=== PATIENT | female | born 1950 | race Caucasian/White ===

== ENCOUNTER → 2018-04-23 08:47 | Outpatient (CLI) | payer MEDICARE, SELFPAY ==
--- NOTE | 2018-04-23 08:51 | BI_ITS ---
MAMMOGRAPHY - BILATERAL SCREENING REASON FOR EXAM: Female, 68 years old. Routine annual screening examination. PERTINENT HISTORY: Personal history of breast cancer. Prior left lumpectomy. Mother with breast cancer. TECHNIQUE: Digital bilateral breast delmer (3D mammographic acquisition) in the CC and MLO projections. 2-D mediolateral oblique (MLO) and craniocaudad (CC) views of both breasts were obtained. CAD: Full Field Digital Mammography with Computer Added Detection was performed. COMPARISON: Comparison is made with prior examination of April 10, 2017 and March 28, 2016. FINDINGS: Breast Composition: There are scattered areas of fibroglandular density. There are no dominant masses or suspicious calcifications. Stable architectural distortion is seen in the inferior midportion of the left breast at the surgical site. This is unchanged. No other significant abnormalities are identified. There has been no significant change since the prior study. BI/SCREENING MAMM (CAD), BILAT IMPRESSION: Stable bilateral screening mammogram. Yearly follow-up mammogram recommended. (A) ASSESSMENT CATEGORY: BIRADS Category 2: Benign. A letter regarding these results will be sent to the patient by the facility within 30 days. Approximately 10% of breast cancers are not detected by mammography. A normal mammogram should not delay biopsy of a clinically suspicious abnormality. [id number] Electronically Signed: Pablo Manzo MD at 10:20 EST Tel [phone], Service support ,
--- OUTSIDE RECORDS SUMMARY | 2018-06-18 08:31 | XMS RPT_ITS | Clinical Summary ---
:[address] [facility], [facility] Address [address] [place] [phone] Phone Care Team Providers Name Role Phone Andmatty, Evelyne A Unavailable Unavailable Conditions or Problems No information available. Medications Medication Instructions Start Stop Generic Name NDC Provider Date Date TAMOXIFEN One tablet by TAMOXIFEN 80626335042 Evelyne A CITRATE 20 MG mouth daily 21 CITRATE Andriessen TABS ATORVASTATIN One tablet by ATORVASTATIN [id number] Evelyne A CALCIUM 10 MG mouth daily 21 CALCIUM Andriessen TABS Medications Administered No information available. Allergies, Adverse Reactions, Alerts No information available. Results Date Name Value Unit Range Flag Description Clinical Lists Update: Preload SMOK STATUS Never smoker Tobacco use [facility] Plan of Care Type Date Detail Appointment 09:00 AM Yanna Sinclair MD, [address] [place] [address], Third [facility], [place], [address], Procedures No information available. Vital Signs No information available.
--- OUTSIDE RECORDS SUMMARY | 2018-06-18 08:31 | XMS RPT_ITS | Clinical Summary ---
:1950 Author Organization [facility], [facility] Address [address] [place] [phone] Phone Care Team Providers Name Role Phone Yahir TINOCO, Yanna Aragon Unavailable Conditions or Problems Problem Problem Onset Status Entry Provider Comment Standard Annotate Name Code Date Date Description Screening [id number] Active Yanna Aragon Screening mammogram (SN Yahir mammography for breast CT) cancer Medications Medication Instructions Start Stop Generic Name NDC Provider Date Date TAMOXIFEN One tablet by TAMOXIFEN [id number] Evelyne A CITRATE 20 MG mouth daily 21 CITRATE Andriessen TABS ATORVASTATIN One tablet by ATORVASTATIN [id number] Evelyne A CALCIUM 10 MG mouth daily 21 CALCIUM Andriessen TABS Medications Administered No information available. Allergies, Adverse Reactions, Alerts No information available. Results Date Name Value Unit Range Flag Description Clinical Lists Update: Preload SMOK STATUS Never smoker Tobacco use [facility] Plan of Care Type Date Detail Appointment 09:00 AM Yanna Sinclair MD, [address] [place] [address], Third [facility], [place], [phone], Pending order Mammogram, Screening, both breasts Procedures No information available. Vital Signs No information available.
--- OUTSIDE RECORDS SUMMARY | 2018-06-18 08:32 | XMS RPT_ITS ---
:1950 Author Organization [place] Care Team Providers Name Role Phone ELIJAH CROOKS (MARSHA) Attending Unavailable ELIJAH CROOKS (MARSHA) Referring Unavailable CEBUL III, JOSÉ Barrera Referring Unavailable CEBUL III, JOSÉ Barrera Referring Unavailable DONAVON MACKEY Admitting Unavailable DONAVON MACKEY Attending Unavailable DONAVON MACKEY Referring Unavailable CEBUL III, JOSÉ Barrera Attending Unavailable ELIJAH CROOKS (MARSHA) Attending Unavailable ELIJAH CROOKS (MARSHA) Referring Unavailable Elijah Crooks CHUTE GREASER-Anoop Attending Unavailable Cebul III, José Primary Care Unavailable Elijah Crooks CHUTE GREASER-C Referring Unavailable PROBLEMS PROBLEMS DATE TYPE CONDITION / CODE ATTENDING STATUS SOURCE 04/30/2018 Active Unknown / VALERIY, Active [facility] UNK(Unknown) ELIJAH (MARSHA) Main [place] Repository 04/23/2018 Unknown Z12.31 - Richa Crooks Encounter for Elijah CARPENTER-Anoop [facility] screening Hospital mammogram for Repository malignant neoplasm of breast / Z12.31(ICD-10) 04/23/2018 Unknown D05.12 - Valeriy, Active [facility] Elijah CARPENTER-Anoop [facility] carcinoma in situ Hospital of left breast / Repository D05.12(ICD-10) 01/08/2018 Active Hypothyroidism, NA Active [facility] unspecified / Main [facility] E03.9(ICD-10) Repository 09/20/2015 Active Hyperlipidemia, NA Active [facility] unspecified / Main [facility] E78.5(ICD-10) Repository 10/29/2013 Active Other specified NA Active [facility] disorders of bone [facility] density and Repository structure, unspecified site / M85.80(ICD-10) 07/04/2017 Active Encounter for NARENDRA, Active [facility] screening for DONAVON T [facility] malignant Repository neoplasm of colon / Z12.11(ICD-10) PROCEDURES PROCEDURES No Procedure Records FoundRESULTS RESULTS PROGRESS Observed: 04/30/2018 Status: COMPLETED Source: [place] 10:32 AM [facility] REPOSITORY HNO ID: [id number] Author: Elijah Crooks Service: (none) Author Type: Nurse Practitioner Type: Progress Notes Filed: 04/30/2018 11:39 AM Note Text: Chief Complaint Patient presents with: Established Patient HPI: Alisa Johnson is a 68 year old female who presents here today for follow up DCIS. Per Dr. Pedro's previous note: H/o observed to have an abnormality in her left breast on a screening mammogram done in December 2014. She underwent stereotactic guided biopsy. The pathology demonstrated intermediate grade DCIS. ?? Ultimately underwent a lumpectomy here in [place]. The final pathology demonstrated a focus of DCIS measuring less than 1 mm. Architecture was cribriform. Grade was low. No necrosis was observed. Margins were negative. There was a reexcision of the posterior margin which contained 0.5 cm of breast tissue without evidence of DCIS. Closest margin was 5 mm. Estrogen and progesterone receptors were positive. ?? Current therapy: 1) Tamoxifen. ?Began fall 2014. ? No complaints. ?? Appetite:good Energy level:good Denies fevers or recent illness. Resp:denies cough or sob, occ. chandra long distances Cardiac:denies chest pain/palpitations GI:denies abd pain, n/v, moving bowels regularly :denies dysuria/hematuria Extrem:denies pain to back/bones/joints, the cramping is better. 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 ? The ROS is otherwise negative. Past medical history, appointments, medications, allergies reviewed. No changes. EXAM: BP 149/80 Pulse 80 Temp 36.8 ?C (98.3 ?F) (Oral) Wt 76 kg (167 lb 8 oz) BMI 28.53 kg/m? APPEARANCE Well appearing, alert, in no acute distress, well-hydrated, well nourished. HEART RRR with normal S1 and S2, no murmurs LUNG clear to auscultation BREAST FEMALE no mass/nodule b/l LYMPH NODES No cervical lymphadenopathy, No supraclavicular lymphadenopathy and No axillary lymphadenopathy. ABDOMEN bowel sounds normoactive, soft, non-tender, non-distended, without organomegaly or palpable masses EXTREMITIES No edema NEURO Awake, alert and oriented x 3, Normal gait and No involuntary motions. SKIN Skin color, texture, turgor normal, no suspicious rashes or lesions ASSESSMENT/PLAN: 1. 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 - ?Tamoxifen-tolerating well. leg cramping much improved. Continue. - Reviewed mammogram with pt. - Mammogram due in 2018. Pt. has this done at [facility]. - ?Follow up in 6 months. - ?Pt. aware to call office with any questions/concerns. ? ? The patient indicates understanding of these issues and agrees with the plan. Elijah Crooks APRN.CNP CNOVSP Observed: 04/30/2018 Status: COMPLETED Source: [place] 10:30 AM [facility] REPOSITORY Visit (SP) Office (NADER) ALISA JOHNSON ([id number]) 1950 F Date Time Provider Department 04/30/18 10:30 AM ELIJAH CROOKS During your visit today, we recorded the following information about you: Temperature Pulse Blood pressure Weight 98.3 degrees 80/minute 149/80 76 kg Elijah Crooks APRN.CNP 04/30/2018 11:39 AM Signed Chief Complaint Patient presents with: Established Patient HPI: Alisa Johnson is a 68 year old female who presents here today for follow up DCIS. Per Dr. Pedro's previous note: H/o observed to have an abnormality in her left breast on a screening mammogram done in December 2014. She underwent stereotactic guided biopsy. The pathology demonstrated intermediate grade DCIS. ?? Ultimately underwent a lumpectomy here in [place]. The final pathology demonstrated a focus of DCIS measuring less than 1 mm. Architecture was cribriform. Grade was low. No necrosis was observed. Margins were negative. There was a reexcision of the posterior margin which contained 0.5 cm of breast tissue without evidence of DCIS. Closest margin was 5 mm. Estrogen and progesterone receptors were positive. ?? Current therapy: 1) Tamoxifen. ?Began fall 2014. ? No complaints. ?? Appetite:good Energy level:good Denies fevers or recent illness. Resp:denies cough or sob, occ. chandra long distances Cardiac:denies chest pain/palpitations GI:denies abd pain, n/v, moving bowels regularly :denies dysuria/hematuria Extrem:denies pain to back/bones/joints, the cramping is better. 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 ? The ROS is otherwise negative. Past medical history, appointments, medications, allergies reviewed. No changes. EXAM: BP 149/80 Pulse 80 Temp 36.8 ?C (98.3 ?F) (Oral) Wt 76 kg (167 lb 8 oz) BMI 28.53 kg/m? APPEARANCE Well appearing, alert, in no acute distress, well- hydrated, well nourished. HEART RRR with normal S1 and S2, no murmurs LUNG clear to auscultation BREAST FEMALE no mass/nodule b/l LYMPH NODES No cervical lymphadenopathy, No supraclavicular lymphadenopathy and No axillary lymphadenopathy. ABDOMEN bowel sounds normoactive, soft, non-tender, non-distended, without organomegaly or palpable masses EXTREMITIES No edema NEURO Awake, alert and oriented x 3, Normal gait and No involuntary motions. SKIN Skin color, texture, turgor normal, no suspicious rashes or lesions ASSESSMENT/PLAN: 1. 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 - ?Tamoxifen-tolerating well. leg cramping much improved. Continue. - Reviewed mammogram with pt. - Mammogram due in 2018. Pt. has this done at [facility]. - ?Follow up in 6 months. - ?Pt. aware to call office with any questions/concerns. ? ? The patient indicates understanding of these issues and agrees with the plan. Elijah Crooks APRN.DRIVER STARTING GATE Referring Provider: ELIJAH CROOKS [[id number]] Allergies As of Date: 04/30/2018 Noted Allergy Reaction CODEINE 02/27/2005 8 - GI Upset NAPROSYN (NAPROXEN) 02/27/2005 8 - GI Upset TAVIST (CLEMASTINE FUMARATE) 02/27/2005 8 - GI Upset Date Reviewed: 04/30/2018 Reviewed by: Elijah Crooks - Fully Assessed Reason for Visit: Established Patient [175] Primary Visit Diagnosis:Ductal carcinoma in situ (DCIS) of left breast [D05.12] Follow-up and Disposition History Recorded Prescriptions as of 04/30/2018 Sig: ATORVASTATIN 10 MG TABLET Take 1 tablet by mouth once d* TAMOXIFEN 20 MG TABLET Take 1 tablet by mouth once d* CALCIUM + D ORAL Take 2 tablets by mouth twice* * MULTIVITAMIN CAPSULE Take one(1) tablet daily. Problem List As Of Date 04/30/2018 Noted Resolved Dysmetabolic syndrome X [E88.81] INVALID FOR*05/09/2014 GERD (gastroesophageal reflux disease) [K21.9] INVALID FOR*09/28/2015 Postmenopausal atrophic vaginitis [N95.2] INVALID FOR* Osteopenia [M85.80] INVALID FOR* Hyperlipidemia with target LDL less than 100 [E*INVALID FOR* Ductal carcinoma in situ (DCIS) of left breast *INVALID FOR* Encounter Status:Closed by ELIJAH CROOKS DRIVER STARTING GATE on 04/30/18 SCREENING MAMM (CAD), Observed: 04/23/2018 Status: F Source: [place] 8:51 AM [facility] REPOSITORY [facility] Imaging Services [address] [place] [address] SCREENING MAMM (CAD), BILAT MR#: [id number] Acct: [id number] Name: ALISA JOHNSON Rep #: [id number] : 1950 F 68 From: Pablo Manzo MD PCP: José Conti III, MD Status: REG CLI Study: SCREENING MAMM (CAD), BILAT Date of Exam: 04/23/18 Exam# [id number] Ordering Dr: Elijah Crooks CHUTE GREASER-C MAMMOGRAPHY - BILATERAL SCREENING REASON FOR EXAM: Female, 68 years old. Routine annual screening examination. PERTINENT HISTORY: Personal history of breast cancer. Prior left lumpectomy. Mother with breast cancer. TECHNIQUE: Digital bilateral breast dana (3D mammographic acquisition) in the CC and MLO projections. 2-D mediolateral oblique (MLO) and craniocaudad (CC) views of both breasts were obtained. CAD: Full Field Digital Mammography with Computer Added Detection was performed. COMPARISON: Comparison is made with prior examination of April 10, 2017 and March 28, 2016. FINDINGS: Breast Composition: There are scattered areas of fibroglandular density. There are no dominant masses or suspicious calcifications. Stable architectural distortion is seen in the inferior midportion of the left breast at the surgical site. This is unchanged. No other significant abnormalities are identified. There has been no significant change since the prior study. BI/SCREENING MAMM (CAD), BILAT IMPRESSION: Stable bilateral screening mammogram. Yearly follow-up mammogram recommended. (A) ASSESSMENT CATEGORY: BIRADS Category 2: Benign. A letter regarding these results will be sent to the patient by the facility within 30 days. Approximately 10% of breast cancers are not detected by mammography. A normal mammogram should not delay biopsy of a clinically suspicious abnormality. [id number] Electronically Signed: Pablo Manzo MD at 10:20 EST Tel [phone], Service support , CC: GAGE Crooks; José Conti III, MD Berry Planter: Signed FREE T4 Collected: 01/08/2018 Status: F Source: [place] 8:20 AM [facility] REPOSITORY TYPE CODE TESTS RESULT OUT OF RANGE REFERENCE UNITS LAB FT4 0.9-1.7 ng/dL Free T4 1.5 Performed By: #### FT4, TSH #### [facility] [address] [address], [place] [address] TSH Collected: 01/08/2018 Status: F Source: [place] 8:20 AM [facility] REPOSITORY TYPE CODE TESTS RESULT OUT OF RANGE REFERENCE UNITS LAB TSH 0.400-5.500 uU/mL TSH 1.290 Performed By: #### FT4, TSH #### [facility] [address] [place], [place] [address] PROGRESS Observed: 11/06/2017 Status: COMPLETED Source: [place] 10:05 AM [facility] REPOSITORY HNO ID: [id number] Author: José Conti III Service: (none) Author Type: Physician Type: Progress Notes Filed: 11/06/2017 12:54 PM Note Text: Medicare Yearly Visit Date of last exam 08/29/2016 Current Outpatient Prescriptions on File Prior to Visit: tamoxifen (NOLVADEX) 20 mg tablet Take 1 tablet by mouth once daily. atorvastatin (LIPITOR) 10 mg tablet TAKE 1 TABLET EVERY DAY CALCIUM CARBONATE/VITAMIN D3 (CALCIUM + D ORAL) Take 2 tablets by mouth twice daily. MULTIVITAMIN CAP Take one(1) tablet daily. No current facility-administered medications on file prior to visit. PAST MEDICAL HISTORY Diagnosis Date - Ductal carcinoma in situ (DCIS) of left breast December, on tamoxifen - Hyperlipidemia LDL goal < 100 05/09/2014 - Nocturia PAST SURGICAL HISTORY Procedure Laterality Date - BREAST LUMPECTOMY HX 02/16/2015 Left breast - COLONOSCOP W/ OR W/O [facility] SPEC 02/02/2007 Colonoscopy - COLONOSCOP W/ OR W/O [facility] SPEC 07/04/2017 Colonoscopy - LIGATE FALLOPIAN TUBE Tubal ligation Codeine; Naprosyn [Naproxen]; Tavist [Clemastine Fumarate] Medications reviewed: Yes FAMILY HISTORY Problem Relation Age of Onset - Diabetes Paternal Grandmother - Diabetes Father - Heart Father 4 X BYPASS - Heart Maternal Grandmother - Coronary Artery Disease Maternal Aunt - Coronary Artery Disease Maternal Aunt - Cancer Brother 12 RCC--Surgically excised. Alive and well now. - Parkinson's disease [Other] [OTHER] Brother - None Brother - None Brother - Macular Degeneration [Other] [OTHER] Mother - Breast Cancer Mother 76 Surgery then radiation and tamoxifen - Stroke Father SOCIAL HISTORY: Social History Marital status: Spouse name: Nery Years of education: 13 Number of children: 2 Occupational History Occupation Employer Comment [employer] Social History Main Topics Smoking status: Never Smoker Smokeless tobacco: Never Used Alcohol use: Yes Comment: rarely Drug use: No Sexual activity: Yes Comment: Postmenopausal Alisa works out regularly 2 times per week with walking and recumbent bike. She watches her diet for sodium, low fat and low cholesterol most of the time. List of current specialists seen: Oncology End of Live Planning discussed including patients advanced directive wishes: Yes I am willing to follow Alisa's advanced directives. Depression screen She in the past two weeks denies having felt down. Functional Ability/Safety Screen 1. Was the patient's timed Up and Go test unsteady or longer than 30 seconds? No 2. Does the patient need help with the phone, transportation, shopping,preparing meals, housework, laundry, medications or managing money? No 3. Does your home have rugs in the hallway, lack of grab bars in the bathroom, lack of handrails on the stairs or have poor lighting? No Hearing Evaluation: normal PHYSICAL EXAM BP 145/81 Pulse 78 Resp 16 Ht 163.2 cm (5' 4.25) Wt 74.8 kg (165 lb) BMI 28.10 kg/m? BP There were no vitals taken for this visit. Alert and oriented X 3: YES There is no height or weight on file to calculate BMI. Visual acuity: Dr. George in [place] Lab Results for ALISA JOHNSON ( ) as of 11/06/2017 10:18 Ref. Range 09/18/2017 07:50 Sodium Latest Ref Range: 136 - 144 mmol/L 137 Potassium Latest Ref Range: 3.7 - 5.1 mmol/L 4.4 Chloride Latest Ref Range: 97 - 105 mmol/L 98 CO2 Latest Ref Range: 22 - 30 mmol/L 26 BUN Latest Ref Range: 7 - 21 mg/dL 15 Creatinine Latest Ref Range: 0.58 - 0.96 mg/dL 0.83 Glucose Latest Ref Range: 74 - 99 mg/dL 87 Protein, Total Latest Ref Range: 6.3 - 8.0 g/dL 6.7 Calcium Latest Ref Range: 8.5 - 10.2 mg/dL 9.2 Albumin Latest Ref Range: 3.9 - 4.9 g/dL 4.4 Bilirubin, Total Latest Ref Range: 0.2 - 1.3 mg/dL 0.4 Alkaline Phosphatase Latest Ref Range: 32 - 117 U/L 37 ALT Latest Ref Range: 7 - 38 U/L 17 AST Latest Ref Range: 13 - 35 U/L 20 Anion Gap Latest Ref Range: 9 - 18 mmol/L 13 eGFR- Unknown >60 eGFR-All Other Races Latest Units: . >60 Cholesterol, Total Latest Ref Range: <200 mg/dL 142 Triglyceride Latest Ref Range: <150 mg/dL 94 Fasting Time Latest Units: hrs 14 HDL Cholesterol Latest Ref Range: >39 mg/dL 69 LDL Cholesterol Latest Ref Range: <100 mg/dL 54 VLDL Cholesterol Latest Ref Range: <30 mg/dL 19 TC:HDL Ratio Latest Ref Range: <5.10 2.06 LDL:HDL Ratio Latest Ref Range: <2.54 0.78 Non HDL Cholesterol Latest Ref Range: <130 mg/dL 73 ASSESSMENT/PLAN: 67 year old female The following prevention plan was discussed during the office visit and provided to the patient: - Lipid panel I recommend Shingrix and tetanus booster Same medications José Conti III MD José Conti III MD LIANG Observed: 11/06/2017 Status: COMPLETED Source: [place] 9:40 AM [facility] REPOSITORY [facility] ALISA JOHNSON ([id number]) 1950 F Date Time Provider Department 11/06/17 9:40 AM JOSÉ CONTI III During your visit today, we recorded the following information about you: Pulse Respiration Blood pressure Weight 78/minute 16/minute 145/81 74.8 kg Height 1.632 m José Conti III MD 11/06/2017 12:54 PM Signed Medicare Yearly Visit Date of last exam 08/29/2016 Current Outpatient Prescriptions on File Prior to Visit: tamoxifen (NOLVADEX) 20 mg tablet Take 1 tablet by mouth once daily. atorvastatin (LIPITOR) 10 mg tablet TAKE 1 TABLET EVERY DAY CALCIUM CARBONATE/VITAMIN D3 (CALCIUM + D ORAL) Take 2 tablets by mouth twice daily. MULTIVITAMIN CAP Take one(1) tablet daily. No current facility-administered medications on file prior to visit. PAST MEDICAL HISTORY Diagnosis Date - Ductal carcinoma in situ (DCIS) of left breast December, on tamoxifen - Hyperlipidemia LDL goal < 100 05/09/2014 - Nocturia PAST SURGICAL HISTORY Procedure Laterality Date - BREAST LUMPECTOMY HX 02/16/2015 Left breast - COLONOSCOP W/ OR W/O [facility] SPEC 02/02/2007 Colonoscopy - COLONOSCOP W/ OR W/O [facility] SPEC 07/04/2017 Colonoscopy - LIGATE FALLOPIAN TUBE Tubal ligation Codeine; Naprosyn [Naproxen]; Tavist [Clemastine Fumarate] Medications reviewed: Yes FAMILY HISTORY Problem Relation Age of Onset - Diabetes Paternal Grandmother - Diabetes Father - Heart Father 4 X BYPASS - Heart Maternal Grandmother - Coronary Artery Disease Maternal Aunt - Coronary Artery Disease Maternal Aunt - Cancer Brother 12 RCC--Surgically excised. Alive and well now. - Parkinson's disease [Other] [OTHER] Brother - None Brother - None Brother - Macular Degeneration [Other] [OTHER] Mother - Breast Cancer Mother 76 Surgery then radiation and tamoxifen - Stroke Father SOCIAL HISTORY: Social History Marital status: Spouse name: Nery Years of education: 13 Number of children: 2 Occupational History Occupation Employer Comment [employer] Social History Main Topics Smoking status: Never Smoker Smokeless tobacco: Never Used Alcohol use: Yes Comment: rarely Drug use: No Sexual activity: Yes Comment: Postmenopausal Alisa works out regularly 2 times per week with walking and recumbent bike. She watches her diet for sodium, low fat and low cholesterol most of the time. List of current specialists seen: Oncology End of Live Planning discussed including patients advanced directive wishes: Yes I am willing to follow Alisa's advanced directives. Depression screen She in the past two weeks denies having felt down. Functional Ability/Safety Screen 1. Was the patient's timed Up and Go test unsteady or longer than 30 seconds? No 2. Does the patient need help with the phone, transportation, shopping,preparing meals, housework, laundry, medications or managing money? No 3. Does your home have rugs in the hallway, lack of grab bars in the bathroom, lack of handrails on the stairs or have poor lighting? No Hearing Evaluation: normal PHYSICAL EXAM BP 145/81 Pulse 78 Resp 16 Ht 163.2 cm (5' 4.25) Wt 74.8 kg (165 lb) BMI 28.10 kg/m? BP There were no vitals taken for this visit. Alert and oriented X 3: YES There is no height or weight on file to calculate BMI. Visual acuity: Dr. George in [place] Lab Results for ALISA JOHNSON ( ) as of 11/06/2017 10:18 Ref. Range 09/18/2017 07:50 Sodium Latest Ref Range: 136 - 144 mmol/L 137 Potassium Latest Ref Range: 3.7 - 5.1 mmol/L 4.4 Chloride Latest Ref Range: 97 - 105 mmol/L 98 CO2 Latest Ref Range: 22 - 30 mmol/L 26 BUN Latest Ref Range: 7 - 21 mg/dL 15 Creatinine Latest Ref Range: 0.58 - 0.96 mg/dL 0.83 Glucose Latest Ref Range: 74 - 99 mg/dL 87 Protein, Total Latest Ref Range: 6.3 - 8.0 g/dL 6.7 Calcium Latest Ref Range: 8.5 - 10.2 mg/dL 9.2 Albumin Latest Ref Range: 3.9 - 4.9 g/dL 4.4 Bilirubin, Total Latest Ref Range: 0.2 - 1.3 mg/dL 0.4 Alkaline Phosphatase Latest Ref Range: 32 - 117 U/L 37 ALT Latest Ref Range: 7 - 38 U/L 17 AST Latest Ref Range: 13 - 35 U/L 20 Anion Gap Latest Ref Range: 9 - 18 mmol/L 13 eGFR- Unknown >60 eGFR-All Other Races Latest Units: . >60 Cholesterol, Total Latest Ref Range: <200 mg/dL 142 Triglyceride Latest Ref Range: <150 mg/dL 94 Fasting Time Latest Units: hrs 14 HDL Cholesterol Latest Ref Range: >39 mg/dL 69 LDL Cholesterol Latest Ref Range: <100 mg/dL 54 VLDL Cholesterol Latest Ref Range: <30 mg/dL 19 TC:HDL Ratio Latest Ref Range: <5.10 2.06 LDL:HDL Ratio Latest Ref Range: <2.54 0.78 Non HDL Cholesterol Latest Ref Range: <130 mg/dL 73 ASSESSMENT/PLAN: 67 year old female The following prevention plan was discussed during the office visit and provided to the patient: - Lipid panel I recommend Shingrix and tetanus booster Same medications YARITZA Garza MD, III MD Frank A Cebul, III MD 11/06/2017 10:37 AM Signed I recommend Shingrix and tetanus booster Same medications José Conti III MD Referring Provider: SELF [[id number]] Allergies As of Date: 11/06/2017 Noted Allergy Reaction CODEINE 02/27/2005 8 - GI Upset NAPROSYN (NAPROXEN) 02/27/2005 8 - GI Upset TAVIST (CLEMASTINE FUMARATE) 02/27/2005 8 - GI Upset Date Reviewed: 11/06/2017 Reviewed by: [place] ([facility]) TRISTAN Berkowitz - Fully Assessed Reason for Visit: CPE (Medicare) [1702] Primary Visit Diagnosis:Ductal carcinoma in situ (DCIS) of left breast [D05.12] Other Visit Diagnoses:Hyperlipidemia with target LDL less than 100 [E78.5] Medicare annual wellness visit, subsequent [Z00.00] Order(s):atorvastatin (LIPITOR) 10 mg tabletTake 1 tablet by mouth once daily.Disp: 90 tabletRfl: 3 Prescriptions as of 11/06/2017 Sig: ATORVASTATIN 10 MG TABLET Take 1 tablet by mouth once d* TAMOXIFEN 20 MG TABLET Take 1 tablet by mouth once d* CALCIUM + D ORAL Take 2 tablets by mouth twice* * MULTIVITAMIN CAPSULE Take one(1) tablet daily. Problem List As Of Date 11/06/2017 Noted Resolved Dysmetabolic syndrome X [E88.81] INVALID FOR*05/09/2014 GERD (gastroesophageal reflux disease) [K21.9] INVALID FOR*09/28/2015 Postmenopausal atrophic vaginitis [N95.2] INVALID FOR* Osteopenia [M85.80] INVALID FOR* Hyperlipidemia with target LDL less than 100 [E*INVALID FOR* Ductal carcinoma in situ (DCIS) of left breast *INVALID FOR* Other instructions from your clinician: I recommend Shingrix and tetanus booster Same medications José Conti III MD Prescriptions ordered this encounter Disp Refills Start End ATORVASTATIN 10 MG TABLET 90 t* 3 11/06/2017 Class: [employer] Route: ORAL Sig: Take 1 tablet by mouth once daily. Medications Discontinued During This Encounter atorvastatin (LIPITOR) 10 mg tablet 90 t* 0 08/15/2017 11/06/2017 Sig: TAKE 1 TABLET EVERY DAY Disc: Reason for discontinue is not on file. Encounter Status:Closed by JOSÉ CONTI III, MD on 11/06/17 COMP METABOLIC PANEL Collected: 09/18/2017 Status: F Source: [place] 7:50 AM [facility] REPOSITORY TYPE CODE TESTS RESULT OUT OF REFERENCE UNITS RANGE LAB TP 6.3-8.0 g/dL Protein, Total 6.7 LAB ALB 3.9-4.9 g/dL Albumin 4.4 LAB CA 8.5-10.2 mg/dL Calcium, Total 9.2 LAB TBIL 0.2-1.3 mg/dL Bilirubin, Total 0.4 LAB ALKP 32-117 U/L Alkaline Phosphatase 37 LAB AST 13-35 U/L AST 20 LAB GLU 74-99 mg/dL Glucose 87 Result Comment: The [place] [employer] (ADA) provides guidance for cutoff values for fasting glucose and random glucose. The ADA defines fasting as no caloric intake for at least 8 hours. Fas ting plasma glucose results between 100 to 125 mg/dL indicate increased risk for diabetes (prediabetes). Fasting plasma glucose results greater than or equal to 126 mg/dL meet the criteria for diagnosis of diabetes. In the absence of unequivocal hyperglycemia, results should be confirmed by repeat testing. In a patient with classic symptoms of hyperglycemia or hyperglycemic crisis, random plasma glucose results greater than or equal to 200 mg/dL meet the criteria for diagnosis of diabetes. Reference: Standards of Medical Care in Diabetes 2016, [place] [employer]. Diabetes Care. 2016.39(Suppl 1). LAB BUN 7-21 mg/dL BUN 15 LAB CRET 0.58-0.96 mg/dL Creatinine 0.83 LAB NA 136-144 mmol/L Sodium 137 LAB K 3.7-5.1 mmol/L Potassium 4.4 LAB CL 97-105 mmol/L Chloride 98 LAB CO2 22-30 mmol/L CO2 26 LAB AGAP 9-18 mmol/L Anion Gap 13 LAB ALT 7-38 U/L ALT 17 LAB GFRAA eGFR- Amer. >60 LAB GFRNAA . eGFR-All Other Races >60 Result Comment: eGFR (Estimated GFR) Units of measure: mL/min/1.73 meters squared eGFR is derived from the reexpressed MDRD Study equation using the following parameters: serum creatinine, age, gender and race. The creatinine assay has been calibrated to be traceable to IDMS. An eGFR <60 mL/min/1.73m2 for >3 months is consistent with chronic kidney disease. Refer to KDOQI guidelines for clinical interpretation. In patients with unstable renal function, e.g. those with acute kidney injury, the eGFR may not accurately reflect actual GFR. Performed By: #### CMP, LIPB #### [facility] [address] [place], [place] [address] LIPID PANEL, BASIC Collected: 09/18/2017 Status: F Source: [place] 7:50 AM [facility] REPOSITORY TYPE CODE TESTS RESULT OUT OF REFERENCE UNITS RANGE LAB CHOL <200 mg/dL Cholesterol 142 Result Comment: <200 mg/dL, Desirable 200-239 mg/dL, Borderline high >239 mg/dL, High LAB TRIGLY <150 mg/dL Triglyceride 94 Result Comment: <150 mg/dL, Normal 150-199 mg/dL, Borderline high 200-499 mg/dL, High >499 mg/dL, Very high LAB HDL >39 mg/dL HDL-Cholesterol 69 Result Comment: 40-59 mg/dL, Acceptable >59 mg/dL, High: Negative risk factor for coronary heart disease <40 mg/dL, Low: Positive risk factor for coronary heart disease LAB LDL <100 mg/dL LDL-Cholesterol 54 Result Comment: <100 mg/dL, Optimal 100-129 mg/dL, Near optimal/above optimal 130-159 mg/dL, Borderline high 160-189 mg/dL, High >189 mg/dL, Very high Secondary prevention optimal LDL Cholesterol levels are recommended to be < 70 mg/dL LAB NONHDL <130 mg/dL Non HDL Cholesterol 73 Result Comment: <130 mg/dL, Optimal 130-159 mg/dL, Near optimal/above optimal 160-189 mg/dL, Borderline high 190-219 mg/dL, High >219 mg/dL, Very high Secondary prevention optimal non HDL Cholesterol levels are recommended to be < 100 mg/dL LAB FT hrs Fasting Time 14 LAB VLDL <30 mg/dL VLDL Cholesterol 19 LAB TCHDL <5.10 TC:HDL Ratio 2.06 LAB LDLHDL <2.54 LDL:HDL Ratio 0.78 Result Comment: Reference: 1. National Cholesterol Education Program ATP III Guideline At-A-Glance Quick Desk Reference: National Heart, Lung, and Blood [place]. National Institutes of Health. 2001: NIH Publication No. 01-3305. 2. An International Atherosclerosis Society position paper: global recommendations for the management of dyslipidemia: executive summary, Atherosclerosis. 2014: 232(2):410-413. Performed By: #### CMP, LIPB #### [facility] [address] [place], [place] [address] PROGRESS Observed: 08/28/2017 Status: COMPLETED Source: [place] 9:05 AM [facility] REPOSITORY O ID: [id number] Author: Elijah Crooks Service: (none) Author Type: Nurse Practitioner Type: Progress Notes Filed: 08/28/2017 1:12 PM Note Text: Chief Complaint Patient presents with: Established Patient HPI: Alisa Johnson is a 67 year old female who presents here today for follow up DCIS. Per Dr. Pedro's previous note: H/o observed to have an abnormality in her left breast on a screening mammogram done in December 2014. She underwent stereotactic guided biopsy. The pathology demonstrated intermediate grade DCIS. ?? Ultimately underwent a lumpectomy here in [place]. The final pathology demonstrated a focus of DCIS measuring less than 1 mm. Architecture was cribriform. Grade was low. No necrosis was observed. Margins were negative. There was a reexcision of the posterior margin which contained 0.5 cm of breast tissue without evidence of DCIS. Closest margin was 5 mm. Estrogen and progesterone receptors were positive. ?? Current therapy: 1) Tamoxifen. ? No complaints. ?? Appetite:too good Energy level:good Denies fevers. Resp:denies cough or sob Cardiac:denies chest pain/palpitations GI:denies abd pain, n/v, moving bowels regularly-takes probiotic daily :denies dysuria/hematuria Extrem:denies pain to back/bones/joints, the cramping is 90% better. Endo:+hot flashes only when I have a customer that drives me crazy. 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 ? The ROS is otherwise negative. Past medical history, appointments, medications, allergies reviewed. No changes. EXAM: BP 136/82 Pulse 80 Temp 36.9 ?C (98.5 ?F) (Oral) Wt 76.7 kg (169 lb) BMI 29.01 kg/m2 APPEARANCE Well appearing, alert, in no acute distress, well-hydrated, well nourished. HEART RRR with normal S1 and S2, no murmurs LUNG clear to auscultation BREAST FEMALE no mass/nodule b/l LYMPH NODES No cervical lymphadenopathy, No supraclavicular lymphadenopathy and No axillary lymphadenopathy. ABDOMEN bowel sounds normoactive, no bruits, soft, non-tender, non-distended, without organomegaly or palpable masses EXTREMITIES No edema NEURO Awake, alert and oriented x 3, Normal gait and No involuntary motions. SKIN Skin color, texture, turgor normal, no suspicious rashes or lesions ASSESSMENT/PLAN: 1. Ductal carcinoma in situ (DCIS) of left breast - ICD9: 233.0, ICD10: D05.12 (primary diagnosis) 2. Encounter for screening mammogram for high-risk patient - ICD9: V76.11, ICD10: Z12.31 - No concerning findings on exam. - Tamoxifen-tolerating well. leg cramping much improved. Continue. Rx done. - Mammogram due in Nov. Pt. has this done at [facility]. - Follow up in 6 months-after mammogram. - Pt. aware to call office with any questions/concerns. The patient indicates understanding of these issues and agrees with the plan. Elijah Crooks APRN.DRIVER STARTING GATE CNOVSP Observed: 08/28/2017 Status: COMPLETED Source: [place] 9:00 [facility] REPOSITORY Visit (SP) Office (HEMANNITA) ALISA JOHNSON ([id number]) 1950 F Date Time Provider Department 08/28/17 9:00 AM ELIJAH CROOKS (MARSHA) NADER During your visit today, we recorded the following information about you: Temperature Pulse Blood pressure Weight 98.5 degrees 80/minute 136/82 76.7 kg Elijah Crooks APRN.CNP 08/28/2017 1:12 PM Signed Chief Complaint Patient presents with: Established Patient HPI: Alisa Johnson is a 67 year old female who presents here today for follow up DCIS. Per Dr. Pedro's previous note: H/o observed to have an abnormality in her left breast on a screening mammogram done in December 2014. She underwent stereotactic guided biopsy. The pathology demonstrated intermediate grade DCIS. ?? Ultimately underwent a lumpectomy here in [place]. The final pathology demonstrated a focus of DCIS measuring less than 1 mm. Architecture was cribriform. Grade was low. No necrosis was observed. Margins were negative. There was a reexcision of the posterior margin which contained 0.5 cm of breast tissue without evidence of DCIS. Closest margin was 5 mm. Estrogen and progesterone receptors were positive. ?? Current therapy: 1) Tamoxifen. ? No complaints. ?? Appetite:ANDquot;too goodANDquot; Energy level:good Denies fevers. 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 ? The ROS is otherwise negative. Past medical history, appointments, medications, allergies reviewed. No changes. EXAM: BP 136/82 Pulse 80 Temp 36.9 ?C (98.5 ?F) (Oral) Wt 76.7 kg (169 lb) BMI 29.01 kg/m2 APPEARANCE Well appearing, alert, in no acute distress, well- hydrated, well nourished. HEART RRR with normal S1 and S2, no murmurs LUNG clear to auscultation BREAST FEMALE no mass/nodule b/l LYMPH NODES No cervical lymphadenopathy, No supraclavicular lymphadenopathy and No axillary lymphadenopathy. ABDOMEN bowel sounds normoactive, no bruits, soft, non-tender, non-distended, without organomegaly or palpable masses EXTREMITIES No edema NEURO Awake, alert and oriented x 3, Normal gait and No involuntary motions. SKIN Skin color, texture, turgor normal, no suspicious rashes or lesions ASSESSMENT/PLAN: 1. Ductal carcinoma in situ (DCIS) of left breast - ICD9: 233.0, ICD10: D05.12 (primary diagnosis) 2. Encounter for screening mammogram for high-risk patient - ICD9: V76.11, ICD10: Z12.31 - No concerning findings on exam. - Tamoxifen-tolerating well. leg cramping much improved. Continue. Rx done. - Mammogram due in Nov. Pt. has this done at [facility]. - Follow up in 6 months-after mammogram. - Pt. aware to call office with any questions/concerns. The patient indicates understanding of these issues and agrees with the plan. Elijah Crooks APRN.DRIVER STARTING [employer]ATE Referring Provider: ELIJAH CROOKS ([facility]) [[id number]] Allergies As of Date: 08/28/2017 Noted Allergy Reaction CODEINE 02/27/2005 8 - GI Upset NAPROSYN (NAPROXEN) 02/27/2005 8 - GI Upset TAVIST (CLEMASTINE FUMARATE) 02/27/2005 8 - GI Upset Date Reviewed: 08/28/2017 Reviewed by: Elijah ([facility]) Valeriy - Fully Assessed Reason for Visit: Established Patient [175] Primary Visit Diagnosis:Ductal carcinoma in situ (DCIS) of left breast [D05.12] Other Visit Diagnosis:Encounter for screening mammogram for high-risk patient [Z12.31] Order(s):tamoxifen (NOLVADEX) 20 mg tabletTake 1 tablet by mouth once daily.Disp: 90 tabletRfl: 3 DOUGLAS SCREENING W DANA [[id number]] Order #: [id number] FUTURE Follow-up and Disposition History Recorded Prescriptions as of 08/28/2017 Sig: TAMOXIFEN 20 MG TABLET Take 1 tablet by mouth once d* ATORVASTATIN 10 MG TABLET TAKE 1 TABLET EVERY DAY CALCIUM + D ORAL Take 2 tablets by mouth twice* * MULTIVITAMIN CAPSULE Take one(1) tablet daily. Problem List As Of Date 08/28/2017 Noted Resolved Dysmetabolic syndrome X [E88.81] INVALID FOR*05/09/2014 GERD (gastroesophageal reflux disease) [K21.9] INVALID FOR*09/28/2015 Postmenopausal atrophic vaginitis [N95.2] INVALID FOR* Osteopenia [M85.80] INVALID FOR* Hyperlipidemia with target LDL less than 100 [E*INVALID FOR* Ductal carcinoma in situ (DCIS) of left breast *INVALID FOR* Encounter Status:Closed by ELIJAH CROOKS CNP on 08/28/17 NURSING PROG Observed: 07/04/2017 Status: COMPLETED Source: [place] 8:50 AM [facility] REPOSITORY HNO ID: [id number] Author: Tory Buenrostro) ESAU Herrera Service: (none) Author Type: Registered Nurse Type: Nursing Progress Note Filed: 07/04/2017 8:54 AM Note Text: Patient did not experience a fall prior to discharge. Patient did not experience a burn prior to discharge. Tory Herrera RN PT ED Observed: 07/04/2017 Status: COMPLETED Source: [place] 8:46 AM [facility] REPOSITORY HNO ID: [id number] Author: Tory Buenrostro) ESAU Herrera Service: (none) Author Type: Registered Nurse Type: Patient Education Filed: 07/04/2017 8:47 AM Note Text: POST OP LEARNING RESPONSE INSTRUCTION PROVIDED TO: Patient METHOD OF INSTRUCTION: Individual instruction Written instruction - handouts Verbal instruction PATIENT / FAMILY RESPONSE: Information received as demonstrated by interest and questions FOLLOW-UP PLAN: Follow up phone call. Repeat colonoscopy in 10 years SUPPLEMENTAL MATERIAL: Procedure discharge instructions REFERRAL (RECOMMENDATION): None Electronically Signed By: Tory Herrera RN In Department: AMBULATORY SURGERY NURSING PROG Observed: 07/04/2017 Status: COMPLETED Source: [place] 8:10 AM [facility] REPOSITORY HNO ID: [id number] Author: Tory Herrera RN Service: (none) Author Type: Registered Nurse Type: Nursing Progress Note Filed: 07/04/2017 8:48 AM Note Text: Arrived in phase II via cart. Left lateral position. Sedated, but responds to verbal stimuli. Color normal; skin warm and dry. Respirations wnl and unlabored. Abdomen soft and with + bowel sounds in quads X 4. Family at bedside. Patient resting comfortably. Dr. Mackey at bedside to review procedure and recommendations. Tory Herrera RN NURSING PROG Observed: 07/04/2017 Status: COMPLETED Source: [place] 8:08 AM [facility] REPOSITORY HNO ID: [id number] Author: Bijal Villalobos RN Service: (none) Author Type: Registered Nurse Type: Nursing Progress Note Filed: 07/04/2017 8:08 AM Note Text: Patient did not experience a fall within the Intraoperative area. Patient did not experience a burn within the Intraoperative area. Bijal Villalobos RN HISTORY PHYSICAL Observed: 07/04/2017 Status: COMPLETED Source: [place] 7:51 AM [facility] REPOSITORY HNO ID: [id number] Author: Donavon Mackey Service: General Surgery Author Type: Physician Type: HANDP Filed: 07/04/2017 7:51 AM Note Text: PROCEDURAL SEDATION HISTORY AND PHYSICAL EXAM SERVICE DATE: 07/04/2017 SERVICE TIME: 7:51 AM Subjective HPI: This is a 67 year old female who presents for screening colonoscopy PAST ANESTHESIA HISTORY: No history of adverse event PAST MEDICAL HISTORY Diagnosis Date - Ductal carcinoma in situ (DCIS) of left breast December, on tamoxifen - Hyperlipidemia LDL goal < 100 05/09/2014 - Nocturia PAST SURGICAL HISTORY Procedure Laterality Date - BREAST LUMPECTOMY HX 02/16/2015 Left breast - COLONOSCOP W/ OR W/O BRSH SPEC 02/02/2007 Colonoscopy - LIGATE FALLOPIAN TUBE Tubal ligation Prior to Admission medications as of 07/04/17 0622 Medication Sig Last Dose Taking atorvastatin (LIPITOR) 10 mg tablet TAKE 1 TABLET EVERY DAY 07/03/2017 at Unknown time Yes tamoxifen (NOLVADEX) 20 mg tablet TAKE 1 TABLET ONE TIME DAILY (SUBSTITUTED FOR NOLVADEX) 07/03/2017 at Unknown time Yes CALCIUM CARBONATE/VITAMIN D3 (CALCIUM + D ORAL) Take 2 tablets by mouth twice daily. 07/03/2017 at Unknown time Yes MULTIVITAMIN CAP Take one(1) tablet daily. 07/03/2017 at Unknown time Yes ALLERGIES Allergen Reactions - Codeine GI Upset - Naprosyn [Naproxen] GI Upset - Tavist [Clemastine * GI Upset Objective PHYSICAL EXAM: The remainder of the physical exam is noncontributory. AIRWAY: Airway Visualization of Uvula: Yes Mouth opening greater than 2 fingerbreadths: Yes Neck Full Range of Motion: Yes LUNGS: Lungs clear to auscultation, Good diaphragmatic excursion CARDIAC: Normal S1 and S2; no rubs, murmurs, or gallops Assessment/Plan ASA Class: ASA Class:: Patient with mild systemic disease Active Problems: * No active hospital problems. * Resolved Problems: * No resolved hospital problems. * Provisional Diagnosis/Treatment Plan: screening colonoscopy SEDATION GOAL: Moderate SIGNATURE: Donavon Mackey MD PATIENT NAME: Alisa Johnson DATE: July 04, 2017 TIME: 7:51 AM PAGER: NURSING PROG Observed: 07/04/2017 Status: COMPLETED Source: [place] 7:50 AM [facility] REPOSITORY HNO ID: [id number] Author: Oh Canseco RN Service: (none) Author Type: Registered Nurse Type: Nursing Progress Note Filed: 07/04/2017 7:53 AM Note Text: [facility] PRE-OP NURSING HAND OFF NOTE SBAR Hand off given to Cierra Stein RN. Hand off was communicated verbally and at the patient's bedside and all questions were answered. FALLS/MCKEON Patient did not experience a fall within the Preoperative area. Patient did not experience a burn within the Preoperative area. Oh Canseco RN PT ED Observed: 07/04/2017 Status: COMPLETED Source: [place] 6:26 AM [facility] REPOSITORY HNO ID: [id number] Author: Oh Buenrostro) ESAU Canseco Service: (none) Author Type: Registered Nurse Type: Patient Education Filed: 07/04/2017 6:26 AM Note Text: PRE OP LEARNING ASSESSMENT PROCEDURE/SURGERY: GI PROCEDURES: Colonoscopy READINESS TO LEARN COGNITIVE ABILITY: Alert and oriented MOTIVATION TO LEARN: Eager FAMILY SUPPORT: High - Very involved in pt care PATIENT LEARNS BEST BY: Multiple Methods FACTORS AFFECTING LEARNING: None PHYSICAL LIMITATIONS AFFECTING LEARNING: None Electronically Signed By: Oh Canseco, RN In Department: AMBULATORY SURGERY CNPN Observed: 06/27/2017 Status: COMPLETED Source: [place] 12:00 AM [facility] REPOSITORY Telephone (ASWSTR) ALISA JOHNSON ([id number]) 1950 F Date Time Provider Department 06/27/17 DONAVON MACKEY ASWSTR During your visit today, we recorded the following information about you: Allergies As of Date: 06/27/2017 Noted Allergy Reaction CODEINE 02/27/2005 8 - GI Upset NAPROSYN (NAPROXEN) 02/27/2005 8 - GI Upset TAVIST (CLEMASTINE FUMARATE) 02/27/2005 8 - GI Upset Date Reviewed: 06/27/2017 Reviewed by: Ada Landis (Rn) ESAU Greene - Fully Assessed Reason for Visit: colon prep [Other] Primary Visit Diagnosis:Encounter for screening for malignant neoplasm of colon [Z12.11] Order(s):[] Order #: [id number] COLONOSCOPY SCRN NOT HIGH RISK [[id number]] Order #: [id number]: 1 FUTURE Prescriptions as of 06/27/2017 Sig: PEG 3350 240 GRAM-ELECTROLYTE* Take 4,000 mL by mouth one ti* ATORVASTATIN 10 MG TABLET TAKE 1 TABLET EVERY DAY TAMOXIFEN 20 MG TABLET TAKE 1 TABLET ONE TIME DAILY * CALCIUM + D ORAL Take 2 tablets by mouth twice* * MULTIVITAMIN CAPSULE Take one(1) tablet daily. Problem List As Of Date 06/27/2017 Noted Resolved Dysmetabolic syndrome X [E88.81] INVALID FOR*05/09/2014 GERD (gastroesophageal reflux disease) [K21.9] INVALID FOR*09/28/2015 Postmenopausal atrophic vaginitis [N95.2] INVALID FOR* Osteopenia [M85.80] INVALID FOR* Hyperlipidemia with target LDL less than 100 [E*INVALID FOR* Ductal carcinoma in situ (DCIS) of left breast *INVALID FOR* Prescriptions ordered this encounter Disp Refills Start End PEG 3350 240 GRAM-ELECTROLYTES 22.72* 1 Iban* 0 06/27/2017 06/27/2017 Route: ORAL Sig: Take 4,000 mL by mouth one time only for 1 dose. Encounter Status:Closed by DONAVON MACKEY MD on 06/27/17 HOSP Observed: 06/11/2017 Status: COMPLETED Source: [place] 12:00 AM [facility] REPOSITORY Patient:Alisa Johnson MRN: <[id number]> Height:5' 4(1.626 m) Weight:No patient weight recorded within the last 30 days. Outpatient Medications as of 07/04/17: atorvastatin (LIPITOR) 10 mg tablet tamoxifen (NOLVADEX) 20 mg tablet CALCIUM CARBONATE/VITAMIN D3 (CALCIUM + D ORAL) MULTIVITAMIN CAP Admission/Clinic Administered Medications as of 07/04/17: lactated ringers infusion Problem List: Postmenopausal atrophic vaginitis [N95.2] Osteopenia [M85.80] Hyperlipidemia with target LDL less than 100 [E78.5] Ductal carcinoma in situ (DCIS) of left breast [D05.12] Allergies: Codeine Naprosyn [Naproxen] Tavist [Clemastine Fumarate] Date Verified: 07/04/17 Lab Values No results within the last 30 days for the following basenames: K,HCT No progress notes entered within the past 30 days OBSOLETE Observed: 06/07/2017 Status: COMPLETED Source: [place] 12:00 AM [facility] REPOSITORY Refill (HEMAWS) FAROOQJADEALISA CLEMENCIA ([id number]) 1950 F Date Time Provider Department 06/07/17 ELIJAH CROOKS ([facility]) HEMANNITA During your visit today, we recorded the following information about you: Allergies As of Date: 06/07/2017 Noted Allergy Reaction CODEINE 02/27/2005 8 - GI Upset NAPROSYN (NAPROXEN) 02/27/2005 8 - GI Upset TAVIST (CLEMASTINE FUMARATE) 02/27/2005 8 - GI Upset Date Reviewed: 02/27/2017 Reviewed by: Elijah ([facility]) Valeriy - Fully Assessed Reason for Visit: Refill Request [94] Prescriptions as of 06/07/2017 Sig: ATORVASTATIN 10 MG TABLET TAKE 1 TABLET EVERY DAY TAMOXIFEN 20 MG TABLET TAKE 1 TABLET ONE TIME DAILY * CALCIUM + D ORAL Take 2 tablets by mouth twice* * MULTIVITAMIN CAPSULE Take one(1) tablet daily. Problem List As Of Date 06/07/2017 Noted Resolved Dysmetabolic syndrome X [E88.81] INVALID FOR*05/09/2014 GERD (gastroesophageal reflux disease) [K21.9] INVALID FOR*09/28/2015 Postmenopausal atrophic vaginitis [N95.2] INVALID FOR* Osteopenia [M85.80] INVALID FOR* Hyperlipidemia with target LDL less than 100 [E*INVALID FOR* Ductal carcinoma in situ (DCIS) of left breast *INVALID FOR* Encounter Status:Closed by BRYNN CONRAD CMA on 06/09/17 HE Observed: 06/02/2017 Status: COMPLETED Source: [place] 12:00 AM [facility] REPOSITORY Telephone (ASWSTR) ALISA JOHNSON ([id number]) 1950 F Date Time Provider Department 06/02/17 JOSÉ CONTI III ASWSTR During your visit today, we recorded the following information about you: Cierra Stein RN, RN 06/02/2017 11:47 AM Signed Pt due for screening colonoscopy. Okay for OA. ESAU Boudreaux Larrison 06/02/2017 2:37 PM Signed Spoke with patient she is going to be tied up for the nest few weeks but wants to get this set up, will give us a call as soon as she is available Silvestre Jackson 06/11/2017 3:40 PM Signed Scheduled patient for colonoscopy with Dr. Mackey on 07/04/2017 Silvestre Jackson [facility] OPEN ACCESS QUESTIONNAIRE 1. Are you or could you be ? No 2. Are you currently having any stomach/gastrointestinal issues at this time such as constipation, diarrhea, abdominal pain, rectal bleeding etc? No 3. Do you have an implanted device such as a defibrillator, pacemaker, Cardiac Stent or deep brain stimulation device? No 4. Do you have any new or past cardiac (heart) or pulmonary (lung) issues? No 5. Is the patient's BMI 40 or greater? No:There is no height or weight on file to calculate BMI.. Last Wt 02/27/17 : 74.8 kg (165 lb) Last Ht 08/29/16 : 162.6 cm (5' 4ANDquot;) 6. Have you had difficulty with prior sedations or complications with other procedures? No 7. Have you had difficulty with anesthesia previously re: ? Difficult intubation? No ? Other difficulty or allergic reaction to anesthesia other than post op N/V? No 8. Do you currently use oxygen or a breathing machine at night? No 9. Do you take any narcotics, depression or anti-Anxiety medications or 3 or more prescription drugs on a daily basis? No 10. Do you use any illegal or recreational drugs? No 11. Have you been hospitalized in the past 6 weeks? No 12. Are you on dialysis or have Chronic Kidney Disease? No 13. Have you been diagnosed with chronic liver disease such as hepatitis or cirrhosis? No 14. Do you have a seizure disorder? No 15. Do you have difficulty swallowing? No 16. Do you have ulcerative colitis or Crohn's disease? No 17. Do you take any Blood thinners, including Aspirin or fish oil? No 18. Do you have any blood disorders (re:hemophiliac)? No 19. Are you Diabetic? No 20. Any other important health information we should be made aware of prior to your colonoscopy? No Checklist: Prior to closing the encounter: ? Complete questionnaire: Yes ? Confirm Prep order has been Ordered/Pended: Yes. ? Patient's procedure could be delayed if not given the script for the prep. Please ensure the prep is escripted to pharmacy or printed. Instructions for the prep will print upon filing or pending this smartset. ? Please send all open access questionnaires to [facility] Sched Pool #[id number] Silvestre Jackson 06/11/2017 3:37 PM Signed Health Information For Patients and the Community How to Prepare for Your Colonoscopy Using Golytely, Nulytely, Trilyte or Colyte Preparations IMPORTANT - Please Read These Instructions at Least 2 Weeks Before Your Colonoscopy Rabago Instructions: ?Your bowel must be empty so that your doctor can clearly view your colon. Follow all of the instructions in this handout EXACTLY as they are written. If you do NOT follow the directions for when to start drinking the bowel preparation (see next page), your colonoscopy WILL be cancelled. ?Do NOT eat any solid food the ENTIRE day before your colonoscopy. ?Buy your bowel preparation at least 5 days before your colonoscopy. ?Do NOT mix the solution until the day before your colonoscopy. Designated Tank Furnace Operator on the Day of Your Exam A responsible family member or friend MUST come with you to your colonoscopy and REMAIN in the endoscopy area until you are discharged! You are NOT ALLOWED to drive, take a taxi or bus, or leave the Endoscopy Center ALONE. If you do not have a responsible newspaper delivery driver (family member or friend) with you to take you home, your exam cannot be done with sedation and will be cancelled. Medications Some of the medicines you take may need to be stopped or adjusted before your colonoscopy. You MUST call the doctor who ordered any of the following medicines at least 2 weeks before your colonoscopy. ?Blood thinners -- such as Coumadin? (warfarin), Plavix? (clopidogrel), Ticlid? (ticlopidine hydrochloride), Agrylin? (anagrelide), Xarelto? (Rivaroxaban), Pradaxa? (Dabigatran), Eliquis? (Apixaban), and Effient? (Prasugrel). ?Insulin or diabetes pills. Please call the doctor that monitors your glucose levels. Your insulin dosage may need to be adjusted due to the diet restrictions required with this bowel preparation. (Please bring your diabetes medicines with you on the day of your procedure.) If you take aspirin, take it and ALL other medications prescribed by your doctor. On the day of your colonoscopy, take your medications with a sip of water. Revised 06/2016 1 Five (5) Days Before Your Colonoscopy ?Do NOT take medicines that stop diarrhea -- such as Imodium?, Kaopectate?, or Pepto Bismol?. ?Do NOT take fiber supplements -- such as Metamucil?, Citrucel?, or Perdiem?. ?Do NOT take products that contain iron -- such as multi-vitamins -- (the label lists what is in the products). ?Do NOT take vitamin E. Buy the prescription bowel preparation solution at your local pharmacy or [facility]. Three (3) Days Before Your Colonoscopy Do NOT eat high-fiber foods -- such as popcorn, beans, seeds (flax, sunflower, quinoa), multigrain bread, nuts, salad/vegetables, or fresh and dried fruit. One (1) Day Before Your Colonoscopy Only drink clear liquids the ENTIRE DAY before your colonoscopy. Do NOT eat any solid foods. Drink at least 8 ounces of clear liquids every hour after waking up. The clear liquids you can drink include: ?water, apple, or white grape juice; broth; coffee or tea (without milk or creamer); clear carbonated beverages such as antonia mark or lemon-seldovia soda; Gatorade? or other sports drinks (not red); Jaguar-Aid? or other flavored drinks (not red). You may eat plain jello or other gelatins (not red) or popsicles (not red). Do NOT drink alcohol on the day before or the day of the procedure. 2 Revised 06/2016 When to Mix and Drink Your Bowel Prep Follow the instructions on the label. After mixing, place the solution in the refrigerator for a couple of hours before drinking. You may add the flavor packet that came with the bowel preparation. DO NOT add ice, sugar or any flavorings to the solution. Evening Before Your Colonoscopy ?Start drinking the bowel preparation at 6 PM the evening before your colonoscopy. Drink an 8-oz glass of bowel preparation every 10 minutes. You must finish drinking the solution by 9 PM the night before your scheduled procedure. ?You may continue to drink clear liquids only until midnight. Do NOT eat or drink ANYTHING after midnight the night before your procedure or your procedure may be cancelled. This is for your safety and will reduce the risk of having any food or liquid in your stomach move into your lungs (aspiration) during a procedure. If you take aspirin, take it and ALL other prescribed medicines with a sip of water on the day of your colonoscopy. Contact Information: If you are unable to keep your appointment or have any questions about the instructions, please call the facility where the procedure is being performed. Call between the hours of 8:00 AM and 5:00 PM. If you are calling after 5:00 PM, please call Nurse rural mail contractor at [phone]. [facility] [address] [id number] Index # [id number] Revised 06/2016 3 Colonoscopy Procedure Overview Please Read Prior to the Procedure What is a Colonoscopy A colonoscopy is an outpatient procedure in which the inside of the large intestine (colon and rectum) is examined. A colonoscopy is commonly used to evaluate gastrointestinal symptoms, such as rectal and intestinal bleeding, abdominal pain, or changes in bowel habits. Colonoscopies are also performed in individuals without symptoms to check for colorectal polyps or cancer. A screening colonoscopy is recommended for anyone 50 years of age and older, and for anyone with parents, siblings or children with a history of colorectal cancer or polyps. What Happens Before a Colonoscopy To have a successful colonoscopy, your bowel must be empty so that your physician can clearly view the colon. To do this, it is very important to read and follow all of the instructions given to you at least 2 weeks BEFORE your exam. If your bowel is not empty, your colonoscopy will not be successful and may have to be repeated. If you feel nauseated or vomit while taking the bowel preparation, wait 30 minutes before drinking more fluid and start with small sips of solution. Some activity (such as walking) or a few soda crackers may help decrease the nausea you are feeling. If the nausea persists, please contact nurse neurosurgical nurse practitioner at [phone]. You may experience skin irritation around the anus due to the passage of liquid stools. To prevent and treat skin irritation, you should: ?Apply Vaseline? or Desitin? ointment to the skin around the anus before drinking the bowel preparation medications. These products can be purchased at any drugstore. ?Wipe the skin after each bowel movement with disposable wet wipes instead of toilet paper. These are found in the toilet paper area of the store. ?Sit in a bathtub filled with warm water for 10 to 15 minutes after you finish passing a stool; after soaking, blot the skin dry with a soft cloth, apply Vaseline? or Desitin? ointment to the anal area, and place a cotton ball just outside your anus to absorb leaking fluid. What Happens During a Colonoscopy During a colonoscopy, an experienced physician uses a colonoscope (a long, flexible instrument about 1/2 inch in diameter) to view the lining of the colon. The colonoscope is inserted into the rectum and advanced through the large intestine. If necessary during a colonoscopy, small amounts of tissue can be removed for analysis (a biopsy) and polyps can be identified and entirely removed. In many cases, a colonoscopy allows accurate diagnosis and treatment of colorectal problems without the need for a major operation. Revised 06/2016 5 ?You are asked to wear a hospital gown and an IV will be started. ?You are given a pain reliever and a sedative intravenously (in your vein). You will feel relaxed and somewhat drowsy. ?You will lie on your left side, with your knees drawn up towards your chest. ?A small amount of air is used to expand the colon so the physician can see the colon lao. ?You may feel mild cramping during the procedure. Cramping can be reduced by taking slow, deep breaths. ?The colonoscope is slowly withdrawn while the lining of your bowel is carefully examined. ?The procedure lasts from 30 minutes to 1 hour. What Happens After a Colonoscopy ?You will stay in a recovery room for observation until you are ready for discharge. ?You may feel some cramping or a sensation of having gas, but this quickly passes. ?If sedation has been given, a responsible family member or friend must drive you home. ?Avoid alcohol, driving, and operating machinery for 24 hours following the procedure. ?Unless otherwise instructed, you may immediately return to your normal diet. We recommend you wait until the day after your procedure to resume normal activities. ?If polyps were removed or a biopsy was taken, the physician performing your colonoscopy will tell you when it is safe to resume taking your blood thinners. ?If a biopsy was taken or a polyp was removed, you may notice a little amount of rectal bleeding for 1 to 2 days after the procedure. If you have a large amount of rectal bleeding, high or persistent fevers, or severe abdominal pain within the next 2 weeks, please go to your local emergency room and call the physician who performed your exam. 6 Revised 06/2016 ?Copyright 9827-[address] [facility]. All rights reserved. Revised 06/2016 Silvestre Jackson 06/11/2017 3:41 PM Signed Addended by: SILVESTRE JACKSON on: 06/11/2017 03:41 PM Modules accepted: Orders, SmartSet Oh Canseco, RN, RN 06/27/2017 9:49 AM Signed Addended by: OH CANSECO RN on: 06/27/2017 09:49 AM Modules accepted: Orders Allergies As of Date: 06/02/2017 Noted Allergy Reaction CODEINE 02/27/2005 8 - GI Upset NAPROSYN (NAPROXEN) 02/27/2005 8 - GI Upset TAVIST (CLEMASTINE FUMARATE) 02/27/2005 8 - GI Upset Date Reviewed: 02/27/2017 Reviewed by: Elijah ([facility]) Valeriy - Fully Assessed Reason for Visit: Outpatient Colonoscopy [482] Primary Visit Diagnosis:Special screening for malignant neoplasms, colon [Z12.11] Prescriptions as of 06/02/2017 Sig: ATORVASTATIN 10 MG TABLET TAKE 1 TABLET EVERY DAY TAMOXIFEN 20 MG TABLET TAKE 1 TABLET ONE TIME DAILY * CALCIUM + D ORAL Take 2 tablets by mouth twice* * MULTIVITAMIN CAPSULE Take one(1) tablet daily. Problem List As Of Date 06/02/2017 Noted Resolved Dysmetabolic syndrome X [E88.81] INVALID FOR*05/09/2014 GERD (gastroesophageal reflux disease) [K21.9] INVALID FOR*09/28/2015 Postmenopausal atrophic vaginitis [N95.2] INVALID FOR* Osteopenia [M85.80] INVALID FOR* Hyperlipidemia with target LDL less than 100 [E*INVALID FOR* Ductal carcinoma in situ (DCIS) of left breast *INVALID FOR* Other instructions from your clinician: Health Information For Patients and the Community How to Prepare for Your Colonoscopy Using Golytely, Nulytely, Trilyte or Colyte Preparations IMPORTANT - Please Read These Instructions at Least 2 Weeks Before Your Colonoscopy Rabago Instructions: ?Your bowel must be empty so that your doctor can clearly view your colon. Follow all of the instructions in this handout EXACTLY as they are written. If you do NOT follow the directions for when to start drinking the bowel preparation (see next page), your colonoscopy WILL be cancelled. ?Do NOT eat any solid food the ENTIRE day before your colonoscopy. ?Buy your bowel preparation at least 5 days before your colonoscopy. ?Do NOT mix the solution until the day before your colonoscopy. Designated Tank Furnace Operator on the Day of Your Exam A responsible family member or friend MUST come with you to your colonoscopy and REMAIN in the endoscopy area until you are discharged! You are NOT ALLOWED to drive, take a taxi or bus, or leave the Endoscopy Center ALONE. If you do not have a responsible newspaper delivery driver (family member or friend) with you to take you home, your exam cannot be done with sedation and will be cancelled. Medications Some of the medicines you take may need to be stopped or adjusted before your colonoscopy. You MUST call the doctor who ordered any of the following medicines at least 2 weeks before your colonoscopy. ?Blood thinners -- such as Coumadin? (warfarin), Plavix? (clopidogrel), Ticlid? (ticlopidine hydrochloride), Agrylin? (anagrelide), Xarelto? (Rivaroxaban), Pradaxa? (Dabigatran), Eliquis? (Apixaban), and Effient? (Prasugrel). ?Insulin or diabetes pills. Please call the doctor that monitors your glucose levels. Your insulin dosage may need to be adjusted due to the diet restrictions required with this bowel preparation. (Please bring your diabetes medicines with you on the day of your procedure.) If you take aspirin, take it and ALL other medications prescribed by your doctor. On the day of your colonoscopy, take your medications with a sip of water. Revised 06/2016 1 Five (5) Days Before Your Colonoscopy ?Do NOT take medicines that stop diarrhea -- such as Imodium?, Kaopectate?, or Pepto Bismol?. ?Do NOT take fiber supplements -- such as Metamucil?, Citrucel?, or Perdiem?. ?Do NOT take products that contain iron -- such as multi- vitamins -- (the label lists what is in the products). ?Do NOT take vitamin E. Buy the prescription bowel preparation solution at your local pharmacy or drugstore pharmacy. Three (3) Days Before Your Colonoscopy Do NOT eat high-fiber foods -- such as popcorn, beans, seeds (flax, sunflower, quinoa), multigrain bread, nuts, salad/vegetables, or fresh and dried fruit. One (1) Day Before Your Colonoscopy Only drink clear liquids the ENTIRE DAY before your colonoscopy. Do NOT eat any solid foods. Drink at least 8 ounces of clear liquids every hour after waking up. The clear liquids you can drink include: ?water, apple, or white grape juice; broth; coffee or tea (without milk or creamer); clear carbonated beverages such as antonia mark or lemon-seldovia soda; Gatorade? or other sports drinks (not red); Jaguar-Aid? or other flavored drinks (not red). You may eat plain jello or other gelatins (not red) or popsicles (not red). Do NOT drink alcohol on the day before or the day of the procedure. 2 Revised 06/2016 When to Mix and Drink Your Bowel Prep Follow the instructions on the label. After mixing, place the solution in the refrigerator for a couple of hours before drinking. You may add the flavor packet that came with the bowel preparation. DO NOT add ice, sugar or any flavorings to the solution. Evening Before Your Colonoscopy ?Start drinking the bowel preparation at 6 PM the evening before your colonoscopy. Drink an 8-oz glass of bowel preparation every 10 minutes. You must finish drinking the solution by 9 PM the night before your scheduled procedure. ?You may continue to drink clear liquids only until midnight. Do NOT eat or drink ANYTHING after midnight the night before your procedure or your procedure may be cancelled. This is for your safety and will reduce the risk of having any food or liquid in your stomach move into your lungs (aspiration) during a procedure. If you take aspirin, take it and ALL other prescribed medicines with a sip of water on the day of your colonoscopy. Contact Information: If you are unable to keep your appointment or have any questions about the instructions, please call the facility where the procedure is being performed. Call between the hours of 8:00 AM and 5:00 PM. If you are calling after 5:00 PM, please call Nurse rural mail contractor at [phone]. [facility] [address] [address] Index # [id number] Revised 06/2016 3 Colonoscopy Procedure Overview Please Read Prior to the Procedure What is a Colonoscopy A colonoscopy is an outpatient procedure in which the inside of the large intestine (colon and rectum) is examined. A colonoscopy is commonly used to evaluate gastrointestinal symptoms, such as rectal and intestinal bleeding, abdominal pain, or changes in bowel habits. Colonoscopies are also performed in individuals without symptoms to check for colorectal polyps or cancer. A screening colonoscopy is recommended for anyone 50 years of age and older, and for anyone with parents, siblings or children with a history of colorectal cancer or polyps. What Happens Before a Colonoscopy To have a successful colonoscopy, your bowel must be empty so that your physician can clearly view the colon. To do this, it is very important to read and follow all of the instructions given to you at least 2 weeks BEFORE your exam. If your bowel is not empty, your colonoscopy will not be successful and may have to be repeated. If you feel nauseated or vomit while taking the bowel preparation, wait 30 minutes before drinking more fluid and start with small sips of solution. Some activity (such as walking) or a few soda crackers may help decrease the nausea you are feeling. If the nausea persists, please contact nurse neurosurgical nurse practitioner at [phone]. You may experience skin irritation around the anus due to the passage of liquid stools. To prevent and treat skin irritation, you should: ?Apply Vaseline? or Desitin? ointment to the skin around the anus before drinking the bowel preparation medications. These products can be purchased at any drugstore. ?Wipe the skin after each bowel movement with disposable wet wipes instead of toilet paper. These are found in the toilet paper area of the store. ?Sit in a bathtub filled with warm water for 10 to 15 minutes after you finish passing a stool; after soaking, blot the skin dry with a soft cloth, apply Vaseline? or Desitin? ointment to the anal area, and place a cotton ball just outside your anus to absorb leaking fluid. What Happens During a Colonoscopy During a colonoscopy, an experienced physician uses a colonoscope (a long, flexible instrument about 1/2 inch in diameter) to view the lining of the colon. The colonoscope is inserted into the rectum and advanced through the large intestine. If necessary during a colonoscopy, small amounts of tissue can be removed for analysis (a biopsy) and polyps can be identified and entirely removed. In many cases, a colonoscopy allows accurate diagnosis and treatment of colorectal problems without the need for a major operation. Revised 06/2016 5 ?You are asked to wear a hospital gown and an IV will be started. ?You are given a pain reliever and a sedative intravenously (in your vein). You will feel relaxed and somewhat drowsy. ?You will lie on your left side, with your knees drawn up towards your chest. ?A small amount of air is used to expand the colon so the physician can see the colon lao. ?You may feel mild cramping during the procedure. Cramping can be reduced by taking slow, deep breaths. ?The colonoscope is slowly withdrawn while the lining of your bowel is carefully examined. ?The procedure lasts from 30 minutes to 1 hour. What Happens After a Colonoscopy ?You will stay in a recovery room for observation until you are ready for discharge. ?You may feel some cramping or a sensation of having gas, but this quickly passes. ?If sedation has been given, a responsible family member or friend must drive you home. ?Avoid alcohol, driving, and operating machinery for 24 hours following the procedure. ?Unless otherwise instructed, you may immediately return to your normal diet. We recommend you wait until the day after your procedure to resume normal activities. ?If polyps were removed or a biopsy was taken, the physician performing your colonoscopy will tell you when it is safe to resume taking your blood thinners. ?If a biopsy was taken or a polyp was removed, you may notice a little amount of rectal bleeding for 1 to 2 days after the procedure. If you have a large amount of rectal bleeding, high or persistent fevers, or severe abdominal pain within the next 2 weeks, please go to your local emergency room and call the physician who performed your exam. 6 Revised 06/2016 ?Copyright 5933-0069 [facility]. All rights reserved. Revised 06/2016 Encounter Status:Closed by SILVESTRE JACKSON on 06/02/17 ALLERGIES ALLERGIES DATE TYPE / NAME / CODE REACTION SEVERITY SOURCE CODE 05/02/2017 Drug pseudoephedrine Unknown Unknown [place] Allergy/41 HCl/[id number](RXNORM Community [id number]( ) [facility] CT) Repository 05/02/2017 Drug clemastine Unknown Unknown [place] Allergy/41 fumarate/[id number](R Community [id number](SN XNORM) [facility] O[facility]) Repository 05/02/2017 Drug codeine/[id number](RX Unknown Unknown [place] Allergy/41 NORM) Community [id number]([facility]) Repository 05/02/2017 Drug acetaminophen/[id number] Unknown Unknown [place] Allergy/41 605(RXNORM) Community [id number]([facility] CT) Repository 05/02/2017 Drug naproxen/[id number](R Unknown Unknown [place] Allergy/41 XNORM) [facility] [id number]([facility] CT) Repository 02/27/2005 DRUG CODEINE GI UPSET [address] [id number]( Repository [facility]) 02/27/2005 DRUG NAPROXEN GI [address] [id number]( Repository [facility]) 02/27/2005 [facility] [address] [id number]( Repository [facility]) ENCOUNTERS ENCOUNTERS ADMIT/DISCHARGE ACCOUNT ADMITTING ENCOUNTER LOCATION SOURCE NUMBER CLASS 04/30/2018/05/01/[id number] Repository 04/23/[id number] [facility] [place] [facility] ing:OPBI Repository 01/08/2018/01/09/[id number] Repository 11/06/2017/11/08/[id number] Repository 09/18/2017 [id number] [facility] Repository 08/28/2017/08/30/[id number] Repository 07/04/2017/07/04/[id number] Repository PAYERS PAYERS ENCOUNTER GUARANTOR PAYER SUBSCRIBER SOURCE 04/23/2018 [place] [id number] Insurance:HUMANA FAROOQCODOB: [facility] MEDICARE [facility] [id number]: Repository [id number]: [phone] [id number] [phone] () Date:6076-12-84PT [address] [place] [id number]: 04/23/2018 Secondary NOT GIVENUNK [place] Insurance[facility] PAY [facility]: Effective Repository Date:2017-08-28
== END ==
PROVIDERS: Family Provider Family Medicine; PCP Family Medicine; Referring Provider Nurse Practitioner; Visit Provider Nurse Practitioner
DX: D05.12 Intraductal carcinoma in situ of left breast (principal); Z12.31 Encounter for screening mammogram for malignant neoplasm of breast
CPT/HCPCS: 77063; 77067

== ENCOUNTER → 2019-04-29 08:20 | Outpatient (CLI) | payer MEDICARE, SELFPAY ==
[2018-08-27 09:58] VITALS: BMI 28.4
--- NOTE | 2019-04-29 08:22 | BI_ITS ---
MAMMOGRAPHY - BILATERAL SCREENING REASON FOR EXAM: Female, 69 years old. Routine annual screening examination. PERTINENT HISTORY: Personal history of breast cancer. Prior left lumpectomy. Mother with breast cancer. TECHNIQUE: Digital bilateral breast dana (3D mammographic acquisition) in the CC and MLO projections. 2-D mediolateral oblique (MLO) and craniocaudad (CC) views of both breasts were obtained. CAD: Full Field Digital Mammography with Computer Added Detection was performed. COMPARISON: Comparison is made with prior examination dated April 23, 2018 and April 10, 2017. FINDINGS: Breast Composition: There are scattered areas of fibroglandular density. There are no dominant masses or suspicious calcifications. Stable architectural distortion is once again seen in the inferior midportion of the left breast secondary to prior lumpectomy. No other significant abnormalities are identified. There has been no significant change since the prior study. BI/SCREEN MAMM (CAD) W/DANA BILAT IMPRESSION: Stable bilateral screening mammogram. Yearly follow-up mammogram recommended. (A) ASSESSMENT CATEGORY: BIRADS Category 2: Benign. A letter regarding these results will be sent to the patient by the facility within 30 days. Approximately 10% of breast cancers are not detected by mammography. A normal mammogram should not delay biopsy of a clinically suspicious abnormality. [id number] Electronically Signed: Pablo Manzo, at 9:56 EST , Service support ,
== END ==
PROVIDERS: Family Provider Family Medicine; PCP Family Medicine; Referring Provider Nurse Practitioner; Visit Provider Nurse Practitioner
DX: D05.12 Intraductal carcinoma in situ of left breast (principal); Z12.31 Encounter for screening mammogram for malignant neoplasm of breast
CPT/HCPCS: 77063; 77067

== ENCOUNTER → 2020-05-01 08:30 | Outpatient (CLI) | payer MEDICARE, SELFPAY ==
[2019-10-20 12:46] VITALS: BMI 28.4
[2019-12-10 08:56] VITALS: BMI 28.4
--- NOTE | 2020-05-01 08:33 | BI_ITS ---
MAMMOGRAPHY - BILATERAL SCREENING REASON FOR EXAM: Female, 70 years old. Routine annual screening examination. PERTINENT HISTORY: Personal history of breast cancer. Prior left lumpectomy. Mother with breast cancer. TECHNIQUE: Digital bilateral breast dana (3D mammographic acquisition) in the CC and MLO projections. 2-D mediolateral oblique (MLO) and craniocaudad (CC) views of both breasts were obtained. CAD: Full Field Digital Mammography with Computer Added Detection was performed. COMPARISON: Comparison is made with prior study dated 04/29/2019 and 04/23/2018. FINDINGS: Breast Composition: There are scattered areas of fibroglandular density. There are no dominant masses or suspicious calcifications. Stable architectural distortion in the inferior midportion of the left breast in keeping with prior lumpectomy. No other significant abnormalities are identified. There has been no significant change since the prior study. BI/SCREEN MAMM (CAD) W/DANA BILAT IMPRESSION: Stable bilateral screening mammogram. Yearly follow-up mammogram recommended. (A) ASSESSMENT CATEGORY: BIRADS Category 2: Benign. A letter regarding these results will be sent to the patient by the facility within 30 days. Approximately 10% of breast cancers are not detected by mammography. A normal mammogram should not delay biopsy of a clinically suspicious abnormality. [id number] Electronically Signed: Pablo Manzo, at 9:40 EST , Service support ,
== END ==
PROVIDERS: PCP Family Medicine; Referring Provider Obstetrics & Gynecology; Visit Provider Obstetrics & Gynecology
DX: Z12.31 Encounter for screening mammogram for malignant neoplasm of breast (principal)
CPT/HCPCS: 77063; 77067

== ENCOUNTER → 2020-08-22 10:11 | Outpatient (CLI) | payer MEDICARE, SELFPAY ==
[2019-12-10 08:56] VITALS: BMI 28.4
--- NOTE | 2020-08-22 10:29 | BD_ITS ---
STUDY: DUAL ENERGY X-RAY ABSORPTIOMETRY / DXA REASON FOR EXAM: Female, 70 years old. M810. The patient is postmenopausal. Loss of height. History of breast cancer. TECHNIQUE: Bone Mineral Density (BMD) measurements of lumbar spine and bilateral hips were obtained. COMPARISON: None. FINDINGS: Lumbar Spine (L1-L4): g/cm2 (1.075) / T-score (-1.0) / Z-score (0.7) Findings are suggestive of normal bone density with a low fracture risk. Left Femur Total: g/cm2 (0.898) / T-score (-0.9) / Z-score (0.7) Left Femoral Neck: g/cm2 (0.848) / T-score (-1.4) / Z-score (0.4) Right Femur Total: g/cm2 (0.835) / T-score (-1.4) / Z-score (0.2) Right Femoral Neck: g/cm2 (0.787) / T-score (-1.8) / Z-score (0.0) BD/Dexa Bone Density Study IMPRESSION: The patient is considered osteopenic as outlined below according to World Mau Organization (WHO) criteria with a moderate fracture risk. . Reference Information: The T-score is the number of standard deviations above or below the standard which is normal for young adults at their peak bone mineral density. The World Health Organization (WHO) interprets the T-scores as follows: Above -1 Normal bone density Between -1 and -2.5 Osteopenia Equal to / or below -2.5 Osteoporosis As a practical clinical guideline, osteopenia may be graded as follows: Mild -1 through -1.5 Moderate -1.6 through -2.0 Severe -2.1 through -2.4 The Z-score is the number of standard deviations above or below age-matched controls. A Z-score of less than -1.5 would be considered abnormal. References: 1. NIH Osteoporosis and Related Bone Diseases www osteo.org 2. International Society for Clinical Densitometry www iscd.org 3. National Osteoporosis Foundation www nof.org Electronically Signed: Pablo Manzo MD at 15:44 EDT , Service support ,
== END ==
PROVIDERS: PCP Family Medicine; Referring Provider Family Medicine; Visit Provider Family Medicine
DX: Z78.0 Asymptomatic menopausal state (principal); Z13.820 Encounter for screening for osteoporosis
CPT/HCPCS: 77080

== ENCOUNTER → 2021-05-03 08:33 | Outpatient (CLI) | payer MEDICARE, SELFPAY ==
[2019-12-10 08:56] VITALS: BMI 28.4
--- NOTE | 2021-05-03 08:36 | BI_ITS ---
MAMMOGRAPHY - BILATERAL SCREENING REASON FOR EXAM: Female, 71 years old. Routine annual screening examination. PERTINENT HISTORY: Personal history of breast cancer. Prior left lumpectomy and radiation treatment. Mother with breast cancer. TECHNIQUE: Digital bilateral breast dana (3D mammographic acquisition) in the CC and MLO projections. 2-D mediolateral oblique (MLO) and craniocaudad (CC) views of both breasts were obtained. CAD: Full Field Digital Mammography with Computer Added Detection was performed. COMPARISON: Comparison is made with prior study 05/01/2020 and 04/29/2019. FINDINGS: Breast Composition: There are scattered areas of fibroglandular density. There are no dominant masses or suspicious calcifications. Once again, there is evidence of architectural distortion in the inferior midportion of the left breast in keeping with prior lumpectomy. This is unchanged. No other significant abnormalities are identified. There has been no significant change since the prior study. BI/SCRN MAMM (CAD)W/DANA BILAT IMPRESSION: Stable bilateral screening mammogram. Yearly follow-up mammogram recommended. (A) ASSESSMENT CATEGORY: BIRADS Category 2: Benign. A letter regarding these results will be sent to the patient by the facility within 30 days. Approximately 10% of breast cancers are not detected by mammography. A normal mammogram should not delay biopsy of a clinically suspicious abnormality. [id number] Electronically Signed: Pablo Manzo MD at 10:19 EST , Service support ,
== END ==
PROVIDERS: PCP Internal Medicine; Referring Provider Obstetrics & Gynecology; Visit Provider Obstetrics & Gynecology
DX: Z12.31 Encounter for screening mammogram for malignant neoplasm of breast (principal)
CPT/HCPCS: 77063; 77067

== ENCOUNTER → 2022-05-06 | Outpatient (CLI) | payer MEDICARE, SELFPAY ==
--- NOTE | 2022-05-06 07:53 | BI_ITS ---
MAMMOGRAPHY - BILATERAL SCREENING REASON FOR EXAM: Female, 72 years old. Routine annual screening examination. PERTINENT HISTORY: Personal history of breast cancer. Prior left lumpectomy. Mother with breast cancer. TECHNIQUE: Digital bilateral breast dana (3D mammographic acquisition) in the CC and MLO projections. 2-D mediolateral oblique (MLO) and craniocaudad (CC) views of both breasts were obtained. CAD: Full Field Digital Mammography with Computer Added Detection was performed. COMPARISON: Comparison is made with prior study dated 05/03/2021 and 05/01/2020. FINDINGS: Breast Composition: There are scattered areas of fibroglandular density. There are no dominant masses or suspicious calcifications. Stable architectural distortion in the inferior midportion of left breast. This is in keeping with prior left lumpectomy. No other significant abnormalities are identified. There has been no significant change since the prior study. BI/SCRN MAMM (CAD)W/DANA BILAT IMPRESSION: Stable bilateral screening mammogram. Yearly follow-up mammogram recommended. (A) ASSESSMENT CATEGORY: BIRADS Category 2: Benign. A letter regarding these results will be sent to the patient by the facility within 30 days. Approximately 10% of breast cancers are not detected by mammography. A normal mammogram should not delay biopsy of a clinically suspicious abnormality. [id number] Electronically Signed: Pablo Manzo MD at 8:51 EST ,
== END | disposition home or self-care (01) ==
LOC: OPBI 07:52
PROVIDERS: PCP Internal Medicine; Referring Provider Nurse Practitioner; Visit Provider Obstetrics & Gynecology
DX: Z12.31 Encounter for screening mammogram for malignant neoplasm of breast (principal); Z80.3 Family history of malignant neoplasm of breast
CPT/HCPCS: 77063; 77067

== ENCOUNTER → 2023-05-08 | Outpatient (CLI) | payer MEDICARE, SELFPAY ==
--- NOTE | 2023-05-08 08:21 | BI_ITS ---
MAMMOGRAPHY - BILATERAL SCREENING REASON FOR EXAM: Female, 73 years old. Routine annual screening examination. PERTINENT HISTORY: Personal history of breast cancer. Prior left lumpectomy. Mother with breast cancer. TECHNIQUE: Digital bilateral breast dana (3D mammographic acquisition) in the CC and MLO projections. 2-D mediolateral oblique (MLO) and craniocaudad (CC) views of both breasts were obtained. CAD: Full Field Digital Mammography with Computer Added Detection was performed. COMPARISON: Comparison is made with prior study dated May 06, 2022 and May 03, 2021. FINDINGS: Breast Composition: There are scattered areas of fibroglandular density. There are no dominant masses or suspicious calcifications. Stable postoperative architectural distortion in the inferior midportion of the left breast in keeping with prior left lumpectomy. No other significant abnormalities are identified. There has been no significant change since the prior study. BI/SCRN MAMM (CAD)W/DANA BILAT IMPRESSION: Stable bilateral screening mammogram. Yearly follow-up mammogram recommended. (A) ASSESSMENT CATEGORY: BIRADS Category 2: Benign. A letter regarding these results will be sent to the patient by the facility within 30 days. Approximately 10% of breast cancers are not detected by mammography. A normal mammogram should not delay biopsy of a clinically suspicious abnormality. [id number] Electronically Signed: Pablo Manzo MD at 9:45 EST ,
== END | disposition home or self-care (01) ==
LOC: OPBI 08:20
PROVIDERS: PCP Internal Medicine; Referring Provider Obstetrics & Gynecology; Visit Provider Obstetrics & Gynecology
DX: Z12.31 Encounter for screening mammogram for malignant neoplasm of breast (principal); Z85.3 Personal history of malignant neoplasm of breast; Z80.3 Family history of malignant neoplasm of breast
CPT/HCPCS: 77063; 77067

== ENCOUNTER 2023-06-24 16:39 | Emergency (ER) | payer MEDICARE, SELFPAY ==
[2023-06-24 16:39] VITALS: BP 183/86; PULSE 113; RESP 16; TEMP 36.6; O2SAT 98; BMI 31.0
--- NOTE | 2023-06-24 16:51 | EX.ED.DYSGE1 ---
HPI History of Present Illness Chief Complaint: Palpitations Informant: patient Onset/Context/Timing Onset: Days (4) Context: Sudden Onset Timing: Intermittent and Lasts (10 to 15 minutes) Quality: Racing Location: Bilateral chest Worsened by: Nothing Relieved by: Deep breathing Narrative Narrative: Patient presents with palpitations that have been intermittent over the past 4 days. Patient states she had an episode 3 days ago where she felt like her heart was racing. Patient states she had a similar episode last night. Patient states that she also notices that today and is still feeling like her heart is racing at the present time. Patient states her symptoms have lasted approximate 10 to 15 minutes over the past couple days. Patient states it is better with deep breathing. Patient denies any shortness of breath or cough. Patient denies any recent fevers or chills. Patient admits to a mild headache. [facility] Medical History (Updated 06/24/23 @ 21:[address] Jorge Luis Johnson DO) Ductal carcinoma in situ (DCIS) of left breast Home Medications atorvastatin 10 mg tablet (Lipitor) 10 mg PO DAILY 08/20/18 [History Last Taken Unknown] multivitamin,[id number] (Complete Multivitamin tablet) 1 tab PO DAILY 12/10/19 [History Last Taken Unknown] apixaban 5 mg tablet (Eliquis) 5 mg PO BID #20 tabs 06/24/23 [Rx Last Taken Unknown] metoprolol tartrate 50 mg tablet 50 mg PO BID #20 tabs 06/24/23 [Rx Last Taken Unknown] Allergy/AdvReac Type Severity Reaction Status Date / Time acetaminophen [From [facility]] Allergy Unknown Verified 06/24/23 16:41 clemastine fumarate Allergy Unknown Verified 06/24/23 16:41 [From [facility]avist] codeine Allergy Unknown Verified 06/24/23 16:41 naproxen Allergy Unknown Verified 06/24/23 16:41 pseudoephedrine HCl Allergy Unknown Verified 06/24/23 16:41 [From Tavist] Family History Brother Kidney disease cancer Parkinsons Surgical History Status post left breast lumpectomy Social History housing: house Smoking Status: Never smoker second hand exposure: No alcohol intake: never what type of physical activity do you participate in: walking frequency: 3-4 times per week duration: 30-45 minutes/day seatbelt use: always additional social history: Misbah- Retired Patient is an [employer] ROS ROS ED Constitutional Constitutional ED: Denies chills or fever(s) Eyes Eyes: Denies blurry vision or change in vision ENT ENT ED: Denies rhinorrhea or sore throat Cardiovascular Cardiovascular: Reports chest pain and palpitations Respiratory/Chest Respiratory/Chest: Denies cough or dyspnea Gastrointestinal Gastrointestinal: Denies nausea or vomiting Genitourinary Genitourinary ED: Denies dysuria or hematuria Musculoskeletal Musculoskeletal: Reports back pain; Denies neck pain Integumentary Denies abscess or rash Neurologic Neurologic: Reports headache(s); Denies weakness Allergic/Immunologic Allergic/Immunologic ED: Denies mouth swelling or urticaria EXAM Physical Exam Const Vital Signs: 06/24/23 16:39 06/24/23 16:53 06/24/23 17:18 Temperature 97.8 F Temperature Source Temporal Pulse Rate 113 H 97 Respiratory Rate 16 12 Respiratory Effort Blood Pressure 183/86 H 176/65 H Blood Pressure Mean 118 102 Pulse Ox 98 99 Oxygen Delivery Method Room Air Room Air 06/24/23 17:19 06/24/23 19:21 06/24/23 20:02 Temperature Temperature Source Pulse Rate 90 89 Respiratory Rate 18 14 Respiratory Effort Normal Blood Pressure 159/78 H 156/88 H Blood Pressure Mean 105 110 Pulse Ox 98 97 Oxygen Delivery Method Room Air Room Air Positive well nourished and well developed General Appearance ED: well developed and NAD HEENT Reports moist mucous membranes Neck supple and no JVD Chest Wall palpation of chest normal Resp normal respiratory effort and clear to auscultation bilaterally Cardio regular rate Rhythm: abnormal rhythm irregularly irregular GI non-tender and non-distended Palpation: soft Neuro oriented x3, CN's II-XII intact bilaterally and no sensory deficits noted Sensorium / Orientation: alert Motor Exam: strength 5/5 throughout Psych mental status grossly normal MDM MDM MDM Narrative Medical decision making narrative: Differential diagnosis includes cardiac dysrhythmia, cardiac ischemia, pneumonia, viral infection, electrolyte abnormality, anemia, and anxiety. EKG will be obtained to assess for cardiac dysrhythmia and cardiac ischemia. Chest x-ray will be obtained to assess for pneumonia and pneumothorax. CBC will be obtained to assess for leukocytosis and anemia. Basic metabolic profile will be obtained to assess for electrolyte abnormality and renal function. PT with INR will be obtained to assess for coagulopathy. High-sensitivity troponin will be obtained to assess for cardiac ischemia. Lab Data Attestation: I reviewed the patient's lab results. Lab results narrative: CBC was reviewed and was within normal limits. PT with INR was reviewed and was normal. Basic metabolic profile was reviewed and was within normal limits. Initial high-sensitivity troponin was reviewed and was normal at 8. 2-hour repeat high-sensitivity troponin was reviewed and was normal at 9. Labs: Laboratory Results - last 24 hr 06/24/23 06/24/23 16:58 19:00 WBC 6.9 RBC 4.84 Hgb 14.2 Hct 43.1 MCV 89.0 MCH 29.3 MCHC 32.9 RDW Std Deviation 42.5 RDW Coeff of [place] 13.1 Plt Count 186 MPV 8.9 Immature Gran % (Auto) 0.300 Neut % (Auto) 56.5 Lymph % (Auto) 29.7 [place] % (Auto) 11.7 H Eos % (Auto) 1.4 Baso % (Auto) 0.4 Absolute Neuts (auto) 3.9 Absolute Lymphs (auto) 2.05 Nucleated RBC % 0 PT 12.8 INR 1.0 Sodium 140 Potassium 4.1 Chloride 108 H Carbon Dioxide 26.0 Anion Gap 6 BUN 20 H Creatinine 0.90 Estim Creat Clear Calc 53.94 Est GFR (MDRD) Af Amer 78 Est GFR (MDRD) Non-Af 65 BUN/Creatinine Ratio 22.2 H Glucose 92 Calcium 10.1 Troponin I High Sens 8 9 Radiography Chest X-Ray - ED: 1 View, Read by ED Physician, Read by Radiologist and No Acute Disease Diagnostic Testing: Clinical Impression(s) from Imaging Studies Chest X-Ray 06/24/23 17:09 IMPRESSION: No radiographic evidence of acute cardiopulmonary disease. Electronically Signed: Alexi Bermudez MD at 17:56 EST , EKG Initial EKG: Interpretation: Atrial Fibrillation (With a rate of 95 with frequent PVCs) Comments: EKG was obtained. On my independent interpretation, it shows atrial fibrillation with a rate of 95 with frequent PVCs. QRS interval was normal at 70 ms. QTc interval was normal at 439 ms. [place] was normal. There are nonspecific ST-T wave changes noted. Compared to EKG report from 03/26/2012, the atrial fibrillation is new. Management Discussion w/another healthcare provider: Hospitalist Treatment and Re-Evaluation :: Patient was given a dose of Cardizem here. Patient remained in atrial fibrillation. Patient's rate improved to 89. Patient was advised of her findings. Since the atrial fibrillation is new, I will discuss case with the hospitalist. Case was discussed with the hospitalist. She recommended outpatient treatment. She recommended starting the patient on Eliquis and metoprolol. This was ordered. Patient was instructed to follow-up with her primary care physician in 3 to 5 days for outpatient workup. Patient understands and is agreeable with the plan. All questions were answered. Discharge Plan Triage Chief Complaint: Palpitations ED Provider: Jorge Luis Johnson Dx/Rx/DC Orders Clinical Impression: Atrial fibrillation, High blood pressure Instructions: ED AFIB, ED Hypertension, To Be Confirmed Prescriptions: New Eliquis 5 mg tablet 5 mg PO BID Qty: 20 0RF metoprolol tartrate 50 mg tablet 50 mg PO BID Qty: 20 0RF No Action atorvastatin [Lipitor] 10 mg tablet 10 mg PO DAILY multivitamin,[id number] tablet 1 tab PO DAILY Primary Care Provider: Allison Joiner Referrals: Allison Joiner MD [Primary Care Provider] - 3-5 Days Disposition Disposition: Home, Self Care
--- NOTE | 2023-06-24 17:09 | RAD_ITS ---
INDICATION: chest pain EXAMINATION/TECHNIQUE: X-RAY - XR Chest 1 View COMPARISON: No relevant prior comparison study available FINDINGS: LINES/DEVICES: None. LUNGS: No consolidation, edema or effusion. No pneumothorax. MEDIASTINUM AND CARDIOVASCULAR STRUCTURES: Cardiac silhouette not enlarged. Central airways and mediastinal contour are unremarkable. BONES AND SOFT TISSUES: Unremarkable. RAD/Chest 1 View (Portable) IMPRESSION: No radiographic evidence of acute cardiopulmonary disease. Electronically Signed: Alexi Bermudez MD at 17:56 EST ,
[2023-06-24 17:10] LABS: Absolute Lymphocyte Count 2.05 X10^3/uL (0.83-4.51); Absolute Neutrophil Count 3.9 X10^3/uL (2.0-7.7); Basophil# 0.03 X10^3/uL; Basophil% 0.4 % (0-1); Eosinophils% 1.4 % (0-5); Hematocrit 43.1 % (37-47); Hemoglobin 14.2 g/dL (12.0-15.0); Lymphocyte # 2.05 X10^3/ul (0.83-4.51); Lymphocyte % 29.7 % (19-41); Mean Corp Hgb Conc 32.9 g/dL (32-36); Mean Corpuscular Hgb 29.3 pg (27.0-32.0); Mean Platelet Vol. 8.9 fl (6.2-12.0); Monocyte# 0.81 X10^3/uL; Monocyte% 11.7 % (0-10); NRBC Flagged by Analyzer 0 % (0-5); Neutrophil # 3.89 X10^3/uL (2.7-7.7); Neutrophil % 56.5 % (47-70); Platelet Count 186 K/mm3 (150-450); RBC Distribution Width CV 13.1 % (11.6-14.6); RBC Distribution Width SD 42.5 fl (35.1-43.9); Red Blood Count 4.84 M/mm3 (4.2-5.4); White Blood Count 6.9 K/mm3 (4.4-11.0)
[2023-06-24 17:18] VITALS: BP 176/65; PULSE 97; RESP 12; O2SAT 99
[2023-06-24 17:20] LABS: Prothrombin Time (Protime)PT. 12.8 SECONDS (11.7-14.9)
[2023-06-24] MEDS: dilTIAZem 25 MG/5 ML Vial IV BOLUS (17:21)
[2023-06-24 17:28] LABS: Anion Gap 6 (5-15); BUN 20 mg/dL (7-18); BUN/Creat Ratio 22.2 RATIO (10-20); Calcium,Total 10.1 mg/dL (8.5-10.1); Chloride 108 mmol/L (98-107); EST Glomerular Filtration Rate 65 mL/min (>60); Est Glom Filt Rate - Afr Amer 78 mL/min (>60); Estimated Creatinine Clearance 53.94 ml/min; Glucose 92 mg/dL (74-106); Potassium 4.1 mmol/L (3.5-5.1); Sodium Level 140 mmol/L (136-145); Troponin-I HS 8 pg/mL (3.0-54.0); Troponin-I HS (w/2H Reflex) 8 pg/mL (3.0-54.0)
--- OUTSIDE RECORDS SUMMARY | 2023-06-24 17:40 | XMS RPT_ITS | CCD ---
Author Name Unknown Address [address] [place] [address] Organization [facility] Care Team Providers Care Agile Project Manager Name Role Phone ViolettekjEvelyne king Unavailable Unavailab ho Sinclair MD, Yanna Aragon Unavailable [phone] Halle TINOCO, Joie Primary Care Provider [phone] Antonia Joiner MD Primary Care Provider TANA JACOB Attending Unavailable CROOKS, ELIJAH Attending Unavailable ELIJAH CROOKS Referring Unavailable GANTA, JOIE Primary Care Unavailable GANTA, JOIE Referring Unavailable GANTA, JOIE Primary Care Unavailable GANTA, JOIE Attending Unavailable GANTA, JOIE Referring Unavailable TALAMPAS, ANTONIA D Attending Unavailable TALAMPAS, ANTONIA D Primary Care Unavailable TALAMPAS, ANTONIA D Primary Care Unavailable TANA JACOB Referring Unavailable TALAMPAS, ANTONIA D Primary Care Unavailable TALAMPAS, ANTONIA D Primary Care Unavailable Allergies Allergy Classification Reported Allergen(s) Allergy Type Date of Onset Reaction(s) Facility (11 sources) Clemastine; Translations: [CLEMASTINE FUMARATE] [facility]: (11 sources) Codeine; Translations: [CODEINE] Drug Allergy 02-27-2005 GI [facility] Work Phone: (11 sources) Naproxen; Translations: [NAPROXEN] Drug Allergy 02-27-2005 GI [facility] Work Phone: (7 sources) Losartan; Translations: [LOSARTAN] Drug Allergy 12-28-2021 [facility] Work Phone: Medications Current Medications Medication Drug Class(es) Dates Sig (Normalized) Sig (Original) lidocaine 0.04 mg/mg medicated patch (1 source) Antiarrhythmic, Amide Local Anesthetic Start: 08-09-2022 End: 08-14-2022 apply 1 dose transdermal route once daily, then apply 1 dose transdermal route every twelve hours lidocaine (SALONPAS) 4 % patch Apply 1 Patch as directed once daily for 5 days. Remove patch after 12 hours 5 Patch 0 08/09/2022 08/14/2022 Active Completed/Discontinued Medications Medication Drug Class(es) Dates Sig (Normalized) Sig (Original) atorvastatin 10 mg oral tablet (14 sources) HMG-CoA Reductase Inhibitor Start: 01-15-2021 End: 09-25-2022 atorvastatin (LIPITOR) 10 mg tablet Indications: Hyperlipidemia with target LDL less than 100 TAKE 1 TABLET EVERY DAY 90 tablet 3 09/25/2022 Active Problems Active Problems Problem Classification Problem Date Documented Date Episodic/Chronic Cancer of breast (10 sources) Intraductal carcinoma in situ of left breast; Translations: [Intraductal carcinoma in situ of left breast] Onset: 12-24-2014 09-28-2015 Chronic Diabetes mellitus without complication (1 source) Hyperglycemia; Translations: [Impaired fasting glucose] Episodic Disorders of lipid metabolism (17 sources) Hyperlipidemia; Translations: [Hyperlipidemia, unspecified] Onset: 05-09-2014 09-20-2015 Chronic Esophageal disorders (3 sources) Gastroesophageal reflux disease without esophagitis; Translations: [Gastro-esophageal reflux disease without esophagitis] Chronic Menopausal disorders (10 sources) Atrophic vaginitis; Translations: [Postmenopausal atrophic vaginitis] Onset: 10-22-2012 10-22-2012 Chronic Other aftercare (1 source) Patient encounter status; Translations: [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] Episodic Other circulatory disease (2 sources) Elevated blood-pressure reading without diagnosis of hypertension; Translations: [Elevated blood-pressure reading, without diagnosis of hypertension] Episodic Other circulatory disease (1 source) Labile hypertension due to being in a clinical environment; Translations: [Elevated blood-pressure reading, without diagnosis of hypertension] Episodic Other circulatory disease (1 source) Elevated blood-pressure reading, without diagnosis of hypertension; Translations: [Elevated BP without diagnosis of hypertension] Onset: 11-04-2022 Episodic Other lower respiratory disease (1 source) Rib pain; Translations: [Pleurodynia] Episodic Other nutritional; endocrine; and metabolic disorders (1 source) Abnormal weight gain; Translations: [Abnormal weight gain] Episodic Residual codes; unclassified (1 source) Persistent insomnia; Translations: [Insomnia, unspecified] Episodic Unclassified (1 source) No current problems or disability 02-14-2017 Past or Other Problems Problem Classification Problem Date Documented Da te Episodic/Chronic Immunizations and screening for infectious disease (1 source) Encounter for immunization; Translations: [Encounter for immunization] Onset: 05-16-2022 Episodic Other bone disease and musculoskeletal deformities (11 sources) Osteopenia; Translations: [Other specified disorders of bone density and structure, unspecified site] Onset: 10-29-2013 10-29-2013 Episodic Other lower respiratory disease (1 source) Pleurodynia; Translations: [Rib pain] Onset: 08-09-2022 Episodic Other nutritional; endocrine; and metabolic disorders (1 source) Abnormal weight gain; Translations: [Abnormal weight gain] Onset: 01-01-2022 Episodic Results Test Name Value Interpretation Reference Range Facil ity Vital Signs Date Time Vital Sign Value Performing Clinician Faci lit 11-12-2022 07:53-0400 Body weight 75.75 kg Antonia Joiner MD Work Phone: [facility] 11-12-2022 07:53-0400 Diastolic blood pressure 80 mm[Hg] Antonia Joiner MD Work Phone: [facility] 11-12-2022 07:53-0400 Heart rate 72 /min Antonia Joiner MD Work Phone: [facility] 11-12-2022 07:53-0400 Respiratory rate 16 /min Antonia Joiner MD Work Phone: [facility] 11-12-2022 07:53-0400 Systolic blood pressure 130 mm[Hg] Antonia Joiner MD Work Phone: [facility] 08-09-2022 07:54-0400 Body temperature 98.1 [degF] Yara VILLAGRAN Work Phone: [facility] 08-09-2022 07:54-0400 Body weight 75.3 kg Krislyn Aberegg PA Work Phone: [facility] 08-09-2022 07:54-0400 Diastolic blood pressure 78 mm[Hg] Krislyn Aberegg PA Work Phone: [facility] 08-09-2022 07:54-0400 Heart rate 85 /min Krislyn Aberegg PA Work Phone: [facility] 08-09-2022 07:54-0400 Respiratory rate 18 /min Krislyn Aberegg PA Work Phone: [facility] 08-09-2022 07:54-0400 SaO2% (BldA) [Mass fraction] 97 % Krislyn Aberegg PA Work Phone: [facility] 08-09-2022 07:54-0400 Systolic blood pressure 138 mm[Hg] Krislyn Aberegg PA Work Phone: [facility] 05-16-2022 09:58-0500 Diastolic blood pressure 80 mm[Hg] Tana Jacob NBA PLAYER.HIGH LIFT MULE OPERATOR Work Phone: [facility] 05-16-2022 09:58-0500 Systolic blood pressure 130 mm[Hg] Atna Jacob NBA PLAYER.HIGH LIFT MULE OPERATOR Work Phone: [facility] 05-16-2022 08:55-0500 Body height 163.5 cm Tana Jacob NBA PLAYER.HIGH LIFT MULE OPERATOR Work Phone: [facility] 05-16-2022 08:55-0500 Body weight 76.66 kg Tana Jacob NBA PLAYER.HIGH LIFT MULE OPERATOR Work Phone: [facility] 05-16-2022 08:55-0500 Heart rate 71 /min Tana Jacob NBA PLAYER.HIGH LIFT MULE OPERATOR Work Phone: [facility] 05-16-2022 08:55-0500 Respiratory rate 16 /min Tana Jacob NBA PLAYER.HIGH LIFT MULE OPERATOR Work Phone: [facility] 05-16-2022 08:55-0500 SaO2% (BldA) [Mass fraction] 97 % Tana Jacob NBA PLAYER.HIGH LIFT MULE OPERATOR Work Phone: [facility] 12-28-2021 15:40-0400 Diastolic blood pressure 70 mm[Hg] Joie Neri MD Work Phone: [facility] 12-28-2021 15:40-0400 Systolic blood pressure 122 mm[Hg] Joie Neri MD Work Phone: [facility] 12-28-2021 14:48-0400 Body height 163.8 cm Joie Neri MD Work Phone: [facility] 12-28-2021 14:48-0400 Body temperature 98.6 [degF] Joie Neri MD Work Phone: [facility] 12-28-2021 14:48-0400 Body weight 79.83 kg Joie Neri MD Work Phone: [facility] 12-28-2021 14:48-0400 Heart rate 73 /min Joie Neri MD Work Phone: [facility] 12-28-2021 14:48-0400 Respiratory rate 12 /min Joie Neri MD Work Phone: [facility] 12-28-2021 14:48-0400 SaO2% (BldA) [Mass fraction] 97 % Joie Neri MD Work Phone: [facility] Encounters Encounter Date Encounter Type Care Provider Facility Start: 11-12-2022 End: 11-12-2022 ambulatory ANTONIA JOINER Facility:[facility] Start: 11-12-2022 End: 11-12-2022 Office outpatient visit 25 minutes Antonia Joiner MD Work Phone: Internal [facility] Procedures Date Procedure Procedure Detail Performing Clinician Start: 05-06-2022 Mammography Tana cordoba NBA PLAYER.HIGH LIFT MULE OPERATOR Work Phone: Start: 05-04-2021 Adult depression screening assessment Cierra Calderón NBA PLAYER.ROCKET ENGINE MECHANIC Work Phone: Start: 05-03-2021 Mammography Cierra Calderón NBA PLAYER.ROCKET ENGINE MECHANIC Work Phone: Start: 07-04-2017 Colonoscopy Cierra Calderón NBA PLAYER.ROCKET ENGINE MECHANIC Work Phone: Start: 03-14-2017 Screening mammography Screenin g mammogram for breast cancer Yanna Sinclair MD Plan of Treatment Date Care Activity Detail Author Start: 03-17-2030 Urine microalbumin profile DTAP,TDAP,TD (3 - Td or Tdap) [facility] Start: 11-05-2027 LIPID SCREEN LIPID SCREEN [facility] Start: 07-04-2027 Colonoscopy COLONOSCOPY [facility] Start: 07-04-2027 COLORECTAL CANCER SCREENING COLORECTAL CANCER SCREENING [facility] Start: 11-05-2026 LIPID SCREEN LIPID SCREEN [facility] Start: 01-11-2026 LIPID SCREEN LIPID SCREEN [facility] Start: 11-04-2025 DIABETES SCREEN DIABETES SCREEN [facility] Start: 11-05-2024 DIABETES SCREEN DIABETES SCREEN [facility] Start: 01-12-2024 DIABETES SCREEN DIABETES SCREEN [facility] Start: 11-13-2023 End: 01-13-2024 CBC W Auto Differential panel - Blood CBC + DIFF Lab Routine White coat syndrome with high blood pressure but without hypertension Encounter for long-term current use of medication Expected: 11/13/2023 (Approximate), Expires: 01/13/2024 [facility] Work Phone: Immunizations Immunization Date Immunization Notes Care Provider Nicky call 03-05-2022 COVID-19 booster vaccine, age 12+ yr, bivalent (MODERNA) Tana Jacob NBA PLAYER.HIGH LIFT MULE OPERATOR Work Phone: [facility] 02-16-2021 influenza, high-dose , quadrivalent vaccine (FLUZONE HIGH DOSE QUADRIVALENT) Cierra Calderón NBA PLAYER.ROCKET ENGINE MECHANIC Work Phone: [facility] 03-17-2020 tetanus toxoid, redu lucita diphtheria toxoid, and acellular pertussis vaccine, adsorbed Cierra Calderón NBA PLAYER.ROCKET ENGINE MECHANIC Work Phone: [facility] 02-24-2020 influenza (aIIV4) vaccine, age 65+ yr, quadrivalent, PF (FLUAD QUADRIVALENT) Cierra Calderón NBA PLAYER.ROCKET ENGINE MECHANIC Work Phone: [facility] 02-24-2020 influenza, high dose seasonal, preservative-free Cierra Older NBA PLAYER.ROCKET ENGINE MECHANIC Work Phone: [facility] 02-25-2019 Seasonal trivalent influenza vaccine, adjuvanted, preservative free Cierra Older NBA PLAYER.ROCKET ENGINE MECHANIC Work Phone: [facility] 11-07-2018 zoster vaccine recombinant Cierra Older NBA PLAYER.ROCKET ENGINE MECHANIC Work Phone: [facility] Work Phone: 11-04-2018 zoster vaccine recombinant Cierra Older NBA PLAYER.ROCKET ENGINE MECHANIC Work Phone: [facility] 09-04-2018 zoster vaccine recombinant Cierra Older NBA PLAYER.ROCKET ENGINE MECHANIC Work Phone: [facility] 09-03-2018 zoster vaccine recombinant Cierra Older NBA PLAYER.ROCKET ENGINE MECHANIC Work Phone: [facility] 02-21-2018 influenza, high dose seasonal, preservative-free Cierra Older NBA PLAYER.ROCKET ENGINE MECHANIC Work Phone: [facility] 02-27-2017 influenza, high dose seasonal, preservative-free Cierra Older NBA PLAYER.ROCKET ENGINE MECHANIC Work Phone: [facility] Work Phone: 03-07-2016 influenza, high dose seasonal, preservative-free Cierra Older NBA PLAYER.ROCKET ENGINE MECHANIC Work Phone: [facility] Work Phone: 09-28-2015 pneumococcal conjuga te vaccine, 13 valent Cierra Older NBA PLAYER.ROCKET ENGINE MECHANIC Work Phone: [facility] 03-23-2015 influenza, high dose seasonal, preservative-free Cierra Older NBA PLAYER.ROCKET ENGINE MECHANIC Work Phone: [facility] 03-25-2014 influenza, high dose seasonal, preservative-free Cierra Older NBA PLAYER.ROCKET ENGINE MECHANIC Work Phone: [facility] 03-25-2014 pneumococcal polysaccharide vaccine, 23 valent Cierra Older NBA PLAYER.ROCKET ENGINE MECHANIC Work Phone: [facility] 03-06-2013 influenza virus vacc ine, unspecified formulation Cierra Older NBA PLAYER.ROCKET ENGINE MECHANIC Work Phone: [facility] 11-22-2009 zoster vaccine, live Cierra Old er NBA PLAYER.ROCKET ENGINE MECHANIC Work Phone: [facility] 03-03-2009 influenza virus vacc ine, unspecified formulation Cierra Older NBA PLAYER.ROCKET ENGINE MECHANIC Work Phone: [facility] 03-25-2008 influenza virus vacc ine, unspecified formulation Cierra Older NBA PLAYER.ROCKET ENGINE MECHANIC Work Phone: [facility] Work Phone: 11-11-2006 tetanus toxoid, redu lucita diphtheria toxoid, and acellular pertussis vaccine, adsorbed Cierra Older NBA PLAYER.ROCKET ENGINE MECHANIC Work Phone: [facility] 04-30-2005 influenza virus vacc ine, whole virus Cierra Older NBA PLAYER.ROCKET ENGINE MECHANIC Work Phone: [facility] Work Phone: Payers Date Payer Category Payer Medicare HU[employer]NA MEDICARE HU[employer] GOLD PLUS [id number] 2021-Present [phone] [address] [address] [place] [address] O [id number] 2021 Medicare [id number] 2021 Private Health Insurance 1 [id number] Social History Date Type Detail Facility Start: 04-10-2012 End: 08-09-2022 Tobacco smoking status PAIS Never smoked tobacco [facility] Start: 08-10-2021 End: 08-09-2022 Alcohol intake Current drinker of alcohol (finding) [facility] Start: 07-04-2017 History SDOH Alcohol Comment rarely [facility] Start: 1950 Sex Assigned At Not on file [facility] Start: 11-06-2021 End: 11-05-2022 History SDOH Alcohol Frequency 1 [facility] Start: 11-06-2021 History SDOH Alcohol Std Drinks 98 [facility] Start: 11-06-2021 End: 11-05-2022 History SDOH Social Connections Phone 5 [facility] Start: 11-06-2021 End: 11-05-2022 History SDOH Social Connections Muslim 3 [facility] Start: 11-06-2021 End: 11-05-2022 History SDOH Physical Activity DPW 4 [facility] Start: 11-06-2021 End: 11-05-2022 History SDOH Transport Med 2 [facility] Start: 1950 Sex Assigned At Female C [facility] Start: 11-03-2021 End: 12-28-2021 Exposure to SARS-CoV-2 (event) Not sure [facility] Work Phone: Start: 04-10-2012 End: 08-09-2022 Tobacco use and exposure Smokeless tobacco non-user [facility] Start: 11-05-2022 History SDOH Alcohol Std Drinks 0 [facility] Start: 11-05-2022 History SDOH Physica l Activity MPS 6 [facility] Clinical Notes 03-03-2009 to 11-12-2022 Patient InstructionsAntonia Joiner MD - 11/12/2022 8:23 AM EDTTelephone Encounter - Antonia Joiner MD - 09/25/2022 1:28 PM EDTTelephone Encounter - Deborah Peoples LPN - 09/25/2022 10:51 AM EDT Note Date & Type Note Facility 11-12-2022 Note HNO ID: [id number] Author: Antonia Joiner MD Service: ? Author Type: Physician Type: Progress Notes Filed: 11/12/2022 8:33 PM Note Text: This note was created using Inaikariter. Subjective Alisa Johnson is a 72 year old female. HISTORY Alisa Johnson is a 72 year old lady here to be formally established with me. BP tends to run higher in office. Home BP cuff 114 to 144 with most 120s to 130s over 61 to 83 with most in 70s. This 140s was when only had 4 hours of sleep. has had problems with insomnia. Melatonin 10mg gets her 6 hours. Tylenol PM gets her more sleep but causes daytime sleepiness. Is a light sleeper. Already limits caffeine after the morning. Has set sleep time by 10 to 11PM. Does not have trouble falling asleep. No set AM need to wake up but usually up by 5AM. Left rib cage pain episode discussed--went to [facility] July. After pulling on stuck cart at store. GERD acts up if stops taking PPI or misses dose. Had Free Blood Flow Screening done at [facility]. All normal--Carotid artery screening 0-15%, Normal Aortic US. Normal TASH. 06/13/22. Has HCDPOA and LW--LW scannedin. Will drop of copy of HCDPOA. Same contacts on both. 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 1/2 hr before meal. CALCIUM CARBONATE/VITAMIN D3 (CALCIUM + D ORAL) Take 2 tablets by mouth twice daily. MULTIVITAMIN CAP Take one(1) tablet daily. No current facility-administered medications for this visit. ALLERGIES Allergen Reactions Codeine GI Upset Losartan Intolerance Naprosyn [Naproxen] GI Upset Tavist [Clemastine * GI Upset PAST SURGICAL HISTORY Procedure Laterality Date BREAST LUMPECTOMY HX 02/16/2015 Left breast COLONOSCOPY FLX DX W/COLLJ SPEC WHEN PFRMD 02/02/2007 Colonoscopy COLONOSCOPY FLX DX W/COLLJ SPEC WHEN PFRMD 07/04/2017 Colonoscopy LIG/TRNSXJ FLP TUBE ABDL/VAG APPR UNI/BI Tubal ligation FAMILY HISTORY Problem Relation Age of Onset Diabetes Paternal Grandmother Diabetes Father Heart Father 4 X BYPASS Heart Maternal Grandmother Coronary Artery Disease Maternal Aunt Coronary Artery Disease Maternal Aunt Cancer Brother 12 RCC--Surgically excised. Alive and well now. other (Parkinson's disease [Other]) Brother None Brother None Brother other (Macular Degeneration [Other]) Mother Breast Cancer Mother 76 Surgery then radiation and tamoxifen Stroke Father Social History Tobacco Use Smoking status: Never Smokeless tobacco: Never Vaping Use Vaping Use: Never used Substance Use Topics Alcohol use: Yes Comment: rarely Drug use: No Review of Systems Objective BP 130/80 Pulse 72 Resp 16 Wt 75.8 kg (167 lb) BMI 28.34 kg/m? Last 5 Encounter Wt Readings: Date: Wt: 11/12/2022 75.8 kg (167 lb) 08/09/2022 75.3 kg (166 lb) 05/16/2022 76.7 kg (169 lb) 05/09/2022 76.4 kg (168 lb 8 oz) 12/28/2021 79.8 kg (176 lb) No waist measurement recorded Estimated body mass index is 28.34 kg/m? as calculated from the following: Height as of 05/16/22: 163.5 cm (5' 4.37 ). Weight as of this encounter: 75.8 kg (167 lb). Last 5 Encounter BP Readings: Date: BP: 11/12/2022 130/80 08/09/2022 138/78 05/16/2022 130/80[Home BP cuff[ 05/09/2022 152/87 12/28/2021 122/70 Physical Exam Vitals reviewed. Constitutional: Appearance: She is well-developed. HENT: Head: Normocephalic and atraumatic. Right Ear: External ear normal. Left Ear: External ear normal. Nose: Nose normal. Eyes: Conjunctiva/sclera: Conjunctivae normal. Neck: Thyroid: No thyromegaly. Cardiovascular: Rate and Rhythm: Normal rate and regular rhythm. Pulses: Normal pulses. Heart sounds: Normal heart sounds. No murmur heard. No friction rub. No gallop. Pulmonary: Effort: Pulmonary effort is normal. Breath sounds: Normal breath sounds. Abdominal: General: Bowel sounds are normal. There is no distension. Palpations: Abdomen is soft. There is no mass. Tenderness: There is no abdominal tenderness. Musculoskeletal: General: No deformity. Normal range of motion. Comments: Mild muscle tightness in paravertebral muscle at lower rib cage on left. no rib cage tenderness now. Lymphadenopathy: Cervical: No cervical adenopathy. Skin: General: Skin is warm and dry. Coloration: Skin is not jaundiced or pale. Findings: No rash. Neurological: General: No focal deficit present. Mental Status: She is alert and oriented to person, place, and time. Cranial Nerves: No cranial nerve deficit. Sensory: No sensory deficit. Motor: No abnormal muscle tone. Coordination: Coordination normal. Deep Tendon Reflexe (more content not included)... [facility] 11-12-2022 Instructions Antonia Joiner MD - 11/12/2022 8:31 AM EDT Sleep Hygiene and Good Sleep Habits Establish a regular routine that includes going to bed and getting up at the same time every day, even on weekends. Maintaining a consistent sleep-wake cycle is the roach to better health overall. Get an adequate amount of sleep every night. Determine the amount of sleep you need by keeping track of how long you sleep without using an alarm clock for a week. Maintain this personal sleep requirement. Go to bed when you are sleepy. If you have difficulty falling asleep or wake up shortly after going to sleep, leave the bedroom and read quietly or do some other relaxing activity. Avoid bright lights as this can cue your wake cycle. Develop sleep rituals before going to bed. Do the same things in the same order before going to bed to cue your body to slow down and relax. Avoid stress and worries at bedtime. Address tomorrow's activities, concerns, or distractions earlier in the day. Certain activities, such as listening to soft music, reading, or taking a warm bath, can help you wind down. Use your bed for sleeping and sex only. Often, doing other activities in bed like watching TV, paying bills, or working only serve to initiate worries and concerns. Let your mind associate the bed with sleeping, relaxing, and pleasure. Avoid heavy meals late in the evening; similarly, avoid going to bed hungry. A light snack, especially dairy foods, can help you sleep. Reduce your intake of caffeine and nicotine 4-6 hours before going to sleep. Stimulants interfere with your ability to fall asleep and progress into deep sleep. 200mg caffeine (a large [employer] coffee) taken at 8 AM will impair the sleep architecture that night. Avoid alcohol 4-6 hours before bedtime. As a depressant that slows brain activity, alcohol may initially make you tired, but you will end up having fragmented sleep. In addition, being tired intensifies the effects of alcohol. Alcohol also aggravates snoring and sleep apnea particularly in men. Exercise regularly. Regular exercise, even for 20 minutes, 3 times a week, promotes deep sleep. Don't nap for more than 30 minutes or after 3 PM. Avoiding naps all together will ensure that you are tired at night. Longer naps disrupt the body's ability to stay asleep. Maintain a dark, quiet room to sleep in at a temperature with which you are comfortable. Use sleeping aids conservatively, and avoid using them for more than one or two nights per month. Avoid sleeping pills altogether if you have obstructive sleep apnea because it can be a deadly combination. TIPS FOR A BETTER NIGHT OF SLEEP BEFORE GETTING INTO BED: -Establish a regular routine for bedtime. -Create a positive sleep environment. -Relax before getting into bed. -Avoid alcohol, smoking, caffeine for at least a few hours before bedtime. -Do not go to bed unless you are sleepy. WHILE IN BED: -Turn your clock around (or cover it) and use your alarm if needed. - If you can't fall asleep in 20 minutes (based on your internal sense of time), get out of bed and do something relaxing or boring (reading, listening to music, etc). Return to bed only when sleepy. -Use your bed only for sleep and sex. IN THE MORNING AND DURING THE DAYTIME: -Wake up at the same time every morning, even on weekends. -Avoid naps during the day. -Avoid caffeinated beverages and food in the evening. -Exercise regularly but not within 4 hours of bedtime. documented in this encounter [facility] 11-12-2022 History of Presen t illness Narrative This note was created using Transfer To. Subjective Alisa Johnson is a 72 year old female. HISTORY Alisa Johnson is a 72 year old lady here to be formally established with me. BP tends to run higher in office. Home BP cuff 114 to 144 with most 120s to 130s over 61 to 83 with most in 70s. This 140s was when only had 4 hours of sleep. has had problems with insomnia. Melatonin 10mg gets her 6 hours. Tylenol PM gets her more sleep but causes daytime sleepiness. Is a light sleeper. Already limits caffeine after the morning. Has set sleep time by 10 to 11PM. Does not have trouble falling asleep. No set AM need to wake up but usually up by 5AM. Left rib cage pain episode discussed--[facility]. After pulling on stuck cart at store. GERD acts up if stops taking PPI or misses dose. Had Free Blood Flow Screening done at [facility]. All normal--Carotid artery screening 0-15%, Normal Aortic US. Normal TASH. 06/13/22. Has HCDPOA and LW--LW scannedin. Will drop of copy of HCDPOA. Same contacts on both. 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 1/2 hr before meal. CALCIUM CARBONATE/VITAMIN D3 (CALCIUM + D ORAL) Take 2 tablets by mouth twice daily. MULTIVITAMIN CAP Take one(1) tablet daily. No current facility-administered medications for this visit. ALLERGIES Allergen Reactions Codeine GI Upset Losartan Intolerance Naprosyn [Naproxen] GI Upset Tavist [Clemastine * GI Upset PAST SURGICAL HISTORY Procedure Laterality Date BREAST LUMPECTOMY HX 02/16/2015 Left breast COLONOSCOPY FLX DX W/COLLJ SPEC WHEN PFRMD 02/02/2007 Colonoscopy COLONOSCOPY FLX DX W/COLLJ SPEC WHEN PFRMD 07/04/2017 Colonoscopy LIG/TRNSXJ FLP TUBE ABDL/VAG APPR UNI/BI Tubal ligation FAMILY HISTORY Problem Relation Age of Onset Diabetes Paternal Grandmother Diabetes Father Heart Father 4 X BYPASS Heart Maternal Grandmother Coronary Artery Disease Maternal Aunt Coronary Artery Disease Maternal Aunt Cancer Brother 12 RCC--Surgically excised. Alive and well now. other (Parkinson's disease [Other]) Brother None Brother None Brother other (Macular Degeneration [Other]) Mother Breast Cancer Mother 76 Surgery then radiation and tamoxifen Stroke Father Social History Tobacco Use Smoking status: Never Smokeless tobacco: Never Vaping Use Vaping Use: Never used Substance Use Topics Alcohol use: Yes Comment: rarely Drug use: No Review of Systems Objective BP 130/80 Pulse 72 Resp 16 Wt 75.8 kg (167 lb) BMI 28.34 kg/m Last 5 Encounter Wt Readings: Date: Wt: 11/12/2022 75.8 kg (167 lb) 08/09/2022 75.3 kg (166 lb) 05/16/2022 76.7 kg (169 lb) 05/09/2022 76.4 kg (168 lb 8 oz) 12/28/2021 79.8 kg (176 lb) No waist measurement recorded Estimated body mass index is 28.34 kg/m as calculated from the following: Height as of 05/16/22: 163.5 cm (5' 4.37 ). Weight as of this encounter: 75.8 kg (167 lb). Last 5 Encounter BP Readings: Date: BP: 11/12/2022 130/80 08/09/2022 138/78 05/16/2022 130/80[Home BP cuff[ 05/09/2022 152/87 12/28/2021 122/70 Physical Exam Vitals reviewed. Constitutional: Appearance: She is well-developed. HENT: Head: Normocephalic and atraumatic. Right Ear: External ear normal. Left Ear: External ear normal. Nose: Nose normal. Eyes: Conjunctiva/sclera: Conjunctivae normal. Neck: Thyroid: No thyromegaly. Cardiovascular: Rate and Rhythm: Normal rate and regular rhythm. Pulses: Normal pulses. Heart sounds: Normal heart sounds. No murmur heard. No friction rub. No gallop. Pulmonary: Effort: Pulmonary effort is normal. Breath sounds: Normal breath sounds. Abdominal: General: Bowel sounds are normal. There is no distension. Palpations: Abdomen is soft. There is no mass. Tenderness: There is no abdominal tenderness. Musculoskeletal: General: No deformity. Normal range of motion. Comments: Mild muscle tightness in paravertebral muscle at lower rib cage on left. no rib cage tenderness now. Lymphadenopathy: Cervical: No cervical adenopathy. Skin: General: Skin is warm and dry. Coloration: Skin is not jaundiced or pale. Findings: No rash. Neurological: General: No focal deficit present. Mental Status: She is alert and oriented to person, place, and time. Cranial Nerves: No cranial nerve deficit. Sensory: No sensory deficit. Motor: No abnormal muscle tone. Coordination: Coordination normal. Deep Tendon Reflexes: Reflexes normal. Psychiatric: Mood and Affect: Mood normal. Behavior: Behavior normal. Thought Content: Thought content normal. Judgment: Judgment normal. Component Latest Ref Rng & Units 02/17/2020 01/11/2021 11/05/2021 01/01/2022 11/04/2022 WBC 3.70 - 11.00 k/uL 6.13 5.11 5.43 RBC 3.90 - 5.20 m/uL 4.79 4.71 4.64 Hemoglobin 11.5 - 15.5 g/dL 14.0 14.1 13.7 Hematocrit 36.0 - 46.0 % 43.4 42.5 42.9 MCV 80.0 - 100.0 fL 90.6 90.2 92.5 MCH 26.0 - 34.0 pg 29.2 29.9 29.5 MCHC 30.5 - 36.0 g/dL 32.3 33.2 31.9 RDW-CV 11.5 - 15.0 % 13.8 13.2 13.0 Platelet Count 150 - 400 k/uL 200 200 183 MPV 9.0 - 12.7 fL 9.5 9.6 9.7 Neut% % 47.3 49.1 47.4 Abs Neut (ANC) 1.45 - 7.50 k/uL 2.90 2.51 2.58 Lymph% % 35.6 35.4 35.4 Abs Lymph 1.00 - 4.00 k/uL 2.18 1.81 1.92 [place]% % 12.4 12.1 13.3 Abs [place] <0.87 k/uL 0.76 0.62 0.72 Eosin% % 3.9 2.2 2.9 Abs Eosin <0.46 k/uL 0.24 0.11 0.16 Baso% % 0.8 0.6 0.6 Abs Baso <0.11 k/uL 0.05 0.03 0.03 Immature Gran % % 0.6 0.4 IMMATURE GRANS (ABS) <0.10 k/uL 0.03 <0.03 NRBC /100 WBC 0.0 0.0 Absolute nRBC <0.01 k/uL <0.01 <0.01 <0.01 DTYPE Auto Auto Nucleated Reds 0 /100 WBC 0.0 Diff Type Auto Diff Protein, Total 6.3 - 8.0 g/dL 7.2 6.5 7.1 7.2 Albumin 3.9 - 4.9 g/dL 4.7 4.6 4.7 4.8 Calcium 8.5 - 10.2 mg/dL 9.7 9.7 10.0 9.6 Bilirubin, Total 0.2 - 1.3 mg/dL 0.3 0.4 0.5 0.4 Alkaline Phosphatase 34 - 123 U/L 37 76 76 80 AST 13 - 35 U/L 27 26 22 23 Glucose 74 - 99 mg/dL 91 88 101 (H) 100 (H) BUN 7 - 21 mg/dL 12 13 13 15 Creatinine 0.58 - 0.96 mg/dL 0.74 0.71 0.73 0.77 Sodium 136 - 144 mmol/L 134 (L) 137 136 134 (L) Potassium 3.7 - 5.1 mmol/L 4.4 4.2 4.2 4.3 Chloride 97 - 105 mmol/L 98 101 100 98 CO2 22 - 30 mmol/L 24 23 26 25 Anion Gap 9 - 18 mmol/L 12 13 10 11 ALT 7 - 38 U/L 16 24 17 18 eGFR- >60 >60 eGFR-All Other Races . >60 >60 eGFR >=60 mL/min/1.73m 87 81 Cholesterol, Total <200 mg/dL 173 212 (H) 197 173 Triglyceride <150 mg/dL 81 76 73 85 HDL Cholesterol >39 mg/dL 99 87 85 72 LDL Cholesterol <100 mg/dL 58 110 (H) 97 84 Non HDL Cholesterol <130 mg/dL 74 125 112 101 Fasting Time hrs 12 12 14 13 VLDL Cholesterol <30 mg/dL 16 15 15 17 TC:HDL Ratio <5.10 1.75 2.44 2.32 2.40 LDL:HDL Ratio <2.54 0.59 1.26 1.14 1.17 TSH 0.270 - 4.200 mIU/L 1.960 Assessment and Plan Encounter Diagnosis ICD-10-CM 1. Hyperlipidemia with target LDL less than 100 E78.5 LIPID PANEL BASIC 2. Gastroesophageal reflux disease without esophagitis K21.9 3. White coat syndrome with high blood pressure but without hypertension R03.0 COMP METABOLIC PANEL CBC + DIFF LIPID PANEL BASIC MAGNESIUM BLD HGB A1C TSH BLD T4 FREE/FREE THYROX 4. Persistent disorder of initiating or maintaining sleep G47.00 5. Elevated fasting glucose R73.01 COMP METABOLIC PANEL HGB A1C 6. Encounter for long-term current use of medication Z79.899 COMP METABOLIC PANEL CBC + DIFF LIPID PANEL BASIC MAGNESIUM BLD HGB A1C TSH BLD T4 FREE/FREE THYROX Patient here for yearly exam and follow up and to be formally established with me.. Follows with Dr. Sinclair at [facility] so gets mammograms done there. Last appointment with Elijah Crooks was last year--DCIS. Had seen Dr. Pedro as well. Above issues addressed with patient. Patient involved in shared decision making for management of medical issues. History and medications reviewed. Epic updated as needed Refills taken care of and meds adjusted as indicated after reviewed history, exam and labs. Health Maintenance reviewed. Updated record and/or ordered tests as recorded. Encouraged on efforts at healthy diet and regular exercise and adequate sleep. Noted some stressors with getting both knees replaced this summer. Antonia Joiner MD documented in this encounter [facility] 09-25-2022 Miscellaneous Notes Okayed Patient has been identified by name and date of : Yes, Patient phones for refill(s): Requested Prescriptions Pending Prescriptions Disp Refills atorvastatin (LIPITOR) 10 mg tablet [Pharmacy Med Name: ATORVASTATIN CALCIUM 10 MG Tablet] 90 tablet 3 Sig: TAKE 1 TABLET EVERY DAY Date of last office visit in primary care: 05/16/2022 6 month follow-up: 11/12/2022 Last 2 Encounter Wt Readings: Date: Wt: 08/09/2022 75.3 kg (166 lb) 05/16/2022 76.7 kg (169 lb) Previous labs/tests for medication: Cholesterol: HDL Cholesterol (mg/dL) Date Value 11/05/2021 85 01/11/2021 87 LDL Cholesterol (mg/dL) Date Value 11/05/2021 97 01/11/2021 110 ALT (U/L) Date Value 11/05/2021 17 01/11/2021 24 Non HDL Cholesterol (mg/dL) Date Value 11/05/2021 112 01/11/2021 125 Please advise. Thank you. Deborah Peoples LPN documented in this encounter [facility] 09-19-2022 Miscellaneous Notes Patient has been identified by name and date of : Yes, Patient phones for refill(s): Requested Prescriptions Pending Prescriptions Disp Refills omeprazole (PRILOSEC) 20 mg capsule 90 capsule 3 Sig: Take 1 capsule by mouth daily before breakfast. 1/2 hr before meal. Date of last office visit in primary care: 06/13/2022 6 month follow-up: 11/12/2022 Last 2 Encounter Wt Readings: Date: Wt: 08/09/2022 75.3 kg (166 lb) 05/16/2022 76.7 kg (169 lb) Previous labs/tests for medication: Not applicable Please advise. Thank you. Deborah Peoples LPN Patient has been identified by name and date of : Yes Requested Prescriptions Pending Prescriptions Disp Refills omeprazole (PRILOSEC) 20 mg capsule 90 capsule 3 Sig: Take 1 capsule by mouth daily before breakfast. 1/2 hr before meal. RX INSTRUCTIONS: Patient aware RX escripted to mail away pharmacy. No need to notify patient. Kate Patel Pss documented in this encounter [facility] 08-09-2022 Note HNO ID: [id number] Author: Fauzia Jurado RT(R) Service: Radiology Author Type: Technologist Type: Progress Notes Filed: 08/09/2022 8:25 AM Note Text: Radiology Service Progress Note PATIENT NAME: Alisa Johnson DATE OF SERVICE: August 09, 2022 TIME: 8:25 AM PATIENT IDENTITY VERIFICATION COMPLETED USING TWO (2) IDENTIFIERS: Name and Date of confirmed by patient verbally. FALL SCREENING: Has the patient had 2 falls in the last year or 1 fall with injury or currently using an Ambulatory Assistive Device (Walker, Cane, Wheelchair, Crutches, etc.)? No PATIENT GENDER DATA: Female. status: : No status: NO. PATIENT RELEVANT IMPLANT DATA REVIEWED: Yes RADIOLOGY DEPARTMENT: General X-ray: Exam(s) Completed: Rib X-Ray: Left PERIPHERAL IV DATA: Not applicable SIGNED BY: RT Geo(R) August 09, 2022 8:25 AM [facility] 08-09-2022 Note HNO ID: [id number] Author: SPARKLE Arce Service: ? Author Type: Physician Automated Teller Manager Type: Progress Notes Filed: 08/09/2022 9:09 AM Note Text: This note was created using [employer]. Subjective Alisa Johnson is a 72 year old female. HPI 72-year-old female presents for left-sided rib pain. Patient states that she was in the grocery store yesterday pushing a grocery cart when she started to get some pain in her left ribs. She states she did not fall or injure herself, but was bending and twisting in the grocery store. She has pain over her left lower anterior ribs. She denies any abdominal pain. No chest pain or shortness of breath. Pain is worse with movement. She states whenever she twists or turns, she gets the pain in the left side of her rib. It is tender to touch. She has not seen a rash. No vomiting or diarrhea. No abdominal pain. No back pain. No urinary symptoms. No cough or URI symptoms. No fevers. 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 omeprazole (PRILOSEC) 20 mg capsule Take 1 capsule by mouth daily before breakfast. 1/2 hr before meal. CALCIUM CARBONATE/VITAMIN D3 (CALCIUM + D ORAL) Take 2 tablets by mouth twice daily. MULTIVITAMIN CAP Take one(1) tablet daily. FAMILY HISTORY Problem Relation Age of Onset Diabetes Paternal Grandmother Diabetes Father Heart Father 4 X BYPASS Heart Maternal Grandmother Coronary Artery Disease Maternal Aunt Coronary Artery Disease Maternal Aunt Cancer Brother 12 RCC--Surgically excised. Alive and well now. other (Parkinson's disease [Other]) Brother None Brother None Brother other (Macular Degeneration [Other]) Mother Breast Cancer Mother 76 Surgery then radiation and tamoxifen Stroke Father Social History Tobacco Use Smoking status: Never Smokeless tobacco: Never Vaping Use Vaping Use: Never used Substance Use Topics Alcohol use: Yes Comment: rarely Drug use: No Review of Systems Constitutional: Negative for chills and fever. HENT: Negative for congestion, ear pain and sore throat. Respiratory: Negative for cough and shortness of breath. Cardiovascular: Negative for chest pain. Gastrointestinal: Negative for abdominal pain, diarrhea and vomiting. Musculoskeletal: Negative for back pain and neck pain. + left rib pain Skin: Negative for rash. Neurological: Negative for numbness. Objective BP 138/78 Pulse (!) 51 Temp 36.7 ?C (98.1 ?F) Resp 18 Wt 75.3 kg (166 lb) SpO2 97% BMI 28.17 kg/m? Physical Exam Vitals and nursing note reviewed. Constitutional: General: She is not in acute distress. Appearance: Normal appearance. She is not toxic-appearing. HENT: Nose: Nose normal. Mouth/Throat: Mouth: Mucous membranes are moist. Eyes: Conjunctiva/sclera: Conjunctivae normal. Cardiovascular: Rate and Rhythm: Normal rate and regular rhythm. Comments: Nursing noted vitals- HR at 51. I rechecked this. Heart rate 85. Regular rhythm and rate. Pulmonary: Effort: Pulmonary effort is normal. Breath sounds: Normal breath sounds. Chest: Chest wall: Tenderness present. No deformity or crepitus. Comments: Tenderness over left lower anterior ribs. No abdominal tenderness. No rash present. Pain worse with movement. Abdominal: Tenderness: There is no abdominal tenderness. There is no right CVA tenderness or left CVA tenderness. Skin: General: Skin is warm and dry. Neurological: Mental Status: She is alert. Assessment and Plan ASSESSMENT/PLAN: 1. Rib pain - ICD9: 786.50, ICD10: R07.81 -Suspect musculoskeletal pain. Pain worse with movement and palpation. No chest pain, no shortness of breath. Vitals normal. Low suspicion for ACS or PE. - Treatment with lidocaine patch, NSAIDs or tylenol OTC - Chest X-ray today. normal, no signs of acute disease. No signs of fracture or pneumothorax. - XR RIBS/CHEST 3V AP RIB/OBLS/CXR LEFT -Follow-up with PCP if symptoms worsen or do not improve. -Recommend rest, ice, lidocaine patches. -Given red flag symptoms and when to go to ER. -Advised to watch for a rash due to possible early shingles. She understands Diagnosis and treatment plan were discussed and questions were answered to the patient's satisfaction. Pt acknowledged understanding of concepts and follow up plan. Specific signs and symptoms that would indicate the need (more content not included)... [facility] 08-09-2022 Instructions SPARKLE Arce - 08/09/2022 9:06 AM EDT R.I.C.E. The general care of your injury includes the following: Resting, Icing, Compressing and Elevating the injured area. Remember this as RICE. REST: Limit the use of the injured body part. ICE: By applying ice to the affected area, swelling and pain can be reduced. Place some ice cubes in a re-sealable (Ziploc) bag and add some water. Put a thin washcloth between the bag and your skin. Apply the ice bag to the area for at least 20 minutes. Do this at least 4 times per day. Using the ice for longer times and more frequently is OK. NEVER APPLY ICE DIRECTLY TO THE SKIN. COMPRESS: Compression means to apply pressure around the injured area such as with a splint, cast or an karely bandage. Compression decreases swelling and improves comfort. Compression should be tight enough to relieve swelling but not so tight as to decrease circulation. Increasing pain, numbness, tingling, or change in skin color, are all signs of decreased circulation. ELEVATE: Elevate the injured part. For example, elevate your foot by placing it on a chair while sitting, or propping it up on pillows when lying down. documented in this encounter [facility] 08-09-2022 History of Presen t illness Narrative Images from the original note were not included. This note was created using [employer]. Subjective Alisa Johnson is a 72 year old female. HPI 72-year-old female presents for left-sided rib pain. Patient states that she was in the grocery store yesterday pushing a grocery cart when she started to get some pain in her left ribs. She states she did not fall or injure herself, but was bending and twisting in the grocery store. She has pain over her left lower anterior ribs. She denies any abdominal pain. No chest pain or shortness of breath. Pain is worse with movement. She states whenever she twists or turns, she gets the pain in the left side of her rib. It is tender to touch. She has not seen a rash. No vomiting or diarrhea. No abdominal pain. No back pain. No urinary symptoms. No cough or URI symptoms. No fevers. 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 omeprazole (PRILOSEC) 20 mg capsule Take 1 capsule by mouth daily before breakfast. 1/2 hr before meal. CALCIUM CARBONATE/VITAMIN D3 (CALCIUM + D ORAL) Take 2 tablets by mouth twice daily. MULTIVITAMIN CAP Take one(1) tablet daily. FAMILY HISTORY Problem Relation Age of Onset Diabetes Paternal Grandmother Diabetes Father Heart Father 4 X BYPASS Heart Maternal Grandmother Coronary Artery Disease Maternal Aunt Coronary Artery Disease Maternal Aunt Cancer Brother 12 RCC--Surgically excised. Alive and well now. other (Parkinson's disease [Other]) Brother None Brother None Brother other (Macular Degeneration [Other]) Mother Breast Cancer Mother 76 Surgery then radiation and tamoxifen Stroke Father Social History Tobacco Use Smoking status: Never Smokeless tobacco: Never Vaping Use Vaping Use: Never used Substance Use Topics Alcohol use: Yes Comment: rarely Drug use: No Review of Systems Constitutional: Negative for chills and fever. HENT: Negative for congestion, ear pain and sore throat. Respiratory: Negative for cough and shortness of breath. Cardiovascular: Negative for chest pain. Gastrointestinal: Negative for abdominal pain, diarrhea and vomiting. Musculoskeletal: Negative for back pain and neck pain. + left rib pain Skin: Negative for rash. Neurological: Negative for numbness. Objective BP 138/78 Pulse (!) 51 Temp 36.7 C (98.1 F) Resp 18 Wt 75.3 kg (166 lb) SpO2 97% BMI 28.17 kg/m Physical Exam Vitals and nursing note reviewed. Constitutional: General: She is not in acute distress. Appearance: Normal appearance. She is not toxic-appearing. HENT: Nose: Nose normal. Mouth/Throat: Mouth: Mucous membranes are moist. Eyes: Conjunctiva/sclera: Conjunctivae normal. Cardiovascular: Rate and Rhythm: Normal rate and regular rhythm. Comments: Nursing noted vitals- HR at 51. I rechecked this. Heart rate 85. Regular rhythm and rate. Pulmonary: Effort: Pulmonary effort is normal. Breath sounds: Normal breath sounds. Chest: Chest wall: Tenderness present. No deformity or crepitus. Comments: Tenderness over left lower anterior ribs. No abdominal tenderness. No rash present. Pain worse with movement. Abdominal: Tenderness: There is no abdominal tenderness. There is no right CVA tenderness or left CVA tenderness. Skin: General: Skin is warm and dry. Neurological: Mental Status: She is alert. Assessment and Plan ASSESSMENT/PLAN: 1. Rib pain - ICD9: 786.50, ICD10: R07.81 -Suspect musculoskeletal pain. Pain worse with movement and palpation. No chest pain, no shortness of breath. Vitals normal. Low suspicion for ACS or PE. - Treatment with lidocaine patch, NSAIDs or tylenol OTC - Chest X-ray today. normal, no signs of acute disease. No signs of fracture or pneumothorax. - XR RIBS/CHEST 3V AP RIB/OBLS/CXR LEFT -Follow-up with PCP if symptoms worsen or do not improve. -Recommend rest, ice, lidocaine patches. -Given red flag symptoms and when to go to ER. -Advised to watch for a rash due to possible early shingles. She understands Diagnosis and treatment plan were discussed and questions were answered to the patient's satisfaction. Pt acknowledged understanding of concepts and follow up plan. Specific signs and symptoms that would indicate the need for higher level of care were discussed in detail warranting prompt ER evaluation. SPARKLE Arce documented in this encounter [facility] 05-16-2022 Note HNO ID: [id number] Author: Tana Jacob APRN.HIGH LIFT MULE OPERATOR Service: ? Author Type: Nurse Specialist Type: Progress Notes Filed: 05/16/2022 9:39 AM Note Text: SUBJECTIVE: DEPRESSION ASSESSMENT Never done HPI Alisa Johnson is a 72 year old female. PMH significnat for ACTIVE PROBLEM LIST Postmenopausal Atrophic Vaginitis Osteopenia Hyperlipidemia With Target Ldl Less Than 100 Ductal Carcinoma in Situ (Dcis) of Left Breast Has seen Dr Neri previously. Presents today to establish care with Antonia Joiner MD Has seen Elijah Crooks CNP hematology/oncology for DCIS left, last visit 05/09/2022. Review of Systems Constitutional: Negative. Respiratory: Negative. Cardiovascular: Negative. Elevated BP at last visit without diagnosis of HTN. HTN: Without report ofheadache, chest pain, palpitations, dyspnea, peripheral edema, orthopnea, fatigue, and PND. Took losartan for a period of time but felt she had adverse effects from it and discontinued. States dizzy and muscle aches. Notes home reading typically 120-130 systolic when checked. Watches sodium in diet. Last 14 Encounter BP Readings: Date: BP: 05/16/2022 138/80 05/09/2022 152/87 12/28/2021 122/70 11/13/2021 144/72 08/10/2021 131/76 05/09/2021 136/88 05/04/2021 152/90 03/19/2021 116/64 05/04/2020 144/80 03/17/2020 128/84 05/06/2019 134/76 04/01/2019 135/73 10/29/2018 132/75 10/22/2018 114/64 Hyperlipidemia. Ms. Johnson reports doing well on current therapy . Her most recent lipid panels are: Cholesterol, Total (mg/dL) Date Value 11/05/2021 197 01/11/2021 212 02/17/2020 173 HDL Cholesterol (mg/dL) Date Value 11/05/2021 85 01/11/2021 87 02/17/2020 99 LDL Cholesterol (mg/dL) Date Value 11/05/2021 97 01/11/2021 110 02/17/2020 58 Triglyceride (mg/dL) Date Value 11/05/2021 73 01/11/2021 76 02/17/2020 81 The 10-year ASCVD risk score (Jenn FLORES, et al., 2019) is: 16.4% Values used to calculate the score: Age: 72 years Sex: Female Is Non- : No Diabetic: No Tobacco smoker: No Systolic Blood Pressure: 138 mmHg Is BP treated: No HDL Cholesterol: 85 mg/dL Total Cholesterol: 197 mg/dL Osteopenia: Vitamin D, caclium, weight bearing exercise: walking 3 days per week. Bikes 2 times per week. GERD: no current complaints, had GI upset with certain foods. Taking PPI. No current complaint of Heartburn: Reflux: Abdominal pain: Nausea: Vomiting: Diarrhea: Constipation: BRBPR: or Black tarry stools: Objective BP 138/80 Pulse 71 Resp 16 Ht 163.5 cm (5' 4.37 ) Wt 76.7 kg (169 lb) SpO2 97% BMI 28.68 kg/m? Physical Exam Vitals and nursing note reviewed. Constitutional: Appearance: Normal appearance. HENT: Head: Normocephalic and atraumatic. Eyes: Conjunctiva/sclera: Conjunctivae normal. Neck: Thyroid: No thyromegaly. Vascular: Normal carotid pulses. No JVD. Cardiovascular: Rate and Rhythm: Normal rate and regular rhythm. Pulses: Carotid pulses are 2+ on the right side and 2+ on the left side. Radial pulses are 2+ on the right side and 2+ on the left side. Heart sounds: Normal heart sounds. Pulmonary: Effort: Pulmonary effort is normal. Breath sounds: Normal breath sounds. Abdominal: General: Bowel sounds are normal. Palpations: Abdomen is soft. Musculoskeletal: Right lower leg: No edema. Skin: General: Skin is warm and dry. Neurological: General: No focal deficit present. Mental Status: She is alert and oriented to person, place, and time. ALLERGIES Allergen Reactions Codeine GI Upset Losartan Intolerance Naprosyn [Naproxen] GI Upset Tavist [Clemastine * GI Upset Medications atorvastatin (LIPITOR) 10 mg tablet Take 1 tablet by mouth once daily. omeprazole (PRILOSEC) 20 mg capsule Take 1 capsule by mouth daily before breakfast. 1/2 hr before meal. CALCIUM CARBONATE/VITAMIN D3 (CALCIUM + D ORAL) Take 2 tablets by mouth twice daily. MULTIVITAMIN CAP Take one(1) tablet daily. PAST MEDICAL HISTORY Diagnosis Date Ductal carcinoma in situ (DCIS) of left breast December, on tamoxifen Hyperlipidemia LDL goal < 100 05/09/2014 Nocturia Social History Tobacco Use Smoking status: Never Smokeless tobacco: Never Vaping Use Vaping Use: Never used Substance Use Topics Alcohol use: Yes Comment: rarely Drug use: No Component Latest Ref Rng AND Units 11/05/2021 01/01/2022 WBC 3.70 - 11.00 k/uL 5.11 RBC 3.90 - 5.20 m/uL 4.71 Hemoglobin 11.5 - 15.5 g/dL 14.1 Hematocrit 36.0 - 46.0 % 42.5 MCV 80.0 - 100.0 fL 90.2 MCH 26.0 - 34.0 pg 29.9 MCHC 30.5 - 36.0 g/dL 33.2 RDW-CV 11.5 - 15.0 % 13.2 Platelet Count 150 - 400 k/uL 200 MPV 9.0 - 12.7 fL 9.6 Neut% % 49.1 Abs Neut (ANC) 1.45 - 7.50 k/uL 2.51 Lymph% % 35.4 Abs Lymph 1.00 - 4.00 k/uL 1.81 [place]% % 12.1 Abs [place] <0.87 k/uL 0.62 Eosin% % 2.2 Abs Eosin <0.46 k/uL 0.11 Baso% % 0.6 Abs Baso <0.11 k/uL 0.03 (more content not included)... [facility] 05-16-2022 History of Presen t illness Narrative SUBJECTIVE: DEPRESSION ASSESSMENT Never done HPI Alisa Johnson is a 72 year old female. PMH significnat for ACTIVE PROBLEM LIST Postmenopausal Atrophic Vaginitis Osteopenia Hyperlipidemia With Target Ldl Less Than 100 Ductal Carcinoma in Situ (Dcis) of Left Breast Has seen Dr Neri previously. Presents today to establish care with Antonia Joienr MD Has seen Elijah Crooks [facility] hematology/oncology for DCIS left, last visit 05/09/2022. Review of Systems Constitutional: Negative. Respiratory: Negative. Cardiovascular: Negative. Elevated BP at last visit without diagnosis of HTN. HTN: Without report ofheadache, chest pain, palpitations, dyspnea, peripheral edema, orthopnea, fatigue, and PND. Took losartan for a period of time but felt she had adverse effects from it and discontinued. States dizzy and muscle aches. Notes home reading typically 120-130 systolic when checked. Watches sodium in diet. Last 14 Encounter BP Readings: Date: BP: 05/16/2022 138/80 05/09/2022 152/87 12/28/2021 122/70 11/13/2021 144/72 08/10/2021 131/76 05/09/2021 136/88 05/04/2021 152/90 03/19/2021 116/64 05/04/2020 144/80 03/17/2020 128/84 05/06/2019 134/76 04/01/2019 135/73 10/29/2018 132/75 10/22/2018 114/64 Hyperlipidemia. Ms. Johnson reports doing well on current therapy . Her most recent lipid panels are: Cholesterol, Total (mg/dL) Date Value 11/05/2021 197 01/11/2021 212 02/17/2020 173 HDL Cholesterol (mg/dL) Date Value 11/05/2021 85 01/11/2021 87 02/17/2020 99 LDL Cholesterol (mg/dL) Date Value 11/05/2021 97 01/11/2021 110 02/17/2020 58 Triglyceride (mg/dL) Date Value 11/05/2021 73 01/11/2021 76 02/17/2020 81 The 10-year ASCVD risk score (Jenn FLORES, et al., 2019) is: 16.4% Values used to calculate the score: Age: 72 years Sex: Female Is Non- : No Diabetic: No Tobacco smoker: No Systolic Blood Pressure: 138 mmHg Is BP treated: No HDL Cholesterol: 85 mg/dL Total Cholesterol: 197 mg/dL Osteopenia: Vitamin D, caclium, weight bearing exercise: walking 3 days per week. Bikes 2 times per week. GERD: no current complaints, had GI upset with certain foods. Taking PPI. No current complaint of Heartburn: Reflux: Abdominal pain: Nausea: Vomiting: Diarrhea: Constipation: BRBPR: or Black tarry stools: Objective BP 138/80 Pulse 71 Resp 16 Ht 163.5 cm (5' 4.37 ) Wt 76.7 kg (169 lb) SpO2 97% BMI 28.68 kg/m Physical Exam Vitals and nursing note reviewed. Constitutional: Appearance: Normal appearance. HENT: Head: Normocephalic and atraumatic. Eyes: Conjunctiva/sclera: Conjunctivae normal. Neck: Thyroid: No thyromegaly. Vascular: Normal carotid pulses. No JVD. Cardiovascular: Rate and Rhythm: Normal rate and regular rhythm. Pulses: Carotid pulses are 2+ on the right side and 2+ on the left side. Radial pulses are 2+ on the right side and 2+ on the left side. Heart sounds: Normal heart sounds. Pulmonary: Effort: Pulmonary effort is normal. Breath sounds: Normal breath sounds. Abdominal: General: Bowel sounds are normal. Palpations: Abdomen is soft. Musculoskeletal: Right lower leg: No edema. Skin: General: Skin is warm and dry. Neurological: General: No focal deficit present. Mental Status: She is alert and oriented to person, place, and time. ALLERGIES Allergen Reactions Codeine GI Upset Losartan Intolerance Naprosyn [Naproxen] GI Upset Tavist [Clemastine * GI Upset Medications atorvastatin (LIPITOR) 10 mg tablet Take 1 tablet by mouth once daily. omeprazole (PRILOSEC) 20 mg capsule Take 1 capsule by mouth daily before breakfast. 1/2 hr before meal. CALCIUM CARBONATE/VITAMIN D3 (CALCIUM + D ORAL) Take 2 tablets by mouth twice daily. MULTIVITAMIN CAP Take one(1) tablet daily. PAST MEDICAL HISTORY Diagnosis Date Ductal carcinoma in situ (DCIS) of left breast December, on tamoxifen Hyperlipidemia LDL goal < 100 05/09/2014 Nocturia Social History Tobacco Use Smoking status: Never Smokeless tobacco: Never Vaping Use Vaping Use: Never used Substance Use Topics Alcohol use: Yes Comment: rarely Drug use: No Component Latest Ref Rng & Units 11/05/2021 01/01/2022 WBC 3.70 - 11.00 k/uL 5.11 RBC 3.90 - 5.20 m/uL 4.71 Hemoglobin 11.5 - 15.5 g/dL 14.1 Hematocrit 36.0 - 46.0 % 42.5 MCV 80.0 - 100.0 fL 90.2 MCH 26.0 - 34.0 pg 29.9 MCHC 30.5 - 36.0 g/dL 33.2 RDW-CV 11.5 - 15.0 % 13.2 Platelet Count 150 - 400 k/uL 200 MPV 9.0 - 12.7 fL 9.6 Neut% % 49.1 Abs Neut (ANC) 1.45 - 7.50 k/uL 2.51 Lymph% % 35.4 Abs Lymph 1.00 - 4.00 k/uL 1.81 [place]% % 12.1 Abs [place] <0.87 k/uL 0.62 Eosin% % 2.2 Abs Eosin <0.46 k/uL 0.11 Baso% % 0.6 Abs Baso <0.11 k/uL 0.03 Immature Gran % % 0.6 IMMATURE GRANS (ABS) <0.10 k/uL 0.03 NRBC /100 WBC 0.0 Absolute nRBC <0.01 k/uL <0.01 DTYPE Auto Protein, Total 6.3 - 8.0 g/dL 7.1 Albumin 3.9 - 4.9 g/dL 4.7 Calcium 8.5 - 10.2 mg/dL 10.0 Bilirubin, Total 0.2 - 1.3 mg/dL 0.5 Alkaline Phosphatase 34 - 123 U/L 76 AST 13 - 35 U/L 22 ALT 7 - 38 U/L 17 Glucose 74 - 99 mg/dL 101 (H) BUN 7 - 21 mg/dL 13 Creatinine 0.58 - 0.96 mg/dL 0.73 Sodium 136 - 144 mmol/L 136 Potassium 3.7 - 5.1 mmol/L 4.2 Chloride 97 - 105 mmol/L 100 CO2 22 - 30 mmol/L 26 Anion Gap 9 - 18 mmol/L 10 eGFR >=60 mL/min/1.73m 87 Cholesterol, Total <200 mg/dL 197 Triglyceride <150 mg/dL 73 HDL Cholesterol >39 mg/dL 85 Non HDL Cholesterol <130 mg/dL 112 Fasting Time hrs 14 VLDL Cholesterol <30 mg/dL 15 TC:HDL Ratio <5.10 2.32 LDL Cholesterol <100 mg/dL 97 LDL:HDL Ratio <2.54 1.14 TSH 0.270 - 4.200 mIU/L 1.960 ASSESSMENT/PLAN: 1. Hyperlipidemia with target LDL less than 100 - ICD9: 272.4, ICD10: E78.5 (primary diagnosis) Stable, currently controlled, continue to monitor.Continue current treatment unchanged Recommend a plant based diet such as Mediterranean diet with plenty of vegetables, fruits,whole grains, fish, chicken, turkey or plant proteins and routine exercise such as walking - COMP METABOLIC PANEL - LIPID PANEL BASIC 2. Osteopenia, unspecified location - ICD9: 733.90, ICD10: M85.[address] Colbert at [facility] 3. Gastroesophageal reflux disease without esophagitis - ICD9: 530.81, ICD10: K21.9 Stable, currently controlled, continue to monitor.Continue current treatment unchanged 4. Elevated BP without diagnosis of hypertension - ICD9: 796.2, ICD10: R03.0 She notes prior intolerance of losartan, dizzy and muscle aches. Blood pressure currently at the upper limits of normal. For now endorsed DASH diet, routine exercise, maintenance of current weight - COMP METABOLIC PANEL - CBC + DIFF , 6-month recheck with labs - establish with MD Tana Swanson APRN.CNS Medical Decision Making: Problems: Moderate: 2+ stable chronic illnesses Data: Unique test(s) ordered: 3+ Medical Decision Making Level: 4 - Moderate documented in this encounter [facility] 05-09-2022 Note HNO ID: [id number] Author: Elijah Crooks APRN.CNP Service: ? Author Type: Nurse Practitioner Type: Progress Notes Filed: 05/09/2022 1:09 PM Note Text: Chief Complaint Patient presents with: Established Patient HPI: Alisa Johnson is a 72 year old female who presents here today for follow up DCIS. Per Dr. Pedro's previous note: H/o observed to have an abnormality in her left breast on a screening mammogram done in December 2014. She underwent stereotactic guided biopsy. The pathology demonstrated intermediate grade DCIS. Ultimately underwent a lumpectomy here in [place]. The final pathology demonstrated a focus of DCIS measuring less than 1 mm. Architecture was cribriform. Grade was low. No necrosis was observed. Margins were negative. There was a reexcision of the posterior margin which contained 0.5 cm of breast tissue without evidence of DCIS. Closest margin was 5 mm. Estrogen and progesterone receptors were positive. Previous therapy: 1) Tamoxifen. Began fall 2014. Completed 5 years of tamoxifen. No new concerns today. Appetite: Good. Energy level: Good. Walks most days of the week. Denies fevers or recent illness. Resp:denies cough or sob Cardiac:denies chest pain/palpitations GI:denies abd pain, +GERD, denies n/v, moving bowels regularly :denies dysuria/hematuria Extrem:denies pain to back/bones/joints Endo:denies hot flashes Neuro:denies symptoms of neuropathy Skin:denies rashes/lesions Heme:denies bleeding. The ROS is otherwise negative. Past medical history, appointments, medications, allergies reviewed. No changes. EXAM: BP 152/87 Pulse 74 Temp 37.3 ?C (99.2 ?F) Ht 163.5 cm (5' 4.37 ) Wt 76.4 kg (168 lb 8 oz) SpO2 100% BMI 28.59 kg/m? APPEARANCE Well appearing, alert, in no acute distress, well-hydrated, well nourished. HEART RRR with normal S1 and S2, no murmurs LUNG clear to auscultation BREAST FEMALE no mass/nodule b/l LYMPH NODES No cervical lymphadenopathy, No supraclavicular lymphadenopathy, and No axillary lymphadenopathy. ABDOMEN bowel sounds normoactive, soft, non-tender EXTREMITIES No edema NEURO Awake, alert and oriented x 3, Normal gait, and No involuntary motions. SKIN Skin color, texture, turgor normal, no suspicious rashes or lesions ASSESSMENT/PLAN: 1. Ductal carcinoma in situ (DCIS) of left breast - ICD9: 233.0, ICD10: D05.12 - No concerning findings on exam. - Completed 5 years of Tamoxifen therapy-tolerated well. - Reviewed mammogram with pt. Done at [facility]. - Mammogram due in 2022. Pt. has this done at [facility]-ordered by [employer]. - Follow up prn. Pt. will follow up yearly with [employer] for CBE/mammogram. - Pt. aware to call office with any questions/concerns. The patient indicates understanding of these issues and agrees with the plan. All documentation from previous visit of 05/04/21-Dr. Pedro/myself was copied and pasted, documentation has been reviewed and edited as necessary for today's visit. Elijah Crooks APRN.[facility] 12-28-2021 Note HNO ID: [id number] Author: Joie Neri MD Service: ? Author Type: Physician Type: Progress Notes Filed: 12/28/2021 5:29 PM Note Text: Reason for Visit Patient presents with: Established Patient: blood pressure folllow up Alisa Johnson is a 71 year old female who presents here today for Above Complaints. Health Maintenance There are no preventive care reminders to display for this patient. HPI Patient was started on losartan last visit but she could not tolerate the medication due to dizziness, stomach ache, nausea, muscle aches in the back and arms and legs. She did keep a log of her bps and last week she was 117/77 and that range. Hba1c been trying to eat less salt, is exercising as best as she can. She walks and then she rides bikes. Patient would like to loose around 10 to 15 pounds. For exercise she did walking on an aerobics tape. Works in the garden, does 10 to 15 miles, tries to do 2 times a week. Gerd: reflux is well controlled, on prilosec infact she is backing off from the medication She takes it every other day No problem-specific Assessment AND Plan notes found for this encounter. PAST MEDICAL HISTORY Diagnosis Date - Ductal carcinoma in situ (DCIS) of left breast December, on tamoxifen - Hyperlipidemia LDL goal < 100 05/09/2014 - Nocturia PAST SURGICAL HISTORY Procedure Laterality Date - BREAST LUMPECTOMY HX 02/16/2015 Left breast - COLONOSCOPY FLX DX W/COLLJ SPEC WHEN PFRMD 02/02/2007 Colonoscopy - COLONOSCOPY FLX DX W/COLLJ SPEC WHEN PFRMD 07/04/2017 Colonoscopy - LIG/TRNSXJ FLP TUBE ABDL/VAG APPR UNI/BI Tubal ligation FAMILY HISTORY Problem Relation Age of Onset - Diabetes Paternal Grandmother - Diabetes Father - Heart Father 4 X BYPASS - Heart Maternal Grandmother - Coronary Artery Disease Maternal Aunt - Coronary Artery Disease Maternal Aunt - Cancer Brother 12 RCC--Surgically excised. Alive and well now. - other (Parkinson's disease [Other]) Brother - None Brother - None Brother - other (Macular Degeneration [Other]) Mother - Breast Cancer Mother 76 Surgery then radiation and tamoxifen - Stroke Father Social History Tobacco Use - Smoking status: Never Smoker - Smokeless tobacco: Never Used Vaping Use - Vaping Use: Never used Substance Use Topics - Alcohol use: Yes Comment: rarely - Drug use: No Past medical history, appointments, medications, allergies reviewed. Pertinent Lab/Diagnostic Studies are reviewed and discussed today Current Outpatient Medications: - atorvastatin (LIPITOR) 10 mg tablet - omeprazole (PRILOSEC) 20 mg capsule - losartan (COZAAR) 25 mg tablet - CALCIUM CARBONATE/VITAMIN D3 (CALCIUM + D ORAL) - MULTIVITAMIN CAP Review of Systems CONSTITUTIONAL: No fevers, chills night sweats, unintended weight loss CARDIOVASCULAR: No chest pain, dyspnea, palpitations, orthopnea, PND, ankle edema. PULM: No dyspnea, unexplained cough. GI: No dysphagia/odynophagia, problematic reflux, constipation, diarrhea, changes in stool habits, hematochezia, melena. : No new urinary complaints, including dysuria, gross hematuria or pyuria. NEURO: No new balance problems, peripheral weakness/paresthesias or numbness of concern. Physical Exam BP 130/80 (BP Site: Right Arm, BP Position: Sitting, BP Cuff Size: Large Adult) Pulse 73 Temp 37 ?C (98.6 ?F) Resp 12 Ht 163.8 cm (5' 4.5 ) Wt 79.8 kg (176 lb) SpO2 97% BMI 29.74 kg/m? General appearance: Well appearing, alert, in no acute distress, well nourished. Skin: Skin color, texture, turgor normal, no suspicious rashes or lesions Head: Normocephalic, no masses, lesions, tenderness or abnormalities Eyes: Anicteric sclera. Pupils are equally round and reactive to light. Extraocular movements are intact. Lungs: Lungs clear to auscultation. No wheezing, rhonchi, rales Heart: RRR without murmur, gallop, or rubs. Extremities: No deformities, edema, skin discoloration, clubbing or cyanosis. Good capillary refill. ASSESSMENT/PLAN: 1. Elevated BP without diagnosis of hypertension - ICD9: 796.2, ICD10: R03.0 (primary diagnosis) - Encouraged dietary sodium restriction/DASH diet - Recommended regular aerobic exercise. - Recommend home blood pressure monitoring, to bring results in on next visit - Goal of BP <130/80 2. Hyperlipidemia with target LDL less than 100 - ICD9: 272.4, ICD10: E78.5 - good control - Continue current medication. 3. Gastroesophageal reflux disease without esophagitis - ICD9: 530.81, ICD10: K21.9 Cont the reflux medication 4. Abnormal weight gain - ICD9: 783.1, ICD10: R63.5 We asked the patient to eat better, using the plate method of eating. Lengthy discussion in office today regarding diet and exercise. Discussed use of small plate to eat meals from, drink 1 glass of water 10-15 minutes prior to eating meal, drink 8 glasses of water daily, eat fresh fruit and vegetable during (more content not included)... [facility] 12-28-2021 Note HNO ID: [id number] Author: Joie Neri MD Service: ? Author Type: Physician Type: Progress Notes Filed: 12/28/2021 5:29 PM Note Text: error [facility] 12-28-2021 History of Presen t illness Narrative Reason for Visit Patient presents with: Established Patient: blood pressure folllow up Alisa Johnson is a 71 year old female who presents here today for Above Complaints. Health Maintenance There are no preventive care reminders to display for this patient. HPI Patient was started on losartan last visit but she could not tolerate the medication due to dizziness, stomach ache, nausea, muscle aches in the back and arms and legs. She did keep a log of her bps and last week she was 117/77 and that range. Hba1c been trying to eat less salt, is exercising as best as she can. She walks and then she rides bikes. Patient would like to loose around 10 to 15 pounds. For exercise she did walking on an aerobics tape. Works in the garden, does 10 to 15 miles, tries to do 2 times a week. Gerd: reflux is well controlled, on prilosec infact she is backing off from the medication She takes it every other day No problem-specific Assessment & Plan notes found for this encounter. PAST MEDICAL HISTORY Diagnosis Date Ductal carcinoma in situ (DCIS) of left breast December, on tamoxifen Hyperlipidemia LDL goal < 100 05/09/2014 Nocturia PAST SURGICAL HISTORY Procedure Laterality Date BREAST LUMPECTOMY HX 02/16/2015 Left breast COLONOSCOPY FLX DX W/COLLJ SPEC WHEN PFRMD 02/02/2007 Colonoscopy COLONOSCOPY FLX DX W/COLLJ SPEC WHEN PFRMD 07/04/2017 Colonoscopy LIG/TRNSXJ FLP TUBE ABDL/VAG APPR UNI/BI Tubal ligation FAMILY HISTORY Problem Relation Age of Onset Diabetes Paternal Grandmother Diabetes Father Heart Father 4 X BYPASS Heart Maternal Grandmother Coronary Artery Disease Maternal Aunt Coronary Artery Disease Maternal Aunt Cancer Brother 12 RCC--Surgically excised. Alive and well now. other (Parkinson's disease [Other]) Brother None Brother None Brother other (Macular Degeneration [Other]) Mother Breast Cancer Mother 76 Surgery then radiation and tamoxifen Stroke Father Social History Tobacco Use Smoking status: Never Smoker Smokeless tobacco: Never Used Vaping Use Vaping Use: Never used Substance Use Topics Alcohol use: Yes Comment: rarely Drug use: No Past medical history, appointments, medications, allergies reviewed. Pertinent Lab/Diagnostic Studies are reviewed and discussed today Current Outpatient Medications: atorvastatin (LIPITOR) 10 mg tablet omeprazole (PRILOSEC) 20 mg capsule losartan (COZAAR) 25 mg tablet CALCIUM CARBONATE/VITAMIN D3 (CALCIUM + D ORAL) MULTIVITAMIN CAP Review of Systems CONSTITUTIONAL: No fevers, chills night sweats, unintended weight loss CARDIOVASCULAR: No chest pain, dyspnea, palpitations, orthopnea, PND, ankle edema. PULM: No dyspnea, unexplained cough. GI: No dysphagia/odynophagia, problematic reflux, constipation, diarrhea, changes in stool habits, hematochezia, melena. : No new urinary complaints, including dysuria, gross hematuria or pyuria. NEURO: No new balance problems, peripheral weakness/paresthesias or numbness of concern. Physical Exam BP 130/80 (BP Site: Right Arm, BP Position: Sitting, BP Cuff Size: Large Adult) Pulse 73 Temp 37 C (98.6 F) Resp 12 Ht 163.8 cm (5' 4.5 ) Wt 79.8 kg (176 lb) SpO2 97% BMI 29.74 kg/m General appearance: Well appearing, alert, in no acute distress, well nourished. Skin: Skin color, texture, turgor normal, no suspicious rashes or lesions Head: Normocephalic, no masses, lesions, tenderness or abnormalities Eyes: Anicteric sclera. Pupils are equally round and reactive to light. Extraocular movements are intact. Lungs: Lungs clear to auscultation. No wheezing, rhonchi, rales Heart: RRR without murmur, gallop, or rubs. Extremities: No deformities, edema, skin discoloration, clubbing or cyanosis. Good capillary refill. ASSESSMENT/PLAN: 1. Elevated BP without diagnosis of hypertension - ICD9: 796.2, ICD10: R03.0 (primary diagnosis) - Encouraged dietary sodium restriction/DASH diet - Recommended regular aerobic exercise. - Recommend home blood pressure monitoring, to bring results in on next visit - Goal of BP <130/80 2. Hyperlipidemia with target LDL less than 100 - ICD9: 272.4, ICD10: E78.5 - good control - Continue current medication. 3. Gastroesophageal reflux disease without esophagitis - ICD9: 530.81, ICD10: K21.9 Cont the reflux medication 4. Abnormal weight gain - ICD9: 783.1, ICD10: R63.5 We asked the patient to eat better, using the plate method of eating. Lengthy discussion in office today regarding diet and exercise. Discussed use of small plate to eat meals from, drink 1 glass of water 10-15 minutes prior to eating meal, drink 8 glasses of water daily, eat fresh fruit and vegetable during meal first then lean protein such as grilled/baked chicken breast or fish, limit carbohydrate intake (less pasta, breads, rice and snack foods) as well as limiting sugars (desserts etc). Important to count / track your calories and exercise as well. - TSH BLD Joie Neri MD error documented in this encounter [facility] 12-28-2021 Nurse Note Home Bp monitor 145/82 right arm documented in this encounter [facility] 12-03-2021 Miscellaneous Notes Patient has been identified by name and date of : Yes Patient phones for refill(s): Pending Prescriptions Disp Refills ATORVASTATIN 10 MG TABLET 90 tablet 3 Sig: Take 1 tablet by mouth once daily. JUNG: No Date of last office visit in primary care: 11/13/21 Last 2 Encounter Wt Readings: Date: Wt: 11/13/2021 78.9 kg (174 lb) 08/10/2021 78 kg (172 lb) Previous labs/tests for medication: Cholesterol: HDL Cholesterol (mg/dL) Date Value 11/05/2021 85 01/11/2021 87 LDL Cholesterol (mg/dL) Date Value 11/05/2021 97 01/11/2021 110 ALT (U/L) Date Value 11/05/2021 17 01/11/2021 24 Non HDL Cholesterol (mg/dL) Date Value 11/05/2021 112 01/11/2021 125 Please advise. Thank you. Bethany Marroquin LPN documented in this encounter [facility] 11-30-2021 Miscellaneous Notes Patient notified and follow up made for dec with . Radha Holm LPN I would like Sushil to see me in a months time If her bp is getting up high quickly we will send amlodipine to her if needed, Basically I think it is normal range now, I want to see how high her bp would go after medication, Patient calls to report that she stopped taking the prescribed losartan yesterday. BP 120/70 yesterday but not taken today. Stopped medication d/t side effects that include: dizziness, nausea, stomach aches, and muscle aches. Patient reports symptoms are resolving but still has some stomach ache and muscle aches in arms and back. Patient asking to try a different medication for blood pressure. Pharmacy is [facility]. Tamara Tinoco RN documented in this encounter [facility] 10-29-2021 Miscellaneous Notes Patient notified. Fasting lab orders have been placed. Thank you Cierra Calderón APRN.MARSHA Pt called in and reports she has an upcoming appointment on 11/13. Pt asking if provider can put in labs. Once labs are ordered please call the Pt. documented in this encounter [facility] documented as of this encounter (statuses as of 09/17/2021) [facility] History of Past illness Narrative* Problem Noted Date Resolved Date GERD (gastroesophageal reflux disease) 9 09/28/2015 Dysmetabolic syndrome X 11/11/2006 05/09/20 14 documented as of this encounter (statuses as of 10/29/2021) [facility] History of Past illness Narrative* Problem Noted Date Resolved Date GERD (gastroesophageal reflux disease) 9 09/28/2015 Dysmetabolic syndrome X 11/11/2006 05/09/20 14 documented as of this encounter (statuses as of 11/30/2021) [facility] History of Past illness Narrative* Problem Noted Date Resolved Date GERD (gastroesophageal reflux disease) 9 09/28/2015 Dysmetabolic syndrome X 11/11/2006 05/09/20 14 documented as of this encounter (statuses as of 12/03/2021) [facility] History of Past illness Narrative* Problem Noted Date Resolved Date GERD (gastroesophageal reflux disease) 9 09/28/2015 Dysmetabolic syndrome X 11/11/2006 05/09/20 14 documented as of this encounter (statuses as of 12/28/2021) [facility] History of Past illness Narrative* Problem Noted Date Resolved Date GERD (gastroesophageal reflux disease) 9 09/28/2015 Dysmetabolic syndrome X 11/11/2006 05/09/20 14 documented as of this encounter (statuses as of 05/17/2022) [facility] History of Past illness Narrative* Problem Noted Date Resolved Date GERD (gastroesophageal reflux disease) 9 09/28/2015 Dysmetabolic syndrome X 11/11/2006 05/09/20 14 documented as of this encounter (statuses as of 08/09/2022) [facility] History of Past illness Narrative* Problem Noted Date Resolved Date GERD (gastroesophageal reflux disease) 9 09/28/2015 Dysmetabolic syndrome X 11/11/2006 05/09/20 14 documented as of this encounter (statuses as of 09/20/2022) [facility] History of Past illness Narrative* Problem Noted Date Resolved Date GERD (gastroesophageal reflux disease) 9 09/28/2015 Dysmetabolic syndrome X 11/11/2006 05/09/20 14 documented as of this encounter (statuses as of 09/25/2022) [facility] History of Past illness Narrative* Problem Noted Date Resolved Date GERD (gastroesophageal reflux disease) 9 09/28/2015 Dysmetabolic syndrome X 11/11/2006 05/09/20 14 documented as of this encounter (statuses as of 11/13/2022) [facility]* Diagnosis Hyperlipidemia with target LDL less than 100- Primary Other and unspecified hyperlipidemia Annual physical exam Routine general medical examination at a health care facility [facility]* Diagnosis Hyperlipidemia with target LDL less than 100 Other and unspecified hyperlipidemia documented in this encounter [facility]* Diagnosis Elevated BP without diagnosis of hypertension- Primary Hyperlipidemia with target LDL less than 100 Other and unspecified hyperlipidemia Gastroesophageal reflux disease without esophagitis Esophageal reflux Abnormal weight gain documented in this encounter [facility]* Diagnosis Hyperlipidemia with target LDL less than 100- Primary Other and unspecified hyperlipidemia Osteopenia, unspecified location Gastroesophageal reflux disease without esophagitis Esophageal reflux Elevated BP without diagnosis of hypertension documented in this encounter [facility]* Diagnosis Rib pain- Primary Chest pain, unspecified documented in this encounter [facility]* Diagnosis Hyperlipidemia with target LDL less than 100 Other and unspecified hyperlipidemia documented in this encounter [facility]* Diagnosis Hyperlipidemia with target LDL less than 100- Primary Other and unspecified hyperlipidemia Gastroesophageal reflux disease without esophagitis Esophageal reflux White coat syndrome with high blood pressure but without hypertension Persistent disorder of initiating or maintaining sleep Elevated fasting glucose Impaired fasting glucose Encounter for long-term current use of medication documented in this encounter [facility] for referral (narrative)* Diagnostic Procedure Only (Urgent) - Closed Specialty Diagnoses / Procedures Referred By Contac t Referred To Contact XR IMAGING Diagnoses Rib pain Procedures XR RIBS/CHEST 3V AP RIB/OBLS/CXR LEFT RADEX RIBS UNI W/POSTEROANT CH MINIMUM 3 VIEWS [facility] [address] [place] [address] Xr Imaging Referral ID Status Reason Start Date Expiration Date V isits Requested Visits Authorized [id number] Closed Auto-Generate d Referral 08/09/2022 09/08/2023 1 1 [facility] Advance Directives No Advanced Directives Records FoundDocuments on File Type Date Recorded 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 Advance Directive(s) 07/04/2017 9:09 AM Advance Directive(s) 07/04/2017 6:01 AM Documents on File Type Date Recorded 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 Advance Directive(s) 07/04/2017 6:01 AM Documents on File Type Date Recorded 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 Advance Directive(s) 07/04/2017 6:01 AM Summary Purpose Family History No Family History Records Found Additional Source Comments Source Comments (unrecognize d section and content) In the event this informatio n is protected by the Federal Confidentiality of Alcohol and Drug Abuse Patient Records regulations: The Federal rules restrict any use of the information to criminally investigate or prosecute any alcohol or drug abuse patient.[facility] event this information is protected by the Federal Confidentiality of Alcohol and Drug Abuse Patient Records regulations: The Federal rules restrict any use of the information to criminally investigate or prosecute any alcohol or drug abuse patient.[facility] the event this information is protected by the Federal Confidentiality of Alcohol and Drug Abuse Patient Records regulations: The Federal rules restrict any use of the information to criminally investigate or prosecute any alcohol or drug abuse patient.[facility] the event this information is protected by the Federal Confidentiality of Alcohol and Drug Abuse Patient Records regulations: The Federal rules restrict any use of the information to criminally investigate or prosecute any alcohol or drug abuse patient.[facility] the event this information is protected by the Federal Confidentiality of Alcohol and Drug Abuse Patient Records regulations: The Federal rules restrict any use of the information to criminally investigate or prosecute any alcohol or drug abuse patient.[facility] the event this information is protected by the Federal Confidentiality of Alcohol and Drug Abuse Patient Records regulations: The Federal rules restrict any use of the information to criminally investigate or prosecute any alcohol or drug abuse patient.[facility] the event this information is protected by the Federal Confidentiality of Alcohol and Drug Abuse Patient Records regulations: The Federal rules restrict any use of the information to criminally investigate or prosecute any alcohol or drug abuse patient.[facility] the event this information is protected by the Federal Confidentiality of Alcohol and Drug Abuse Patient Records regulations: The Federal rules restrict any use of the information to criminally investigate or prosecute any alcohol or drug abuse patient.[facility] the event this information is protected by the Federal Confidentiality of Alcohol and Drug Abuse Patient Records regulations: The Federal rules restrict any use of the information to criminally investigate or prosecute any alcohol or drug abuse patient.[facility] the event this information is protected by the Federal Confidentiality of Alcohol and Drug Abuse Patient Records regulations: The Federal rules restrict any use of the information to criminally investigate or prosecute any alcohol or drug abuse patient.[facility] Reason for Visit (unrecogniz ed section and content) Reason Comments Lab Orders Reason Comments Medication Update Reason Onset Date Comments Refill Request 12/03/2021 Reason Comments Established Patient blood pressure folll ow up Reason Comments Establish Care Reason Comments Rib Pain L sided rib pain x1 day, intermittent with certain activity Reason Onset Date Comments Refill Request 09/19/2022 Care Teams (unrecognized sec tion and content) Agile Project Manager Relationship Specialty Start Date End Date Joie Neri MD [address] [place] [address] PCP - General Internal Medicine 03/19/21 Agile Project Manager Relationship Specialty Start Date End Date Joie Neri MD [address] [place] [address] PCP - General Internal Medicine 03/19/21 Agile Project Manager Relationship Specialty Start Date End Date Joie Neri MD [address] [place] [address] PCP - General Internal Medicine 03/19/21 Agile Project Manager Relationship Specialty Start Date End Date Joie Neri MD [address] [place] [address] PCP - General Internal Medicine 03/19/21 Agile Project Manager Relationship Specialty Start Date End Date Antonia Joiner MD [facility] [place] [address] PCP - General Internal Medicine 05/16/22 Agile Project Manager Relationship Specialty Start Date End Date Antonia Joiner MD [facility] [place] [address] PCP - General Internal Medicine 05/16/22 Agile Project Manager Relationship Specialty Start Date End Date Antonia Joiner MD [facility] [place] [address] PCP - General Internal Medicine 05/16/22 Agile Project Manager Relationship Specialty Start Date End Date Antonia Joiner MD [facility] [place] [address] PCP - General Internal Medicine 05/16/22 Agile Project Manager Relationship Specialty Start Date End Date Antonia Joiner MD [facility] [place] [address] PCP - General Internal Medicine 05/16/22 INFORMATION SOURCE (unrecogn ized section and content) FOR RECORDS PERTAINING TO PATIENTS WHO ARE OR HAVE BEEN ENROLLED IN A CHEMICAL DEPENDENCY/SUBSTANCEABUSE PROGRAM, SOME INFORMATION MAY BE OMITTED. This clinical summary was aggregated from multiple sources. Caution should be exercised in using it in the provision of clinical care. This summary normalizes information from multiple sources, and as a consequence, information in this document may materially change the coding, format and clinical context of patient data. In addition, data may be omitted in some cases. CLINICAL DECISIONS SHOULD BE BASED ON THE PRIMARY CLINICAL RECORDS. [employer] [facility]. provides no warranty or guarantee of the accuracy or completeness of information in this document.
[2023-06-24 19:04] LABS: Reflex Troponin-HS? (from REC) Y
[2023-06-24 19:21] VITALS: BP 159/78; PULSE 90; RESP 18; O2SAT 98
[2023-06-24 19:47] LABS: Troponin-I HS 9 pg/mL (3.0-54.0)
[2023-06-24 20:02] VITALS: BP 156/88; PULSE 89; RESP 14; O2SAT 97
[2023-06-24 22:00] VITALS: BP 169/101; PULSE 84; RESP 16; O2SAT 96
[2023-06-24 22:22] LABS: Thyroid Stim Hormone (TSH) 1.46 uIU/mL (0.358-3.74)
== END 2023-06-24 22:01 | disposition home or self-care (01) ==
PROVIDERS: Emergency Provider Emergency Medicine; PCP Internal Medicine; Visit Provider Emergency Medicine
DX: I48.91 Unspecified atrial fibrillation (principal); R03.0 Elevated blood-pressure reading, without diagnosis of hypertension; Z85.3 Personal history of malignant neoplasm of breast
CPT/HCPCS: 36415; 71045; 80048; 84443; 84484; 85025; 85610; 93005; 96374; 99284; A4216

== ENCOUNTER → 2023-08-21 | Outpatient (CLI) | payer MEDICARE, SELFPAY ==
--- NOTE | 2023-08-21 06:21 | ECHOD_ITS ---
Reason For Study: ATRIAL FIBRILLATION Procedure This was a 2D Doppler, Color Flow transthoracic echocardiogram. Exam performed in department. Left Ventricle Normal size and thickness. The left ventricular ejection fraction is 70 %. Stage 2 diastolic dysfunction. Right Ventricle Normal right ventricle. Atria The left atrium is severely enlarged. The right atrium is moderately enlarged. Mitral Valve Moderate to severe mitral valve regurgitation. Tricuspid Valve Moderately severe (3+) tricuspid valve insufficiency. Right ventricular systolic pressure estimated to be 42 mmHg. Aortic Valve Aortic sclerosis, no stenosis. Mild-Moderate (1-2+) aortic valve insufficiency. Pulmonic Valve The pulmonic valve is not well visualized. Great Vessels Normal sized aortic root. Pericardium/Pleural No pericardial effusion. MMode/2D Measurements & Calculations LVIDd: 3.5 cm IVSd: 1.1 cm Ao root diam: 3.4 cm LVIDs: 2.5 cm LVPWd: 1.1 cm RVDd: 3.1 cm FS: 30.0 % LAV(MOD-bp): 79.0 ml LVAd ap4: 25.0 cm2 LVAd ap2: 21.8 cm2 LAV(MOD-bp) Indexed: 43.6 ml/m2 LVLd ap4: 7.5 cm LVLd ap2: 7.7 cm LAV(MOD-sp2): 77.1 ml EDV(MOD-sp4): 68.4 ml EDV(MOD-sp2): 51.6 ml LAV(MOD-sp4): 80.2 ml EDV(sp4-el): 71.1 ml EDV(sp2-el): 52.7 ml LVAs ap4: 15.1 cm2 LVAs ap2: 13.0 cm2 LVLs ap4: 6.8 cm LVLs ap2: 7.6 cm ESV(MOD-sp4): 29.1 ml ESV(MOD-sp2): 19.8 ml ESV(sp4-el): 28.6 ml ESV(sp2-el): 18.9 ml EF(MOD-sp4): 57.4 % EF(MOD-sp2): 61.7 % EF(sp4-el): 59.8 % SV(MOD-sp4): 39.3 ml SV(MOD-sp2): 31.8 ml SV(sp4-el): 42.5 ml LA dimension(2D): 4.8 cm LA A4 area: 24.0 cm2 RA A4 area: 15.6 cm2 TAPSE: 1.7 cm Doppler Measurements & Calculations MV E max hugh: 113.3 cm/sec Lat Peak E' Hugh: 9.8 cm/sec Med Peak E' Hugh: 8.8 cm/sec E/E' lat: 11.5 E/E' med: 12.9 MV V2 max: 108.7 cm/sec MV P1/2t max hugh: 109.7 cm/sec Ao V2 max: 98.7 cm/sec MV max P.7 mmHg MV P1/2t: 65.7 msec Ao max P.9 mmHg MV V2 mean: 48.6 cm/sec MV dec slope: 489.0 cm/sec2 Ao V2 mean: 70.8 cm/sec MV mean P.2 mmHg Ao mean P.2 mmHg MV V2 VTI: 29.7 cm MVA(P1/2t): 3.3 cm2 Ao V2 VTI: 19.4 cm AV (velocity ratio): 0.67 AI max hugh: 433.0 cm/sec LV V1 max: 69.1 cm/sec MR max hugh: 490.5 cm/sec AI max P.3 mmHg LV V1 max P.9 mmHg MR max P.2 mmHg AI dec slope: 261.1 cm/sec2 LV V1 mean P.88 mmHg MR mean hugh: 417.7 cm/sec AI P1/2t: 485.7 msec LV V1 mean: 43.6 cm/sec MR mean P.5 mmHg LV V1 VTI: 13.0 cm MR VTI: 173.3 cm PA V2 max: 76.6 cm/sec TR max hugh: 291.3 cm/sec PA V2 mean: 51.5 cm/sec TR max P.9 mmHg ECHO/Echo Complete Interpretation Summary The left ventricular ejection fraction is 70 %. Stage 2 diastolic dysfunction. The left atrium is severely enlarged. The right atrium is moderately enlarged. Moderate to severe mitral valve regurgitation. Moderately severe (3+) tricuspid valve insufficiency. Right ventricular systolic pressure estimated to be 42 mmHg. Mild-Moderate (1-2+) aortic valve insufficiency. Ordering Physician: Logan Santillan Referring Physician: Allison Joiner Performed By: Rosalia Day, RDKRISTYN, RVT
--- NOTE | 2023-08-25 08:29 | STRESSREP_ITS ---
Stress Test Report Date: 08/21/2023 Procedure: Pharmacologic stress nuclear imaging study Indications: Atrial fibrillation Consent: Per the patient Procedure: The patient underwent pharmacologic (Regadenoson 0.4mg ) evaluation with a peak heart rate of 92 beats per minute (63%predicted maximal heart rate) and a peak blood pressure of 142/96 mmHg. The baseline ECG demonstrated atrial fibrillation with occasional PVC. The peak pharmacologic ECG demonstrated no ischemic changes. Occasional PVCs preinfusion and postinfusion. There was no complaint of chest discomfort during pharmacologic infusion or recovery. The patient was injected with 11.4 millicuries of technetium 99m Cardiolite and subsequently rest SPECT Cardiolite nuclear imaging was obtained in the horizontal long, vertical long, and short axis views. The patient underwent pharmacologic (Regadenoson) evaluation. The patient was injected with 34.2 millicuries of technetium 99m Cardiolite and subsequently stress SPECT Cardiolite nuclear imaging was obtained in the horizontal long, vertical long, and short axis views. A gated Cardiolite study at peak stress was obtained. The examination was stopped secondary to completion of protocol. Rest and stress SPECT Cardiolite nuclear imaging status post realignment, normalization, and attenuation correction demonstrate no fixed or reversible perfusion defects. There is end systolic thickening and brightening. The gated Cardiolite study demonstrates myocardial thickening and inward wall motion. The reported LVEF is 75%. Impression: 1. Pharmacologic (Regadenoson) evaluation 2. Peak pharmacologic ECG with no ischemic changes. 3. Occasional PVCs noted pretest and postinfusion. 5. Rest and stress SPECT Cardiolite nuclear imaging demonstrate relative uniform tracer uptake and myocardial perfusion appearing within normal limits. 6. The gated Cardiolite study reports an LVEF of 75%. This note was generated with adflyeration software. It may contain incorrect words, spelling, and punctuation that were not noted in checking the note before signing.
== END | disposition home or self-care (01) ==
LOC: CVS 06:20
PROVIDERS: PCP Internal Medicine; Referring Provider Internal Medicine Cardiovascular Disease; Visit Provider Internal Medicine Cardiovascular Disease
DX: R00.2 Palpitations (principal); I48.91 Unspecified atrial fibrillation; I20.89 Other forms of angina pectoris; I10 Essential (primary) hypertension; E78.5 Hyperlipidemia, unspecified
CPT/HCPCS: 78452; 93017; 93306; A9500; J2785

== ENCOUNTER → 2023-10-01 | Outpatient (CLI) | payer MEDICARE, SELFPAY ==
[2023-10-01 10:13] LABS: Anion Gap 5 (5-15); BUN 29 mg/dL (7-18); BUN/Creat Ratio 25.4 RATIO (10-20); Calcium,Total 9.4 mg/dL (8.5-10.1); Chloride 109 mmol/L (98-107); Creatinine, Serum 1.14 mg/dL (0.55-1.02); EST Glomerular Filtration Rate 49 mL/min (>60); Est Glom Filt Rate - Afr Amer 60 mL/min (>60); Glucose 96 mg/dL (74-106); Potassium 4.6 mmol/L (3.5-5.1); Sodium Level 138 mmol/L (136-145)
== END | disposition home or self-care (01) ==
LOC: LAB 09:07
PROVIDERS: PCP Internal Medicine; Referring Provider Internal Medicine Cardiovascular Disease; Visit Provider Internal Medicine Cardiovascular Disease
DX: I48.91 Unspecified atrial fibrillation (principal); I10 Essential (primary) hypertension; I07.1 Rheumatic tricuspid insufficiency; R06.02 Shortness of breath
CPT/HCPCS: 36415; 80048

== ENCOUNTER → 2024-05-10 | Outpatient (CLI) | payer MEDICARE, SELFPAY ==
--- NOTE | 2024-05-10 11:46 | BI_ITS ---
MAMMOGRAPHY - BILATERAL SCREENING REASON FOR EXAM: Female, 74 years old. Routine annual screening examination. PERTINENT HISTORY: Personal history of breast cancer. Prior left lumpectomy. Mother with breast cancer. TECHNIQUE: Digital bilateral breast dana (3D mammographic acquisition) in the CC and MLO projections. 2-D mediolateral oblique (MLO) and craniocaudad (CC) views of both breasts were obtained. CAD: Full Field Digital Mammography with Computer Added Detection was performed. COMPARISON: Comparison is made with prior study dated May 08, 2023 and May 06, 2022. FINDINGS: Breast Composition: There are scattered areas of fibroglandular density. There are no dominant masses or suspicious calcifications. Stable postsurgical architectural distortion in the inferior midportion of the left breast No other significant abnormalities are identified. There has been no significant change since the prior study. BI/SCRN MAMM (CAD)W/DANA BILAT IMPRESSION: Stable bilateral screening mammogram. Yearly follow-up mammogram recommended. (A) ASSESSMENT CATEGORY: BIRADS Category 2: Benign. A letter regarding these results will be sent to the patient by the facility within 30 days. Approximately 10% of breast cancers are not detected by mammography. A normal mammogram should not delay biopsy of a clinically suspicious abnormality. [id number] Electronically Signed: Pablo Manzo MD at 12:23 EST ,
== END | disposition home or self-care (01) ==
LOC: OPBI 11:36
PROVIDERS: PCP Internal Medicine; Referring Provider Obstetrics & Gynecology; Visit Provider Obstetrics & Gynecology
DX: Z12.31 Encounter for screening mammogram for malignant neoplasm of breast (principal); Z85.3 Personal history of malignant neoplasm of breast
CPT/HCPCS: 77063; 77067

== ENCOUNTER → 2024-05-25 | Outpatient (CLI) | payer MEDICARE, SELFPAY ==
--- NOTE | 2024-05-25 13:28 | ECHOD_ITS ---
Reason For Study: MR, TR Procedure This was a 2D Doppler, Color Flow transthoracic echocardiogram. Exam performed in department. Left Ventricle Normal size and thickness. The left ventricular ejection fraction is 65 %. Unable to assess diastolic dysfunction due to arrhythmia. Right Ventricle Normal right ventricle. Atria There is mild biatrial dilatation. Mitral Valve Mild (1+) mitral valve insufficiency. Tricuspid Valve Moderate (2+) tricuspid valve insufficiency. Right ventricular systolic pressure estimated to be 43 mmHg. Aortic Valve Trisinus/trileaflet aortic valve. Moderate (2+) aortic valve insufficiency. Pulmonic Valve The pulmonic valve is not well visualized. Trivial pulmonic valve insufficiency. Great Vessels Normal sized aortic root. Pericardium/Pleural No pericardial effusion. MMode/2D Measurements & Calculations LVIDd: 3.4 cm IVSd: 0.96 cm asc Aorta Diam: 3.2 cm LVIDs: 2.3 cm LVPWd: 0.86 cm RVDd: 3.9 cm FS: 31.2 % LAV(MOD-bp): 51.2 ml LVAd ap4: 17.0 cm2 SV(MOD-sp4): 22.8 ml LAV(MOD-bp) Indexed: 27.6 ml/m2 LVLd ap4: 6.5 cm SI(MOD-sp4): 12.3 ml/m2 LAV(MOD-sp2): 49.5 ml EDV(MOD-sp4): 36.7 ml LAV(MOD-sp4): 50.3 ml EDV(sp4-el): 37.7 ml LVAs ap4: 8.9 cm2 LVLs ap4: 5.2 cm ESV(MOD-sp4): 14.0 ml ESV(sp4-el): 13.0 ml EF(MOD-sp4): 62.0 % EF(sp4-el): 65.5 % SV(sp4-el): 24.7 ml LA A4 area: 19.0 cm2 LA dimension(2D): 4.3 cm RA A4 area: 13.8 cm2 TAPSE: 1.8 cm Doppler Measurements & Calculations MV E max hugh: 85.7 cm/sec Lat Peak E' Hugh: 14.1 cm/sec Med Peak E' Hugh: 8.2 cm/sec E/E' lat: 6.1 E/E' med: 10.4 Ao V2 max: 120.2 cm/sec AI max hugh: 401.5 cm/sec LV V1 max: 76.4 cm/sec Ao max P.8 mmHg AI max P.5 mmHg LV V1 max P.3 mmHg Ao V2 mean: 90.6 cm/sec Ao mean P.6 mmHg AI dec slope: 183.9 cm/sec2 Ao V2 VTI: 26.6 cm AI P1/2t: 639.6 msec PA V2 max: 69.9 cm/sec PI end-d hugh: 95.5 cm/sec TR max hugh: 309.9 cm/sec TR max P.4 mmHg ECHO/Echo Complete Interpretation Summary The left ventricular ejection fraction is 65 %. There is mild biatrial dilatation. Mild (1+) mitral valve insufficiency. Moderate (2+) tricuspid valve insufficiency. Right ventricular systolic pressure estimated to be 43 mmHg. Moderate (2+) aortic valve insufficiency. Ordering Physician: Logan Santillan Referring Physician: Allison Joiner Performed By: Kate Archer, RDCS, RVT
== END | disposition home or self-care (01) ==
PROVIDERS: PCP Internal Medicine; Referring Provider Internal Medicine Cardiovascular Disease; Visit Provider Internal Medicine Cardiovascular Disease
DX: I34.0 Nonrheumatic mitral (valve) insufficiency (principal); I07.1 Rheumatic tricuspid insufficiency
CPT/HCPCS: 93306

== ENCOUNTER → 2024-06-09 | Outpatient (CLI) | payer MEDICARE, SELFPAY ==
[2024-06-09 17:18] LABS: Anion Gap 5 (5-15); BUN 23 mg/dL (7-18); BUN/Creat Ratio 20.5 RATIO (10-20); Calcium,Total 9.4 mg/dL (8.5-10.1); Chloride 105 mmol/L (98-107); Creatinine, Serum 1.12 mg/dL (0.55-1.02); EST Glomerular Filtration Rate 50 mL/min (>60); Est Glom Filt Rate - Afr Amer 61 mL/min (>60); Glucose 138 mg/dL (74-106); Potassium 4.7 mmol/L (3.5-5.1); Sodium Level 136 mmol/L (136-145)
== END | disposition home or self-care (01) ==
LOC: LAB 16:29
PROVIDERS: PCP Internal Medicine; Referring Provider Physician Assistant Medical; Visit Provider Physician Assistant Medical
DX: I48.91 Unspecified atrial fibrillation (principal)
CPT/HCPCS: 36415; 80048

== ENCOUNTER 2024-06-15 13:10 | Inpatient (IN) | payer MEDICARE, SELFPAY ==
[2024-06-15] VITALS (19 sets, daily range): BP systolic 82–131; BP diastolic 38–77; PULSE 27–80; RESP 12–21; TEMP 36.1–36.6; O2SAT 92–100; BMI 33.9; BMI 32.8
--- NOTE | 2024-06-15 13:35 | EKG12_ITS ---
Test Reason : DCCV Blood Pressure : */* mmHG Vent. Rate : 52 BPM Atrial Rate : 52 BPM P-R Int : 256 ms QRS Dur : 98 ms QT Int : 490 ms P-R-T Axes : 11 35 27 degrees QTcB Int : 455 ms Sinus bradycardia with sinus arrhythmia with 1st degree A-V block Otherwise normal ECG Confirmed by SHERLEY TINOCO, DUONG ([id number]), book or script editor NILDA ALFARO ([id number]) on 06/21/2024 2:16:51 PM Referred By: GLYNN Confirmed By: DUONG LEPE MD
--- NOTE | 2024-06-15 13:38 | EX.ED.DYSGE1 ---
HPI History of Present Illness Chief Complaint: Dizziness Narrative Narrative: 74-year-old female past medical history of atrial fibrillation on Eliquis actually went to an outpatient appointment that she had with Dr. Denise for cardioversion this morning. She and her state that they could not perform cardioversion because of the fact that she was found to be in normal sinus rhythm this morning. They went to lunch. Shortly thereafter, patient became very lightheaded and dizzy, almost near syncopal. She states that she usually has a racing heartbeat but has not felt that. She presents because of the lightheadedness and near syncope and dizziness that is somewhat worse with standing. Of note, for rate control she is usually on flecainide and metoprolol which she took this morning. 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 Ductal carcinoma in situ (DCIS) of left breast Home Medications ?Medication ?Instructions ?Recorded ?Last Taken ?Type atorvastatin 10 mg tablet (Lipitor) 10 mg PO DAILY 08/20/18 Unknown History multivitamin,jd-cgjg-[id number] 1 tab PO DAILY 12/10/19 Unknown History (Complete Multivitamin tablet) omeprazole 20 mg capsule,delayed 20 mg PO DAILY 07/15/23 Unknown History release nitroglycerin 0.4 mg sublingual 0.4 mg sublingual Q5-15M PRN chest 07/24/23 Unknown Rx tablet pain #25 tabs zolpidem 5 mg tablet 5 mg PO QHS 07/24/23 Unknown History losartan 25 mg tablet 25 mg PO DAILY #90 tabs 10/01/23 Unknown Rx furosemide 40 mg tablet 40 mg PO DAILY #90 tabs 12/19/23 Unknown Rx potassium chloride 20 mEq 20 meq PO DAILY #90 tabs 12/19/23 Unknown Rx tablet,extended release diltiazem HCl 240 mg capsule,24 240 mg PO QAM #30 caps 04/16/24 Unknown Rx hr,extended release metoprolol tartrate 100 mg tablet 100 mg PO BID #180 TABLETS 05/24/24 06/15/24 Rx flecainide 100 mg tablet 100 mg PO Q12H 06/07/24 06/15/24 History apixaban 5 mg tablet (Eliquis) 5 mg PO .COMPLEX #180 tabs 06/08/24 06/15/24 Rx Allergy/AdvReac Type Severity Reaction Status Date / Time acetaminophen (From Tavist) Allergy Unknown Verified 06/15/24 13:15 clemastine fumarate (From Allergy Unknown Verified 06/15/24 13:15 Tavist) codeine Allergy Unknown Verified 06/15/24 13:15 naproxen Allergy GI upset Verified 06/15/24 13:15 pseudoephedrine HCl (From Allergy Unknown Verified 06/15/24 13:15 Tavist) Family History Brother Kidney disease cancer Parkinsons Mother Paroxysmal atrial fibrillation Father CAD (coronary artery disease) CABG x 4 Surgical History Status post left breast lumpectomy Social History housing: house Smoking Status: Never smoker second hand exposure: No alcohol intake: current alcohol intake frequency: holidays/special occasions only substance use type: does not use what type of physical activity do you participate in: walking frequency: 3-4 times per week duration: 30-45 minutes/day seatbelt use: always additional social history: Misbah- 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 HEENT: No sore throat. No neck pain. No loss of vision. No rhinorrhea. Cardiovascular: No chest pain. No palpitations. No pedal edema. Respiratory: No cough, no shortness of breath. Abdominal: No abdominal pain. No nausea. No vomiting. Genitourinary: No dysuria. No hematuria. Musculoskeletal: No myalgias. No arthralgias. Neurologic: No headaches. Positive dizziness, lightheadedness, and near syncope. Skin: No rash. No change in color. Psychiatric: No depression. No anxiety. EXAM Physical Exam Narrative Exam Narrative: Afebrile. Vital signs noted. Nontoxic-appearing. Cardiovascular examination reveals a regular bradycardia, lungs clear to auscultation bilaterally. Abdomen soft nontender with normoactive bowel sounds. Neurological examination shows her to be awake, alert, and oriented. Const Vital Signs: 06/15/24 13:11 06/15/24 13:28 06/15/24 13:29 Temperature 97.5 F L Temperature Source Temporal Pulse Rate 37 L 27 L 29 L Respiratory Rate 16 19 H Blood Pressure 87/38 L 82/44 L Blood Pressure Mean 54 56 Pulse Ox 100 97 Oxygen Delivery Method Room Air Room Air Oxygen Flow Rate (L/min) 06/15/24 13:59 06/15/24 14:29 06/15/24 14:30 Temperature Temperature Source Pulse Rate 46 L 38 L 38 L Respiratory Rate 13 12 12 Blood Pressure 108/45 L 100/52 L 100/52 L Blood Pressure Mean 66 68 68 Pulse Ox 96 98 98 Oxygen Delivery Method Nasal Cannula Room Air Room Air Oxygen Flow Rate (L/min) 2 MDM MDM MDM Narrative Medical decision making narrative: Differential diagnosis includes but not limited to beta-jorge overdose, bradycardia that is symptomatic versus heart block. EKG was obtained and interpreted by myself as sinus bradycardia at [address] changes. No STEMI. QTc 420. I reviewed her laboratory work and she has normal white count of 9.8, hemoglobin 13.4 with hematocrit 39.9, platelet count 210. CMP is remarkable for hyponatremia of 132 with slight hyperkalemia of 5.2, BUN of 25 and creatinine 1.54, glucose elevated 212 but normal anion gap of 9. AST is slightly elevated at 52 which I think is nonspecific and ALT 57 as well. High-sensitivity troponin is 6. Chest x-ray 1 view interpreted by myself independently shows no acute process. I reviewed the radiology report which comments on atelectasis versus early infiltrate. Given no white count or fever I do not favor pneumonia and I do not think that antibiotics are required. After 1 mg of glucagon, she had nausea and vomiting with slight elevation of her heart rate. She was administered atropine 1 mg which improved her heart rate into the 60s. I discussed the patient with Dr. Conner, who would like to know her current heart rate as she became bradycardic again. According to her and on the monitor, she is holding steady in the 40s. It was not thought that she needed a dopamine drip currently, and cardiology suggested that if she is consistently in the 30s that this could be started. I then discussed the patient with the hospitalist, Dr. Susan Rose, who will admit her to the ICU. Disposition is admit in stable condition. Critical care time 30 minutes. History & Record Review Discussion w/independent historian: Patient and Family Additional record(s) reviewed:: Prior outpatient record Lab Data Attestation: I reviewed the patient's lab results. Labs: Laboratory Results - last 24 hr 06/15/24 13:30 WBC 9.8 RBC 4.32 Hgb 13.4 Hct 39.9 MCV 92.4 MCH 31.0 MCHC 33.6 RDW Std Deviation 44.4 H RDW Coeff of Edelmira 13.2 Plt Count 210 MPV 9.5 Immature Gran % (Auto) 0.800 Neut % (Auto) 65.0 Lymph % (Auto) 23.1 [place] % (Auto) 8.9 Eos % (Auto) 1.5 Baso % (Auto) 0.7 Absolute Neuts (auto) 6.4 Absolute Lymphs (auto) 2.27 Nucleated RBC % 0 Sodium 132 L Potassium 5.2 H Chloride 103 Carbon Dioxide 21.0 Anion Gap 9 BUN 25 H Creatinine 1.54 H Estim Creat Clear Calc 32.46 Est GFR (MDRD) Af Amer 42 L Est GFR (MDRD) Non-Af 35 L BUN/Creatinine Ratio 16.2 Glucose 212 H Calcium 9.3 Total Bilirubin 0.80 AST 52 H ALT 57 H Alkaline Phosphatase 75 Troponin I High Sens 6 Total Protein 7.2 Albumin 3.7 Globulin 3.5 Albumin/Globulin Ratio 1.1 Radiography Chest X-Ray - ED: 1 View, Read by ED Physician and Read by Radiologist Diagnostic Testing: Clinical Impression(s) from Imaging Studies Chest X-Ray 06/15/24 14:08 IMPRESSION: Blunting of the left costophrenic angle with increased markings at the left lung base suggestive of atelectasis and/or early infiltrate. Hiatal hernia. Electronically Signed: Pablo Manzo MD at 14:21 EST , Management Discussion w/another healthcare provider: Hospitalist (Dr. Susan Rose) and Cycle Counter (Cardiology, Dr. Conner) Critical Care Time Critical Care Time: Yes Critical care time (excluding procedures): 30-74 minutes (30 minutes), Discussing w/Patient &/or Family/Assembly Line Supervisor, Discussing w/Consultants, Arranging Admission or Transfer and Performing Direct Patient Care at Bedside Discharge Plan Dx/Rx/DC Orders Clinical Impression: Symptomatic bradycardia, Acute kidney injury, History of atrial fibrillation Disposition Disposition: Acute Care [facility]
[2024-06-15] MEDS: Glucagon 1 MG/ML Syringe IV (13:41)
[2024-06-15 13:43] LABS: Absolute Lymphocyte Count 2.27 X10^3/uL (0.83-4.51); Absolute Neutrophil Count 6.4 X10^3/uL (2.0-7.7); Basophil# 0.07 X10^3/uL; Basophil% 0.7 % (0-1); Eosinophil# 0.15 X10^3/uL; Eosinophils% 1.5 % (0-5); Hematocrit 39.9 % (37-47); Hemoglobin 13.4 g/dL (12.0-15.0); Lymphocyte # 2.27 X10^3/ul (0.83-4.51); Lymphocyte % 23.1 % (19-41); Mean Corp Hgb Conc 33.6 g/dL (32-36); Mean Corpuscular Volume 92.4 fL (81-99); Mean Platelet Vol. 9.5 fl (6.2-12.0); Monocyte# 0.87 X10^3/uL; Monocyte% 8.9 % (0-10); NRBC Flagged by Analyzer 0 % (0-5); Neutrophil # 6.39 X10^3/uL (2.7-7.7); Platelet Count 210 K/mm3 (150-450); RBC Distribution Width CV 13.2 % (11.6-14.6); RBC Distribution Width SD 44.4 fl (35.1-43.9); Red Blood Count 4.32 M/mm3 (4.2-5.4); White Blood Count 9.8 K/mm3 (4.4-11.0)
[2024-06-15] MEDS: Atropine Sulfate 1 MG/10 ML Syringe IV (13:48)
[2024-06-15] MEDS: 0.9% Normal Saline (1000mL) 1,000 ML 999 ML IV (13:50)
[2024-06-15 14:05] LABS: ALB/GLOB Ratio 1.1 RATIO (0.9-2.4); AST(SGOT) 52 U/L (15-37); Alanine Aminotransfer ALT/SGPT 57 U/L (13-56); Albumin, Serum 3.7 g/dL (3.2-5.0); Alkaline Phosphatase 75 U/L (45-117); Anion Gap 9 (5-15); BUN 25 mg/dL (7-18); BUN/Creat Ratio 16.2 RATIO (10-20); Calcium,Total 9.3 mg/dL (8.5-10.1); Chloride 103 mmol/L (98-107); Creatinine, Serum 1.54 mg/dL (0.55-1.02); EST Glomerular Filtration Rate 35 mL/min (>60); Est Glom Filt Rate - Afr Amer 42 mL/min (>60); Estimated Creatinine Clearance 32.46 ml/min; Globulin 3.5 g/dL (2.2-4.2); Glucose 212 mg/dL (74-106); Potassium 5.2 mmol/L (3.5-5.1); Protein, Total 7.2 g/dL (6.4-8.2); Sodium Level 132 mmol/L (136-145); Troponin-I HS 6 pg/mL (3.0-54.0)
--- NOTE | 2024-06-15 14:08 | RAD_ITS ---
STUDY: X-RAY CHEST REASON FOR EXAM: Female, 74 years old. Dizziness. Diaphoretic. TECHNIQUE: Single AP portable view of the chest. COMPARISON: Comparison is made with prior study dated June 24, 2023. FINDINGS: EKG electrodes are seen. Mild increased markings at the left lung base with blunting of the left costophrenic angle. This may represent either focal atelectasis and/or early infiltrate. Follow-up recommended. There is borderline cardiomegaly. Normal mediastinum and deonte. Normal visualized pulmonary arteries. There is atherosclerotic calcification of the aortic arch with tortuosity. Normal visualized thoracic spine. Normal visualized ribs, clavicles, and shoulders. Hiatal hernia. RAD/Chest 1 View (Portable) IMPRESSION: Blunting of the left costophrenic angle with increased markings at the left lung base suggestive of atelectasis and/or early infiltrate. Hiatal hernia. Electronically Signed: Pablo Manzo MD at 14:21 EST ,
--- NOTE | 2024-06-15 15:36 | HP.PCM.HOS_ITS ---
HPI - General General Date of Admission: 06/15/24 Date of Service: 06/15/24 Chief Complaint: Light headed/dizziness/bradycardia HPI Narrative GISELA FLORENTINO, is a 74-year-old female history of paroxysmal atrial fibrillation on Eliquis, GERD, hypertension who presented to [facility] 06/15/23 d/t dizziness. She had an outpatient appointment with cardiology this morning for a cardioversion however was found to be normal sinus rhythm so this was not done. She went to lunch and then developed nausea lightheadedness and dizziness prompting her to come to the ED. At that time her heart rate was 20, she received glucagon and vomited but continued to have a low heart rate and was given atropine with brief increase in heart rate to the 60s. Cardiology on-call contacted and recommended admission and holding beta-jorge and that if heart rate goes back into the 30s will need to be started on dopamine. In the ED troponin 6, did have a slight downtrend of sodium to 132 with potassium of 5.2 and a creatinine of 1.54 up from baseline of around 1.1 hospitalist contacted for admission. Patient evaluated at bedside, systolic blood pressure in 90s and heart rate of 40, still feels somewhat nauseous and still having some intermittent lightheaded and dizzy feeling though that is improving from earlier. Reports last night she felt her A-fib and thought that her heart was going fast she was surprised this a.m. when she was in sinus rhythm. Does note flecainide was added by a physician in [place] a couple of weeks ago but had not had any problems until today. 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 Hyperlipidemia Left arm pain Mitral valve regurgitation New onset atrial fibrillation Nocturia Non-smoker On continuous oral anticoagulation Osteopenia Osteoporosis Palpitations Postmenopausal atrophic vaginitis Stable angina pectoris Tricuspid regurgitation Home Medications ?Medication ?Instructions ?Recorded ?Last Taken ?Type atorvastatin 10 mg tablet (Lipitor) 10 mg PO DAILY 08/20/18 Unknown History multivitamin,bm-[id number]-[id number] 1 tab PO DAILY 12/10/19 Unknown History (Complete Multivitamin tablet) omeprazole 20 mg capsule,delayed 20 mg PO DAILY 07/15/23 Unknown History release nitroglycerin 0.4 mg sublingual 0.4 mg sublingual Q5-15M PRN chest 07/24/23 Unknown Rx tablet pain #25 tabs zolpidem 5 mg tablet 5 mg PO QHS PRN insomnia 07/24/23 Unknown History losartan 25 mg tablet 25 mg PO DAILY #90 tabs 10/01/23 Unknown Rx furosemide 40 mg tablet 40 mg PO DAILY #90 tabs 12/19/23 Unknown Rx potassium chloride 20 mEq 20 meq PO DAILY #90 tabs 12/19/23 Unknown Rx tablet,extended release diltiazem HCl 240 mg capsule,24 240 mg PO QAM #30 caps 04/16/24 Unknown Rx hr,extended release metoprolol tartrate 100 mg tablet 100 mg PO BID #180 TABLETS 05/24/24 06/15/24 Rx flecainide 100 mg tablet 100 mg PO Q12H 06/07/24 06/15/24 History apixaban 5 mg tablet (Eliquis) 5 mg PO .COMPLEX #180 tabs 06/08/24 06/15/24 Rx Allergy/AdvReac Type Severity Reaction Status Date / Time clemastine fumarate (From Allergy Unknown Verified 06/15/24 13:15 Tavist) codeine Allergy Unknown Verified 06/15/24 13:15 naproxen Allergy GI upset Verified 06/15/24 13:15 pseudoephedrine HCl (From Allergy Unknown Verified 06/15/24 13:15 Tavist) Family History Brother Kidney disease cancer Parkinsons Mother Paroxysmal atrial fibrillation Father CAD (coronary artery disease) CABG x 4 Surgical History Status post left breast lumpectomy Social History housing: house Smoking Status: Never smoker second hand exposure: No alcohol intake: current alcohol intake frequency: holidays/special occasions only substance use type: does not use what type of physical activity do you participate in: walking frequency: 3-4 times per week duration: 30-45 minutes/day seatbelt use: always additional social history: Misbah- 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 [employer] ROS ROS Narrative General: Denies fever/chills HENT: Denies headache, denies stuffy nose, denies sore throat EYES: Denies changes in vision Resp: Denies cough, denies shortness of breath Cardiac: Denies chest pain GI: Denies abdominal pain, denies changes in bowel, is feeling nauseous : Denies changes in urination Extremity: Denies swelling MSK: Feels somewhat generally weak great nail Neuro: Denies any numbness/tingling Heme: Denies any bleeding or bruising Skin: Denies rashes Psychiatric: No complaints voiced Vital Signs Vital Signs Vital Signs: 06/15/24 13:11 06/15/24 13:28 06/15/24 13:29 Temperature 97.5 F L Temperature Source Temporal Pulse Rate 37 L 27 L 29 L Respiratory Rate 16 19 H Blood Pressure 87/38 L 82/44 L Blood Pressure Mean 54 56 Pulse Ox 100 97 Oxygen Delivery Method Room Air Room Air Oxygen Flow Rate (L/min) 06/15/24 13:59 06/15/24 14:29 06/15/24 14:30 Temperature Temperature Source Pulse Rate 46 L 38 L 38 L Respiratory Rate 13 12 12 Blood Pressure 108/45 L 100/52 L 100/52 L Blood Pressure Mean 66 68 68 Pulse Ox 96 98 98 Oxygen Delivery Method Nasal Cannula Room Air Room Air Oxygen Flow Rate (L/min) 2 06/15/24 14:57 06/15/24 15:00 06/15/24 15:30 Temperature 97.9 F Temperature Source Pulse Rate 42 L 40 L 39 L Respiratory Rate 16 15 13 Blood Pressure 101/57 L 103/59 L 90/54 L Blood Pressure Mean 71 73 66 Pulse Ox 96 97 96 Oxygen Delivery Method Nasal Cannula Nasal Cannula Oxygen Flow Rate (L/min) 2 2 Weight Weight: 86.8 kg Body Mass Index (BMI) 33.9 Physical Exam Narrative General: Alert, oriented, not overtly distressed while resting in bed HEENT: Atraumatic, normocephalic Eyes: Anicteric, normal conjunctiva, extraocular movements grossly intact Neck: Supple Respiratory: Clear to auscultation bilaterally, normal respiratory effort Cardiovascular: Regular rhythm, bradycardic GI: Soft, nontender, nondistended Extremities: No edema Musculoskeletal: Moving all extremities Neuro: No overt focal neurological deficits Skin: No rashes appreciated Psych: Cooperative Results Lab / Micro Data 06/15/24 13:30 06/15/24 13:30 Labs: Laboratory Results - last 24 hr 06/15/24 13:30: WBC 9.8, RBC 4.32, Hgb 13.4, Hct 39.9, MCV 92.4, MCH 31.0, MCHC 33.6, RDW Std Deviation 44.4 H, RDW Coeff of [place]elm[place] 13.2, Plt Count 210, MPV 9.5, Immature Gran % (Auto) 0.800, Neut % (Auto) 65.0, Lymph % (Auto) 23.1, [place] % (Auto) 8.9, Eos % (Auto) 1.5, Baso % (Auto) 0.7, Absolute Neuts (auto) 6.4, Absolute Lymphs (auto) 2.27, Nucleated RBC % 0, Sodium 132 L, Potassium 5.2 H, Chloride 103, Carbon Dioxide 21.0, Anion Gap 9, BUN 25 H, Creatinine 1.54 H, Estim Creat Clear Calc 32.46, Est GFR (MDRD) Af Amer 42 L, Est GFR (MDRD) Non-Af 35 L, BUN/Creatinine Ratio 16.2, Glucose 212 H, Calcium 9.3, Total Bilirubin 0.80, AST 52 H, ALT 57 H, Alkaline Phosphatase 75, Troponin I High Sens 6, Total Protein 7.2, Albumin 3.7, Globulin 3.5, Albumin/Globulin Ratio 1.1 Imaging Radiology Impression Chest X-Ray 06/15/24 14:08 IMPRESSION: Blunting of the left costophrenic angle with increased markings at the left lung base suggestive of atelectasis and/or early infiltrate. Hiatal hernia. Electronically Signed: Pablo Manzo MD at 14:21 EST , Assessment & Plan Assessment/Plan (1) Symptomatic bradycardia: PLAN: Plan # Symptomatic bradycardia -Received glucagon without significant improvement but atropine did improve heart rate to 60s -EKG appeared bradycardic but did not appear to be third-degree block (noted 1st degree block) and additionally patient did respond to atropine -Admit to ICU, given heart rate still largely in the upper 30s and still soft blood pressure with patient remaining somewhat symptomatic discussed with cardiology and will start patient on dopamine -Hold beta-jorge, flecainide, diltiazem -TSH within normal limits #pafib -In sinus rhythm -Hold rate limiting agents as above -Continue patient's Eliquis at this time # SANDRA and elevated potassium -Creatinine 1.54 with baseline around 1.1 -This may be due to underperfusion due to bradycardia and hypotension -Will give very gentle IVF -With improved heart rate and blood pressure would anticipate this would also improve, repeat in a.m. with further workup if this not improving -Additionally we will be holding Lasix and losartan #GERD -Continue PPI #Hypertension -Hold antihypertensives as above #DVT ppx: On home Eliquis Susan Rose MD Charges/Coding Visit Charges Inpatient E&M: 79727 Init Hosp L2
[2024-06-15] MEDS: 0.9% Normal Saline (1000mL) 1,000 ML 50 ML IV (16:55)
[2024-06-15] MEDS: TITRATION PARAMETER CHANGE 1 EACH IV (17:31)
--- NOTE | 2024-06-15 17:51 | PCM.HOSP.N ---
Hospitalist Note Patient arrived in ICU and heart rate improved to the 50s and no longer hypotensive and symptomatic so dopamine not started, will plan to start if patient were to go back down to the 30s heart rate. Continue to monitor for now
[2024-06-15] MEDS: APIXABAN 5 MG TABLET PO (21:34)
[2024-06-15] MEDS: Atorvastatin Calcium 10 MG Tablet PO (21:34)
[2024-06-16] VITALS (14 sets, daily range): BP systolic 123–144; BP diastolic 52–74; PULSE 55–69; RESP 11–19; TEMP 35.9–37.1; O2SAT 93–96; BMI 34.0
[2024-06-16] MEDS: Acetaminophen 325 MG Tablet 650 MG PO ×2 (01:30→19:45)
[2024-06-16 05:10] LABS: Absolute Lymphocyte Count 2.01 X10^3/uL (0.83-4.51); Absolute Neutrophil Count 6.1 X10^3/uL (2.0-7.7); Basophil# 0.04 X10^3/uL; Basophil% 0.4 % (0-1); Eosinophil# 0.11 X10^3/uL; Eosinophils% 1.2 % (0-5); Hematocrit 37.5 % (37-47); Hemoglobin 12.2 g/dL (12.0-15.0); Lymphocyte # 2.01 X10^3/ul (0.83-4.51); Lymphocyte % 21.3 % (19-41); Mean Corp Hgb Conc 32.5 g/dL (32-36); Mean Corpuscular Hgb 30.3 pg (27.0-32.0); Mean Corpuscular Volume 93.1 fL (81-99); Mean Platelet Vol. 9.7 fl (6.2-12.0); Monocyte# 1.14 X10^3/uL; Monocyte% 12.1 % (0-10); NRBC Flagged by Analyzer 0 % (0-5); Neutrophil # 6.09 X10^3/uL (2.7-7.7); Neutrophil % 64.4 % (47-70); Platelet Count 149 K/mm3 (150-450); RBC Distribution Width CV 13.2 % (11.6-14.6); RBC Distribution Width SD 44.3 fl (35.1-43.9); Red Blood Count 4.03 M/mm3 (4.2-5.4); White Blood Count 9.5 K/mm3 (4.4-11.0)
[2024-06-16 05:27] LABS: Anion Gap 5 (5-15); BUN 22 mg/dL (7-18); BUN/Creat Ratio 20.4 RATIO (10-20); Chloride 108 mmol/L (98-107); Creatinine, Serum 1.08 mg/dL (0.55-1.02); EST Glomerular Filtration Rate 52 mL/min (>60); Est Glom Filt Rate - Afr Amer 63 mL/min (>60); Estimated Creatinine Clearance 46.37 ml/min; Glucose 104 mg/dL (74-106); Magnesium 2.4 mg/dL (1.6-2.6); Potassium 5.1 mmol/L (3.5-5.1); Sodium Level 136 mmol/L (136-145)
--- NOTE | 2024-06-16 07:02 | PN.HOSP_ITS ---
Reason for Visit Reason for Visit: Diagnoses Bradycardia, unspecified (06/15/24) Subjective Subjective Feeling much better since HR has remained in NSR since arrival to ICU. Never was started on dopamin. Objective Data Objective Data Vital Signs: Vital Signs Temp Pulse Resp BP Pulse Ox O2 Del Method O2 Flow Rate 36.1 C L 56 L 14 135/63 H 96 Room Air 2 06/16/24 04:00 06/16/24 06:00 06/16/24 06:00 06/16/24 06:00 06/16/24 06:00 06/16/24 06:00 06/15/24 16:00 Oxygen Flow Rate (L/min) 2 Oxygen Delivery Method Room Air Weight: 87.09 kg Body Mass Index (BMI) 34.0 Intake & Output: Intake and Output for Last 24 Hours 06/14/24 06/15/24 06/16/24 23:59 23:59 23:59 Intake Total 1000 / 1000 Output Total 0 / 0 Balance 1000 / 1000 Lab / Micro Data 06/16/24 04:50 06/16/24 04:50 Labs: Laboratory Results - last 24 hr 06/15/24 13:30: WBC 9.8, RBC 4.32, Hgb 13.4, Hct 39.9, MCV 92.4, MCH 31.0, MCHC 33.6, RDW Std Deviation 44.4 H, RDW Coeff of [place] 13.2, Plt Count 210, MPV 9.5, Immature Gran % (Auto) 0.800, Neut % (Auto) 65.0, Lymph % (Auto) 23.1, [place] % (Auto) 8.9, Eos % (Auto) 1.5, Baso % (Auto) 0.7, Absolute Neuts (auto) 6.4, Absolute Lymphs (auto) 2.27, Nucleated RBC % 0, Sodium 132 L, Potassium 5.2 H, Chloride 103, Carbon Dioxide 21.0, Anion Gap 9, BUN 25 H, Creatinine 1.54 H, Estim Creat Clear Calc 32.46, Est GFR (MDRD) Af Amer 42 L, Est GFR (MDRD) Non-Af 35 L, BUN/Creatinine Ratio 16.2, Glucose 212 H, Calcium 9.3, Total Bilirubin 0.80, AST 52 H, ALT 57 H, Alkaline Phosphatase 75, Troponin I High Sens 6, Total Protein 7.2, Albumin 3.7, Globulin 3.5, Albumin/Globulin Ratio 1.1 Radiography Diagnostic Testing: Radiology Impression Chest X-Ray 06/15/24 14:08 IMPRESSION: Blunting of the left costophrenic angle with increased markings at the left lung base suggestive of atelectasis and/or early infiltrate. Hiatal hernia. Electronically Signed: Pablo Manzo MD at 14:21 EST , Physical Exam Const alert and no apparent distress HEENT head/scalp atraumatic and moist oral mucous membranes Resp normal respiratory effort, no retractions, no use of accessory muscles and clear to auscultation bilaterally Extremity normal to inspection Neuro Sensorium / Orientation: awake and alert Psych affect normal Assessment & Plan Assessment/Plan (1) Symptomatic bradycardia: PLAN: Plan Symptomatic bradycardia * Received glucagon without significant improvement but atropine did improve heart rate to 60s. * Dilt, flecanide, metoprolol tartrate held. States that she was started on flecanide ~2 weeks ago by her EP physician Dr. Francis. * Cardiology on consult for further recommendations. Chronic conditions: * GERD-Continue PPI * Hypertension-Hold antihypertensives as above * pAfib: rate-controlling meds held given bradycardia. apxiaban. Charges/Coding Visit Charges Inpatient E&M: 88332 Subs Hosp L2
[2024-06-16] MEDS: Pantoprazole Sodium 20 MG Tablet PO (10:07)
[2024-06-16] MEDS: APIXABAN 5 MG TABLET PO ×2 (10:07→19:47)
--- NOTE | 2024-06-16 11:25 | CASEMGMT ---
RN CM CRUSHER AND BINDER OPERATOR CM?to room to meet with patient for initial transition planning/care coordination assessment. RN CM?introduced self and role at [facility]. Pt voices understanding and consents to assessment?at this time. Pt sitting up in chair in no distress at this time. @ bedside. Pt is A/O at this time and answers all questions appropriately. Care providers, pharmacy, and demographics verified/updated at this time. Strata:?1 PCP: Dr Joiner (Has upcoming yearly appt in August). Specialists: PARISA/Dr Santillan-cardiology, Dr Sinclair-RESCUE INSTRUCTOR Preferred Pharmacy: [facility] Insurance: [place] [facility] Prescription Benefit: yes LNOK: , Misbah Villatoro Living Arrangements: Lives w/ in ranch-style home w/basement and 6 steps to enter, w/railing on one side. She states she does get winded when on the stairs, so she just takes them slow and easy. Independent w/ADL's and IADL's and does most home mgnt tasks. Transportation:?Pt states drives self and states no transportation concerns at this time. also drives. DME: Denies using any DME. She would like to get a pulse ox @ dc. Pt and made aware of several locations where this could be purchased. HHC/SNF: No hx of either. No needs identified. Pt wishes to return home and states has no concerns with going home at time of discharge. CM?to follow for any further discharge planning/needs. Pt and voice no further concerns/needs at this time. Advised them to ask for CM?if any further questions/concerns/needs arise. They voice understanding. PLAN: Home w/spousal support and discharge plans in place. Ana LUCAS RN CM
--- NOTE | 2024-06-16 14:11 | PCM.CONS.C ---
Assessment & Plan Assessment/Plan (1) Symptomatic bradycardia: PLAN: Patient has history of atrial fibrillation. Currently she is in sinus rhythm. We will start her beta-jorge initially at a low dose and then adjust as required. Explained to patient that there is a possibility that we may have a hard time maintaining her heart rate at an optimal level with just medications. If her heart rate is reasonable with low-dose beta-jorge tomorrow then she could be discharged home tomorrow and she can follow-up with her primary switchboard mechanic and supplier specialist. HPI Consult Data Date of Consult: 06/16/24 HPI Narrative Reason for Consultation: Bradycardia, dizziness HPI Narrative: GISELA FLORENTINO, is a 74 F who presents with dizziness and severe sinus bradycardia. Patient has history of atrial fibrillation and was on metoprolol 100 mg p.o. twice daily, Cardizem CD 240 mg daily and was started on flecainide 2 weeks ago when she saw Dr. Pappas at [facility]. She was supposed to get cardioversion yesterday but was found to be in sinus rhythm and was sent back home. Subsequently she became very lightheaded and came to the emergency room and was found to be hypotensive with a heart rate in the low 30s. Beta-jorge, calcium channel jorge and flecainide were held. Glucagon was administered. The plan was to start dopamine if required but that was never started and patient's heart rate slowly started coming up. Currently she is feeling much better. Her heart rate is in the high 50s. She is in sinus rhythm. 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 Ductal carcinoma in situ (DCIS) of left breast Home Medications ?Medication ?Instructions ?Recorded ?Last Taken ?Type atorvastatin 10 mg tablet (Lipitor) 10 mg PO DAILY 08/20/18 Unknown History multivitamin,ls-yitn-xumildge 1 tab PO DAILY 12/10/19 Unknown History (Complete Multivitamin tablet) omeprazole 20 mg capsule,delayed 20 mg PO DAILY 07/15/23 Unknown History release nitroglycerin 0.4 mg sublingual 0.4 mg sublingual Q5-15M PRN chest 07/24/23 Unknown Rx tablet pain #25 tabs zolpidem 5 mg tablet 5 mg PO QHS PRN insomnia 07/24/23 Unknown History losartan 25 mg tablet 25 mg PO DAILY #90 tabs 10/01/23 Unknown Rx furosemide 40 mg tablet 40 mg PO DAILY #90 tabs 12/19/23 Unknown Rx potassium chloride 20 mEq 20 meq PO DAILY #90 tabs 12/19/23 Unknown Rx tablet,extended release diltiazem HCl 240 mg capsule,24 240 mg PO QAM #30 caps 04/16/24 Unknown Rx hr,extended release metoprolol tartrate 100 mg tablet 100 mg PO BID #180 TABLETS 05/24/24 06/15/24 Rx flecainide 100 mg tablet 100 mg PO Q12H 06/07/24 06/15/24 History apixaban 5 mg tablet (Eliquis) 5 mg PO .COMPLEX #180 tabs 06/08/24 06/15/24 Rx Allergy/AdvReac Type Severity Reaction Status Date / Time clemastine fumarate (From Allergy Unknown Verified 06/15/24 13:15 Tavist) codeine Allergy Unknown Verified 06/15/24 13:15 naproxen Allergy GI upset Verified 06/15/24 13:15 pseudoephedrine HCl (From Allergy Unknown Verified 06/15/24 13:15 Tavist) Family History Brother Kidney disease cancer Parkinsons Mother Paroxysmal atrial fibrillation Father CAD (coronary artery disease) CABG x 4 Surgical History Status post left breast lumpectomy Social History housing: house Smoking Status: Never smoker second hand exposure: No alcohol intake: current alcohol intake frequency: holidays/special occasions only substance use type: does not use what type of physical activity do you participate in: walking frequency: 3-4 times per week duration: 30-45 minutes/day seatbelt use: always additional social history: 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- 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 Physical Exam Const alert and oriented x3 HEENT normocephalic Eyes no scleral icterus Resp normal respiratory effort Cardio Rate: regular rate Risk Stratification Risk Stratification Applicable: No Charges/Coding Visit Charges Inpatient E&M: 39091 Init Hosp L2 Objective Data Vital Signs: Vital Signs Temp Pulse Resp BP Pulse Ox O2 Del Method O2 Flow Rate 98.8 F 64 19 H 144/72 H 96 Room Air 2 06/16/24 08:00 06/16/24 12:00 06/16/24 08:00 06/16/24 08:00 06/16/24 08:00 06/16/24 08:00 06/15/24 16:00 Oxygen Flow Rate (L/min) 2 Oxygen Delivery Method Room Air Weight: 192 lb Body Mass Index (BMI) 34.0 Intake & Output: Intake and Output for Last 24 Hours 06/14/24 06/15/24 06/16/24 23:59 23:59 23:59 Intake Total 1000 / 1000 857.5 / 857.5 Output Total 0 / 0 Balance 1000 / 1000 857.5 / 857.5 Lab / Micro Data 06/16/24 04:50 06/16/24 04:50 Labs: Laboratory Results - last 24 hr 06/16/24 04:50: WBC 9.5, RBC 4.03 L, Hgb 12.2, Hct 37.5, MCV 93.1, MCH 30.3, MCHC 32.5, RDW Std Deviation 44.3 H, RDW Coeff of [place] 13.2, Plt Count 149 L, MPV 9.7, Immature Gran % (Auto) 0.600, Neut % (Auto) 64.4, Lymph % (Auto) 21.3, [place] % (Auto) 12.1 H, Eos % (Auto) 1.2, Baso % (Auto) 0.4, Absolute Neuts (auto) 6.1, Absolute Lymphs (auto) 2.01, Nucleated RBC % 0, Sodium 136, Potassium 5.1, Chloride 108 H, Carbon Dioxide 22.0, Anion Gap 5, BUN 22 H, Creatinine 1.08 H, Estim Creat Clear Calc 46.37, Est GFR (MDRD) Af Amer 63, Est GFR (MDRD) Non-Af 52 L, BUN/Creatinine Ratio 20.4 H, Glucose 104, Calcium 9.0, Magnesium 2.4 Cardiology Labs/Tests 06/16/24 04:50: WBC 9.5, RBC 4.03 L, Hgb 12.2, Hct 37.5, MCV 93.1, MCH 30.3, MCHC 32.5, Plt Count 149 L, MPV 9.7, Immature Gran % (Auto) 0.600, Neut % (Auto) 64.4, Lymph % (Auto) 21.3, [place] % (Auto) 12.1 H, Eos % (Auto) 1.2, Baso % (Auto) 0.4, Absolute Neuts (auto) 6.1, Nucleated RBC % 0, Sodium 136, Potassium 5.1, Chloride 108 H, Carbon Dioxide 22.0, Anion Gap 5, BUN 22 H, Creatinine 1.08 H, Est GFR (MDRD) Af Amer 63, Est GFR (MDRD) Non-Af 52 L, BUN/Creatinine Ratio 20.4 H, Glucose 104, Calcium 9.0, Magnesium 2.4 Rhythm: EKG: ECHO: Stress Test: Cardiac Cath: PCI: CT Surgery: Holter monitor: EPS: PPM: CXR: Chest CT Scan: Radiography Diagnostic Testing: Radiology Impression Chest X-Ray 06/15/24 14:08 IMPRESSION: Blunting of the left costophrenic angle with increased markings at the left lung base suggestive of atelectasis and/or early infiltrate. Hiatal hernia. Electronically Signed: Pablo Manzo MD at 14:21 EST ,
[2024-06-16] MEDS: Atorvastatin Calcium 10 MG Tablet PO (19:47)
[2024-06-16] MEDS: Metoprolol Tartrate 25 MG Tablet PO (19:49)
[2024-06-17 02:00] VITALS: BP 154/83; PULSE 70; RESP 12; TEMP 36.7; O2SAT 97
[2024-06-17 04:00] VITALS: BMI 34.5
[2024-06-17] MEDS: Acetaminophen 325 MG Tablet 650 MG PO (05:42)
--- NOTE | 2024-06-17 07:00 | PN.HOSP_ITS ---
Reason for Visit Reason for Visit: Diagnoses Bradycardia, unspecified (06/15/24) Subjective Subjective Headache this AM around 0400. Frontal and down her neck. Received acetaminophen, which has helped some. Has been nauseated, no vomiting. Objective Data Objective Data Vital Signs: Vital Signs Temp Pulse Resp BP Pulse Ox O2 Del Method O2 Flow Rate 36.7 C 70 12 154/83 H 97 Room Air 2 06/17/24 02:00 06/17/24 02:00 06/17/24 02:00 06/17/24 02:00 06/17/24 02:00 06/17/24 02:00 06/15/24 16:00 Oxygen Flow Rate (L/min) 2 Oxygen Delivery Method Room Air Weight: 88.496 kg Body Mass Index (BMI) 34.5 Intake & Output: Intake and Output for Last 24 Hours 06/15/24 06/16/24 06/17/24 23:59 23:59 23:59 Intake Total 1000 / 1000 857.5 / 857.5 Output Total 0 / 0 Balance 1000 / 1000 857.5 / 857.5 Lab / Micro Data 06/16/24 04:50 06/16/24 04:50 Labs: Laboratory Results - last 24 hr 06/16/24 04:50: WBC 9.5, RBC 4.03 L, Hgb 12.2, Hct 37.5, MCV 93.1, MCH 30.3, MCHC 32.5, RDW Std Deviation 44.3 H, RDW Coeff of [place] 13.2, Plt Count 149 L, MPV 9.7, Immature Gran % (Auto) 0.600, Neut % (Auto) 64.4, Lymph % (Auto) 21.3, [place] % (Auto) 12.1 H, Eos % (Auto) 1.2, Baso % (Auto) 0.4, Absolute Neuts (auto) 6.1, Absolute Lymphs (auto) 2.01, Nucleated RBC % 0, Sodium 136, Potassium 5.1, C hloride 108 H, Carbon Dioxide 22.0, Anion Gap 5, BUN 22 H, Creatinine 1.08 H, Estim Creat Clear Calc 46.37, Est GFR (MDRD) Af Amer 63, Est GFR (MDRD) Non-Af 52 L, BUN/Creatinine Ratio 20.4 H, Glucose 104, Calcium 9.0, Magnesium 2.4 Physical Exam Const alert and no apparent distress HEENT head/scalp atraumatic and moist oral mucous membranes Resp normal respiratory effort, no retractions, no use of accessory muscles and clear to auscultation bilaterally Cardio regular rate, regular rhythm, S1 normal heart sound and S2 normal heart sound GI normal to inspection, nondistended, normoactive bowel sounds, soft to palpation and non-tender Neuro Sensorium / Orientation: awake, alert and oriented to person Assessment & Plan Assessment/Plan (1) Symptomatic bradycardia: PLAN: Plan Symptomatic bradycardia * Received glucagon without significant improvement but atropine did improve heart rate to 60s. Continued sinus rhythm * Dilt, flecanide, metoprolol tartrate held. States that she was started on flecainide ~2 weeks ago by her EP physician Dr. Francis. * Cardiology input greatly appreciated. Headache * with associated nausea. Received acetaminophen earlier this AM. Chronic conditions: * GERD-Continue PPI * Hypertension-Hold antihypertensives as above * pAfib: rate-flecainide and dilt held. Metoprolol tartrate resumed, but at a lower dose. apixaban. Charges/Coding Visit Charges Inpatient E&M: 36903 Subs Hosp L2
[2024-06-17 08:00] VITALS: BP 156/90; PULSE 80; RESP 14; TEMP 36.2; O2SAT 96
[2024-06-17 09:02] VITALS: BP 156/90; PULSE 80
[2024-06-17] MEDS: APIXABAN 5 MG TABLET PO (09:02)
[2024-06-17] MEDS: Pantoprazole Sodium 20 MG Tablet PO (09:02)
[2024-06-17] MEDS: Metoprolol Tartrate 25 MG Tablet PO (09:02)
--- NOTE | 2024-06-17 14:30 | DS.PCM_ITS ---
Providers Date of Admission: 06/15/24 Primary Care Physician: Dr. Allison Joiner MD Consultations 06/15/24 16:35 Consult: Cardiology Routine Consulting Provider: Shannan Conner Reason for Consult: symptomatic bradycardia EMERGENT Consult: No MD Notified: Yes Date Notified: 06/15/24 Time Notified: 15:44 Method of Notification: Text Reason For Visit: SYMPTOMATIC BRADYCARDIA Diagnosis Discharge Diagnosis (1) Symptomatic bradycardia: Status: Acute Code(s): R00.1 - Bradycardia, unspecified Plan Symptomatic bradycardia * Received glucagon without significant improvement but atropine did improve heart rate to 60s. Continued sinus rhythm * Dilt, flecanide, metoprolol tartrate held. States that she was started on flecainide ~2 weeks ago by her EP physician Dr. Francis. * Cardiology input greatly appreciated. Headache * with associated nausea. Received acetaminophen earlier this AM. Chronic conditions: * GERD-Continue PPI * Hypertension-Hold antihypertensives as above * pAfib: rate-flecainide and dilt held. Metoprolol tartrate resumed, but at a lower dose. apixaban. Medications at Discharge Home Medications atorvastatin 10 mg tablet (Lipitor) 10 mg PO DAILY 08/20/18 multivitamin,zk-xjcr-gqavyudm (Complete Multivitamin tablet) 1 tab PO DAILY 12/10/19 omeprazole 20 mg capsule,delayed release 20 mg PO DAILY 07/15/23 nitroglycerin 0.4 mg sublingual tablet 0.4 mg sublingual Q5-15M PRN chest pain #25 tabs 07/24/23 zolpidem 5 mg tablet 5 mg PO QHS PRN insomnia 07/24/23 apixaban 5 mg tablet (Eliquis) 5 mg PO .COMPLEX #180 tabs 06/08/24 metoprolol tartrate 50 mg tablet 50 mg PO BID #60 tabs 06/17/24 Hospital Course Operations None Procedures None Summary of Care Provided Minutes Spent on Discharge: 35 Hospital Course: Patient presents with symptomatic bradycardia. Her flecainide, diltiazem and metoprolol were held. Patient was in sinus rhythm. Patient was resumed on metoprolol tartrate 25 twice daily (down from 100 twice daily). She did fine with that. Did not actually go into A-fib was rate controlled. Discussed with Dr. Conner, recommend increasing metoprolol tartrate to 50 twice a day and to follow-up with her EP physician. Patient be discharged home in stable condition. Weight / BMI Weight Weight: 88.496 kg Body Mass Index (BMI) 34.5 ABG / Lab / Microbiology Data 06/16/24 04:50 06/16/24 04:50 D/C Instructions Discharge Diet: No restrictions DC O2, CPAP, BIPAP Needs Home O2 Discharge instructions: No Meaningful Use Info Meaningful Use Meaningful Use Diagnoses (Choose all that apply): None applicable Ischemic Stroke Statin Dosing Therapy Reference: STATIN DOSE THERAPY REFERENCE: * Patients > 75 years receive moderate or high dose statin therapy. * Patients 75 years or YOUNGER should receive HIGH intensity statin dose unless contraindicated. You will be required to document reason for non-treatment if statin daily dose does not meet guidelines. HIGH DOSE STATIN THERAPY DAILY Atorvastatin > than or = to 40 mg Rosuvastatin > than or = to 20 mg Amlodipine + Atorvastatin > than or = to 2.5/40 mg Ezetimibe + Simvastatin 10/80 mg Simvastatin 80mg Discharge Plan Admission Admit Date/Time: 06/15/24 15:36 Primary Reason for Your Visit: Bradycardia Attending Provider: Jorge Luis Wyman Primary Care Provider: Allison Joiner Consulting Providers: Susan Rose; Shannan Conner Instructions Additional Instructions / Restrictions: You had bradycardia, slow heart rate. This is likely due to her medications which include flecainide, diltiazem and metoprolol. You will only be on metoprolol in that section can to be at a reduced dose from what you are taking before. Please follow-up with your fitness center attendant and spragger (Dr. Pappas) earliest availability. If you do have issues in regards to feeling her heart racing or chest or feeling weak or unsteady, notify your physician or return to the emergency room Discharge Orders/Prescriptions Prescriptions: New metoprolol tartrate 50 mg tablet 50 mg PO BID Qty: 60 0RF Continued atorvastatin [Lipitor] 10 mg tablet 10 mg PO DAILY Complete Multivitamin Tablet 1 tab PO DAILY omeprazole 20 mg capsule,delayed release(DR/EC) 20 mg PO DAILY zolpidem 5 mg tablet 5 mg PO QHS PRN (Reason: insomnia) nitroglycerin 0.4 mg tablet, sublingual 0.4 mg sublingual Q5-15M PRN (Reason: chest pain) Qty: 25 3RF Rx Instructions: do not exceed 3 doses per episode Eliquis 5 mg tablet 5 mg PO .COMPLEX Qty: 180 3RF Rx Instructions: 5 mg orally twice daily. Fax to [facility]; Discontinued losartan 25 mg tablet 25 mg PO DAILY Qty: 90 3RF furosemide 40 mg tablet 40 mg PO DAILY Qty: 90 3RF potassium chloride 20 mEq tablet extended release 20 meq PO DAILY Qty: 90 3RF diltiazem HCl 240 mg capsule,extended release 24 hr 240 mg PO QAM Qty: 30 11RF metoprolol tartrate 100 mg tablet 100 mg PO BID Qty: 180 3RF flecainide 100 mg tablet 100 mg PO Q12H Referrals / Follow Up: Allison Joiner MD [Primary Care Provider] - Perfecto Pappas MD [Non-Staff] - Within 2 Weeks Nadia Morgan PA [Med Staff - [facility] Practice [facility]] - 07/19/24 1:30 pm Disposition Disposition (needs filled in before D/C Order can be placed): Home, Self Care Charges/Coding Visit Charges Inpatient E&M: 43767 Disch Hosp >30min
[2024-06-17 15:39] VITALS: BP 132/66; PULSE 80; RESP 16; O2SAT 96
== END 2024-06-17 15:30 | disposition home or self-care (01) | DRG 309 ==
LOC: ED 14:47 → ICU 16:07
PROVIDERS: Admitting Provider Internal Medicine; Emergency Provider Emergency Medicine; PCP Internal Medicine
DX: R00.1 Bradycardia, unspecified (principal); N17.9 Acute kidney failure, unspecified; I10 Essential (primary) hypertension; I48.0 Paroxysmal atrial fibrillation; E78.5 Hyperlipidemia, unspecified; K21.9 Gastro-esophageal reflux disease without esophagitis; I95.9 Hypotension, unspecified; Z79.01 Long term (current) use of anticoagulants; Z79.899 Other long term (current) drug therapy; R51.9 Headache, unspecified
CPT/HCPCS: 71045; 80048; 80053; 83735; 84484; 85025; 93005; 99285; A4216; J1610

== ENCOUNTER → 2024-06-15 | Day surgery (SDC) | payer MEDICARE, SELFPAY ==
[2024-06-14 07:59] VITALS: BMI 32.8
--- NOTE | 2024-06-15 10:13 | HP.PCM_ITS ---
History and Physical Alisa Guillen is a 74-year-old female that presents here today for a cardioversion. She does have a history of persistent atrial fibrillation, moderate to severe mitral valve regurgitation and tricuspid regurgitation. Patient was referred to EP. EP had started her on flecainide. They had requested that she undergo a cardioversion. She had opted to have this done here at [facility] instead of [facility]. The ultimate plan for patient is to proceed with an ablation. This is being scheduled in the future however it will be several months before this is done. [facility] Medical History Mitral valve regurgitation Tricuspid regurgitation Dyslipidemia Stable angina pectoris Atrial fibrillation On continuous oral anticoagulation Left arm pain Nocturia Chronic insomnia Essential hypertension Palpitations Hyperlipidemia Osteopenia Postmenopausal atrophic vaginitis New onset atrial fibrillation NON PROFIT DIRECTOR exam for high-risk Medicare patient Ductal carcinoma in situ (DCIS) of left breast Surgical History Status post left breast lumpectomy Family History Brother Kidney disease cancer Parkinsons Mother Paroxysmal atrial fibrillation Father CAD (coronary artery disease) CABG x 4 Social History housing: house Smoking Status: Never smoker second hand exposure: No alcohol intake: current alcohol intake frequency: holidays/special occasions only substance use type: does not use what type of physical activity do you participate in: walking frequency: 3-4 times per week duration: 30-45 minutes/day seatbelt use: always additional social history: Misbah- 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 ROS Const Const: Negative for fatigue, weakness, headache(s) or weight gain ENT ENT: Negative for headache(s), dizziness, Nosebleed/epistaxis or balance problems Cardio Chest Pain: No Palpitations: No Edema: None Muscle aches with walking: None Resp Respiratory: Positive for SOB with activity (w/ stairs); Negative for SOB at rest or SOB orthopnea\SOB lying down GI GI: Negative nausea, vomiting or heartburn Musc Musc: Positive for joint pain (left shoulder); Negative for muscle aches/ myalgia, muscle weakness or balance problems Neuro Neuro: Negative for dizziness, lightheadedness, near syncope, syncope, headache(s) or weakness Endo Endo: Negative for fatigue Cardiology Exam Const Appearance: comfortable and no acute distress Nutritional Appearance: well nourished Neck Neck: no JVD Carotids: Negative bruit Chest Auscultation: Bilateral: Clear to Auscultation Cardio Rhythm: irregularly irregular Heart sounds: S1 normal and S2 normal Neuro General: patient alert, patient awake and patient oriented x3 Extremities Lower Extremity Edema: None: Bilateral Assessment & Plan Assessment/Plan (1) Atrial fibrillation: (2) Mitral valve regurgitation: (3) Tricuspid regurgitation: PLAN: Plan Patient will undergo a cardioversion today. She will continue to follow with the EP. Will also continue to follow-up with us in our office.
== END | disposition home or self-care (01) ==
PROVIDERS: PCP Internal Medicine; Referring Provider Internal Medicine Cardiovascular Disease; Visit Provider Internal Medicine Cardiovascular Disease
DX: I48.19 Other persistent atrial fibrillation (principal); I10 Essential (primary) hypertension; E78.5 Hyperlipidemia, unspecified; I08.1 Rheumatic disorders of both mitral and tricuspid valves; Z53.9 Procedure and treatment not carried out, unspecified reason
CPT/HCPCS: 93005

== ENCOUNTER → 2024-09-23 | Outpatient (CLI) | payer MEDICARE, SELFPAY ==
[2024-09-23 17:46] LABS: Anion Gap 11 (5-15); BUN 15 mg/dL (4-19); BUN/Creat Ratio 18.7 RATIO (10-20); Calcium,Total 9.8 mg/dL (7.6-11.0); Carbon Dioxide 23.9 mmol/L (21.0-32.0); Chloride 103 mmol/L (98-108); Creatinine, Serum 0.82 mg/dL (0.70-1.20); EST Glomerular Filtration Rate 74 (>60); Glucose 91 mg/dL (70-99); Magnesium 2.3 mg/dL (1.5-2.2); Potassium 4.6 mmol/L (3.3-5.1); Sodium Level 138 mmol/L (133-145)
== END | disposition home or self-care (01) ==
PROVIDERS: PCP Internal Medicine; Referring Provider Internal Medicine Cardiovascular Disease; Visit Provider Internal Medicine Cardiovascular Disease
DX: I48.0 Paroxysmal atrial fibrillation (principal); R00.2 Palpitations
CPT/HCPCS: 36415; 80048; 83735

== ENCOUNTER 2024-11-13 09:33 | Emergency (ER) | payer MEDICARE, SELFPAY ==
[2024-11-13 09:37] VITALS: BP 135/61; PULSE 58; RESP 12; TEMP 36.4; O2SAT 100
--- NOTE | 2024-11-13 09:50 | CT_ITS ---
PROCEDURE: BRAIN/HEAD WITHOUT CONTRAST 11/13/2024 REASON FOR EXAM: INJURY/PAIN TECHNIQUE: BRAIN/HEAD WITHOUT CONTRAST Coronal and Sagittal reconstruction series were provided. One or more dose reduction techniques were used (e.g., Automated exposure control, adjustment of the mA and/or kV according to patient size, use of iterative reconstruction technique. RADIATION DOSE SUMMARY: DLP: 830 mGycm COMPARISON: None FINDINGS: There is no acute infarct, intracranial hemorrhage, or mass effect. There is no hydrocephalus or significant midline shift. There is mild chronic microvascular ischemic changes. No acute, depressed calvarial fractures. Moderate right anterior frontal scalp hematoma. Bilateral lens surgeries. CT/Brain/Head without Contrast IMPRESSION: No acute intracranial process. Reading Location: [id number]
--- NOTE | 2024-11-13 09:50 | EKG12_ITS ---
Test Reason : FALL Blood Pressure : */* mmHG Vent. Rate : 58 BPM Atrial Rate : 58 BPM P-R Int : 234 ms QRS Dur : 104 ms QT Int : 444 ms P-R-T Axes : 11 29 28 degrees QTcB Int : 435 ms Sinus bradycardia with sinus arrhythmia with 1st degree A-V block Otherwise normal ECG Confirmed by Collin Espino ([id number]), book or script editor ANGEL HERNANDEZ ([id number]) on 11/16/2024 11:45:19 AM Referred By: Confirmed By: Collin Espino
--- NOTE | 2024-11-13 10:00 | CM.ED ---
Social Work: Date of referral: 11/13/24 Reason for referral: Advanced Care Directives (ACD's) not on file. Referred by: Social Work Identification Patient provided consent to social work visit. Patient's at bedside. Career Discovery Teacher requested patient to bring in a copy of her ACD's either during next visit or next time she is out and about in the community and can drop them off which patient was agreeable to. Ida Padron, MATERIALS PLANNING ANALYST, MOTION PICTURE PRINTER
[2024-11-13] MEDS: Morphine 4 MG/ML Syringe IV (10:13)
[2024-11-13] MEDS: Ondansetron 4 MG/2 ML Vial IV (10:13)
[2024-11-13 10:21] LABS: Absolute Lymphocyte Count 1.63 X10^3/uL (0.83-4.51); Absolute Neutrophil Count 4.2 X10^3/uL (2.0-7.7); Basophil# 0.04 X10^3/uL; Basophil% 0.6 % (0-1); Eosinophil# 0.12 X10^3/uL; Eosinophils% 1.7 % (0-5); Hematocrit 42.1 % (37-47); Hemoglobin 14.3 g/dL (12.0-15.0); Lymphocyte # 1.63 X10^3/ul (0.83-4.51); Lymphocyte % 23.4 % (19-41); Mean Corpuscular Hgb 30.8 pg (27.0-32.0); Mean Corpuscular Volume 90.7 fL (81-99); Mean Platelet Vol. 8.9 fl (6.2-12.0); Monocyte# 0.96 X10^3/uL; Monocyte% 13.8 % (0-10); NRBC Flagged by Analyzer 0 % (0-5); Neutrophil # 4.17 X10^3/uL (2.7-7.7); Neutrophil % 59.6 % (47-70); Platelet Count 168 K/mm3 (150-450); RBC Distribution Width CV 13.2 % (11.6-14.6); Red Blood Count 4.64 M/mm3 (4.2-5.4)
--- OUTSIDE RECORDS SUMMARY | 2024-11-13 10:24 | XMS RPT_ITS | CCD ---
Author Organization [facility] Care Team Providers Care In Store Demonstrator Name Role Phone Evelyne Kim Unavailable Unavailab ho Sinclair MD, Yanna Aragon Unavailable [phone] Halle TINOCO, Joie Primary Care Provider Antonia Mendoza MD Primary Care Provider Dr. Antonia Mendoza Primary Care Provider Dr. Antonia Mendoza Referring Provider Tyrell, Dr. Ford Attending Provider Tyrell, Dr. Ford Referring Provider Tyrell, Dr. Ford Other Provider Antonia Mendoza MD Primary Care Provider Jacob SALES PROPERTY MANAGER.BEEF BREAKER, Chung Unavailable Nilo SALES PROPERTY MANAGER.INFORMATION TECHNOLOGY ADMINISTRATOR, Angel Unavailable Logan Santillan MD Unavailable BREA OH Attending Unavailable TALAMPAS, ANTONIA D Referring Unavailable TALAMPAS, ANTONIA D Primary Care Unavailable Nilo SALES PROPERTY MANAGER.INFORMATION TECHNOLOGY ADMINISTRATOR, Angel Unavailable ANGEL FLORES Attending Unavailable TALAMPAS, ANTONIA D Primary Care Unavailable TALAMPAS, ANTONIA D Attending Unavailable TALAMPAS, ANTONIA D Primary Care Unavailable TALAMPAS, ANTONIA D Referring Unavailable TALAMPAS, ANTONIA D Primary Care Unavailable TALAMPAS, ANTONIA D Primary Care Unavailable TALAMPAS, ANTONIA D Referring Unavailable TALAMPAS, ANTONIA D Primary Care Unavailable TALAMPAS, ANTONIA D Referring Unavailable TALAMPAS, ANTONIA D Primary Care Unavailable TALAMPAS, ANTONIA D Attending Unavailable SELF Referring Unavailable CHUNG JACOB Attending Unavailable TALAMPAS, ANTONIA D Primary Care Unavailable Pat TINOCO, Dr. Antonia Meier Primary Care Provider Nadia Stephenson Attending Provider Nadia Stephenson Referring Provider Camelia TINOCO, Dr. Van Other Provider Camelia TINOCO, Dr. Van Attending Provider Camelia TINOCO, Dr. Van Referring Provider Ubaldo TINOCO, Dr. Campbell Attending Provider Varghese TINOCO, Patricio Emergency Provider Milton TINOCO, Dr. Davis Admit Provider Milton TINOCO, Dr. Davis Other Provider Dr. Jorge Luis Wyman DO Attending Provider Ubaldo TINOCO, Dr. Campbell Other Provider Dr. Jorge Luis Wyman DO Other Provider Pat TINOCO, Dr. Antonia Meier Referring Provider Tyrell TINOCO, Dr. Ford Attending Provider Tyrell TINOCO, Dr. Ford Referring Provider Pat, Antonia D Primary Care Unavailable Rehan Denise Consulting Unavailable Nadia Stephenson Attending Unavail able Logan Santillan Referring Unavailable Logan Santillan Attending Unavailable Chemaampgilbert, Antonia D Primary Care Unavailable Susan Rose Admitting Unavailable Susan Rose Consulting Unavailable Jorge Luis Wyman Attending Unavailable Talampas, Antonia D Primary Care Unavailable Shannan Conner Consulting Unavailabl e Jorge Luis Wyman Consulting Unavailable Chemaampgilbert, Antonia D Primary Care Unavailable Nadia Stephenson Attending Unavail able Talampgilbert, Antonia D Referring Unavailable Talampas, Antonia D Primary Care Unavailable Logan Santillan Attending Unavailable Talampas, Antonia D Referring Unavailable Tyrell, Logan Attending Unavailable Talampas, Antonia D Primary Care Unavailable Talampas, Antonia D Referring Unavailable Talampas, Antonia D Primary Care Unavailable Yanna Sinclair Attending Unavailable Talampas, Antonia D Referring Unavailable Tyrell, Logan Attending Unavailable Talampas, Antonia D Primary Care Unavailable Talampas, Antonia D Referring Unavailable Talampas, Antonia D Primary Care Unavailable Camelia, Rehan Referring Unavailable Nagajothi, Nagapradee Attending Unavailabl e Tyrell, Logan Attending Unavailable Talampas, Antonia D Primary Care Unavailable Susan Rose Attending Unavailable Nagajothi, Nagapradee Attending Unavailabl e Tyrell, Logan Referring Unavailable Tyrell, Logan Attending Unavailable Talampas, Antonia D Primary Care Unavailable Talampas, Antonia D Primary Care Unavailable Eddie VILLAGRAN, Nadia Mcgee Referring Unavail able Nadia Stephenson Attending Unavail able Talampas, Antonia D Primary Care Unavailable Camelia, Rehan Attending Unavailable Camelia, Handley Referring Unavailable Talampas, Antonia D Primary Care Unavailable Yanna Sinclair Referring Unavailable Yanna Sinclair Attending Unavailable Susan Rose Consulting Unavailable Susan Rose Admitting Unavailable Jorge Luis Wyman Attending Unavailable Talampas, Antonia D Primary Care Unavailable Nagajothi, Nagapradee Consulting Unavailabl e Jacob SALES PROPERTY MANAGER.BEEF BREAKER, Chung Unavailable Allergies Allergy Classification Reported Allergen(s) Allergy Type Date of Onset Reaction(s) Facility (20 sources) Clemastine; Translations: [CLEMASTINE FUMARATE] Drug Allergy [address] [facility] Work Phone: (20 sources) Codeine; Translations: [CODEINE] Drug Allergy [address] [facility] Work Phone: (20 sources) Naproxen; Translations: [NAPROXEN] Drug Allergy [address] [facility] Work Phone: (20 sources) Losartan; Translations: [LOSARTAN] Drug Allergy [address] [facility] Work Phone: (20 sources) Acetaminophen; Translations: [ACETAMINOPHEN] Drug Allergy 0 Unknown [facility] (20 sources) Pseudoephedrine; Translations: [PSEUDOEPHEDRINE HCL] Drug Allergy 0 Unknown, Other: See Comments [facility] (1 source) Acetaminophen Drug Allergy 4 [facility] (1 source) Clemastine Drug Allergy 5 [facility] (1 source) Codeine Drug Allergy 5 [facility] (1 source) Naproxen Drug Allergy 5 [facility] Medications Current Medications Medication Drug Class(es) Dates Sig (Normalized) Sig (Original) apixaban 5 mg oral tablet (20 sources) Factor Xa Inhibitor Start: 06-24-2023 End: 05-31-2025 take 1 tablet by mouth twice daily apixaban (ELIQUIS) 5 mg tab(s) Take 1 tablet by mouth two times a day. 180 tablet 3 05/31/2024 05/31/2025 Active Comment on above: Take 1 tablet by argenis th two times a day. Take 5 mg by mouth t wo times a day. atorvastatin 10 mg oral tablet (20 sources) HMG-CoA Reductase Inhibitor Start: 05-31-2024 take 1 tablet by mouth once daily atorvastatin (LIPITOR) 10 mg tablet Indications: Hyperlipidemia with target LDL less than 100 Take 1 tablet by mouth once daily. 90 tablet 3 05/31/2024 Active Start: 08-20-2018 End: 05-28-2024 take 1 tablet by mouth once daily atorvastatin (LIPITOR) 10 mg tablet Indications: Hyperlipidemia with target LDL less than 100 Take 1 tablet by mouth once daily. 90 tablet 3 05/31/2024 Active Start: 02-13-2017 take 1 tablet by argenis th once daily ATORVASTATIN CALCIUM 10 MG TABS One tablet by mouth daily ATORVASTATIN CALCIUM [id number] Evelyne Kim Start: 02-14-2015 End: 08-20-2018 take 1 tablet by mouth at bedtime Atorvastatin 20 MG tablet Discontinued 20 mg PO AT BEDTIME February 14, 2015 12:00am August 20, 2018 1:35pm Comment on above: Take 1 tablet by argenis th once daily. TAKE 1 TABLET EVERY DAY flecainide acetate 50 mg oral tablet (9 sources) Antiarrhythmic Start: take 1 tablet by mouth every twelve hours flecainide (TAMBOCOR) 50 mg tablet Indications: Persistent atrial fibrillation (HCC) Take 1 tablet by mouth every 12 hours. 180 tablet 3 07/05/2024 Active Start: 06-04-2024 End: 06-29-2024 take 1 tablet by mouth every twelve hours Flecainide 100 mg tablet Discontinued 100 mg PO Q12H June 07, 2024 1:00am June 17, 2024 3:32pm lidocaine 0.04 mg/mg medicated patch (1 source) Antiarrhythmic, Amide Local Anesthetic Start: 08-09-2022 End: 08-14-2022 apply 1 dose transdermal route once daily, then apply 1 dose transdermal route every twelve hours lidocaine (SALONPAS) 4 % patch Apply 1 Patch as directed once daily for 5 days. Remove patch after 12 hours 5 Patch 0 08/09/2022 08/14/2022 Active Comment on above: Apply 1 Patch as directed once daily for 5 days. Remove patch after 12 hours losartan potassium 50 mg oral tablet (18 sources) Angiotensin 2 Receptor Jorge Start: 08-12-2024 take 1 tablet by mouth once daily Losartan 50 mg tablet Active 50 mg PO daily August 12, 2024 12:00am Start: 06-23-2024 End: 08-12-2024 take 1 tablet by mouth once daily Losartan 25 mg tablet Discontinued 25 mg PO DAILY June 23, 2024 11:44am August 12, 2024 1:25pm Start: 09-24-2023 End: 06-17-2024 take 1 tablet by mouth once daily Losartan 25 mg tablet Discontinued 25 mg PO DAILY October 01, 2023 1:48pm June 17, 2024 3:32pm Start: 11-13-2021 End: 12-28-2021 take 1 tablet by mouth once daily losartan (COZAAR) 25 mg tablet Take 1 tablet by mouth once daily. 90 tablet 3 11/13/2021 12/28/2021 Discontinued Comment on above: Take 1 tablet by argenis th once daily. metoprolol tartrate 50 mg oral tablet (20 sources) beta-Adrenergic Jorge Start: 07-24-2023 End: 06-29-2024 take 1 tablet by mouth twice daily Metoprolol Tartrate 100 mg tablet Discontinued 100 mg PO TWICE A DAY 180 May 24, 2024 11:36am June 17, 2024 3:32pm Start: 06-24-2023 End: 06-29-2024 take 1 tablet by mouth twice daily metoprolol tartrate, short acting, (LOPRESSOR) 50 mg tablet Take 1 tablet by mouth two times a day. 180 tablet 1 06/29/2024 Active Comment on above: Take 1 tablet by argenis th two times a day. Take 50 mg by mouth two times a day. Take 100 mg by mouth two times a day. [facility] MULTIVITAMIN CAP (20 sources) Start: 02-27-2005 MULTIVITAMIN CAP Take one(1) tablet daily. 0 02/27/2005 Active Comment on above: Take one(1) tablet d aily. multivitamin,tx-iron-m inerals (4 sources) Start: 12-10-2019 take 1 tablet by mouth once daily multivitamin,tx-iron- minerals Active 1 TABLET PO DAILY December 10, 2019 12:00am Start: 12-10-2019 take 1 tablet by argenis th once daily multivitamin,kf-xomu-snjgkiax Active 1 T ABLET PO DAILY December 09, 2019 11:00pm Multivitamin,Bx-Ecuu-Ooobniq s (Complete Multivitamin) tablet (1 source) Start: 12-10-2019 Multivitamin,Bn-Xfyc-Czbscji s (Complete Multivitamin) tablet Active 1 {tbl} PO DAILY December 10, 2019 12:00am nitroglycerin 0.4 mg sublingual tablet (15 sources) Nitrate Vasodil ator Start: 07-24-2023 End: 07-24-2023 Nitroglycerin 0.4 mg tablet, sublingual Active 0.4 mg SL every 5 to 15 minutes as needed for chest pain July 24, 2023 11:45am do not exceed 3 doses per episode omeprazole 20 mg delayed release oral capsule (20 sources) Proton Pump Inhibit or Start: 05-31-2024 take 1 capsule by mouth once daily before breakfa st omeprazole (PRILOSEC) 20 mg capsule Take 1 capsule by mouth daily before breakfast. 1/2 hr before meal. 90 capsule 3 05/31/2024 Active Start: 11-13-2021 End: 05-28-2024 take 1 capsule by mouth once daily before breakfast omeprazole (PRILOSEC) 20 mg capsule Take 1 capsule by mouth daily before breakfast. 1/2 hr before meal. 90 capsule 3 05/31/2024 Active Start: 07-12-2021 take 1 capsule by mo uth once daily before breakfast omeprazole (PRILOSEC) 20 mg capsule Take 1 capsule by mouth daily before breakfast. 1/2 hr before meal. 30 capsule 2 07/12/2021 Active Comment on above: Take 1 capsule by mo uth daily before breakfast. 1/2 hr before meal. potassium chloride 20 meq extended release oral tablet (20 sources) Start: 12-05-2023 End: 06-29-2024 take 15 mL by mouth once daily potassium chloride 20 mEq/15 mL solution Take 15 mL by mouth once daily. 12/05/2023 06/29/2024 Discontinued Start: 09-24-2023 End: 06-17-2024 potassium chloride 20 mEq Tb ER once daily. 12/19/2023 Active Start: 07-04-2023 End: 12-05-2023 take 1 capsule by mouth once daily potassium chloride SR (MICRO-K) 8 mEq cpER Indications: SOBOE (shortness of breath on exertion) , New onset atrial fibrillation (HCC) , Orthopnea , Weight gain , Acute cough Take 1 capsule by mouth once daily. 30 capsule 1 08/28/2023 08/28/2023 Discontinued Comment on above: Take 1 capsule by mo [facility] once daily. zolpidem tartrate 5 mg oral tablet (20 sources) gamma-Aminobutyric Acid-ergic Agonist Start: 06-30-2023 End: 08-09-2024 take 1 tablet by mouth at bedtime as needed zolpidem (AMBIEN) 5 mg tablet Indications: Chronic insomnia Take 1 tablet by mouth at bedtime as needed for sedation for up to 90 days. Take immediately before bedtime with 8 hours of planned sleep before waking. For insomnia 30 tablet 2 05/11/2024 Active Comment on above: Take 1 tablet by argenis at bedtime as needed for sedation for up to 90 days. Take immediately before bedtime with 8 hours of planned sleep before waking. For insomnia Completed/Discontinued Medications Medication Drug Class(es) Dates Sig (Normalized) Sig (Original) acetaminophen 325 mg / oxyCODONE hydrochloride 5 mg oral tablet (5 sources) Opioid Agonist Start: 02-16-2015 End: 05-02-2017 Oxycodone-Acetamino phen 1 TABLET tablet Discontinued 1 - 2 {tbl} PO EVERY 4 HOURS NEEDED as needed for Pain February 16, 2015 12:00am May 02, 2017 10:26am Start: 02-16-2015 End: 05-02-2017 take 1 tablet by mouth every four hours as needed Oxycodone-Acetaminophen Discontinued 1 - 2 TABLET PO EVERY 4 HOURS NEEDED February 16, 2015 12:00am May 02, 2017 10:26am calcium carbonate 1250 mg / cholecalciferol 100 unt chewable tablet (5 sources) Vitamin D Start: 02-14-2015 End: 08-20-2018 Calcium Carbonate-Vitamin D3 1 EACH tablet,chewable Discontinued 2 NMA PO TWICE A DAY February 14, 2015 12:00am August 20, 2018 1:35pm Start: 02-14-2015 End: 08-20-2018 Calcium Carbonate-Vitamin D3 Discontinued 2 EACH PO TWICE A DAY February 14, 2015 12:00am August 20, 2018 1:35pm Calcium Carbonate / vitamin D3 (20 sources) End: 08-28-2023 take 2 tablets by mouth twice daily CALCIUM CARBONATE/VITAMIN D3 (CALCIUM + D ORAL) Take 2 tablets by mouth twice daily. 08/28/2023 Discontinued End: 08-28-2023 take 2 tablets by mouth twice daily CALCIUM CARBONATE/VITAMIN D3 (CALCIUM + D ORAL) Take 2 tablets by mouth twice daily. 0 08/28/2023 Discontinued take 2 tablets by mo ut twice daily CALCIUM CARBONATE/VITAMIN D3 (CALCIUM + D ORAL) Take 2 tablets by mouth twice daily. 0 Active Comment on above: Take 2 tablets by mo uth twice daily. 24 hr dilTIAZem hydrochloride 240 mg extended release oral capsule (14 sources) Calcium Channel Jorge Start: End: take 1 capsule by mouth once daily in the morning, then take 1 capsule by mouth every twenty-four hours Diltiazem Hcl (Cartia Xt) 240 mg capsule,extended release 24hr Discontinued 240 mg PO EVERY MORNING September 23, 2024 12:00am September 23, 2024 2:57pm Start: 04-15-2024 End: 06-17-2024 take 1 capsule by mouth once daily in the morning Diltiazem Hcl 240 mg capsule,extended release 24 hr Discontinued 240 mg PO EVERY MORNING April 16, 2024 1:00am June 17, 2024 3:32pm Start: 11-11-2023 End: 06-29-2024 dilTIAZem CD (CARDIZEM CD, C ARTIA XT) 180 mg 24 hr capsule Take 240 mg by mouth once daily. 11/11/2023 06/29/2024 Discontinued Start: 11-11-2023 End: 04-15-2024 take 1 capsule by mouth once daily, then take 1 capsule by mouth every twenty-four hours dilTIAZem CD (CARDIZEM CD, CARTIA XT) 180 mg 24 hr capsule Take 180 mg by mouth once daily. 0 11/11/2023 Active Start: 09-24-2023 End: 11-11-2023 take 1 capsule by mouth once daily Diltiazem Hcl 120 mg capsule,extended release 12 hr Discontinued 120 mg PO DAILY October 01, 2023 1:50pm November 11, 2023 9:08am furosemide 40 mg oral tablet (20 sources) Loop Diuretic Start: 09-24-2023 End: 06-29-2024 take 1 tablet by mouth once daily Furosemide 40 mg tablet Discontinued 40 mg PO DAILY December 19, 2023 9:25am June 17, 2024 3:32pm Start: 07-04-2023 End: 12-05-2023 take 1 tablet by mouth once daily furosemide (LASIX) 20 mg tablet Indications: SOBOE (shortness of breath on exertion) , New onset atrial fibrillation (HCC) , Orthopnea , Weight gain , Acute cough Take 1 tablet by mouth once daily. 30 tablet 1 08/28/2023 08/28/2023 Discontinued Comment on above: Take 1 tablet by argenis once daily. Multivitamin With Folic Acid (4 sources) Start: 02-14-2015 End: 08-20-2018 take 1 tablet by mouth twice daily Multivitamin With Folic Acid Discontinued 1 TABLET PO TWICE A DAY February 14, 2015 12:00am August 20, 2018 1:35pm Start: 02-14-2015 End: 08-20-2018 take 1 tablet by mouth twice daily Multivitamin With Folic Acid Discontinued 1 TABLET PO TWICE A DAY February 13, 2015 11:00pm August 20, 2018 12:35pm Multivitamin With Folic Acid 1 TABLET tablet (1 source) Start: 02-14-2015 End: 08-20-2018 take 1 tablet by mouth twice daily Multivitamin With Folic Acid 1 TABLET tablet Discontinued 1 {tbl} PO TWICE A DAY February 14, 2015 12:00am August 20, 2018 1:35pm tamoxifen 10 mg oral tablet (7 sources) Estrogen Agonist/Antagoni st Start: 08-20-2018 End: 12-15-2020 take 1 tablet by mouth twice daily Tamoxifen 10 mg tablet Discontinued 10 mg PO TWICE A DAY August 20, 2018 12:00am December 15, 2020 8:51am Start: 02-13-2017 take 1 tablet by argenis th once daily TAMOXIFEN CITRATE 20 MG TABS One tablet by mouth daily TAMOXIFEN CITRATE [id number] Evelyne Kim traZODone hydrochloride 50 mg oral tablet (4 sources) Serotonin Reuptake Inhibitor Start: 06-27-2023 End: 06-26-2024 take 1 tablet by mouth at bedtime Trazodone 50 mg tablet Discontinued 50 mg PO AT BEDTIME July 15, 2023 1:00am July 24, 2023 10:50am Comment on above: Take 1 tablet by argenis th daily at bedtime. Problems Active Problems Problem Classification Problem Date Documented Da te Episodic/Chronic Acute and unspecified renal failure (2 sources) Acute renal failure syndrome; Translations: [Acute kidney failure, unspecified] 06-25-2024 Episodic Cancer of breast (20 sources) Intraductal carcinoma in situ of left breast; Translations: [Intraductal carcinoma in situ of left breast] Onset: 12-24-2014 09-28-2015 Chronic Cardiac dysrhythmias (20 sources) Atrial fibrillation; Translations: [Unspecified atrial fibrillation] Onset: 12-05-2023 06-24-2023 Chronic Coronary atherosclerosis and other heart disease (3 sources) Stable angina; Translations: [Stable angina pectoris] 07-24-2023 Chronic Disorders of lipid metabolism (20 sources) Hyperlipidemia; Translations: [Hyperlipidemia, unspecified] Onset: 05-09-2014 09-20-2015 Chronic Essential hypertension (20 sources) Hypertensive disorder; Translations: [Essential (primary) hypertension] Onset: 12-05-2023 06-24-2023 Chronic Fluid and electrolyte disorders (1 source) Hypervolemia; Translations: [Fluid overload, unspecified] 07-04-2023 Episodic Heart valve disorders (20 sources) Non-rheumatic mitral regurgitation ; Translations: [Nonrheumatic mitral (valve) insufficiency] Onset: 04-15-2024 06-04-2024 Chronic Menopausal disorders (20 sources) Atrophic vaginitis; Translations: [Postmenopausal atrophic vaginitis] Onset: 10-22-2012 10-22-2012 Chronic Miscellaneous mental health disorders (4 sources) Chronic insomnia; Translations: [Psychophysiologic insomnia] 06-27-2023 Chronic Nutritional deficiencies (2 sources) Vitamin D deficiency; Translations: [Vitamin D deficiency, unspecified] Onset: 11-22-2023 11-22-2023 Chronic Other aftercare (3 sources) Drug therapy finding; Translations: [middle or intermediate school principal (current) use of anticoagulants] 06-27-2023 Episodic Other aftercare (1 source) middle or intermediate school principal (current) use of anticoagulants; Translations: [Anticoagulant long-term use] Onset: 05-30-2024 Episodic Other aftercare (2 sources) Long-term current use of drug therapy; Translations: [Encounter for therapeutic drug level monitoring] 09-23-2024 Episodic Other circulatory disease (2 sources) Elevated blood-pressure reading without diagnosis of hypertension; Translations: [Elevated blood-pressure reading, without diagnosis of hypertension] Episodic Other circulatory disease (2 sources) Labile hypertension due to being in a clinical environment; Translations: [Elevated blood-pressure reading, without diagnosis of hypertension] Episodic Other circulatory disease (2 sources) H/O: atrial fibrillation; Translations: [Personal history of other diseases of the circulatory system] 06-25-2024 Episodic Other connective tissue disease (3 sources) Pain in left arm; Translations: [Pain in left arm] 06-27-2023 Episodic Other connective tissue disease (1 source) Spasm; Translations: [Other muscle spasm] 11-22-2023 Episodic Other lower respiratory disease (2 sources) Rib pain; Translations: [Pleurodynia] Episodic Other lower respiratory disease (12 sources) Dyspnea on exertion; Translations: [Shortness of breath] 08-28-2023 Episodic Other lower respiratory disease (3 sources) Orthopnea; Translations: [Orthopnea] 08-28-2023 Episodic Other lower respiratory disease (3 sources) Cough; Translations: [Acute cough] 08-28-2023 Episodic Other nutritional; endocrine; and metabolic disorders (11 sources) Obese class I; Translations: [Obesity, unspecified] Onset: 12-05-2023 12-05-2023 Chronic Other nutritional; endocrine; and metabolic disorders (1 source) Obesity, unspecified; Translations: [Obesity, Class I, BMI 30-34.9] Onset: 12-05-2023 Chronic Other nutritional; endocrine; and metabolic disorders (1 source) Abnormal weight gain; Translations: [Abnormal weight gain] Episodic Other nutritional; endocrine; and metabolic disorders (3 sources) Weight gain; Translations: [Abnormal weight gain] 08-28-2023 Episodic Residual codes; unclassified (10 sources) Patient encounter status; Translations: [Other specified personal risk factors, not elsewhere classified] Episodic Comment on above: Goes by SUSHIL arnett Residual codes; unclassified (1 source) Persistent insomnia; Translations: [Insomnia, unspecified] Episodic Residual codes; unclassified (2 sources) Postmenopausal state; Translations: [Asymptomatic menopausal state] 06-29-2024 Episodic Residual codes; unclassified (1 source) Asymptomatic menopausal state; Translations: [Asymptomatic postmenopausal status] Onset: 08-23-2024 Episodic Unclassified (1 source) No current problems or disability 02-14-2017 Unclassified (2 sources) Other persistent atrial fibrillation; Translations: [Persistent atrial fibrillation (HCC)] Onset: 06-04-2024 Past or Other Problems Problem Classification Problem Date Documented Date Episodic/Chronic Cardiac dysrhythmias (8 sources) Palpitations; Translations: [Palpitations] Onset: 11-11-2023 06-27-2023 Episodic Diabetes mellitus without complication (3 sources) Hyperglycemia; Translations: [Impaired fasting glucose] Onset: 11-22-2023 Episodic Esophageal disorders (18 sources) Gastroesophageal reflux disease without esophagitis; Translations: [Gastro-esophageal reflux disease without esophagitis] Onset: 03-03-2009 Resolved: 09-28-2015 Chronic Immunizations and screening for infectious disease (1 source) Encounter for immunization; Translations: [Encounter for immunization] Onset: 11-22-2023 Episodic Other aftercare (9 sources) Long-term current use of anticoagulant; Translations: [middle or intermediate school principal (current) use of anticoagulants] Onset: 05-30-2024 05-30-2024 Episodic Other aftercare (1 source) Other intermodal customer service (current) drug therapy; Translations: [Encounter for long-term current use of medication] Onset: 11-22-2023 Episodic Other bone disease and musculoskeletal deformities (20 sources) Osteopenia; Translations: [Other specified disorders of bone density and structure, unspecified site] Onset: 10-29-2013 10-29-2013 Episodic Other circulatory disease (1 source) Elevated blood-pressure reading, without diagnosis of hypertension; Translations: [White coat syndrome with high blood pressure but without hypertension] Onset: 11-22-2023 Episodic Other circulatory disease (1 source) Personal history of other diseases of the circulatory system; Translations: [Personal history of other diseases of the circulatory system] Onset: 06-23-2024 Episodic Other connective tissue disease (1 source) Other muscle spasm; Translations: [Muscle spasm] Onset: 11-22-2023 Episodic Other lower respiratory disease (1 source) Other forms of dyspnea; Translations: [Other forms of dyspnea] Onset: 11-11-2023 Episodic Other nutritional; endocrine; and metabolic disorders (15 sources) Metabolic syndrome X; Translations: [Dysmetabolic syndrome X] Onset: 11-11-2006 Resolved: 05-09-2014 05-09-2014 Chronic Other screening for suspected conditions (not mental disorders or infectious disease) (1 source) Encounter for screening mammogram for malignant neoplasm of breast; Translations: [Encounter for screening mammogram for malignant neoplasm of breast] Onset: 06-16-2024 Episodic Residual codes; unclassified (11 sources) Other specified personal risk factors, not elsewhere classified; Translations: [Other specified personal history presenting hazards to health] Onset: 12-25-2023 05-30-2024 Episodic Results Test Name Value Interpretation Reference Range Facility Anion gap in Serum or Plasma Ordered By: Logan Santillan on 09-23-2024 Anion gap [Moles/Vol] 11 mmol/L 10-07 [facility] BUN/creatinine ratioOrdered By: Logan Santillan on 09-23-2024 Urea nitrogen/Creatinine [Mass ratio] 18.7 mg/mg 03-14 [facility] Basic Metabolic Profile (BMP )on 09-23-2024 BUN/CRE 18.7 RATIO Normal 03-14 [facility] Comment on above: Performed By: #### L 500.2500, L501.5200 ####[facility] [address] [place], [address] Calcium [Mass/Vol] 9.8 mg/dL Normal 7.6-11.0 [facility] Comment on above: Performed By: #### L 500.2500, L501.5200 ####[facility] [address] [place], [address] Chloride [Moles/Vol] 103 mmol/L Normal 98-108 [facility] Comment on above: Performed By: #### L 500.2500, L501.5200 ####[facility] [address] [place], [address] CO2 [Moles/Vol] 23.9 mmol/L Normal 21.0-32.0 [facility] Comment on above: Performed By: #### L 500.2500, L501.5200 ####[facility] [address] [place], [address] Creatinine [Mass/Vol] 0.82 mg/dL Normal 0.70-1.20 [facility] Comment on above: Performed By: #### L 500.2500, L501.5200 ####[facility] [address] [place], [address] GAP 11 Normal 5-15 [facility] Comment on above: Performed By: #### L 500.2500, L501.5200 ####[facility] [address] [place], [address] GFR/1.73 sq M.predicted among non-blacks MDRD (S/P/Bld) [Vol rate/Area] 74 mL/min/{1.73_m2} Normal >60 [facility] Comment on above: Result Comment: mL/m in/1.73m2 CKD-EPI Creatinine Equation (2020) Performed By: #### L 500.2500, L501.5200 ####[facility] [address] [place], [address] Glucose [Mass/Vol] 91 mg/dL Normal 70-99 [facility] Comment on above: Performed By: #### L 500.2500, L501.5200 ####[facility] [address] [place], [address] Potassium [Moles/Vol] 4.6 mmol/L Normal 3.3-5.1 [facility] Comment on above: Performed By: #### L 500.2500, L501.5200 ####[facility] [address] [place], [address] Sodium [Moles/Vol] 138 mmol/L Normal 133-145 [facility] Comment on above: Performed By: #### L 500.2500, L501.5200 ####[facility] [address] [place], [address] Urea nitrogen [Mass/Vol] 15 mg/dL Normal 4-19 [facility] Comment on above: Performed By: #### L 500.2500, L501.5200 ####[facility] [address] [place], [address] Carbon dioxide, total [Moles /volume] in Central venous bloodOrdered By: Logan Santillan on 09-23-2024 CO2 [Moles/Vol] 23.9 mmol/L 21.0-32.0 [facility] Cardiology Visit Reporton Cardiology Visit Report [facility] [address] [place] [address] OFFICE VISIT Date of Service: 09/23/24 MR#: [id number] Acct: [id number] Name: GISELA JOHNSON Rep #: [id number] 30 : 1950 Provider: Dr. Logan Santillan MD Age/Sex: 74/F Location: [facility] [place] Status: Signed HPI HPI History of Present Illness Details: This lady with history of paroxysmal atrial fibrillation, hypertension and dyslipidemia is here for follow-up visit. She was seen by electrophysiology and they recommend continuing the flecainide for maintaining her normal sinus rhythm. Denies any complaints today. No palpitations. No lightheadedness or dizziness. No syncope or presyncope. No chest pains. No shortness of breath. Tolerating apixaban well and denies any abnormal bleeding. Intake Vital Signs 06/23/24 10:15 09/23/24 08:18 Height 5 ft 3 in 5 ft 3 in Weight: 188 lb 187 lb BMI 33.3 33.1 BP 157/99 H 135/65 H Blood Pressure Location Lt brachial Lt brachial Position Sitting Sitting Respiration 18 16 Pulse 79 57 L Pulse Source Monitor NIBP Pulse Oximetry (%) 96 Intake Visit Reasons: 6 M [employer] Work[employer] Required: No Accompanied by: Is patient in pain?: No Allergies clemastine fumarate (From Tavist) Allergy (Verified 09/23/24 14:37) Unknown codeine Allergy (Verified 09/23/24 14:37) Unknown naproxen Allergy (Verified 09/23/24 14:37) GI upset pseudoephedrine HCl (From Tavist) Allergy (Verified 09/23/24 14:37) Unknown Medications ???Medication ???Instructions ???Recorded ???Confirmed ???Type atorvastatin 10 mg tablet (Lipitor) 10 mg PO DAILY 08/20/18 5 History multivitamin,tx-iron -minerals 1 tab PO DAILY 12/10/19 09/23/24 H istory (Complete Multivitamin tablet) omeprazole 20 mg capsule,delayed 20 mg PO DAILY 07/15/23 09/23/24 H istory release nitroglycerin 0.4 mg sublingual 0.4 mg sublingual Q5-15M PRN chest 07/24/23 09/23/24 Rx tablet pain #25 tabs zolpidem 5 mg tablet 5 mg PO QHS PRN insomnia 07/24/23 09/23/24 History metoprolol tartrate 50 mg tablet 50 mg PO BID #60 tabs 06/17/2406/19 Rx apixaban 5 mg tablet (Eliquis) 5 mg PO .COMPLEX #180 tabs 5 09/23/24 Rx flecainide 50 mg tablet 50 mg PO Q12H 07/06/24 09/23/24 Hi story losartan 50 mg tablet 50 mg PO QDAY #90 tabs 08/12/24 Rx Ejection fraction %: 65 Have you fallen in the past year?: No PFSH Medical History Atrial fibrillation Chronic insomnia Ductal carcinoma in situ (DCIS) of left breast Dyslipidemia Essential hypertension GERD (gastroesophageal reflux disease) 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 History of atrial fibrillation Hyperlipidemia Left arm pain Mitral valve regurgitation New onset atrial fibrillation Nocturia Non-smoker On continuous oral anticoagulation Osteopenia Osteoporosis Palpitations Postmenopausal atrophic vaginitis Stable angina pectoris Tricuspid regurgitation Surgical History Status post left breast lumpectomy Family History Brother Kidney disease cancer Parkinsons Mother Paroxysmal atrial fibrillation Father CAD (coronary artery disease) CABG x 4 Social History housing: house Smoking Status: Never smoker second hand exposure: No alcohol intake: current alcohol intake frequency: holidays/special occasions only substance use type: does not use what type of physical activity do you participate in: walking frequency: 3-4 times per week duration: 30-45 minutes/day seatbelt use: always additional social history: 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 ROS Const Const: Negative for fatigue, weakness, headache(s) or weight gain ENT ENT: Negative for headache(s), dizziness, Nosebleed/epistaxis or balance problems Cardio Chest Pain: No Palpitations: Yes Edema: Bilateral (hands) Muscle aches with walking: None Resp Respiratory: Negative for SOB with activity, SOB at rest or SOB orthopnea SOB lying down GI GI: Negative nausea, vomiting or heartburn Musc Musc: Negative for muscle aches/ myalgia, muscle weakness, joint pain or balance problems Neuro Neuro: Negative for dizziness, lightheadedness, near syncope, syncope, headache(s) or weakness Endo Endo: Negative for fatigue Cardiology Exam Const Appearance: comfortable and no acute distress Nutritional Appearance: well nourished Neck Neck: no JVD Carotids: Negative bruit Chest Auscultation: Bilateral: Clear to Auscultation Cardio Rate: regular rate Rhythm: regular rhythm Heart sounds: S1 normal and S2 normal Neuro (more content not included)... Normal [facility] Chloride assayOrdered By: Edgar Santillan on 09-23-2024 Chloride [Moles/Vol] 103 mmol/L 98-108 [facility] GFR/1.73 sq M.predicted kalpesh g non-blacks MDRD (S/P/Bld) [Vol rate/Area]Ordered By: Logan Santillan on 09-23-2024 Estimated GFR (MDRD) Non-Af Amer 74 >60 [facility] Comment on above: mL/min/1.73m2 CKD-EP I Creatinine Equation (2020) Magnesiumon 09-23-2024 Magnesium [Mass/Vol] 2.3 mg/dL High 1.5-2.2 [facility] Comment on above: Performed By: #### L 500.2500, L501.5200 ####[facility] [address] [place], [place], [address] Magnesium (Unsp spec) [Mass/ Vol]Ordered By: Logan Santillan on 09-23-2024 Magnesium [Mass/Vol] 2.3 mg/dL High 1.5-2.2 [facility] Potassium (Unsp spec) [Mass/ Vol]Ordered By: Logan Santillan on 09-23-2024 Potassium [Moles/Vol] 4.6 mmol/L 3.3-5.1 [facility] Serum creatinine measurement (mass/volume)Ordered By: Logan Santillan on 09-23-2024 Creatinine [Mass/Vol] 0.82 mg/dL 0.70-1.20 [facility] Serum glucose measurement (m ass/volume)Ordered By: Logan Santillan on 09-23-2024 Glucose [Mass/Vol] 91 mg/dL 70-99 [facility] Serum or plasma calcium yosi urement (mass/volume)Ordered By: Logan Santillan on 09-23-2024 Calcium [Mass/Vol] 9.8 mg/dL 7.6-11.0 [facility] Serum or plasma urea nitroge n measurement (mass/volume)Ordered By: Logan Santillan on 09-23-2024 Urea nitrogen [Mass/Vol] 15 mg/dL 4-19 [facility] Sodium levelOrdered By: Bunny Santillan on 09-23-2024 Sodium [Moles/Vol] 138 mmol/L 133-145 [facility] BD DXA - AXIAL SKELETONon BD DXA - AXIAL SKELETON * * *Final Repor t* * * DATE OF EXAM: Aug 23 2024 2:48PM WRB 0804 - DXA - AXIAL SKELETON / PROCEDURE REASON: Asymptomatic postmenopausal status * * * * Physician Interpretation * * * * EXAMINATION: DXA BONE DENSITOMETRY BD DXA - AXIAL SKELETON, BD DXA TRABECLR BONE SCORE (TBS) PATIENT DEMOGRAPHICS: Age: 74 years, Gender: Female SCANNER INFORMATION: DXA Model: [facility] - [employer] C 12817 Date Scanned: 08/23/2024 2:48 PM CLINICAL HISTORY: DIAGNOSTIC Asymptomatic postmenopausal status . RISK FACTORS FOR OSTEOPOROSIS AND ASSOCIATED FRACTURES REPORTED BY THIS PATIENT: Please refer to Bone Health Questionnaire in the EMR CURRENT THERAPY: Please refer to Bone Health Questionnaire in the EMR TECHNICAL LIMITATIONS: None RESULTS: Lumbar spine (L1, L2, L3, L4): 0.992 g/cm2, T-score -0.5, Z-score 2.0 Lumbar spine: 2016: 0.940 g/cm2 Statistically significant increase Right Femoral Neck: 0.711 g/cm2, T-score -1.2, Z-score 0.9 Right Femoral Neck: 2016: 0.698 g/cm2 No statistically significant change Right Total Hip: 0.852 g/cm2, T-score -0.7, Z-score 1.1 Right Total Hip: 2016: 0.881 g/cm2 Statistically significant decrease Left Femoral Neck: 0.680 g/cm2, T-score -1.5, Z-score 0.6 Left Femoral Neck: 2016: 0.699 g/cm2 No statistically significant change Left Total Hip: 0.843 g/cm2, T-score -0.8, Z-score 1.1 Left Total Hip: 2016: 0.859 g/cm2 No statistically significant change CHANGE IS STATISTICALLY SIGNIFICANT IN THE SPINE OR HIP IF GREATER THAN OR EQUAL TO 0.04 g/cm2 VERTEBRAL FRACTURE ASSESSMENT Not performed. TRABECULAR BONE ASSESSMENT TBS score: 1.241 Bone micro-architecture: Partially degraded (1.231 - 1.310) IMPRESSION: THE LOWEST T-SCORE IS -1.5 IN THE LEFT HIP 1) DIAGNOSIS (based on BMD alone): OSTEOPENIA Caution: Medical conditions other than osteoporosis may cause low bone density, such as osteomalacia or renal osteodystrophy. Clinical correlation is necessary. 2) FRACTURE RISK (Based on TBS adjusted FRAX): 10-year absolute fracture risk: - major osteoporotic fracture = 11 % - hip fracture = 2.1 % - A diagnosis of Osteoporosis, a 10 year probability of hip fracture greater than or equal to 3% or a 10 year probability of any major osteoporosis-related fracture greater than or equal to 20% should be considered for treatment. - DXA scanner generated FRAX calculations may slightly differ from online FRAX calculations due to differences in software versions. - All recommendations and calculations are to be considered as guidelines and should not replace sound clinical judgement - Caution: Fracture risk may be increased independent of BMD in patients with corticosteroid use, age greater than 65 years, or a history of prior fragility fracture. RECOMMENDATIONS: Follow-up in 2 years or as clinically indicated. Patients that are taking corticosteroids, are transplant recipients or have hyperparathyroidism should have annual follow-up. Follow-up scans should always be done on the same machine for accurate comparison. FOR MORE INFORMATION ABOUT DIAGNOSIS AND TREATMENT: [facility] Center for Osteoporosis and Metabolic Bone Disease:? www.ccf.org/clovis s/osteo National Osteoporosis Foundation:? www.nof.org International Society of Clinical Densitometry www.iscd.org [employer] Breakfast Innkeeper: JACOB Transcribe Date/Time: Aug 24 2024 9:21A Dictated by : LUPE MCHUGH MD This examination was interpreted and the report reviewed and electronically signed by: LUPE MCHUGH MD on Aug 24 2024 9:24AM EST [id number] CN -1.5 Normal [facility] BD DXA TRABECLR BONE SCORE ( TBS)on 08-23-2024 BD DXA TRABECLR BONE SCORE (TBS) * * *Final Report* * * DATE OF EXAM: Aug 23 2024 2:48PM WRB 0801 - BD DXA TRABECLR BONE SCORE (TBS) / PROCEDURE REASON: Asymptomatic postmenopausal status * * * * Physician Interpretation * * * * EXAMINATION: DXA BONE DENSITOMETRY BD DXA - AXIAL SKELETON, BD DXA TRABECLR BONE SCORE (TBS) PATIENT DEMOGRAPHICS: Age: 74 years, Gender: Female SCANNER INFORMATION: DXA Model: [employer] - [employer] C [id number] Date Scanned: 08/23/2024 2:48 PM CLINICAL HISTORY: DIAGNOSTIC Asymptomatic postmenopausal status . RISK FACTORS FOR OSTEOPOROSIS AND ASSOCIATED FRACTURES REPORTED BY THIS PATIENT: Please refer to Bone Health Questionnaire in the EMR CURRENT THERAPY: Please refer to Bone Health Questionnaire in the EMR TECHNICAL LIMITATIONS: None RESULTS: Lumbar spine (L1, L2, L3, L4): 0.992 g/cm2, T-score -0.5, Z-score 2.0 Lumbar spine: 2016: 0.940 g/cm2 Statistically significant increase Right Femoral Neck: 0.711 g/cm2, T-score -1.2, Z-score 0.9 Right Femoral Neck: 2016: 0.698 g/cm2 No statistically significant change Right Total Hip: 0.852 g/cm2, T-score -0.7, Z-score 1.1 Right Total Hip: 2016: 0.881 g/cm2 Statistically significant decrease Left Femoral Neck: 0.680 g/cm2, T-score -1.5, Z-score 0.6 Left Femoral Neck: 2016: 0.699 g/cm2 No statistically significant change Left Total Hip: 0.843 g/cm2, T-score -0.8, Z-score 1.1 Left Total Hip: 2016: 0.859 g/cm2 No statistically significant change CHANGE IS STATISTICALLY SIGNIFICANT IN THE SPINE OR HIP IF GREATER THAN OR EQUAL TO 0.04 g/cm2 VERTEBRAL FRACTURE ASSESSMENT Not performed. TRABECULAR BONE ASSESSMENT TBS score: 1.241 Bone micro-architecture: Partially degraded (1.231 - 1.310) IMPRESSION: THE LOWEST T-SCORE IS -1.5 IN THE LEFT HIP 1) DIAGNOSIS (based on BMD alone): OSTEOPENIA Caution: Medical conditions other than osteoporosis may cause low bone density, such as osteomalacia or renal osteodystrophy. Clinical correlation is necessary. 2) FRACTURE RISK (Based on TBS adjusted FRAX): 10-year absolute fracture risk: - major osteoporotic fracture = 11 % - hip fracture = 2.1 % - A diagnosis of Osteoporosis, a 10 year probability of hip fracture greater than or equal to 3% or a 10 year probability of any major osteoporosis-related fracture greater than or equal to 20% should be considered for treatment. - DXA scanner generated FRAX calculations may slightly differ from online FRAX calculations due to differences in software versions. - All recommendations and calculations are to be considered as guidelines and should not replace sound clinical judgement - Caution: Fracture risk may be increased independent of BMD in patients with corticosteroid use, age greater than 65 years, or a history of prior fragility fracture. RECOMMENDATIONS: Follow-up in 2 years or as clinically indicated. Patients that are taking corticosteroids, are transplant recipients or have hyperparathyroidism should have annual follow-up. Follow-up scans should always be done on the same machine for accurate comparison. FOR MORE INFORMATION ABOUT DIAGNOSIS AND TREATMENT: [facility] Center for Osteoporosis and Metabolic Bone Disease:? www.ccf.org/clovis s/osteo National Osteoporosis Foundation:? www.nof.org International Society of Clinical Densitometry www.iscd.org Bed And Breakfast Innkeeper: JACOB Transcribe Date/Time: Aug 24 2024 9:21A Dictated by : LUPE MCHUGH MD This examination was interpreted and the report reviewed and electronically signed by: LUPE MCHUGH MD on Aug 24 2024 9:24AM EST [id number] CN -1.5 Normal [facility] 25(OH)D3 [facility] 2024 25-hydroxyvitamin D3 [Mass/Vol] 29.5 ng/mL Low 31.0-80.0 [facility] Comment on above: Order Comment: Speci men Type: BLOOD SPECIMEN Ordering Facility: [facility] Address: [address] [place] [address] Result Comment: Clas sification of 25 [place] Vitamin D status: Deficiency/Insufficiency: < or = 30 ng/ml. Sufficiency/Optimal Levels: 31-80 ng/mL Toxicity: > 100 ng/mL. Test performed by chemiluminescent immunoassay. Performed By: #### 2 4331-1, 04239-6, 24138-0 #### [facility] CLIA [id number] [address] [place], [place] [id number] [place] CBC panel Auto (Bld)on 08-02 Erythrocyte distribution width (RBC) [Ratio] 12.7 % Normal 11.5-15.0 [facility] Comment on above: Order Comment: Speci men Type: BLOOD SPECIMEN Ordering Facility: [facility] Address: [address] [place] [address] Performed By: #### 2 4331-1, , #### [facility] CLIA [id number] [address] [place] [address] [place] Hematocrit (Bld) [Volume fraction] 42.8 % Normal 36.0-46.0 [facility] Comment on above: Order Comment: Speci men Type: BLOOD SPECIMEN Ordering Facility: [facility] Address: [address] [place] [address] Performed By: #### 2 4331-1, , #### [facility] CLIA [id number] [address] [place] [address] [place] Hemoglobin (Bld) [Mass/Vol] 13.8 g/dL Normal 11.5-15.5 [facility] Comment on above: Order Comment: Speci men Type: BLOOD SPECIMEN Ordering Facility: [facility] Address: [address] [place] [address] Performed By: #### 2 4331-1, , #### [facility] CLIA [id number] [address] [place] [address] [place] MCH (RBC) [Entitic mass] 29.9 pg Normal 26.0-34.0 [facility] Comment on above: Order Comment: Speci men Type: BLOOD SPECIMEN Ordering Facility: [facility] Address: [address] [place] [address] Performed By: #### 2 4331-1, , #### [facility] CLIA [id number] [address] [place] [address] [place] MCHC (RBC) [Mass/Vol] 32.2 g/dL Normal 30.5-36.0 [facility] Comment on above: Order Comment: Speci men Type: BLOOD SPECIMEN Ordering Facility: [facility] Address: [address] [place] [address] Performed By: #### 2 4331-1, , #### [facility] CLIA [id number] [address] [place] [address] [place] MCV (RBC) [Entitic vol] 92.6 fL Normal 80.0-100.0 [facility] Comment on above: Order Comment: Speci men Type: BLOOD SPECIMEN Ordering Facility: [facility] Address: [address] [place] [address] Performed By: #### 2 4331-1, , #### [facility] CLIA [id number] [address] [place] [address] [place] Nucleated RBC (Bld) [#/Vol] 10*3/uL Normal <0.01 [facility] Comment on above: Order Comment: Speci men Type: BLOOD SPECIMEN Ordering Facility: [facility] Address: [address] [place] [address] Performed By: #### 2 4331-1, , #### [facility] CLIA [id number] [address] [place] [address] [place] Platelet mean volume (Bld) [Entitic vol] 9.6 fL Normal 9.0-12.7 [facility] Comment on above: Order Comment: Speci men Type: BLOOD SPECIMEN Ordering Facility: [facility] Address: [address] [place] [address] Performed By: #### 2 4331-1, , #### [facility] CLIA [id number] [address] [place] [address] [place] Platelets (Bld) [#/Vol] 168 10*3/uL Normal 150-400 [facility] Comment on above: Order Comment: Speci men Type: BLOOD SPECIMEN Ordering Facility: [facility] Address: [address] [place] [address] Performed By: #### 2 4331-1, , #### [facility] CLIA [id number] [address] [place], [place] [id number] [place] RBC (Bld) [#/Vol] 4.62 10*6/uL Normal 3.90-5.20 [facility] Comment on above: Order Comment: Speci men Type: BLOOD SPECIMEN Ordering Facility: [facility] Address: [address] [place] [address] Performed By: #### 2 4331-1, , #### [facility] CLIA [id number] [address] [place] [address] [place] WBC (Bld) [#/Vol] 6.01 10*3/uL Normal 3.70-11.00 [facility] Comment on above: Order Comment: Speci men Type: BLOOD SPECIMEN Ordering Facility: [facility] Address: [address] [place] [address] Performed By: #### 2 4331-1, , #### [facility] CLIA [id number] [address] [place] [address] [place] Comprehensive metabolic 2000 panelon 08-02-2024 Albumin [Mass/Vol] 4.3 g/dL Normal 3.9-4.[address] [facility] Comment on above: Order Comment: Speci men Type: BLOOD SPECIMEN Ordering Facility: [facility] Address: [address] [place] [address] Performed By: #### 2 4331-1, , #### [facility] CLIA [id number] [address] [place] [address] [place] ALP [Catalytic activity/Vol] 75 U/L Normal 34-123 [facility] Comment on above: Order Comment: Speci men Type: BLOOD SPECIMEN Ordering Facility: [facility] Address: [address] [place] [address] Performed By: #### 2 4331-1, , #### [facility] CLIA [id number] [address] [place] [address] [place] ALT [Catalytic activity/Vol] 23 U/L Normal 7-38 [facility] Comment on above: Order Comment: Speci men Type: BLOOD SPECIMEN Ordering Facility: [facility] Address: [address] [place] [address] Performed By: #### 2 4331-1, , #### [facility] CLIA [id number] [address] [place], [place] [id number] [place] Anion gap [Moles/Vol] 10 mmol/L Normal 8-15 [facility] Comment on above: Order Comment: Speci men Type: BLOOD SPECIMEN Ordering Facility: [facility] Address: [address] [place] [address] Performed By: #### 2 4331-1, , #### [facility] CLIA [id number] [address] [place] [address] [place] AST [Catalytic activity/Vol] 24 U/L Normal 13-35 [facility] Comment on above: Order Comment: Speci men Type: BLOOD SPECIMEN Ordering Facility: [facility] Address: [address] [place], [place] [id number] Performed By: #### 2 4331-1, , #### [facility] CLIA [id number] [address] [place], [place] [id number] [place] Bilirubin [Mass/Vol] 0.4 mg/dL Normal 0.2-1.3 [facility] Comment on above: Order Comment: Speci men Type: BLOOD SPECIMEN Ordering Facility: [facility] Address: [address] [place] [address] Performed By: #### 2 4331-1, , #### [facility] CLIA [id number] [address] [place] [address] [place] Calcium [Mass/Vol] 9.6 mg/dL Normal 8.5-10.[address] [facility] Comment on above: Order Comment: Speci men Type: BLOOD SPECIMEN Ordering Facility: [facility] Address: [address] [place] [address] Performed By: #### 2 4331-1, , #### [facility] CLIA [id number] [address] [place] [address] [place] Chloride [Moles/Vol] 103 mmol/L Normal 98-107 [facility] Comment on above: Order Comment: Speci men Type: BLOOD SPECIMEN Ordering Facility: [facility] Address: [address] [place] [address] Performed By: #### 2 4331-1, , #### [facility] CLIA [id number] [address] [place] [address] [place] CO2 [Moles/Vol] 25 mmol/L Normal 22-30 [facility] Comment on above: Order Comment: Speci men Type: BLOOD SPECIMEN Ordering Facility: [facility] Address: [address] [place] [address] Performed By: #### 2 4331-1, , #### [facility] CLIA [id number] [address] [place] [address] [place] Creatinine [Mass/Vol] 0.87 mg/dL Normal 0.58-0.96 [facility] Comment on above: Order Comment: Erickson gagnon Type: BLOOD SPECIMEN Ordering Facility: [facility] Address: [address] [place] [address] Performed By: #### 2 4331-1, , #### [facility] CLIA [id number] [address] [place] [address] [place] Creatinine and Glomerular filtration rate.predicted panel (S/P/Bld) 69 mL/min/1.73m??? Normal >=60 [facility] Comment on above: Order Comment: Erickson gagnon Type: BLOOD SPECIMEN Ordering Facility: [facility] Address: [address] [place] [address] Result Comment: Bhavna mated Glomerular Filtration Rate (eGFR) is calculated using the 2020 CKD-EPI creatinine equation. This equation utilizes serum creatinine, sex, and age as parameters. The creatinine assay has traceable calibration to isotope dilution-mass spectrometry. Refer to KDIGO guidelines for clinical interpretation. In patients with unstable renal function, e.g. those with acute kidney injury, the eGFR may not accurately reflect actual GFR. Performed By: #### 2 4331-1, , #### [facility] CLIA [id number] [address] [place] [address] [place] Glucose [Mass/Vol] 94 mg/dL Normal 74-[address] [facility] Comment on above: Order Comment: Erickson gagnon Type: BLOOD SPECIMEN Ordering Facility: [facility] Address: [address] [place] [address] Result Comment: The [place] Diabetes Association (ADA) provides guidance for cutoff values for fasting glucose and random glucose. The ADA defines fasting as no caloric intake for at least 8 hours. Fasting plasma glucose results between 100 to 125 [...] Standards of Medical Care in Diabetes 2016, [place] Diabetes Association. Diabetes Care. 2016.39(Suppl 1). Performed By: #### 2 4331-1, , #### [facility] CLIA [id number] [address] [place], [place] [id number] [place] Potassium [Moles/Vol] 4.7 mmol/L Normal 3.7-5.1 [facility] Comment on above: Order Comment: Speci men Type: BLOOD SPECIMEN Ordering Facility: [facility] Address: [address] [place] [address] Performed By: #### 2 4331-1, , #### [facility] CLIA [id number] [address] [place] [address] [place] Protein [Mass/Vol] 7.1 g/dL Normal 6.3-8.[address] [facility] Comment on above: Order Comment: Speci men Type: BLOOD SPECIMEN Ordering Facility: [facility] Address: [address] [place] [address] Performed By: #### 2 4331-1, , #### [facility] CLIA [id number] [address] [place], [place] [id number] [place] Sodium [Moles/Vol] 138 mmol/L Normal 136-[address] [facility] Comment on above: Order Comment: Speci men Type: BLOOD SPECIMEN Ordering Facility: [facility] Address: [address] [place] [address] Performed By: #### 2 4331-1, , #### [facility] CLIA [id number] [address] [place] [address] [place] Urea nitrogen [Mass/Vol] 21 mg/dL Normal 7-21 [facility] Comment on above: Order Comment: Speci men Type: BLOOD SPECIMEN Ordering Facility: [facility] Address: [address] [place] [address] Performed By: #### 2 4331-1, , #### [facility] CLIA [id number] [address] [place] [address] [place] [facility] [place] HbA1c (Bld)on 08-02-2024 Average glucose Estimated from glycated hemoglobin (Bld) [Mass/Vol] 108 mg/dL Normal [facility] Comment on above: Order Comment: Erickson gagnon Type: BLOOD SPECIMEN Ordering Facility: [facility] Address: [address] [place] [address] Result Comment: eAG: (Estimated average glucose) is a calculated value from HgbA1c and is field service representative of the average blood glucose level in the last 2-3 month period. Performed By: #### 2 4331-1, , #### [facility] CLIA [id number] [address] [place] [address] [place] [facility] HbA1c (Bld) [Mass fraction] 5.4 % Normal 4.3-5.6 [facility] Comment on above: Order Comment: Erickson gagnon Type: BLOOD SPECIMEN Ordering Facility: [facility] Address: [address] [place] [address] Result Comment: [place] Diabetes Association guidelines indicate that patients with HgbA1c in the range 5.7-6.4% are at increased risk for development of diabetes, and intervention by lifestyle modification may be beneficial. HgbA1c greater or equal to 6.5% is considered diagnostic of diabetes. Performed By: #### 2 4331-1, , #### [facility] CLIA [id number] [address] [place] [address] [place] Lipid 1996 panelon 5 Cholesterol [Mass/Vol] 169 mg/dL Normal <200 [facility] Comment on above: Order Comment: Erickson gagnon Type: BLOOD SPECIMEN Ordering Facility: [facility] Address: [address] [place] [address] Result Comment: <200 mg/dL, Desirable 200-239 mg/dL, Borderline high >239 mg/dL, High Performed By: #### 2 4331-1, , #### [facility] CLIA [id number] [address] [address] [place] Cholesterol in HDL [Mass/Vol] 64 mg/dL Normal >39 [facility] Comment on above: Order Comment: Shalinii men Type: BLOOD SPECIMEN Ordering Facility: [facility] Address: [address] [place] [address] Result Comment: 40-5 9 mg/dL, Acceptable >59 mg/dL, High: Negative risk factor for coronary heart disease <40 mg/dL, Low: Positive risk factor for coronary heart disease Performed By: #### 2 4331-1, , #### [facility] CLIA [id number] [address] [place] [address] [place] Cholesterol in LDL [Mass/Vol] 89 mg/dL Normal <100 [facility] Comment on above: Order Comment: Erickson men Type: BLOOD SPECIMEN Ordering Facility: [facility] Address: [address] [place] [address] Result Comment: <100 mg/dL, Optimal 100-129 mg/dL, Near optimal/above optimal 130-159 mg/dL, Borderline high 160-189 mg/dL, High >189 mg/dL, Very high Secondary prevention optimal LDL Cholesterol levels are recommended to be < 70 mg/dL Performed By: #### 2 4331-1, , #### [facility] CLIA [id number] [address] [place], [place] [id number] [place] Cholesterol in LDL/Cholesterol in HDL [Mass ratio] 1.39 {ratio} Normal <2.54 [facility] Comment on above: Order Comment: Shalinii men Type: BLOOD SPECIMEN Ordering Facility: [facility] Address: [address] [place] [address] Result Comment: Alina ramirez: 1. National Cholesterol Education Program ATP III Guideline At-A-Glance Quick Desk Reference: National Heart, Lung, and Blood [place]. National Institutes of Health. 2001: NIH Publication No. 01-3305. 2. An International Atherosclerosis Society position paper: global recommendations for the management of dyslipidemia: executive summary, Atherosclerosis. 2014: 232(2):410-413. Performed By: #### 2 4331-1, , #### [facility] CLIA [id number] [address] [place] [address] [place] Cholesterol in VLDL [Mass/Vol] 16 mg/dL Normal <30 [facility] Comment on above: Order Comment: Erickson gagnon Type: BLOOD SPECIMEN Ordering Facility: [facility] Address: [address] [place] [address] Performed By: #### 2 4331-1, , #### [facility] CLIA [id number] [address] [place] [address] [place] Cholesterol non HDL [Mass/Vol] 105 mg/dL Normal <130 [facility] Comment on above: Order Comment: Erickson gagnon Type: BLOOD SPECIMEN Ordering Facility: [facility] Address: [address] [place] [address] Result Comment: <130 mg/dL, Optimal 130-159 mg/dL, Near optimal/above optimal 160-189 mg/dL, Borderline high 190-219 mg/dL, High >219 mg/dL, Very high Secondary prevention optimal non HDL Cholesterol levels are recommended to be <100 mg/dL Performed By: #### 2 4331-1, , #### [facility] CLIA [id number] [address] [place], [place] [id number] [place] Cholesterol.total/Mayela sterol in HDL [Mass ratio] 2.64 {ratio} Normal <5.10 [facility] Comment on above: Order Comment: Erickson gagnon Type: BLOOD SPECIMEN Ordering Facility: [facility] Address: [address] [place] [address] Performed By: #### 2 4331-1, , #### [facility] CLIA [id number] [address] [place] [address] [place] FASTING TIME 12 hrs Normal [facility] Comment on above: Order Comment: Speci men Type: BLOOD SPECIMEN Ordering Facility: [facility] Address: [address] [place] [address] Performed By: #### 2 4331-1, , #### [facility] CLIA [id number] [address] [place] [address] [place] Triglyceride [Mass/Vol] 80 mg/dL Normal <150 [facility] Comment on above: Order Comment: Speci men Type: BLOOD SPECIMEN Ordering Facility: [facility] Address: [address] [place] [address] Result Comment: <150 mg/dL, Normal 150-199 mg/dL, Borderline high 200-499 mg/dL, High >499 mg/dL, Very high Performed By: #### 2 4331-1, , #### [facility] CLIA [id number] [address] [place] [address] [place] Magnesium SerPl-mCncon 08-02 Magnesium [Mass/Vol] 2.1 mg/dL Normal 1.7-2.3 [facility] Comment on above: Order Comment: Speci men Type: BLOOD SPECIMEN Ordering Facility: [facility] Address: [address] [place] [address] Performed By: #### 2 4331-1, , #### [facility] CLIA [id number] [address] [place] [address] [place] CNOVon 06-29-2024 CNOV Office Visit (INTMWS) GISELA JOHNSON ([id number]) 1950 F Date Time Provider Department 06/29/24 10:40 AM ANTONIA MENDOZA INTMWS During your visit today, we recorded the following information about you: Pulse Blood pressure Weight 68/minute 120/78 83.8 kg Antonia Mendoza MD 06/29/2024 1:01 PM Signed This note was created using Yell.ruriter. Subjective Gisela Johnson is a 74 year old female. Patient presents with: Hospital F/U: [facility] 06/15/24 had been cardioverted in the am and after released and out running errands became very dizzy. Went to ER and was admitted to ICU. SUBJECTIVE: Gisela Johnson is a 74 year old year old lady here today for hospital follow up appointment for review of medical conditions. Gisela Johnson is a 74-year-old female with a history of atrial fibrillation and hypertension, presenting for follow-up after a recent hospitalization and concerns about elevated blood pressure readings. Gisela was recently hospitalized and discharged on the . During her hospital stay, she underwent cardioversion for atrial fibrillation and was taken off losartan. She was reinitiated on losartan 25 mg once daily last after a follow-up with her quencher operator. Since then, she has been monitoring her blood pressure at home, noting readings in the 150s/90s, with a reading of 164/90 today, which is higher than previous readings this week. Her baseline blood pressure readings are typically in the 110s-130s systolic range. She reports a nagging headache at the base of her neck today, which she attributes to the elevated blood pressure. She denies any episodes of dizziness or lightheadedness since her discharge. During her hospitalization, her heart rate was noted to be bradycardic, leading to the temporary discontinuation of metoprolol and diltiazem. She is currently on metoprolol 50 mg BID, reduced from 100 mg BID, and has a 10-day supply remaining. She has a 90-day supply of losartan. She denies any peripheral edema and reports stable weight. She is also on Eliquis, Lipitor, and omeprazole, with refills available until next year. She denies the need for Lasix or potassium supplementation. Gisela reports improvement in her exercise tolerance since her hospitalization, now able to climb 12 steps without stopping, compared to only 3 steps previously. She notes that her atrial fibrillation is still intermittent but feels that her heart is currently in rhythm. She used to walk 3 miles a day but has not been able to do so recently due to her condition. She is under the care of multiple cardiologists, including Dr. Isiah Fletcher and Dr. Oh, and is awaiting a procedure scheduled tentatively for October 27. She expresses concern about potential scheduling conflicts with her granddaughter's graduation in October. She has completed her advanced directives, including a living will and healthcare power of trademark attorney, with her Misbah and son Collin designated as her healthcare proxies. She received the RSV vaccine on 05/15/2024. She had a bone density scan in 2020, with a previous diagnosis of osteopenia in 2015. She inquires about the need for a repeat bone density scan and any additional lab work. 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 apixaban (ELIQUIS) 5 mg tab(s) Take 1 tablet by mouth two times a day. atorvastatin (LIPITOR) 10 mg tablet Take 1 tablet by mouth once daily. omeprazole (PRILOSEC) 20 mg capsule Take 1 capsule by mouth daily before breakfast. 1/2 hr before meal. zolpidem (AMBIEN) 5 mg tablet Take 1 tablet by mouth at bedtime as needed for sedation for up to 90 days. Take immediately before bedtime with 8 hours of planned sleep before waking. For insomnia losartan (COZAAR) 25 mg tablet Take 25 mg by mouth once daily. nitroglycerin sublingual (NITROSTAT) 0.4 mg SL tablet Dissolve 0.4 mg under the tongue every 5 minutes as needed for chest pain. MULTIVITAMIN CAP Take one(1) tablet daily. metoprolol tartrate, short acting, (LOPRESSOR) 50 mg tablet Take 1 tablet by mouth two times a day. No current facility-administere d medications for this visit. Review of Systems Objective BP 164/90 Pulse 68 Wt (more content not included)... Normal [facility]2024 [facility] GISELA JOHNSON ([id number]) 1950 F Date Time Provider Department 06/24/24 BREA [place] During your visit today, we recorded the following information about you: Gal Soto RN 06/24/2024 3:46 PM Signed [facility] records scanned in for your review. 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 - metoprolol tartrate, short acting, (LOPRESSOR) 50 mg tablet Take 1 tablet by mouth two times a day. - potassium chloride 20 mEq TbER once daily. - apixaban (ELIQUIS) 5 mg tab(s) Take 1 tablet by mouth two times a day. - atorvastatin (LIPITOR) 10 mg tablet Take 1 tablet by mouth once daily. - omeprazole (PRILOSEC) 20 mg capsule Take 1 capsule by mouth daily before breakfast. 1/2 hr before meal. - zolpidem (AMBIEN) 5 mg tablet Take 1 tablet by mouth at bedtime as needed for sedation for up to 90 days. Take immediately before bedtime with 8 hours of planned sleep before waking. For insomnia - losartan (COZAAR) 25 mg tablet Take 25 mg by mouth once daily. - nitroglycerin sublingual (NITROSTAT) 0.4 mg SL tablet Dissolve 0.4 mg under the tongue every 5 minutes as needed for chest pain. - MULTIVITAMIN CAP Take one(1) tablet daily. Meds Comments as of 03/17/2020: mag. Anju Crawley Ma Problem List As Of Date 06/24/2024 Noted Resolved Dysmetabolic syndrome X [E88.810] 11/11/2006 05/09/2014 GERD (gastroesophageal reflux disease) [K21.9] 03/03/2009 09/28/2015 Postmenopausal atrophic vaginitis [N95.2] 10/22/2012 Osteopenia [M85.80] 10/29/2013 Hyperlipidemia with target LDL less than 100 [E*05/09/2014 Ductal carcinoma in situ (DCIS) of left breast *12/24/2014 Obesity, Class I, BMI 30-34.9 [E66.811] 12/05/2023 Primary hypertension [I10] 12/05/2023 Persistent atrial fibrillation (HCC) [I48.19] 12/05/2023 At risk for stroke [Z91.89] 05/30/2024 Anticoagulant long-term use [Z79.01] 05/30/2024 SOBOE (shortness of breath on exertion) [R06.02] Nonrheumatic mitral valve regurgitation [I34.0] 06/04/2024 Nonrheumatic tricuspid valve regurgitation [I36*06/04/2024 Nonrheumatic aortic valve insufficiency [I35.1] 06/04/2024 Encounter Status:Closed by GAL SOTO on 07/06/24 Normal [facility] 12 Lead EKG performed by BMS on 06-23-2024 12 Lead EKG performed by BMS [facility] [address] [place] [address] 12 Lead EKG performed by [facility] 06/23/24 0959 MR#: [id number] Acct: [id number] Name: GSIELA JOHNSON Rep #: [id number] : 1950 74 From: Nadia Barrera Attending Dr: SPARKLE Kasper Status: DEP AMB Ordering Dr: Nadia Morgan Date: 05/27 02/17 Location: [facility] Sex: F C Admitted: BMS/12 Lead EKG performed by [facility] Atrial fibrillation Low voltage in precordial leads. ABNORMAL 08/24/24 0856 A> Date Nadia VILLAGRAN CC: Dr. Antonia Mendoza MD Date Dictated: 06/23/24958 Date Transcribed: 06/23/24958 Bed And Breakfast Innkeeper: SANDRA Signed Normal [facility] Cardiology Visit Reporton Cardiology Visit Report [facility] [address] [place] [address] OFFICE VISIT Date of Service: 06/23/24 MR#: [id number] Acct: [id number] Name: GISELA JOHNSON Rep #: [id number] : 1950 Provider: SPARKLE Miranda Age/Sex: 74/F Location: [facility] Status: Signed HPI HPI History of Present Illness Details: Gisela Guillen is a 74-year-old female with a history of persistent atrial fibrillation, mild mitral valve regurgitation and moderate tricuspid regurgitation. Patient was referred to EP. EP had started her on flecainide. They had requested that she undergo a cardioversion. She had opted to have this done here at [facility] instead of [facility]. The ultimate plan for patient is to proceed with an ablation. This is being scheduled in the future however it will be several months before this is done. She presented to [facility] for a DCCV after being on the flecainide for 2 weeks. She was then noted to be in SR. DCCV was not done. She was in the cafeteria getting lunch and then became lightheaded and near syncope. She presented to the ER was noted to be bradycardic. She was admitted for observation. Her metoprolol, diltiazem and flecainide were discontinued. EKG today demonstrates Afib with a HR of 74. She called EP office for a f/u, they asked that she f/u with us first. She notes that she had a POLO until yesterday. She still is SOB with walking steps. She does not have any chest pain. She notes that she does not have the energy that she used to, this is since her hospital stay. Her lightheadedness has resolved. She does feel palpitations at night. But she is able to go to sleep. She still thinks that the Afib has affected her quality of life over the last year. She is not on her lasix. She has not had any swelling. Intake Vital Signs 06/15/24 16:36 06/23/24 10:15 Height 5 ft 3 in 5 ft 3 in Weight: 188 lb BMI 33.3 BP 157/99 H Blood Pressure Location Lt brachial Position Sitting Respiration 18 Pulse 79 Pulse Source Monitor Pulse Oximetry (%) 96 Intake Visit Reasons: S/P [facility] 06/17 OK PER MMM [employer] Worker Required: No Is patient in pain?: No Allergies clemastine fumarate (From Tavist) Allergy (Verified 06/23/24 10:16) Unknown codeine Allergy (Verified 06/23/24 10:16) Unknown naproxen Allergy (Verified 06/23/24 10:16) GI upset pseudoephedrine HCl (From Tavist) Allergy (Verified 06/23/24 10:16) Unknown Medications ???Medication ???Instructions ???Recorded ???Confirmed ???Type atorvastatin 10 mg tablet (Lipitor) 10 mg PO DAILY 08/20/18 06/23/24 History multivitamin,tx-iron -minerals 1 tab PO DAILY 12/10/19 06/23/24 History (Complete Multivitamin tablet) omeprazole 20 mg capsule,delayed 20 mg PO DAILY 07/15/23 06/23/24 History release nitroglycerin 0.4 mg sublingual 0.4 mg sublingual Q5-15M PRN chest 07/24/23 06/23/24 Rx tablet pain #25 tabs zolpidem 5 mg tablet 5 mg PO QHS PRN insomnia 07/24/23 06/23/24 History apixaban 5 mg tablet (Eliquis) 5 mg PO .COMPLEX #180 tabs 06/08/24 06/23/24 Rx metoprolol tartrate 50 mg tablet 50 mg PO BID #60 tabs 06/17/24 06/23/24 Rx losartan 25 mg tablet 25 mg PO DAILY #90 tabs 06/23/24 06/23/24 Rx Have you fallen in the past year?: No PFSH Medical History Osteoporosis GERD (gastroesophageal reflux disease) Non-smoker Tricuspid regurgitation Mitral valve regurgitation Dyslipidemia Stable angina pectoris Atrial fibrillation On continuous oral anticoagulation Left arm pain Nocturia Chronic insomnia Essential hypertension Palpitations Hyperlipidemia Osteopenia Postmenopausal atrophic vaginitis New onset atrial fibrillation 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 Ductal carcinoma in situ (DCIS) of left breast Surgical History Status post left breast lumpectomy Family History Brother Kidney disease cancer Parkinsons Mother Paroxysmal atrial fibrillation Father CAD (coronary artery disease) CABG x 4 Social History housing: house Smoking Status: Never smoker second hand exposure: No alcohol intake: current alcohol intake frequency: holidays/special occasions only substance use type: does not use what type of physical activity do you participate in: walking frequency: 3-4 times per week duration: 30-45 minutes/day seatbelt use: always additional social history: 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 Normal [facility] Absolute neutrophil countOrd ered By: Susan Rose on 06-16-2024 Neutrophils (Bld) [#/Vol] 6.1 10*3/uL 2.0-7.7 [facility] Basic Metabolic Profile (BMP )on 06-16-2024 BUN Normal 7-18 [facility] Comment on above: Result Comment: PER JUS, ICU, DUPLICATE ORDER Performed By: #### L 500.2500 ####[facility] [address] [place], [address] BUN/CRE Normal 10-20 [facility] Comment on above: Result Comment: PER JUS ICU, DUPLICATE ORDER Performed By: #### L 500.2500 ####[facility] [address] [place], [address] CA,Total Normal 8.5-10.1 [facility] Comment on above: Result Comment: PER JUS ICU, DUPLICATE ORDER Performed By: #### L 500.2500 ####[facility] [address] [place], [address] CL Normal 98-107 [facility] Comment on above: Result Comment: PER JUS ICU, DUPLICATE ORDER Performed By: #### L 500.2500 ####[facility] [address] [place], [address] CO2 Normal 21.0-32.0 [facility] Comment on above: Result Comment: PER JUS ICU, DUPLICATE ORDER Performed By: #### L 500.2500 ####[facility] [address] [place], [address] CREAT,SERUM Normal 0.55-1.02 [facility] Comment on above: Result Comment: PER JUS, ICU, DUPLICATE ORDER Performed By: #### L 500.2500 ####[facility] [address] [place], [address] EST GFR Normal >60 [facility] Comment on above: Result Comment: PER JUS, ICU, DUPLICATE ORDER Performed By: #### L 500.2500 ####[facility] [address] [place], [address] EST GFR - AA Normal >60 [facility] Comment on above: Result Comment: PER JUS, ICU, DUPLICATE ORDER Performed By: #### L 500.2500 ####[facility] [address] [place], [address] GAP Normal 5-15 [facility] Comment on above: Result Comment: PER JUS, ICU, DUPLICATE ORDER Performed By: #### L 500.2500 ####[facility] [address] [place], [address] GLU Normal 74-106 [facility] Comment on above: Result Comment: PER JUS, ICU, DUPLICATE ORDER Performed By: #### L 500.2500 ####[facility] [address] [place], [address] Potassium Normal 3.5-5.1 [facility] Comment on above: Result Comment: PER JUS, ICU, DUPLICATE ORDER Performed By: #### L 500.2500 ####[facility] [address] [place], [address] Basic Metabolic Profile (BMP) Normal 136-145 [facility] Comment on above: Result Comment: PER JUS, ICU, DUPLICATE ORDER Performed By: #### L 500.2500 ####[facility] [address] [place], [address] BUN/CRE 20.4 RATIO High 10-20 [facility] Comment on above: Order Comment: Comme nts: Add onto previous labs if possible Performed By: #### L 100.0100, L501.5200, L500.2500 #### [facility] [address] [place], [address] CA,Total 9.0 mg/dL Normal 8.5-10.1 [facility] Comment on above: Order Comment: Comme nts: Add onto previous labs if possible Performed By: #### L 100.0100, L501.5200, L500.2500 #### [facility] [address] [place], [address] Chloride [Moles/Vol] 108 mmol/L High 98-107 [facility] Comment on above: Order Comment: Comme nts: Add onto previous labs if possible Performed By: #### L 100.0100, L501.5200, L500.2500 #### [facility] [address] [place], [address] CO2 [Moles/Vol] 22.0 mmol/L Normal 21.0-32.0 [facility] Comment on above: Order Comment: Comme nts: Add onto previous labs if possible Performed By: #### L 100.0100, L501.5200, L500.2500 #### [facility] [address] [place], [address] Creatinine [Mass/Vol] 1.08 mg/dL High 0.55-1.02 [facility] Comment on above: Order Comment: Comme nts: Add onto previous labs if possible Result Comment: The validity of the calculated GFR GFRAA in patients over 70 years has not been determined. Clinical correlation is essential. Performed By: #### L 100.0100, L501.5200, L500.2500 #### [facility] [address] [place], [address] ECRCL 46.37 ml/min Normal [facility] Comment on above: Order Comment: Comme nts: Add onto previous labs if possible Performed By: #### L 100.0100, L501.5200, L500.2500 #### [facility] [address] [place], [address] EST GFR - AA 63 mL/min Normal >60 [facility] Comment on above: Order Comment: Comme nts: Add onto previous labs if possible Result Comment: Afri can Ethiopian GFR Calc Performed By: #### L 100.0100, L501.5200, L500.2500 #### [facility] [address] [place], [address] GAP 5 Normal 5-15 [facility] Comment on above: Order Comment: Comme nts: Add onto previous labs if possible Performed By: #### L 100.0100, L501.5200, L500.2500 #### [facility] [address] [place], [address] GFR/1.73 sq M.predicted among non-blacks MDRD (S/P/Bld) [Vol rate/Area] 52 mL/min/{1.73_m2} Low >60 [facility] Comment on above: Order Comment: Comme nts: Add onto previous labs if possible Result Comment: Non- GFR Calc Performed By: #### L 100.0100, L501.5200, L500.2500 #### [facility] [address] [place], [address] Glucose [Mass/Vol] 104 mg/dL Normal 74-106 [facility] Comment on above: Order Comment: Comme nts: Add onto previous labs if possible Result Comment: Fast ing Glucose result from 100 to 125 mg/dL suggests IMPAIRED HOMEOSTASIS per A.D.A. criteria. Performed By: #### L 100.0100, L501.5200, L500.2500 #### [facility] [address] [place], [address] Potassium [Moles/Vol] 5.1 mmol/L Normal 3.5-5.1 [facility] Comment on above: Order Comment: Comme nts: Add onto previous labs if possible Result Comment: Mode rate Hemolysis, Result may be falsely increased. Performed By: #### L 100.0100, L501.5200, L500.2500 #### [facility] [address] [place], [address] Sodium [Moles/Vol] 136 mmol/L Normal 136-145 [facility] Comment on above: Order Comment: Comme nts: Add onto previous labs if possible Performed By: #### L 100.0100, L501.5200, L500.2500 #### [facility] [address] [place], [address] Urea nitrogen [Mass/Vol] 22 mg/dL High 7-18 [facility] Comment on above: Order Comment: Comme nts: Add onto previous labs if possible Performed By: #### L 100.0100, L501.5200, L500.2500 #### [facility] [address] [place], [address] Basophil percentageOrdered B y: Susan Rose on 06-16-2024 Basophils/100 WBC (Bld) 0.4 % 0-1 [facility] Blood urea nitrogen (BUN)/cr eatinine ratioOrdered By: Susan Rose on 06-16-2024 Urea nitrogen/Creatinine [Mass ratio] 20.4 mg/mg High 10-20 [facility] CBC W/Diff, Automatedon 05-27 Absolute Lymph 2.01 X10 3/uL Normal 0.83-4.51 [facility] Comment on above: Performed By: #### L 100.0100, L501.5200, L500.2500 #### [facility] [address] [place], [address] Absolute Neut 6.1 X10 3/uL Normal 2.0-7.7 [facility] Comment on above: Performed By: #### L 100.0100, L501.5200, L500.2500 #### [facility] [address] [place], [address] Basophils/100 WBC (Bld) 0.4 % Normal 0-1 [facility] Comment on above: Performed By: #### L 100.0100, L501.5200, L500.2500 #### [facility] [address] [place], [address] Eosinophils/100 WBC (Bld) 1.2 % Normal 0-5 [facility] Comment on above: Performed By: #### L 100.0100, L501.5200, L500.2500 #### [facility] [address] [place], [address] Erythrocyte distribution width (RBC) [Ratio] 13.2 % Normal 11.6-14.6 [facility] Comment on above: Performed By: #### L 100.0100, L501.5200, L500.2500 #### [facility] [address] [place], [address] Hematocrit (Bld) [Volume fraction] 37.5 % Normal 37-47 [facility] Comment on above: Performed By: #### L 100.0100, L501.5200, L500.2500 #### [facility] [address] [place], [address] Hemoglobin (Bld) [Mass/Vol] 12.2 g/dL Normal 12.0-15.0 [facility] Comment on above: Performed By: #### L 100.0100, L501.5200, L500.2500 #### [facility] [address] [place], [address] IG% 0.600 Normal 0.0-0.9 [facility] Comment on above: Result Comment: IG% - Immature Granulocytes (promyelocytes, myelocytes and metamyelocytes) > 1% indicates that a LEFT SHIFT is Present. Performed By: #### L 100.0100, L501.5200, L500.2500 #### [facility] [address] [place], [address] Lymphocytes/100 WBC (Bld) 21.3 % Normal 19-41 [facility] Comment on above: Performed By: #### L 100.0100, L501.5200, L500.2500 #### [facility] [address] [place], [address] MCH (RBC) [Entitic mass] 30.3 pg Normal 27.0-32.0 [facility] Comment on above: Performed By: #### L 100.0100, L501.5200, L500.2500 #### [facility] [address] [place], [address] MCHC (RBC) [Mass/Vol] 32.5 g/dL Normal 32-36 [facility] Comment on above: Performed By: #### L 100.0100, L501.5200, L500.2500 #### [facility] [address] [place], [address] MCV (RBC) [Entitic vol] 93.1 fL Normal 81-99 [facility] Comment on above: Performed By: #### L 100.0100, L501.5200, L500.2500 #### [facility] [address] [place], [address] Monocytes/100 WBC (Bld) 12.1 % High 0-10 [facility] Comment on above: Performed By: #### L 100.0100, L501.5200, L500.2500 #### [facility] [address] [place], [address] Neutrophils/100 WBC (Bld) 64.4 % Normal 47-70 [facility] Comment on above: Performed By: #### L 100.0100, L501.5200, L500.2500 #### [facility] [address] [place], [address] Nucleated RBC (Bld) [#/Vol] 0 10*3/uL Normal 0-5 [facility] Comment on above: Performed By: #### L 100.0100, L501.5200, L500.2500 #### [facility] [address] [place], [address] Platelet mean volume (Bld) [Entitic vol] 9.7 fL Normal 6.2-12.0 [facility] Comment on above: Performed By: #### L 100.0100, L501.5200, L500.2500 #### [facility] [address] [place], [address] Platelets (Bld) [#/Vol] 149 10*3/uL Low 150-450 [facility] Comment on above: Performed By: #### L 100.0100, L501.5200, L500.2500 #### [facility] [address] [place], [address] RBC (Bld) [#/Vol] 4.03 10*6/uL Low 4.2-5.4 [facility] Comment on above: Performed By: #### L 100.0100, L501.5200, L500.2500 #### [facility] [address] [place], [address] RDW SD 44.3 fl High 35.1-43.9 [facility] Comment on above: Performed By: #### L 100.0100, L501.5200, L500.2500 #### [facility] [address] [place], [address] WBC (Bld) [#/Vol] 9.5 10*3/uL Normal 4.4-11.0 [facility] Comment on above: Performed By: #### L 100.0100, L501.5200, L500.2500 #### [facility] [address] [place], [address] Carbon dioxide measurementOr dered By: Susan Rose on 06-16-2024 CO2 [Moles/Vol] 22.0 mmol/L 21.0-32.0 [facility] Chloride measurementOrdered By: Susan Rose on 06-16-2024 Chloride [Moles/Vol] 108 mmol/L High 98-107 [facility] Consultation - Cardiologyon 06-16-2024 Consultation - Cardiology [facility] Medical Records Department [address] [place] [address] Consultation - Cardiology 06/16/24 1411 MR#: [id number] Acct: [id number] Name: GISELA JOHNSON Rep #: [id number] : 1950 74 From: Shannan Conner MD PCP: Dr. Antonia Mendoza MD Status:ADM IN Location: ICU ICU01-1 Assessment Plan Assessment/Plan (1) Symptomatic bradycardia: PLAN: Patient has history of atrial fibrillation. Currently she is in sinus rhythm. We will start her beta-jorge initially at a low dose and then adjust as required. Explained to patient that there is a possibility that we may have a hard time maintaining her heart rate at an optimal level with just medications. 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 HPI Consult Data Date of Consult: 06/16/24 HPI Narrative Reason for Consultation: Bradycardia, dizziness HPI Narrative: GISELA JOHNSON, is a 74 F who presents with dizziness and severe sinus bradycardia. Patient has history of atrial fibrillation and was on metoprolol 100 mg p.o. twice daily, Cardizem CD 240 mg daily and was started on flecainide 2 weeks ago when she saw Dr. Oh at [facility]. She was supposed to get cardioversion yesterday but was found to be in sinus rhythm and was sent back home. Subsequently she became very lightheaded and came to the emergency room and was found to be hypotensive with a heart rate in the low 30s. Beta-jorge, calcium channel jorge and flecainide were held. Glucagon was administered. The plan was to start dopamine if required but that was never started and patient's heart rate slowly started coming up. Currently she is feeling much better. Her heart rate is in the high 50s. She is in sinus rhythm. 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 Ductal carcinoma in situ (DCIS) of left breast Home Medications ???Medication ???Instructions ???Recorded ???Last Taken ???Type atorvastatin 10 mg tablet (Lipitor) 10 mg PO DAILY 08/20/18 Unknown History multivitamin,tx-iron -minerals 1 tab PO DAILY 12/10/19 Unknown History (Complete Multivitamin tablet) omeprazole 20 mg capsule,delayed 20 mg PO DAILY 07/15/23 Unknown History release nitroglycerin 0.4 mg sublingual 0.4 mg sublingual Q5-15M PRN chest 07/24/23 Unknown Rx tablet pain #25 tabs zolpidem 5 mg tablet 5 mg PO QHS PRN insomnia 07/24/23 Unknown History losartan 25 mg tablet 25 mg PO DAILY #90 tabs 10/01/23 Unknown Rx furosemide 40 mg tablet 40 mg PO DAILY #90 tabs 12/19/23 Unknown Rx potassium chloride 20 mEq 20 meq PO DAILY #90 tabs 12/19/23 Unknown Rx tablet,extended release diltiazem HCl 240 mg capsule,24 240 mg PO QAM #30 caps 04/16/24 Unknown Rx hr,extended release metoprolol tartrate 100 mg tablet 100 mg PO BID #180 TABLETS 05/24/24 06/15/24 Rx flecainide 100 mg tablet 100 mg PO Q12H 06/07/24 06/15/24 History apixaban 5 mg tablet (Eliquis) 5 mg PO .COMPLEX #180 tabs 06/08/24 06/15/24 Rx Allergy/AdvReac Type Severity Reaction Status Date / Time clemastine fumarate (From Allergy Unknown Verified 06/15/24 13:15 Tavist) codeine Allergy Unknown Verified 06/15/24 13:15 naproxen Allergy GI upset Verified 06/15/24 13:15 pseudoephedrine HCl (From Allergy Unknown Verified 06/15/24 13:15 Tavist) Family History Brother Kidney disease cancer Parkinsons Mother Paroxysmal atrial fibrillation Father CAD (coronary artery disease) CABG x 4 Surgical History Status post left breast lumpectomy Social History housing: house Smoking Status: Never smoker second hand exposure: No alcohol intake: current alcohol intake frequency: holidays/special occasions only substance use type: does not use what type of physical activity do you participate in: walking frequency: 3-4 times per week duration: 30-45 minutes/day seatbelt use: always additional social history: 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 Normal [facility] Eosinophil percentageOrdered By: Susan Rose on 06-16-2024 Eosinophils/100 WBC (Bld) 1.2 % 0-5 [facility] Erythrocyte distribution wid th (RBC) [Ratio]Ordered By: Susan Rose on 06-16-2024 Erythrocyte distribution width (RBC) [Entitic vol] 44.3 fL High 35.1-43.9 [facility] Erythrocyte distribution wid th ratioOrdered By: Susan Rose on 06-16-2024 Erythrocyte distribution width (RBC) [Ratio] 13.2 % 11.6-14.6 [facility] Estimated glomerular filtrat ion rate (GFR) AmericanOrdered By: Susan Rose on 06-16-2024 Estimated GFR (MDRD) Amer 63 mL/min >60 [facility] Comment on above: GFR Calc Estimation of creatinine jimmie aranceOrdered By: Susan Rose on 06-16-2024 Estimated Creatinine Clearance Calc 46.37 ml/min [facility] Glomerular filtration rate ( GFR) estimationOrdered By: Susan Rose on 06-16-2024 Estimated GFR (MDRD) Non-Af Amer 52 mL/min Low >60 [facility] Comment on above: Non- GFR Calc Glucose measurementOrdered B y: Susan Rose on 06-16-2024 Glucose [Mass/Vol] 104 mg/dL 74-106 [facility] Comment on above: Fasting Glucose resu lt from 100 to 125 mg/dL suggests IMPAIRED HOMEOSTASIS per A.D.A. criteria. Hematocrit Auto (Bld) [Volum e fraction]Ordered By: Susan Rose on 06-16-2024 Hematocrit (Bld) [Volume fraction] 37.5 % 37-47 [facility] Hemoglobin measurementOrdere d By: Susan Rose on 06-16-2024 Hemoglobin (Bld) [Mass/Vol] 12.2 g/dL 12.0-15.0 [facility] Immature granulocytes/100 WB C Auto (Bld)Ordered By: Susan Rose on 06-16-2024 Immature granulocytes/100 WBC (Bld) 0.600 % 0.0-0.9 [facility] Comment on above: IG% - Immature Granu locytes (promyelocytes, myelocytes and metamyelocytes) > 1% indicates that a LEFT SHIFT is Present. Lymphocytes Auto (Unsp spec) [#/Vol]Ordered By: Susan Rose on 06-16-2024 Lymphocytes (Bld) [#/Vol] 2.01 10*3/uL 0.83-4.51 [facility] Lymphocytes/100 WBC Auto (Un sp spec)Ordered By: Susan Rose on 06-16-2024 Lymphocytes/100 WBC (Bld) 21.3 % 19-41 [facility] MCV (mean corpuscular volume ) determinationOrdered By: Susan Rose on 06-16-2024 MCV (RBC) [Entitic vol] 93.1 fL 81-99 [facility] Magnesiumon 06-16-2024 Magnesium [Mass/Vol] 2.4 mg/dL Normal 1.6-2.6 [facility] Comment on above: Order Comment: Comme nts: Add onto previous labs if possible Result Comment: Mode rate Hemolysis, Result may be falsely increased. Performed By: #### L 100.0100, L501.5200, L500.2500 #### [facility] [address] [place], [address] Magnesium measurementOrdered By: Susan Rose on 06-16-2024 Magnesium [Mass/Vol] 2.4 mg/dL 1.6-2.6 [facility] Comment on above: Moderate Hemolysis, Result may be falsely increased. Mean corpuscular hemoglobin (MCH) determinationOrdered By: Susan Rose on 06-16-2024 MCH (RBC) [Entitic mass] 30.3 pg 27.0-32.0 [facility] Mean corpuscular hemoglobin concentration (MCHC) determinationOrdered By: Susan Rose on 06-16-2024 MCHC (RBC) [Mass/Vol] 32.5 g/dL 32-36 [facility] Mean platelet volume determi nationOrdered By: Susan Rose on 06-16-2024 Platelet mean volume (Bld) [Entitic vol] 9.7 fL 6.2-12.0 [facility] Monocyte percentageOrdered B y: Susan Rose on 06-16-2024 Monocytes/100 WBC (Bld) 12.1 % High 0-10 [facility] Neutrophil percentageOrdered By: Susan Rose on 06-16-2024 Neutrophils/100 WBC (Bld) 64.4 % 47-70 [facility] Nucleated red blood cell per centageOrdered By: Susan Rose on 06-16-2024 Nucleated RBC/100 WBC (Bld) [Ratio] 0 % 0-5 [facility] Platelet countOrdered By: Sparkle Rose on 06-16-2024 Platelets (Bld) [#/Vol] 149 10*3/uL Low 150-450 [facility] Potassium measurementOrdered By: Susan Rose on 06-16-2024 Potassium [Moles/Vol] 5.1 mmol/L 3.5-5.1 [facility] Comment on above: Moderate Hemolysis, Result may be falsely increased. RBC Auto (Bld) [#/Vol]Ordere d By: Susan Rose on 06-16-2024 RBC (Bld) [#/Vol] 4.03 10*6/uL Low 4.2-5.4 [facility] Serum anion gap measurementO rdered By: Susan Rose on 06-16-2024 Anion gap [Moles/Vol] 5 mmol/L 5-15 [facility] Serum or plasma calcium yosi urement (mass/volume)Ordered By: Susan Rose on 06-16-2024 Calcium [Mass/Vol] 9.0 mg/dL 8.5-10.1 [facility] Serum or plasma creatinine m easurement (mass/volume)Ordered By: Susan Rose on 06-16-2024 Creatinine [Mass/Vol] 1.08 mg/dL High 0.55-1.02 [facility] Comment on above: The validity of the calculated GFR & GFRAA in patients over 70 years has not been determined. Clinical correlation is essential. Serum or plasma urea nitroge n measurement (mass/volume)Ordered By: Susan Rose on 06-16-2024 Urea nitrogen [Mass/Vol] 22 mg/dL High 7-18 [facility] Sodium levelOrdered By: Rafael Rose on 06-16-2024 Sodium [Moles/Vol] 136 mmol/L 136-145 [facility] White blood cell (WBC) count Ordered By: Susan Rose on 06-16-2024 WBC (Bld) [#/Vol] 9.5 10*3/uL 4.4-11.0 [facility] 12 Lead EKGon 06-15-2024 12 Lead EKG [facility] Cardiovascular Services [address] [place] [address] 12 Lead EKG 06/15/24 1023 MR#: [id number] Acct: [id number] Name: GISELA JOHNSON Rep #: [id number] : 1950 74 From: Shannan Conner MD Attending Dr: Dr. Jorge Luis Wyman, Status: DIS IN Ordering Dr: Patricio Kwong MD Date: 06/15/24 Location: ICU Sex: F C Admitted: 06/15/24 Test Reason : DCCV Blood Pressure : */* mmHG Vent. Rate : 52 BPM Atrial Rate : 52 BPM P-R Int : 256 ms QRS Dur : 98 ms QT Int : 490 ms P-R-T Axes : 11 35 27 degrees QTcB Int : 455 ms Sinus bradycardia with sinus arrhythmia with 1st degree A-V block Otherwise normal ECG Confirmed by UBALDO TINOCO, DUONG ([id number]), news videotape editor NILDA ALFARO ([id number]) on 06/21/2024 2:16:51 PM Referred By: CAMELIA Confirmed By: DUONG CONNER MD 06/21/24 1416 Date Shannan Conner MD CC: Dr. Patricio Kwong MD; Dr. Jorge Luis Wyman DO; Dr. Antonia Mendoza MD Signed Normal [facility] Albumin to globulin ratioOrd ered By: Patricio Kwong on 06-15-2024 Albumin/Globulin [Mass ratio] 1.1 {ratio} 0.9-2.4 [facility] Bilirubin, totalOrdered By: Patricio Kwong on 06-15-2024 Bilirubin [Mass/Vol] 0.80 mg/dL 0.20-1.00 [facility] Comment on above: For patients on eltr ombopag therapy, use of Dimension Riva TBIL is not recommended. CBC W/Diff, Automatedon 05-27 Absolute Lymph 2.27 X10 3/uL Normal 0.83-4.51 [facility] Comment on above: Performed By: #### L 501.4020, L500.4050, L100.0100 ####[facility] [address] [place], [address] Absolute Neut 6.4 X10 3/uL Normal 2.0-7.7 [facility] Comment on above: Performed By: #### L 501.4020, L500.4050, L100.0100 ####[facility] [address] [place], [address] Basophils/100 WBC (Bld) 0.7 % Normal 0-1 [facility] Comment on above: Performed By: #### L 501.4020, L500.4050, L100.0100 ####[facility] [address] [place], [address] Eosinophils/100 WBC (Bld) 1.5 % Normal 0-5 [facility] Comment on above: Performed By: #### L 501.4020, L500.4050, L100.0100 ####[facility] [address] [place], [address] Erythrocyte distribution width (RBC) [Ratio] 13.2 % Normal 11.6-14.6 [facility] Comment on above: Performed By: #### L 501.4020, L500.4050, L100.0100 ####[facility] [address] [place], [address] Hematocrit (Bld) [Volume fraction] 39.9 % Normal 37-47 [facility] Comment on above: Performed By: #### L 501.4020, L500.4050, L100.0100 ####[facility] [address] [place], [address] Hemoglobin (Bld) [Mass/Vol] 13.4 g/dL Normal 12.0-15.0 [facility] Comment on above: Performed By: #### L 501.4020, L500.4050, L100.0100 ####[facility] [address] [place], [address] IG% 0.800 Normal 0.0-0.9 [facility] Comment on above: Result Comment: IG% - Immature Granulocytes (promyelocytes, myelocytes and metamyelocytes) > 1% indicates that a LEFT SHIFT is Present. Performed By: #### L 501.4020, L500.4050, L100.0100 ####[facility] [address] [place], [address] Lymphocytes/100 WBC (Bld) 23.1 % Normal 19-41 [facility] Comment on above: Performed By: #### L 501.4020, L500.4050, L100.0100 ####[facility] [address] [place], [address] MCH (RBC) [Entitic mass] 31.0 pg Normal 27.0-32.0 [facility] Comment on above: Performed By: #### L 501.4020, L500.4050, L100.0100 ####[facility] [address] [place], [address] MCHC (RBC) [Mass/Vol] 33.6 g/dL Normal 32-36 [facility] Comment on above: Performed By: #### L 501.4020, L500.4050, L100.0100 ####[facility] [address] [place], [address] MCV (RBC) [Entitic vol] 92.4 fL Normal 81-99 [facility] Comment on above: Performed By: #### L 501.4020, L500.4050, L100.0100 ####[facility] [address] [place], [address] Monocytes/100 WBC (Bld) 8.9 % Normal 0-10 [facility] Comment on above: Performed By: #### L 501.4020, L500.4050, L100.0100 ####[facility] [address] [place], [address] Neutrophils/100 WBC (Bld) 65.0 % Normal 47-70 [facility] Comment on above: Performed By: #### L 501.4020, L500.4050, L100.0100 ####[facility] [address] [place], [address] Nucleated RBC (Bld) [#/Vol] 0 10*3/uL Normal 0-5 [facility] Comment on above: Performed By: #### L 501.4020, L500.4050, L100.0100 ####[facility] [address] [place], [address] Platelet mean volume (Bld) [Entitic vol] 9.5 fL Normal 6.2-12.0 [facility] Comment on above: Performed By: #### L 501.4020, L500.4050, L100.0100 ####[facility] [address] [place], [address] Platelets (Bld) [#/Vol] 210 10*3/uL Normal 150-450 [facility] Comment on above: Performed By: #### L 501.4020, L500.4050, L100.0100 ####[facility] [address] [place], [address] RBC (Bld) [#/Vol] 4.32 10*6/uL Normal 4.2-5.4 [facility] Comment on above: Performed By: #### L 501.4020, L500.4050, L100.0100 ####[facility] [address] [place], [address] RDW SD 44.4 fl High 35.1-43.9 [facility] Comment on above: Performed By: #### L 501.4020, L500.4050, L100.0100 ####[facility] [address] [place], [address] WBC (Bld) [#/Vol] 9.8 10*3/uL Normal 4.4-11.0 [facility] Comment on above: Performed By: #### L 501.4020, L500.4050, L100.0100 ####[facility] [address] [place], [address] Chest 1 View (Portable)on Chest 1 View (Portable) [facility] Imaging Services [address] [place] [address] Chest 1 View (Portable) MR#: [id number] Acct: [id number] Name: GISELA JOHNSON Rep #: [id number] : 1950 F 74 From: Pablo robledo MD PCP: Dr. Antonia Mendoza MD Status: REG ER Study: Chest 1 View (Portable) Date of Exam: 06/15/24 Exam# [id number] Ordering Dr: Patricio Kwong MD [id number] STUDY: X-RAY CHEST REASON FOR EXAM: Female, 74 years old. Dizziness. Diaphoretic. TECHNIQUE: Single AP portable view of the chest. COMPARISON: Comparison is made with prior study dated June 24, 2023. FINDINGS: EKG electrodes are seen. Mild increased markings at the left lung base with blunting of the left costophrenic angle. This may represent either focal atelectasis and/or early infiltrate. Follow-up recommended. There is borderline cardiomegaly. Normal mediastinum and deonte. Normal visualized pulmonary arteries. There is atherosclerotic calcification of the aortic arch with tortuosity. Normal visualized thoracic spine. Normal visualized ribs, clavicles, and shoulders. Hiatal hernia. RAD/Chest 1 View (Portable) IMPRESSION: Blunting of the left costophrenic angle with increased markings at the left lung base suggestive of atelectasis and/or early infiltrate. Hiatal hernia. Electronically Signed: Pablo Manzo MD at 14:21 EST , CC: Dr. Patricio Kwong MD; Dr. Antonia Mendoza MD [employer]: Signed Normal [facility] Comprehensive Metabolic Prof ilon 06-15-2024 Albumin [Mass/Vol] 3.7 g/dL Normal 3.2-5.0 [facility] Comment on above: Order Comment: 'TROP ' Serial specimen #1, #2 or #3: 1 Performed By: #### L 501.4020, L500.4050, L100.0100 ####[facility] [address] [place], [address] Albumin/Globulin [Mass ratio] 1.1 {ratio} Normal 0.9-2.4 [facility] Comment on above: Order Comment: 'TROP ' Serial specimen #1, #2 or #3: 1 Performed By: #### L 501.4020, L500.4050, L100.0100 ####[facility] [address] [place], [address] ALK P 75 U/L Normal 45-117 [facility] Comment on above: Order Comment: 'TROP ' Serial specimen #1, #2 or #3: 1 Performed By: #### L 501.4020, L500.4050, L100.0100 ####[facility] [address] [place], [address] ALT [Catalytic activity/Vol] 57 U/L High 13-56 [facility] Comment on above: Order Comment: 'TROP ' Serial specimen #1, #2 or #3: 1 Performed By: #### L 501.4020, L500.4050, L100.0100 ####[facility] [address] [place], [address] AST [Catalytic activity/Vol] 52 U/L High 15-37 [facility] Comment on above: Order Comment: 'TROP ' Serial specimen #1, #2 or #3: 1 Result Comment: Mode rate Hemolysis, Result may be falsely increased. Performed By: #### L 501.4020, L500.4050, L100.0100 ####[facility] [address] [place], [address] Bilirubin [Mass/Vol] 0.80 mg/dL Normal 0.20-1.00 [facility] Comment on above: Order Comment: 'TROP ' Serial specimen #1, #2 or #3: 1 Result Comment: For patients on eltrombopag therapy, use of Dimension Riva TBIL is not recommended. Performed By: #### L 501.4020, L500.4050, L100.0100 ####[facility] [address] [place], [address] BUN/CRE 16.2 RATIO Normal 10-20 [facility] Comment on above: Order Comment: 'TROP ' Serial specimen #1, #2 or #3: 1 Performed By: #### L 501.4020, L500.4050, L100.0100 ####[facility] [address] [place], [address] CA,Total 9.3 mg/dL Normal 8.5-10.1 [facility] Comment on above: Order Comment: 'TROP ' Serial specimen #1, #2 or #3: 1 Performed By: #### L 501.4020, L500.4050, L100.0100 ####[facility] [address] [place], [address] Chloride [Moles/Vol] 103 mmol/L Normal 98-107 [facility] Comment on above: Order Comment: 'TROP ' Serial specimen #1, #2 or #3: 1 Performed By: #### L 501.4020, L500.4050, L100.0100 ####[facility] [address] [place], [address] CO2 [Moles/Vol] 21.0 mmol/L Normal 21.0-32.0 [facility] Comment on above: Order Comment: 'TROP ' Serial specimen #1, #2 or #3: 1 Performed By: #### L 501.4020, L500.4050, L100.0100 ####[facility] [address], [address] Creatinine [Mass/Vol] 1.54 mg/dL High 0.55-1.02 [facility] Comment on above: Order Comment: 'TROP ' Serial specimen #1, #2 or #3: 1 Result Comment: The validity of the calculated GFR GFRAA in patients over 70 years has not been determined. Clinical correlation is essential. Performed By: #### L 501.4020, L500.4050, L100.0100 ####[facility] [address] [place], [address] ECRCL 32.46 ml/min Normal [facility] Comment on above: Order Comment: 'TROP ' Serial specimen #1, #2 or #3: 1 Performed By: #### L 501.4020, L500.4050, L100.0100 ####[facility] [address] [place], [address] EST GFR - AA 42 mL/min Low >60 [facility] Comment on above: Order Comment: 'TROP ' Serial specimen #1, #2 or #3: 1 Result Comment: Afri can Ethiopian GFR Calc Performed By: #### L 501.4020, L500.4050, L100.0100 ####[facility] [address] [place], [address] GAP 9 Normal 5-15 [facility] Comment on above: Order Comment: 'TROP ' Serial specimen #1, #2 or #3: 1 Performed By: #### L 501.4020, L500.4050, L100.0100 ####[facility] [address] [place], [address] GFR/1.73 sq M.predicted among non-blacks MDRD (S/P/Bld) [Vol rate/Area] 35 mL/min/{1.73_m2} Low >60 [facility] Comment on above: Order Comment: 'TROP ' Serial specimen #1, #2 or #3: 1 Result Comment: Non- GFR Calc Performed By: #### L 501.4020, L500.4050, L100.0100 ####[facility] [address] [place], [address] Globulin (S) [Mass/Vol] 3.5 g/dL Normal 2.2-4.2 [facility] Comment on above: Order Comment: 'TROP ' Serial specimen #1, #2 or #3: 1 Performed By: #### L 501.4020, L500.4050, L100.0100 ####[facility] [address] [place], [address] Glucose [Mass/Vol] 212 mg/dL High 74-106 [facility] Comment on above: Order Comment: 'TROP ' Serial specimen #1, #2 or #3: 1 Result Comment: Gluc ose result greater than or equal to 200 mg/dL suggests DIABETES MELLITUS per A.D.A. criteria. Performed By: #### L 501.4020, L500.4050, L100.0100 ####[facility] [address] [place], [address] Potassium [Moles/Vol] 5.2 mmol/L High 3.5-5.1 [facility] Comment on above: Order Comment: 'TROP ' Serial specimen #1, #2 or #3: 1 Result Comment: Mode rate Hemolysis, Result may be falsely increased. Performed By: #### L 501.4020, L500.4050, L100.0100 ####[facility] [address], [address] Sodium [Moles/Vol] 132 mmol/L Low 136-145 [facility] Comment on above: Order Comment: 'TROP ' Serial specimen #1, #2 or #3: 1 Performed By: #### L 501.4020, L500.4050, L100.0100 ####[facility] [address] [place], [address] T PROT 7.2 g/dL Normal 6.4-8.2 [facility] Comment on above: Order Comment: 'TROP ' Serial specimen #1, #2 or #3: 1 Performed By: #### L 501.4020, L500.4050, L100.0100 ####[facility] [address] [place], [address] Urea nitrogen [Mass/Vol] 25 mg/dL High 7-18 [facility] Comment on above: Order Comment: 'TROP ' Serial specimen #1, #2 or #3: 1 Performed By: #### L 501.4020, L500.4050, L100.0100 ####[facility] [address] [place], [address] Emergency Department Summary on 06-15-2024 Emergency Department Summary [facility] Medical Records Department [address] [facility] [place] [address] Emergency Department Summary 06/15/24 MR#: [id number] Acct: [id number] Name: GISELA JOHNSON Rep #: [id number] : 1950 74 From: Patricio Kwong MD PCP: Dr. Antonia Mendoza MD Status:REG ER Location: ED HPI History of Present Illness Chief Complaint: Dizziness Narrative Narrative: 74-year-old female past medical history of atrial fibrillation on Eliquis actually went to an outpatient appointment that she had with Dr. Denise for cardioversion this morning. She and her state that they could not perform cardioversion because of the fact that she was found to be in normal sinus rhythm this morning. They went to lunch. Shortly thereafter, patient became very lightheaded and dizzy, almost near syncopal. She states that she usually has a racing heartbeat but has not felt that. She presents because of the lightheadedness and near syncope and dizziness that is somewhat worse with standing. Of note, for rate control she is usually on flecainide and metoprolol which she took this morning. [facility] Medical History Mitral valve regurgitation Tricuspid regurgitation Dyslipidemia Stable angina pectoris Atrial fibrillation On continuous oral anticoagulation Left arm pain Nocturia Chronic insomnia Essential hypertension Palpitations Hyperlipidemia Osteopenia Postmenopausal atrophic vaginitis New onset atrial fibrillation 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 Ductal carcinoma in situ (DCIS) of left breast Home Medications ???Medication ???Instructions ???Recorded ???Last Taken ???Type atorvastatin 10 mg tablet (Lipitor) 10 mg PO DAILY 08/20/18 Unknown History multivitamin,tx-iron -minerals 1 tab PO DAILY 12/10/19 Unknown History (Complete Multivitamin tablet) omeprazole 20 mg capsule,delayed 20 mg PO DAILY 07/15/23 Unknown History release nitroglycerin 0.4 mg sublingual 0.4 mg sublingual Q5-15M PRN chest 07/24/23 Unknown Rx tablet pain #25 tabs zolpidem 5 mg tablet 5 mg PO QHS 07/24/23 Unknown History losartan 25 mg tablet 25 mg PO DAILY #90 tabs 10/01/23 Unknown Rx furosemide 40 mg tablet 40 mg PO DAILY #90 tabs 12/19/23 Unknown Rx potassium chloride 20 mEq 20 meq PO DAILY #90 tabs 12/19/23 Unknown Rx tablet,extended release diltiazem HCl 240 mg capsule,24 240 mg PO QAM #30 caps 04/16/24 Unknown Rx hr,extended release metoprolol tartrate 100 mg tablet 100 mg PO BID #180 TABLETS 05/24/24 06/15/24 Rx flecainide 100 mg tablet 100 mg PO Q12H 06/07/24 06/15/24 History apixaban 5 mg tablet (Eliquis) 5 mg PO .COMPLEX #180 tabs 06/08/24 06/15/24 Rx Allergy/AdvReac Type Severity Reaction Status Date / Time acetaminophen (From Tavist) Allergy Unknown Verified 06/15/24 13:15 clemastine fumarate (From Allergy Unknown Verified 06/15/24 13:15 Tavist) codeine Allergy Unknown Verified 06/15/24 13:15 naproxen Allergy GI upset Verified 06/15/24 13:15 pseudoephedrine HCl (From Allergy Unknown Verified 06/15/24 13:15 Tavist) Family History Brother Kidney disease cancer Parkinsons Mother Paroxysmal atrial fibrillation Father CAD (coronary artery disease) CABG x 4 Surgical History Status post left breast lumpectomy Social History housing: house Smoking Status: Never smoker second hand exposure: No alcohol intake: current alcohol intake frequency: holidays/special occasions only substance use type: does not use what type of physical activity do you participate in: walking frequency: 3-4 times per week duration: 30-45 minutes/day seatbelt use: always additional social history: 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 HEENT: No sore throat. No neck pain. No loss of vision. No rhinorrhea. Cardiovascular: No chest pain. No palpitations. No pedal edema. Respiratory: No cough, no shortness of breath. Abdominal: No abdominal pain. No nausea. No vomiting. Genitourinary: No dysuria. No hematuria. Musculoskeletal: No myalgias. No arthralgias. Neurologic: No headaches. Positive dizziness, lightheadedness, and near syncope. Skin: No rash. No change in color. Psychiatric: No depression. No anxiety. EXAM Physical Exam Narrative Exam Narrative: Afebrile. Vital signs noted. Nontoxic-appearing. Cardiovascular examination reveals a regular bradycardia, lungs clear to auscultation bilaterally. Abdomen soft nontender with normoactive bowel sounds. Neurological examination shows her to be awake, alert, and oriented. Const Vital Signs: 06/15/24 13: (more content not included)... Normal [facility] H AND P Exam - [facility] 06-15-2024 H&P Exam - Hospitalist [facility] Medical Records Department [address] [place] [address] H P Exam - Hospitalist 06/15/24 1536 MR#: [id number] Acct: [id number] Name: GISELA JOHNSON Rep #: [id number] : 1950 74 From: Susan Rose MD PCP: Dr. Antonia Mendoza MD Status:REG ER Location: ED HPI - General General Date of Admission: 06/15/24 Date of Service: 06/15/24 Chief Complaint: Light headed/dizziness/bra dycardia HPI Narrative GISELA JOHNSON, is a 74-year-old female history of paroxysmal atrial fibrillation on Eliquis, GERD, hypertension who presented to [facility] 06/15/23 d/t dizziness. She had an outpatient appointment with cardiology this morning for a cardioversion however was found to be normal sinus rhythm so this was not done. She went to lunch and then developed nausea lightheadedness and dizziness prompting her to come to the ED. At that time her heart rate was 20, she received glucagon and vomited but continued to have a low heart rate and was given atropine with brief increase in heart rate to the 60s. Cardiology on-call contacted and recommended admission and holding beta-jorge and that if heart rate goes back into the 30s will need to be started on dopamine. In the ED troponin 6, did have a slight downtrend of sodium to 132 with potassium of 5.2 and a creatinine of 1.54 up from baseline of around 1.1 hospitalist contacted for admission. Patient evaluated at bedside, systolic blood pressure in 90s and heart rate of 40, still feels somewhat nauseous and still having some intermittent lightheaded and dizzy feeling though that is improving from earlier. Reports last night she felt her A-fib and thought that her heart was going fast she was surprised this a.m. when she was in sinus rhythm. Does note flecainide was added by a physician in [place] a couple of weeks ago but had not had any problems until today. [facility] Medical History (Updated 06/15/24 @ 15:30 by Roya Soliman) Atrial fibrillation Chronic insomnia Ductal carcinoma in situ (DCIS) of left breast Dyslipidemia Essential hypertension GERD (gastroesophageal reflux disease) 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 Hyperlipidemia Left arm pain Mitral valve regurgitation New onset atrial fibrillation Nocturia Non-smoker On continuous oral anticoagulation Osteopenia Osteoporosis Palpitations Postmenopausal atrophic vaginitis Stable angina pectoris Tricuspid regurgitation Home Medications ???Medication ???Instructions ???Recorded ???Last Taken ???Type atorvastatin 10 mg tablet (Lipitor) 10 mg PO DAILY 08/20/18 Unknown History multivitamin,tx-iron -minerals 1 tab PO DAILY 12/10/19 Unknown History (Complete Multivitamin tablet) omeprazole 20 mg capsule,delayed 20 mg PO DAILY 07/15/23 Unknown History release nitroglycerin 0.4 mg sublingual 0.4 mg sublingual Q5-15M PRN chest 07/24/23 Unknown Rx tablet pain #25 tabs zolpidem 5 mg tablet 5 mg PO QHS PRN insomnia 07/24/23 Unknown History losartan 25 mg tablet 25 mg PO DAILY #90 tabs 10/01/23 Unknown Rx furosemide 40 mg tablet 40 mg PO DAILY #90 tabs 12/19/23 Unknown Rx potassium chloride 20 mEq 20 meq PO DAILY #90 tabs 12/19/23 Unknown Rx tablet,extended release diltiazem HCl 240 mg capsule,24 240 mg PO QAM #30 caps 04/16/24 Unknown Rx hr,extended release metoprolol tartrate 100 mg tablet 100 mg PO BID #180 TABLETS 05/24/24 06/15/24 Rx flecainide 100 mg tablet 100 mg PO Q12H 06/07/24 06/15/24 History apixaban 5 mg tablet (Eliquis) 5 mg PO .COMPLEX #180 tabs 06/08/24 06/15/24 Rx Allergy/AdvReac Type Severity Reaction Status Date / Time clemastine fumarate (From Allergy Unknown Verified 06/15/24 13:15 Tavist) codeine Allergy Unknown Verified 06/15/24 13:15 naproxen Allergy GI upset Verified 06/15/24 13:15 pseudoephedrine HCl (From Allergy Unknown Verified 06/15/24 13:15 Tavist) Family History Brother Kidney disease cancer Parkinsons Mother Paroxysmal atrial fibrillation Father CAD (coronary artery disease) CABG x 4 Surgical History Status post left breast lumpectomy Social History housing: house Smoking Status: Never smoker second hand exposure: No alcohol intake: current alcohol intake frequency: holidays/special occasions only substance use type: does not use what type of physical activity do you participate in: walking frequency: 3-4 times per week duration: 30-45 minutes/day seatbelt use: always additional 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 Normal [facility] L501.4020on 06-15-2024 TROPONIN-I HS 6 pg/mL Normal 3.0-54.0 [facility] Comment on above: Order Comment: 'TROP ' Serial specimen #1, #2 or #3: 1 Result Comment: Epifanio ríos Note: New Test Units and Gender Specific Reference Ranges. For more information see Policy Stat Procedure Riva High Sensitivity Troponin (TNIH) and attachments. Performed By: #### L 501.4020, L500.4050, L100.0100 ####[facility] [address] [place], [address] Laboratory - Chemistry and C hemistry - challengeOrdered By: Patricio Kwong on 06-15-2024 AST [Catalytic activity/Vol] 52 U/L High 15-37 [facility] Comment on above: Moderate Hemolysis, Result may be falsely increased. Serum globulin measurementOr dered By: Patricio Kwong on 06-15-2024 Globulin (S) [Mass/Vol] 3.5 g/dL 2.2-4.2 [facility] Serum or plasma alanine tellez otransferase (ALT) measurementOrdered By: Patricio Kwong on 06-15-2024 ALT [Catalytic activity/Vol] 57 U/L High 13-56 [facility] Serum or plasma albumin yosi urement (mass/volume)Ordered By: Patricio Kwong on 06-15-2024 Albumin [Mass/Vol] 3.7 g/dL 3.2-5.0 [facility] Serum or plasma alkaline rocío sphatase measurementOrdered By: Patricio Kwong on 06-15-2024 ALP [Catalytic activity/Vol] 75 U/L 45-117 [facility] Total proteinOrdered By: Kamryn Kwong on 06-15-2024 Protein [Mass/Vol] 7.2 g/dL 6.4-8.2 [facility] Troponin IOrdered By: Patricio varma on 06-15-2024 Troponin I High Sensitivity 6 pg/mL 3.0-54.0 [facility] Comment on above: Please Note: New Leigh t Units and Gender Specific Reference Ranges. For more information see Policy Stat Procedure Riva High Sensitivity Troponin (TNIH) and attachments. Basic Metabolic Profile (BMP )on 06-09-2024 BUN/CRE 20.5 RATIO High 10-20 [facility] Comment on above: Performed By: #### L 500.2500 ####[facility] [address] [place], [address] CA,Total 9.4 mg/dL Normal 8.5-10.1 [facility] Comment on above: Performed By: #### L 500.2500 ####[facility] [address] [place], [address] Chloride [Moles/Vol] 105 mmol/L Normal 98-107 [facility] Comment on above: Performed By: #### L 500.2500 ####[facility] [address] [place], [address] CO2 [Moles/Vol] 26.0 mmol/L Normal 21.0-32.0 [facility] Comment on above: Performed By: #### L 500.2500 ####[facility] [address] [place], [address] Creatinine [Mass/Vol] 1.12 mg/dL High 0.55-1.02 [facility] Comment on above: Result Comment: The validity of the calculated GFR GFRAA in patients over 70 years has not been determined. Clinical correlation is essential. Performed By: #### L 500.2500 ####[facility] [address] [place], [address] EST GFR - AA 61 mL/min Normal >60 [facility] Comment on above: Result Comment: Afri can Ethiopian GFR Calc Performed By: #### L 500.2500 ####[facility] [address] [place], [address] GAP 5 Normal 5-15 [facility] Comment on above: Performed By: #### L 500.2500 ####[facility] [address] [place], [address] GFR/1.73 sq M.predicted among non-blacks MDRD (S/P/Bld) [Vol rate/Area] 50 mL/min/{1.73_m2} Low >60 [facility] Comment on above: Result Comment: Non- GFR Calc Performed By: #### L 500.2500 ####[facility] [address] [place], [address] Glucose [Mass/Vol] 138 mg/dL High 74-106 [facility] Comment on above: Result Comment: Fast ing Glucose result greater than or equal to 126 mg/dL suggests DIABETES MELLITUS per A.D.A. criteria. Performed By: #### L 500.2500 ####[facility] [address] [place], [address] Potassium [Moles/Vol] 4.7 mmol/L Normal 3.5-5.1 [facility] Comment on above: Performed By: #### L 500.2500 ####[facility] [address] [place], [address] Sodium [Moles/Vol] 136 mmol/L Normal 136-145 [facility] Comment on above: Performed By: #### L 500.2500 ####[facility] [address] [place], [address] Urea nitrogen [Mass/Vol] 23 mg/dL High 7-18 [facility] Comment on above: Performed By: #### L 500.2500 ####[facility] [address] [place], [address] Blood urea nitrogen (BUN)/cr eatinine ratioOrdered By: Nadia Morgan on 06-09-2024 Urea nitrogen/Creatinine [Mass ratio] 20.5 mg/mg High 10-20 [facility] Carbon dioxide measurementOr dered By: Nadia Morgan on 06-09-2024 CO2 [Moles/Vol] 26.0 mmol/L 21.0-32.0 [facility] Chloride measurementOrdered By: Nadia Morgan on 06-09-2024 Chloride [Moles/Vol] 105 mmol/L 98-107 [facility] Estimated glomerular filtrat ion rate (GFR) AmericanOrdered By: Nadia Morgan on 06-09-2024 Estimated GFR (MDRD) Amer 61 mL/min >60 [facility] Comment on above: GFR Calc Glomerular filtration rate ( GFR) estimationOrdered By: Nadia Morgan on 06-09-2024 Estimated GFR (MDRD) Non-Af Amer 50 mL/min Low >60 [facility] Comment on above: Non- GFR Calc Glucose measurementOrdered B y: Nadia Morgan on 06-09-2024 Glucose [Mass/Vol] 138 mg/dL High 74-106 [facility] Comment on above: Fasting Glucose resu lt greater than or equal to 126 mg/dL suggests DIABETES MELLITUS per A.D.A. criteria. Potassium measurementOrdered By: Nadia Morgan on 06-09-2024 Potassium [Moles/Vol] 4.7 mmol/L 3.5-5.1 [facility] Serum anion gap measurementO rdered By: Nadia Morgan on 06-09-2024 Anion gap [Moles/Vol] 5 mmol/L 5-15 [facility] Serum or plasma calcium yosi urement (mass/volume)Ordered By: Nadia Morgan on 06-09-2024 Calcium [Mass/Vol] 9.4 mg/dL 8.5-10.1 [facility] Serum or plasma creatinine m easurement (mass/volume)Ordered By: Nadia Morgan on 06-09-2024 Creatinine [Mass/Vol] 1.12 mg/dL High 0.55-1.02 [facility] Comment on above: The validity of the calculated GFR & GFRAA in patients over 70 years has not been determined. Clinical correlation is essential. Serum or plasma urea nitroge n measurement (mass/volume)Ordered By: Nadia Morgan on 06-09-2024 Urea nitrogen [Mass/Vol] 23 mg/dL High 7-18 [facility] Sodium levelOrdered By: Oral Morgan on 06-09-2024 Sodium [Moles/Vol] 136 mmol/L 136-145 [facility] CNOVon 06-04-2024 CNOV Office Visit (CARDAGHWW) GISELA JOHNSON ([id number]) 1950 F Date Time Provider Department 06/04/24 10:20 AM [place] CARDAGHWMartin During your visit today, we recorded the following information about you: Pulse Respiration Blood pressure Weight 79/minute 16/minute 143/79 83.9 kg Height 1.6 m Brea Oh MD 06/04/2024 1:38 PM Signed PRIMARY CARE PHYSICIAN: Antonia Mendoza [address] [place] [address] REFERRING PHYSICIAN: Antonia Mendoza [address] [place] [phone] Patient Care Team: Antonia Mendoza MD as PCP - General (Internal Medicine) Chung Jacob APRN.BEEF BREAKER as Production Recorder (Internal Medicine) Angel Flores APRN.INFORMATION TECHNOLOGY ADMINISTRATOR as Production Recorder (Internal Medicine) Logan Santillan MD as Specialty President And Chief Commercial Officer (Cardiology) CHIEF COMPLAINT: Evaluation of arrhythmia HISTORY OF PRESENT ILLNESS: Ms. Johnson is a 74 year old female who presents today for evaluation of arrhythmia, accompanied by her . She was diagnosed with atrial fibrillation in early 2023. She had presented to [facility] ED in about May 2023 with palpitations, shortness of breath, lightheadedness. Episodes were worse at nighttime. She has experienced intermittent palpitations for many years. But this ED visit in early 2023 was the first time that atrial fibrillation was documented. She was treated with rate controlling medications and oral anticoagulation therapy. She followed up with general quencher operator, Dr. Santillan, of [facility]. She underwent cardiac testing including an echocardiogram. She was found to have moderately severe MR and TR, and mild to moderate AI. A cardiac stress test in August 2023 revealed no evidence for ischemia. She has still experienced frequent episodes of palpitations. She has exertional shortness of breath. She believes she has been in atrial fibrillation persistently since early 2023. A monitor technician in 07/14/2023 - 07/28/2023 revealed persistent atrial fibrillation. Medical records mention electrical cardioversion but she states she has not had one performed. She has not yet been treated with antiarrhythmic drug or electrical cardioversion. She was referred to EP for consideration of catheter ablation, initially to [facility] but Ms. Johnson did not want to wait for such an appointment so she scheduled an appointment here with us in [place]. I have confirmed and edited as necessary, the PFSH and ROS obtained by others. 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/24/2014 Was treated with tamoxifen Hyperlipidemia LDL goal < 100 05/09/2014 Nocturia Nonrheumatic aortic valve insufficiency 06/04/2024 Nonrheumatic mitral valve regurgitation 06/04/2024 Nonrheumatic tricuspid valve regurgitation 06/04/2024 Obesity, Class I, BMI 30-34.9 Paroxysmal atrial fibrillation (HCC) 12/05/2023 Persistent atrial fibrillation (HCC) 12/05/2023 Primary hypertension 12/05/2023 SOBOE (shortness of breath on exertion) PAST SURGICAL HISTORY Procedure Laterality Date BREAST LUMPECTOMY HX Left 02/16/2015 Left breast COLONOSCOPY FLX DX W/COLLJ SPEC WHEN PFRMD 02/02/2007 Colonoscopy COLONOSCOPY FLX DX W/COLLJ SPEC WHEN PFRMD 07/04/2017 Colonoscopy LIG/TRNSXJ FLP TUBE ABDL/VAG APPR UNI/BI Tubal ligation SOCIAL HISTORY Social History Tobacco Use Smoking status: Never Smokeless tobacco: Never Vaping Use Vaping status: Never Used Substance Use Topics Alcohol use: Yes Comment: rarely Drug use: No FAMILY HISTORY Problem Relation Age of Onset other (Macular Degeneration [Other]) Mother Breast Cancer Mother 76 Surgery then radiation and tamoxifen Arrhythmia Mother atrial fibrillation Diabetes Father Coronary Artery Disease Father 4 X BYPASS Stroke Father No Known Problems Brother Diabetes Brother Cancer Brother 12 RCC--Surgically excised. Alive and well now. other (Parkinson's disease [Other]) Brother Heart Maternal Grandmother Diabetes Paternal Grandmother Coronary Artery Disease Maternal Aunt Coronary Artery Disease Maternal Aunt ALLERGIES: ALLERGIES Allergen Reactions Codeine GI Upset Losartan Intolerance Naprosyn [Naproxen] GI Upset Pseudoephedrine Hcl Other: See Comments palpitations Tavist [Clemastine * GI Upset MEDICATIONS: apixaban (ELIQUIS) 5 mg tab(s) Take 1 tablet by mouth two times a day. atorvastatin (LIPITOR) 10 mg tablet Take 1 tablet by mouth once daily. omeprazole (PRILOSEC) 20 mg capsule Take 1 capsule by mouth daily before breakfast. 1/2 hr before meal. zolpidem (AMBIEN) 5 mg tablet Take 1 tablet by mouth at bedtime as needed for sedation for up to 90 days. Take immediately before bedtime with 8 hours of p (more content not included)... [facility] Telephone (CARDAGHWW) ALEXGISELA SUSHIL ([id number]) 1950 F Date Time Provider Department 06/04/24 [place] During your visit today, we recorded the following information about you: Brea Oh MD 06/04/2024 1:41 PM Signed [facility] General Electrophysiology (EP) Please let Ms. Johnson know that as we discussed at the office visit this morning I did review her case in more detail. As discussed, I did send the flecainide prescription to her [facility] pharmacy in [place]. I sent my note to [facility], as discussed she should contact them and see if they will perform the electrical cardioversion in about a week or so after she starts the flecainide. If [facility] cannot do the cardioversion, then she should let us know and I will schedule it at [facility]. Also let her know that I submitted a request for the scheduling process for catheter ablation. Brea Oh MD June 04, 2024 1:41 PM Gal Soto RN 06/04/2024 1:51 PM Signed Left message on voicemail requesting pt return call for Dr Oh's recommendation for treatment plan. Office phone number provided. ESAU Graham Stacey, RN 06/04/2024 1:57 PM Addendum Spoke with pt. Notified of Dr Oh's message and recommendations. Pt voices understanding. She will tack picker and start flecainide. She will reach out to the [facility] to arrange DCC in a week or so. She will call our office if [facility] cannot do DCCV. ESAU Graham Jessica, LPN 06/24/2024 3:39 PM Signed Nadia VILLAGRAN from [facility] called in to let you know she sent notes on patient yesterday for you to review. Patient went to ED and Flecainide and diltiazem were stopped. She wanted you to review in case you wanted Flecainide restarted. She wanted us to call patient with any updates or changes in plan of care. EMILIO Dodd Robert A, MD 07/03/2024 11:31 AM Signed [facility] Electrophysiology (EP) Reviewed records. I think what happened had more to do with the metoprolol and diltiazem impact on sinus node function after she spontaneously converted to sinus rhythm on the flecainide. I think we could resume the flecainide but use 50 mg twice daily instead of 100 mg dose, just to be on the conservative side in case the flecainide 100 mg dose was not tolerated. We can also try to expedite the ablation procedure. Please contact Ms. Johnson with this information and see if she is agreeable to the lower dosage of flecainide. Another option would be to just continue as she is doing if she is feeling ok, and just await the ablation procedure. I will send a copy of this note to [facility]. Brea Oh MD July 03, 2024 11:30 AM Fatimah Plummer LPN 07/05/2024 10:36 AM Signed I spoke to Gisela Johnson and informed them of 's response and recommendations. Patient voiced understanding and states she is willing to go back on the Flecainide at 50 mg twice daily. Script pending for approval. EMILIO Dodd Jessica, LPN 07/05/2024 10:36 AM Signed Addended by: FATIMAH PLUMMER on: 07/05/2024 10:36 AM Modules accepted: Orders Brea Oh MD 07/05/2024 12:40 PM Signed Addended by: BREA [place] on: 07/05/2024 12:40 PM Modules accepted: Orders Allergies As of Date: 06/04/2024 Noted Allergy Reaction CODEINE 02/27/2005 8 - GI Upset LOSARTAN 12/28/2021 5 - Intolerance NAPROSYN (NAPROXEN) 02/27/2005 8 - GI Upset PSEUDOEPHEDRINE HCL 06/24/2023 14 - Other: See Comments Comments: palpitations TAVIST (CLEMASTINE FUMARATE) 02/27/2005 8 - GI Upset Date Reviewed: 06/04/2024 Reviewed by: Brea Oh MD - Fully Assessed Reason for Visit: Treatment Planning [881] Primary Visit Diagnosis:Persistent atrial fibrillation (HCC) [I48.19] Order(s):flecainide (TAMBOCOR) 50 mg tabletTake 1 tablet by mouth every 12 hours.Disp: 180 tabletRfl: 3 Prescriptions as of 07/05/2024 - flecainide (TAMBOCOR) 50 mg tablet Take 1 tablet by mouth every 12 hours. - metoprolol tartrate, short acting, (LOPRESSOR) 50 mg tablet Take 1 tablet by mouth two times a day. - potassium chloride 20 mEq TbER once daily. - apixaban (ELIQUIS) 5 mg tab(s) Take 1 tablet by mouth two times a day. - atorvastatin (LIPITOR) 10 mg tablet Take 1 tablet by mouth once daily. - omeprazole (PRILOSEC) 20 mg capsule Take 1 capsule by mouth daily before breakfast. 1/2 hr before meal. - zolpidem (AMBIEN) 5 mg tablet Take 1 tablet by mouth at bedtime as needed for sedation for up to 90 days. Take immediately before bedtime with 8 hours of planned sleep before waking. For insomnia - losartan (COZAAR) 25 mg tablet Take 25 mg by mouth once daily. - nitroglycerin sublingual (NITROSTAT) 0.4 mg SL tablet (more content not included)... Normal [facility] ECG B/O W INTERP (MED OFFICE )on 06-04-2024 Interpretation and review of laboratory results Abnormal [facility] Atrial fibrillation with controlled ventricular response, average 70 bpm; PVCs more likely than aberrantly conducted beats; normal QRS duration 76 ms; QTc 451 ms [facility] Echo Completeon 05-25-2024 Echo Complete [facility] [address] [place] [address] Echo Complete 05/25/24 1355 MR#: [id number] Acct: [id number] Name: GISELA JOHNSON Rep #: [id number] : 1950 74 From: Logan Santillan MD Attending Dr: Dr. Logan Santillan MD Status: REG CLI Ordering Dr: Logan Santillan MD Date: 05/25/24 Location: [facility] Sex: F C Admitted: Reason For Study: MR, TR Procedure This was a 2D Doppler, Color Flow transthoracic echocardiogram. Exam performed in department. Left Ventricle Normal size and thickness. The left ventricular ejection fraction is 65 %. Unable to assess diastolic dysfunction due to arrhythmia. Right Ventricle Normal right ventricle. Atria There is mild biatrial dilatation. Mitral Valve Mild (1+) mitral valve insufficiency. Tricuspid Valve Moderate (2+) tricuspid valve insufficiency. Right ventricular systolic pressure estimated to be 43 mmHg. Aortic Valve Trisinus/trileaflet aortic valve. Moderate (2+) aortic valve insufficiency. Pulmonic Valve The pulmonic valve is not well visualized. Trivial pulmonic valve insufficiency. Great Vessels Normal sized aortic root. Pericardium/Pleural No pericardial effusion. MMode/2D Measurements Calculations LVIDd: 3.4 cm IVSd: 0.96 cm asc Aorta Diam: 3.2 cm LVIDs: 2.3 cm LVPWd: 0.86 cm RVDd: 3.9 cm FS: 31.2 % _ LAV(MOD-bp): 51.2 ml LVAd ap4: 17.0 cm2 SV(MOD-sp4): 22.8 ml LAV(MOD-bp) Indexed: 27.6 ml/m2 LVLd ap4: 6.5 cm SI(MOD-sp4): 12.3 ml/m2 LAV(MOD-sp2): 49.5 ml EDV(MOD-sp4): 36.7 ml LAV(MOD-sp4): 50.3 ml EDV(sp4-el): 37.7 ml LVAs ap4: 8.9 cm2 LVLs ap4: 5.2 cm ESV(MOD-sp4): 14.0 ml ESV(sp4-el): 13.0 ml EF(MOD-sp4): 62.0 % EF(sp4-el): 65.5 % _ SV(sp4-el): 24.7 ml LA A4 area: 19.0 cm2 LA dimension(2D): 4.3 cm _ RA A4 area: 13.8 cm2 TAPSE: 1.8 cm Doppler Measurements Calculations MV E max portia: 85.7 cm/sec Lat Peak E' Portia: 14.1 cm/sec Med Peak E' Portia: 8.2 cm/sec E/E' lat: 6.1 E/E' med: 10.4 _ Ao V2 max: 120.2 cm/sec AI max portia: 401.5 cm/sec LV V1 max: 76.4 cm/sec Ao max P.8 mmHg AI max P.5 mmHg LV V1 max P.3 mmHg Ao V2 mean: 90.6 cm/sec Ao mean P.6 mmHg AI dec slope: 183.9 cm/sec2 Ao V2 VTI: 26.6 cm AI P1/2t: 639.6 msec _ PA V2 max: 69.9 cm/sec PI end-d portia: 95.5 cm/sec TR max portia: 309.9 cm/sec TR max P.4 mmHg ECHO/Echo Complete Interpretation Summary The left ventricular ejection fraction is 65 %. There is mild biatrial dilatation. Mild (1+) mitral valve insufficiency. Moderate (2+) tricuspid valve insufficiency. Right ventricular systolic pressure estimated to be 43 mmHg. Moderate (2+) aortic valve insufficiency. Ordering Physician: Logan Santillan Referring Physician: Antonia Mendoza Performed By: Kate Archer, RYAN, RVT 05/28/24 1309 Date Logan Santillan MD CC: Dr. Logan Santillan MD; Dr. Antonia Mendoza MD Date Dictated: 05/25/24 1355 Date Transcribed: 05/28/24 1309 Bed And Breakfast Innkeeper: Signed Normal [facility] CNOVon 05-11-2024 [facility] Office Visit (INTMWS) GISELA JOHNSON ([id number]) 1950 F Date Time Provider Department 05/11/24 8:40 AM CHUNG JACOB INTMWS During your visit today, we recorded the following information about you: Pulse Respiration Blood pressure Weight 90/minute 16/minute 118/79 84.3 kg Chung Jacob APRN.BEEF BREAKER 05/11/2024 9:23 AM Signed SUBJECTIVE: RSV Vaccine(1 - 1-dose 75+ series) Never done HPI Gisela Johnson is a 74 year old female. PMH significant for ACTIVE PROBLEM LIST Postmenopausal Atrophic Vaginitis Osteopenia Hyperlipidemia With Target Ldl Less Than 100 Ductal Carcinoma in Situ (Dcis) of Left Breast Obesity, Class I, Bmi 30-34.9 Primary Hypertension Paroxysmal Atrial Fibrillation (Hcc) Presents for routine follow-up visit. HPI excerpted from previous visit: She was seen in office June 24, 2023 regarding palpitations. Found to be in atrial fibrillation in the office on this date. Referred to [facility]. She was seen at [facility] emergency department May 28, 2023. Troponins were negative. EKG showed that she continued in atrial fibrillation. She was treated with IV Cardizem but did not convert to sinus rhythm. She was discharged on metoprolol and Eliquis in stable condition. Follow-up echocardiogram was completed. Showed LVEF in normal range.There is mild aortic and mitral valve regurgitation (mild leakage) There is moderate tricuspid valve regurgitation (moderate leakage) There is elevation of RSVP, this can indicate volume overload. She was treated with short-term Lasix and potassium. She has been seen by [place] [facility] cardiology. Dose of metoprolol has been increased from 50 mg twice daily to 100 mg twice daily. Additional cardiology testing: stress test 07/24/2023 [facility] which was negative for ischemia with good functional capacity. Most recent cardiology visit August 21, 2023. She has an upcoming appointment in September. Today notes increased shortness of breath on exertion. Short of breath with taking 3 stairs. Able to walk a flat surface without difficulty, no shortness of breath or chest pain. Notes shortness of breath when lying down, feels better when in the recliner. Has had 7 pound weight gain since last seen. Some minor leg swelling is noted. Cough noted last night. Was not continued on Lasix and potassium which she is taking previously. She was seen in October by PCP for Medicare annual wellness visit. Subsequent follow-up with Angel Flores CNP regarding hypertension and [facility] medication changes. She noted that ablation was discussed. Today reports that she had an appointment with electrophysiology specialist in May at [facility] to discuss possibility of she is interested in seeing someone sooner than this if possible. Ablation but this appointment was canceled and rescheduled for July. She can continues to note symptomatic atrial fibrillation most often waking her at night feeling her heart racing this can happen 2-3 times per month. She was advised by [facility] to take an additional 50 mg metoprolol to tartrate when she experienced these episodes. She notes this has been effective. She reports DCCV at [facility] in July 2023 that was not effective. She continues to note shortness of breath on exertion with 1 flight of stairs. Can no longer carry a laundry basket. She notes ankle edema and weight gain if she does not take Lasix daily. Without report of headache, chest pain, palpitations, dyspnea, peripheral edema, orthopnea, and PND. Last 14 Encounter BP Readings: Date: BP: 05/11/2024 118/79 12/05/2023 132/82 11/22/2023 136/86 08/28/2023 143/72[bp average[ 06/27/2023 114/74 06/24/2023 149/72 11/12/2022 130/80 08/09/2022 138/78 05/16/2022 130/80[Home BP cuff[ 05/09/2022 152/87 12/28/2021 122/70 11/13/2021 144/72 08/10/2021 131/76 05/09/2021 136/88 Insomnia: She reports intermittent use of zolpidem which has been very effective and without adverse effects noted. Hemoglobin A1C (%) Date Value 08/14/2023 5.4 Review of Systems Constitutional: Negative. Respiratory: Positive for shortness of breath. Cardiovascular: Positive for palpitations. Objective BP 118/79 Pulse 90 Resp 16 Wt 84.3 kg (185 lb 13.6 oz) BMI 31.90 kg/m? Physical Exam Vitals and nursing note reviewed. Constitutional: Appearance: Normal appearance. HENT: Head: Normocephalic and atraumatic. Eyes: Conjunctiva/sclera: Conjunctivae normal. Neck: Thyroid: No thyromegaly. Vascular: Normal carotid pulses. JVD present. Cardiovascular: Rate and Rhythm: Normal rate. Rhythm irregular. Pulses: Carotid pulses are 2+ on the right side and 2+ on the left side. Radial pulses are 2+ on the right side and 2+ on the left side. Heart sounds: Normal heart sounds, S1 normal and S2 norm (more content not included)... Normal [facility] SCRN MAMM (CAD)W/DANA BILATo n 05-10-2024 SCRN MAMM (CAD)W/DANA BILAT [facility] Imaging Services [address] [place] [address] SCRN MAMM (CAD)W/DANA BILAT MR#: [id number] Acct: [id number] Name: ALEXGISELA LING Rep #: [id number] : 1950 F 74 From: Pablo robledo MD PCP: Dr. Antonia Mendoza MD Status: [facility] Study: SCRN MAMM (CAD)W/DANA BILAT Date of Exam: 04/25 11/16 Exam# [id number] Ordering Dr: Yanna Sinclair [id number] MAMMOGRAPHY - BILATERAL SCREENING REASON FOR EXAM: Female, 74 years old. Routine annual screening examination. PERTINENT [...] performed. COMPARISON: Comparison is made with prior study dated May 08, 2023 and May 06, 2022. FINDINGS: Breast Composition: There are scattered areas of fibroglandular density. There are no dominant masses or suspicious calcifications. Stable postsurgical architectural distortion in the inferior midportion of the left breast No other significant abnormalities are identified. There has been no significant change since the prior study. BI/SCRN MAMM (CAD)W/DANA BILAT IMPRESSION: Stable bilateral screening mammogram. Yearly follow-up mammogram recommended. (A) ASSESSMENT CATEGORY: BIRADS Category 2: Benign. A letter regarding these results will be sent to the patient by the facility within 30 days. Approximately 10% of breast cancers are not detected by mammography. A normal mammogram should not delay biopsy of a clinically suspicious abnormality. [id number] Electronically Signed: Pablo Manzo MD at 12:23 EST , CC: Dr. Antonia Mendoza MD; Dr. Yanna Sinclair MD Bed And Breakfast Innkeeper: Signed Normal [facility] Cardiology Visit Reporton Cardiology Visit Report [facility] [address] [place] [address] OFFICE VISIT Date of Service: 04/15/24 MR#: [id number] Acct: [id number] Name: GISELA JOHNSON Rep #: [id number] : 1950 Provider: Dr. Logan Santillan MD Age/Sex: 74/F Location: [facility] [place] Status: Signed HPI HPI History of Present Illness Details: This lady with a past medical history significant for permanent atrial fibrillation, moderate to severe mitral valve regurgitation and tricuspid valve regurgitation is here for follow-up visit. Denies any chest pains. No shortness of breath either at rest or with exertion. Denies orthopnea or PND. No ankle edema. Her only complaint is feeling her heart beat fast particularly at night. No lightheadedness or dizziness. No syncope or presyncope. Intake Vital Signs 12/25/23 08:31 04/15/24 08:51 Height 5 ft 3 in 5 ft 3 in Weight: 185 lb BMI 32.8 BP 113/68 Blood Pressure Location Rt brachial Position Sitting Respiration 18 Pulse 75 Pulse Source NIBP Intake Visit Reasons: 6 M [employer] Worker Required: No Accompanied by: Self Is patient in pain?: No Allergies acetaminophen (From Tav[facility]) Allergy (Verified 04/15/24 14:10) Unknown clemastine fumarate (From Tav[facility]) Allergy (Verified 04/15/24 14:10) Unknown codeine Allergy (Verified 04/15/24 14:10) Unknown naproxen Allergy (Verified 04/15/24 14:10) GI upset pseudoephedrine HCl (From [facility]) Allergy (Verified 04/15/24 14:10) Unknown Medications ???Medication ???Instructions ???Recorded ???Confirmed ???Type atorvastatin 10 mg tablet (Lipitor) 10 mg PO DAILY 08/20/18 04/15/24 History multivitamin,tx-iron -minerals 1 tab PO DAILY 12/10/19 04/15/24 History (Complete Multivitamin tablet) apixaban 5 mg tablet (Eliquis) 5 mg PO BID #20 tabs 06/24/23 04/15/24 Rx omeprazole 20 mg capsule,delayed 20 mg PO DAILY 07/15/23 04/15/24 History release metoprolol tartrate 100 mg tablet 100 mg PO BID #180 tabs 07/24/23 04/15/24 Rx nitroglycerin 0.4 mg sublingual 0.4 mg sublingual Q5-15M PRN chest 07/24/23 04/15/24 Rx tablet pain #25 tabs zolpidem 5 mg tablet 5 mg PO QHS 07/24/23 04/15/24 History losartan 25 mg tablet 25 mg PO DAILY #90 tabs 10/01/23 04/15/24 Rx diltiazem HCl 180 mg capsule,24 180 mg PO DAILY #90 caps 11/11/23 04/15/24 Rx hr,extended release furosemide 40 mg tablet 40 mg PO DAILY #90 tabs 12/19/23 04/15/24 Rx potassium chloride 20 mEq 20 meq PO DAILY #90 tabs 12/19/23 04/15/24 Rx tablet,extended release Ejection fraction %: 70 Have you fallen in the past year?: No PFSH Medical History Mitral valve regurgitation Tricuspid regurgitation Dyslipidemia Stable angina pectoris Atrial fibrillation On continuous oral anticoagulation Left arm pain Nocturia Chronic insomnia Essential hypertension Palpitations Hyperlipidemia Osteopenia Postmenopausal atrophic vaginitis New onset atrial fibrillation 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 Ductal carcinoma in situ (DCIS) of left breast Surgical History Status post left breast lumpectomy Family History Brother Kidney disease cancer Parkinsons Mother Paroxysmal atrial fibrillation Father CAD (coronary artery disease) CABG x 4 Social History housing: house Smoking Status: Never smoker second hand exposure: No alcohol intake: current alcohol intake frequency: holidays/special occasions only substance use type: does not use what type of physical activity do you participate in: walking frequency: 3-4 times per week duration: 30-45 minutes/day seatbelt use: always additional social history: 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 ROS Const Const: Negative for fatigue, weakness, headache(s) or weight gain ENT ENT: Negative for headache(s), dizziness, Nosebleed/epistaxis or balance problems Cardio Chest Pain: No Palpitations: No Edema: None Muscle aches with walking: None Resp Respiratory: Positive for SOB with activity (w/ stairs); Negative for SOB at rest or SOB orthopnea SOB lying down GI GI: Negative nausea, vomiting or heartburn Musc Musc: Positive for joint pain (left shoulder); Negative for muscle aches/ myalgia, muscle weakness or balance problems Neuro Neuro: Negative for dizziness, lightheadedness, near syncope, syncope, headache(s) or weakness Endo Endo: Negative for fatigue Cardiology Exam Const Appearance: comfortable and no acute distress Nutritional Appearance: well nourished Neck Neck: no JVD Carotids: Negative bruit Chest Auscultation: Bilateral: Clear to Auscultation Car (more content not included)... Normal [facility] Affiliate Marketing Coordinator Office Visit Reporton 12-25-2023 Affiliate Marketing Coordinator Office Visit Report [facility] [address] [place] [address] OFFICE VISIT Date of Service: 12/25/23 MR#: [id number] Acct: [id number] Name: GISELA JOHNSON Rep #: [id number] : 1950 Provider: Dr. 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) [employer] Worker Required: No Is patient in pain?: No Allergies acetaminophen (From T[facility]) Allergy (Verified 12/25/23 08:30) Unknown clemastine fumarate (From [facility]) Allergy (Verified 12/25/23 08:30) Unknown codeine Allergy (Verified 12/25/23 08:30) Unknown naproxen Allergy (Verified 12/25/23 08:30) GI upset pseudoephedrine HCl (From [facility]) Allergy (Verified 12/25/23 08:30) Unknown Medications ???Medication ???Instructions ???Recorded ???Confirmed ???Type atorvastatin 10 mg tablet (Lipitor) 10 mg PO DAILY 08/20/18 12/25/23 History multivitamin,tx-iron -minerals 1 tab PO DAILY 12/10/19 12/25/23 History (Complete Multivitamin tablet) apixaban 5 mg tablet (Eliquis) 5 mg PO BID #20 tabs 06/24/23 12/25/23 Rx omeprazole 20 mg capsule,delayed 20 mg PO DAILY 07/15/23 12/25/23 History release metoprolol tartrate 100 mg tablet 100 mg PO BID #180 tabs 07/24/23 12/25/23 Rx nitroglycerin 0.4 mg sublingual 0.4 mg sublingual Q5-15M PRN chest 07/24/23 12/25/23 Rx tablet pain #25 tabs zolpidem 5 mg tablet 5 mg PO QHS 07/24/23 12/25/23 History losartan 25 mg tablet 25 mg PO DAILY #90 tabs 10/01/23 12/25/23 Rx diltiazem HCl 180 mg capsule,24 180 mg PO DAILY #90 caps 11/11/23 12/25/23 Rx hr,extended release furosemide 40 mg tablet 40 mg PO DAILY #90 tabs 12/19/23 12/25/23 Rx potassium chloride 20 mEq 20 meq PO DAILY #90 tabs 12/19/23 12/25/23 Rx tablet,extended release Is last menstrual period known: No Post menopausal: Yes Patient : No : No PFSH Medical History Mitral valve regurgitation Tricuspid regurgitation Dyslipidemia Stable angina pectoris Atrial fibrillation On continuous oral anticoagulation Left arm pain Nocturia Chronic insomnia Essential hypertension Palpitations Hyperlipidemia Osteopenia Postmenopausal atrophic vaginitis New onset atrial fibrillation 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 Ductal carcinoma in situ (DCIS) of left breast Surgical History Status post left breast lumpectomy Family History Brother Kidney disease cancer Parkinsons Mother Paroxysmal atrial fibrillation Father CAD (coronary artery disease) CABG x 4 Social History housing: house Smoking Status: Never smoker second hand exposure: No alcohol intake: current alcohol intake frequency: holidays/special occasions only substance use type: does not use what type of physical activity do you participate in: walking frequency: 3-4 times per week duration: 30-45 minutes/day seatbelt use: always additional social history: 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 Date Name GA/Weeks Outcome Route Bth Weight Infant Gen Labor Lgth Anesthesia Del Locatn Provider FOB Unknown 1971 Collin live - full term Unknown 1975 Gal live - full term HPI Encounter for routine gynecological examination Details: GISELA JOHNSON is a 73 year old who presents for annual exam. undergoing cardio workup and treatment possible ablation in may Last PAP: nl in past History of abnormal PAP: no Last mammogram: ca in past History of abnormal mammogram: yes CA 2014 Colon cancer screening: up to date Other preventative health care screenings: pat Female Reproductive History Menopausal Symptoms: No hot flashes, No night sweats, No difficulty concentrating and No change in libido ROS Const Constitutional: Reports as per HPI; Denies fatigue, increased appetite, poor appetite, night sweats, weight gain or weight loss Cardio Card: Denies chest pain Resp Resp: Reports dyspnea (seein cardiology); Denies cough GI GI: Reports as per HPI; Denies abdominal pain, bloating, constipation, nausea or vomiting : Reports as per HPI, urinary frequency and other; Denies difficulty voiding, dysuria, (more content not included)... [facility] CNOVon 12-05-2023 CNOV Office Visit (INTMWS) GISELA JOHNSON ([id number]) 1950 F Date Time Provider Department 12/05/23 1:00 PM ANGEL FLORES INTArelyWS During your visit today, we recorded the following information about you: Respiration Blood pressure Weight Height 14/minute 132/82 80.3 kg 1.626 m Radha Cole LPN 12/05/2023 12:52 PM Signed Patient brought in home BP monitor right arm large cuff reading in office 143/89 Angel Flores APRN.INFORMATION TECHNOLOGY ADMINISTRATOR 12/05/2023 1:36 PM Signed SUBJECTIVE Gisela Johnson is a 73 year old female here today for a check up on her medical problems. Chief Complaint Patient presents with: Blood Pressure: check bp- home monitor was high, also clarify new meds that prescribed from the [facility] HPI Gisela is a 73 year old female who presents for follow-up for hypertension. They are here today for a recheck of blood pressure. Blood pressure appears to be stable. Denies any symptoms referable to elevated blood pressure. Specifically denies headache, chest pain, palpitations, dyspnea and peripheral edema. Tolerating medications well. Following with [facility], seeing specialist to discuss possible ablation for her a fib. Her medications were reviewed today and her list is now up to date. Medications Current Outpatient Medications Medication Sig potassium chloride 20 mEq/15 mL solution Take 15 mL by mouth once daily. furosemide (LASIX) 40 mg tablet Take 1 tablet by mouth once daily. losartan (COZAAR) 25 mg tablet Take 25 mg by mouth once daily. dilTIAZem CD (CARDIZEM CD, CARTIA XT) 180 mg 24 hr capsule Take 180 mg by mouth once daily. nitroglycerin sublingual (NITROSTAT) 0.4 mg SL tablet Dissolve 0.4 mg under the tongue every 5 minutes as needed for chest pain. zolpidem (AMBIEN) 5 mg tablet Take 1 tablet by mouth at bedtime as needed for sedation for up to 90 days. Take immediately before bedtime with 8 hours of planned sleep before waking. For insomnia metoprolol tartrate, short acting, (LOPRESSOR) 100 mg tablet Take 100 mg by mouth two times a day. [facility] atorvastatin (LIPITOR) 10 mg tablet Take 1 tablet by mouth once daily. omeprazole (PRILOSEC) 20 mg capsule Take 1 capsule by mouth daily before breakfast. 1/2 hr before meal. apixaban (ELIQUIS) 5 mg tab(s) Take 1 tablet by mouth two times a day. MULTIVITAMIN CAP Take one(1) tablet daily. No current facility-administere d medications for this visit. 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 Respiratory: Negative. Cardiovascular: Negative. OBJECTIVE BP 132/82 Resp 14 Ht 5' 4 (1.63m) Wt 177 lb (80.3kg) BMI 30.37 kg/(m2). Physical Exam Vitals and nursing note reviewed. Constitutional: General: She is awake. She is not in acute distress. Appearance: Normal appearance. She is well-developed and well-groomed. She is not ill-appearing, toxic-appearing or diaphoretic. HENT: Head: Normocephalic. Right Ear: External ear normal. Left Ear: External ear normal. Nose: Nose normal. Eyes: General: Vision grossly intact. Conjunctiva/sclera: Conjunctivae normal. Pupils: Pupils are equal, round, and reactive to light. Neck: Vascular: No JVD. Trachea: Trachea normal. Cardiovascular: Rate and Rhythm: Normal rate. Rhythm irregular. Pulses: Normal pulses. Heart sounds: Normal heart sounds. No murmur heard. Pulmonary: Effort: Pulmonary effort is normal. No accessory muscle usage, prolonged expiration or respiratory distress. Breath sounds: Normal breath sounds. Musculoskeletal: Cervical back: Neck supple. Skin: General: Skin is warm and dry. Capillary Refill: Capillary refill takes less than 2 seconds. Neurological: General: No focal deficit present. Mental Status: She is alert and oriented to person, place, and time. Mental status is at baseline. Psychiatric: Attention and Perception: Attention and perception normal. Mood and Affect: Mood and affect normal. Speech: Speech normal. Behavior: Behavior normal. Behavior is cooperative. Thought Content: Thought content normal. Cognition and Memory: Cognition and memory normal. Judgment: Tonja (more content not included)... Normal [facility] CNOVon 11-22-2023 CNOV Office Visit (INTMWS) GISELA JOHNSON ([id number]) 1950 F Date Time Provider Department 11/22/23 8:00 AM ANTONIA MENDOZA INTMWS During your visit today, we recorded the following information about you: Pulse Respiration Blood pressure Weight 96/minute 16/minute 136/86 79.8 kg Height 1.64 m Antonia Mendoza MD 11/22/2023 1:26 PM Signed This note was created using Yell.[email or web address]. Subjective Gisela Johnson is a 73 year old female. HISTORY Gisela Johnson is a 73 year old lady here for yearly exam and follow up appointment. Following with [facility] for a fib. Goes in and out a fib. Seen last Friday. Plans for May ablation at [facility]. On cancellation list. Home BP 92/59 with heart 68 at home. Ambien does help when needed. Does not need every night. 5 to 7 hours. Without it, might get only an hour and a half. Left lower rib pain that occurs if turns to the left like when pulling weeds while sitting in a chair in the garden. 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 dilTIAZem CD (CARDIZEM CD, CARTIA XT) 180 mg 24 hr capsule Take 180 mg by mouth once daily. nitroglycerin sublingual (NITROSTAT) 0.4 mg SL tablet Dissolve 0.4 mg under the tongue every 5 minutes as needed for chest pain. zolpidem (AMBIEN) 5 mg tablet Take 1 tablet by mouth at bedtime as needed for sedation for up to 90 days. Take immediately before bedtime with 8 hours of planned sleep before waking. For insomnia potassium chloride SR (MICRO-K) 8 mEq cpER Take 1 capsule by mouth once daily. furosemide (LASIX) 20 mg tablet Take 1 tablet by mouth once daily. metoprolol tartrate, short acting, (LOPRESSOR) 100 mg tablet Take 100 mg by mouth two times a day. [facility] atorvastatin (LIPITOR) 10 mg tablet Take 1 tablet by mouth once daily. omeprazole (PRILOSEC) 20 mg capsule Take 1 capsule by mouth daily before breakfast. 1/2 hr before meal. apixaban (ELIQUIS) 5 mg tab(s) Take 1 tablet by mouth two times a day. MULTIVITAMIN CAP Take one(1) tablet daily. ELIQUIS 5 mg tab(s) Take 5 mg by mouth two times a day. (Patient not taking: Reported on 08/28/2023) No current facility-administere d medications for this visit. ALLERGIES Allergen Reactions Acetaminophen Unknown Codeine GI Upset Losartan Intolerance Naprosyn [Naproxen] GI Upset Pseudoephedrine Hcl Unknown Tavist [Clemastine * GI Upset FAMILY HISTORY Problem Relation Age of Onset [...] use: No Review of Systems Objective BP 136/86 Pulse 96 Resp 16 Ht 164 cm (5' 4.57) Wt 79.8 kg (176 lb) SpO2 96% BMI 29.68 kg/m? Last 5 Encounter Wt Readings: Date: Wt: 11/22/2023 79.8 kg (176 lb) 08/28/2023 82.1 kg (181 lb) 06/27/2023 78.9 kg (174 lb) 06/24/2023 79.4 kg (175 lb) 11/12/2022 75.8 kg (167 lb) No waist measurement recorded Estimated body mass index is 29.68 kg/m? as calculated from the following: Height as of this encounter: 164 cm (5' 4.57). Weight as of this encounter: 79.8 kg (176 lb). Last 5 Encounter BP Readings: Date: BP: 11/22/2023 136/86 08/28/2023 143/72[bp average[ 06/27/2023 114/74 06/24/2023 149/72 11/12/2022 130/80 Physical Exam Vitals reviewed. Constitutional: Appearance: She is well-developed. HENT: Head: Normocephalic and atraumatic. Right Ear: External ear normal. Left Ear: External ear normal. Nose: Nose normal. Eyes: Conjunctiva/sclera: Conjunctivae normal. Neck: Thyroid: No thyromegaly. Vascular: No carotid bruit. Cardiovascular: Rate and Rhythm: Normal rate and [...] General: No deformity. Normal range of motion. Right lo (more content not included)... Normal [facility] 11-13-2023 [facility] Telephone (INTMWS) ALEXGISELA LING ([id number]) 1950 F Date Time Provider Department 11/13/23 ANTONIA MENDOZA During your visit today, we recorded the following information about you: Tasha Bernstein LPN 11/13/2023 8:17 AM Signed Pt walked in questioning any labs due. Pt has yearly with pcp 11/22/23. Any labs due for this appt? Call pt with response. Chung Jacob APRN.BEEF BREAKER 11/13/2023 4:38 PM Signed She had labs in July, does not look like she needs any labs for upcoming appointment Tasha Bernstein LPN 11/13/2023 4:48 PM Signed Pt notified. Allergies As of Date: 11/13/2023 Noted Allergy Reaction ACETAMINOPHEN 12/23/2022 16 - Unknown CODEINE 02/27/2005 8 - GI Upset LOSARTAN 12/28/2021 5 - Intolerance NAPROSYN (NAPROXEN) 02/27/2005 8 - GI Upset PSEUDOEPHEDRINE HCL 06/24/2023 16 - Unknown TAVIST (CLEMASTINE FUMARATE) 02/27/2005 8 - GI Upset Date Reviewed: 08/28/2023 Reviewed by: Katy Quesada LPN - Fully Assessed Reason for Visit: Orders [681] Prescriptions as of 11/13/2023 - potassium chloride SR (MICRO-K) 8 mEq cpER Take 1 capsule by mouth once daily. - furosemide (LASIX) 20 mg tablet Take 1 tablet by mouth once daily. - metoprolol tartrate, short acting, (LOPRESSOR) 100 mg tablet Take 100 mg by mouth two times a day. [facility] - atorvastatin (LIPITOR) 10 mg tablet Take 1 tablet by mouth once daily. - omeprazole (PRILOSEC) 20 mg capsule Take 1 capsule by mouth daily before breakfast. 1/2 hr before meal. - zolpidem (AMBIEN) 5 mg tablet Take 1 tablet by mouth at bedtime as needed for sedation for up to 90 days. Take immediately before bedtime with 8 hours of planned sleep before waking. For insomnia - ELIQUIS 5 mg tab(s) Take 5 mg by mouth two times a day. - apixaban (ELIQUIS) 5 mg tab(s) Take 1 tablet by mouth two times a day. - MULTIVITAMIN CAP Take one(1) tablet daily. Meds Comments as of 03/17/2020: mag. Anju Crawley Ma Problem List As Of Date 11/13/2023 Noted Resolved Dysmetabolic syndrome X [E88.810] 11/11/2006 05/09/2014 GERD (gastroesophageal reflux disease) [K21.9] 03/03/2009 09/28/2015 Postmenopausal atrophic vaginitis [N95.2] 10/22/2012 Osteopenia [M85.80] 10/29/2013 Hyperlipidemia with target LDL less than 100 [E*05/09/2014 Ductal carcinoma in situ (DCIS) of left breast *12/24/2014 Encounter Status:Closed by TASHA BERNSTEIN on 11/13/23 Normal [facility] Cardiology Visit Reporton Cardiology Visit Report [facility] [address] [place] [address] OFFICE VISIT Date of Service: 11/11/23 MR#: [id number] Acct: [id number] Name: GISELA JOHNSON Rep #: [id number] : 1950 Provider: Dr. Logan Santillan MD Age/Sex: 73/F Location: [facility] [place] Status: Signed HPI [facility] History of Present Illness Details: This patient with atrial fibrillation and mitral valve regurgitation is here for follow-up visit. Overall feels better. No chest pains. Shortness of breath with strenuous exertion only. Denies orthopnea or PND. Rare ankle edema. Occasional palpitations with strenuous activity only. Intake Vital Signs 09/24/23 08:43 11/11/23 08:41 Height 5 ft 3 in 5 ft 3 in Weight: 177 lb 176 lb BMI 31.3 31.1 BP 138/81 H 114/70 Blood Pressure Location Rt brachial Rt brachial Position Sitting Sitting Respiration 16 16 Pulse 88 69 Pulse Source Auscultation Monitor Intake Visit Reasons: 8 W FU [employer] Worker Required: No Accompanied by: Self Is patient in pain?: No Allergies acetaminophen (From Tavist) Allergy (Verified 11/11/23 08:48) Unknown clemastine fumarate (From Tavist) Allergy (Verified 11/11/23 08:48) Unknown codeine Allergy (Verified 11/11/23 08:48) Unknown naproxen Allergy (Verified 11/11/23 08:48) GI upset pseudoephedrine HCl (From Tavist) Allergy (Verified 11/11/23 08:48) Unknown Medications ???Medication ???Instructions ???Recorded ???Confirmed ???Type atorvastatin 10 mg tablet (Lipitor) 10 mg PO DAILY 08/20/18 11/11/23 History multivitamin,tx-iron -minerals 1 tab PO DAILY 12/10/19 11/11/23 History (Complete Multivitamin tablet) apixaban 5 mg tablet (Eliquis) 5 mg PO BID #20 tabs 06/24/23 11/11/23 Rx omeprazole 20 mg capsule,delayed 20 mg PO DAILY 07/15/23 11/11/23 History release metoprolol tartrate 100 mg tablet 100 mg PO BID #180 tabs 07/24/23 11/11/23 Rx nitroglycerin 0.4 mg sublingual 0.4 mg sublingual Q5-15M PRN chest 07/24/23 11/11/23 Rx tablet pain #25 tabs zolpidem 5 mg tablet 5 mg PO QHS 07/24/23 11/11/23 History furosemide 40 mg tablet 40 mg PO DAILY #90 tabs 09/24/23 11/11/23 Rx losartan 25 mg tablet 25 mg PO DAILY #90 tabs 10/01/23 11/11/23 Rx potassium chloride 20 mEq 20 meq PO DAILY #90 tabs 10/01/23 11/11/23 Rx tablet,extended release diltiazem HCl 180 mg capsule,24 180 mg PO DAILY #90 caps 11/11/23 11/11/23 Rx hr,extended release Ejection fraction %: 70 PFSH Medical History Mitral valve regurgitation Tricuspid regurgitation Dyslipidemia Stable angina pectoris Atrial fibrillation On continuous oral anticoagulation Left arm pain Nocturia Chronic insomnia Essential hypertension Palpitations Hyperlipidemia Osteopenia Postmenopausal atrophic vaginitis New onset atrial fibrillation 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 Ductal carcinoma in situ (DCIS) of left breast Surgical History Status post left breast lumpectomy Family History Brother Kidney disease cancer Parkinsons Mother Paroxysmal atrial fibrillation Father CAD (coronary artery disease) CABG x 4 Social History housing: house Smoking Status: Never smoker second hand exposure: No alcohol intake: current alcohol intake frequency: holidays/special occasions only substance use type: does not use what type of physical activity do you participate in: walking frequency: 3-4 times per week duration: 30-45 minutes/day seatbelt use: always additional social history: 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 ROS Const Const: Positive for difficulty sleeping; Negative for fatigue, weakness, headache(s), frequent falls or excessive sweating Eyes Eyes: Negative for loss of peripheral vision, transient loss of vision, blurry vision, double vision or tunnel vision ENT ENT: Negative for headache(s), dizziness, Nosebleed/epistaxis or balance problems Cardio Chest Pain: No Palpitations: Yes (fluttery) feels like its: skipping Edema: Bilateral Muscle aches with walking: None Resp Respiratory: Positive for SOB with activity; Negative for SOB at rest, SOB orthopnea SOB lying down, Cough or paroxysmal nocturnal dyspnea GI GI: Negative nausea, vomiting, heartburn or black,tarry stools : Negative for hematuria Musc Musc: Negative for muscle aches/ myalgia, muscle weakness, joint pain or balance problems Skin Skin: Negative non-healing lesions, rash or unusual bruising Neuro Neuro: Negative for dizziness, lightheadedness, near syncope, syncope, frequent falls, headache(s), weakness, blurry vision, double vision or lack of coordination Darian Darian (more content not included)... [facility] Alo 09-01-2023 MARSHAN Telephone (INTMWS) ALEXGISELA ([id number]) 1950 F Date Time Provider Department 09/01/23 ANTONIA MENDOZA During your visit today, we recorded the following information about you: Bethany Marroquin LPN 09/01/2023 11:31 AM Signed Pt called with an update. Pt was seen earlier and put on Lasix and she has last 7# and reports feeling much better. Pt was also put on potassium and wants to know if she is to continue on this. Please advise pt on taking above medications. EMILIO Fishcer Terri, APRN.BEEF BREAKER 09/01/2023 12:02 PM Signed Should should take lasix and potassium until seen by cardiology. Take potassium as long as she is taking lasix. Katy Quesada LPN 09/01/2023 12:13 PM Signed Patient notified of providers message and verbalized understanding. Allergies As of Date: 09/01/2023 Noted Allergy Reaction ACETAMINOPHEN 12/23/2022 16 - Unknown CODEINE 02/27/2005 8 - GI Upset LOSARTAN 12/28/2021 5 - Intolerance NAPROSYN (NAPROXEN) 02/27/2005 8 - GI Upset PSEUDOEPHEDRINE HCL 06/24/2023 16 - Unknown TAVIST (CLEMASTINE FUMARATE) 02/27/2005 8 - GI Upset Date Reviewed: 08/28/2023 Reviewed by: Katy Quesada LPN - Fully Assessed Reason for Visit: patient update on medication [Other] Prescriptions as of 09/01/2023 - potassium chloride SR (MICRO-K) 8 mEq cpER Take 1 capsule by mouth once daily. - furosemide (LASIX) 20 mg tablet Take 1 tablet by mouth once daily. - metoprolol tartrate, short acting, (LOPRESSOR) 100 mg tablet Take 100 mg by mouth two times a day. [facility] - atorvastatin (LIPITOR) 10 mg tablet Take 1 tablet by mouth once daily. - omeprazole (PRILOSEC) 20 mg capsule Take 1 capsule by mouth daily before breakfast. 1/2 hr before meal. - zolpidem (AMBIEN) 5 mg tablet Take 1 tablet by mouth at bedtime as needed for sedation for up to 90 days. Take immediately before bedtime with 8 hours of planned sleep before waking. For insomnia - ELIQUIS 5 mg tab(s) Take 5 mg by mouth two times a day. - apixaban (ELIQUIS) 5 mg tab(s) Take 1 tablet by mouth two times a day. - MULTIVITAMIN CAP Take one(1) tablet daily. Meds Comments as of 03/17/2020: mag. Anju Crawley Ma Problem List As Of Date 09/01/2023 Noted Resolved Dysmetabolic syndrome X [E88.810] 11/11/2006 05/09/2014 GERD (gastroesophageal reflux disease) [K21.9] 03/03/2009 09/28/2015 Postmenopausal atrophic vaginitis [N95.2] 10/22/2012 Osteopenia [M85.80] 10/29/2013 Hyperlipidemia with target LDL less than 100 [E*05/09/2014 Ductal carcinoma in situ (DCIS) of left breast *12/24/2014 Encounter Status:Closed by KATY QUESADA on 09/01/23 Normal [facility] XR Chest PA and Lateralon IMPRESSION: Small bilateral pleural fluid collections Cardiomegaly Bed And Breakfast Innkeeper: JACOB Transcribe Date/Time: Aug 28 2023 1:55P Dictated by : RICARDO WATSON MD This examination was interpreted and the report reviewed and electronically signed by: RICARDO WATSON MD on Aug 28 2023 1:56PM [facility] DIVISION OF RADIOLOGY * * *Final Report* * * DATE OF EXAM: Aug 28 2023 1:55PM WOX [id number] - XR CHEST 2V FRONTAL/LAT / PROCEDURE REASON: multiple diagnoses * * * * Physician Interpretation * * * * EXAMINATION: CHEST RADIOGRAPH (2 VIEW FRONTAL & LATERAL) CLINICAL HISTORY: SOBOE (shortness of breath on exertion) New onset atrial fibrillation (HCC) MQ: XC2_6 EXAM DATE/TIME: 08/28/2023 1:55 PM COMPARISON: 08/09/2022 RESULT: Lines, tubes, and devices: None. Lungs and pleura: No consolidation. No lung mass. No pneumothorax. New small bilateral pleural fluid collections Cardiomediastinal silhouette: Mildly enlarged cardiomediastinal silhouette. The aorta is unfolded and ectatic Bones and soft tissues: Unremarkable. DIVISION OF RADIOLOGY Provider, [facility] [place] - 08/28/2023 * * *Final Report* * * DATE OF EXAM: Aug 28 2023 1:55PM WOX [id number] - XR CHEST 2V FRONTAL/LAT / PROCEDURE REASON: multiple diagnoses * * * * Physician Interpretation * * * * EXAMINATION: CHEST RADIOGRAPH (2 VIEW FRONTAL & LATERAL) CLINICAL HISTORY: SOBOE (shortness of breath on exertion) New onset atrial fibrillation (HCC) MQ: XC2_6 EXAM DATE/TIME: 08/28/2023 1:55 PM COMPARISON: 08/09/2022 RESULT: Lines, tubes, and devices: None. Lungs and pleura: No consolidation. No lung mass. No pneumothorax. New small bilateral pleural fluid collections Cardiomediastinal silhouette: Mildly enlarged cardiomediastinal silhouette. The aorta is unfolded and ectatic Bones and soft tissues: Unremarkable. IMPRESSION IMPRESSION: Small bilateral pleural fluid collections Cardiomegaly Bed And Breakfast Innkeeper: JACOB Transcribe Date/Time: Aug 28 2023 1:55P Dictated by : RICARDO WATSON MD This examination was interpreted and the report reviewed and electronically signed by: RICARDO WATSON MD on Aug 28 2023 1:56PM [facility] Radiology Study observation (narrative) [facility] XR Chest PA and LateralOrder ed By: Ccf Provider on 08-28-2023 [facility] Absolute lymphocyte countOrd ered By: Jorge Luis Johnson on 06-24-2023 Lymphocytes Auto (Unsp spec) [#/Vol] 2.05 10*3/uL 0.83-4.51 [facility] Automated lymphocyte count a s percentage of total leukocytesOrdered By: Jorge Luis Johnson on 06-24-2023 Lymphocytes/100 WBC Auto (Unsp spec) 29.7 % 19-41 [facility] Basophil percentageOrdered B y: Jorge Luis Johnson on 06-24-2023 Basophils/100 WBC (Bld) 0.4 % 0-1 [facility] Chloride [Moles/Vol] 108 mmol/L 98-107 [facility] Eosinophils/100 WBC (Bld) 1.4 % 0-5 [facility] Glucose [Mass/Vol] 92 mg/dL 74-106 [facility] Hemoglobin (Bld) [Mass/Vol] 14.2 g/dL 12.0-15.0 [facility] Monocytes/100 WBC (Bld) 11.7 % 0-10 [facility] Neutrophils (Bld) [#/Vol] 3.9 10*3/uL 2.0-7.7 [facility] Neutrophils/100 WBC (Bld) 56.5 % 47-70 [facility] Potassium [Moles/Vol] 4.1 mmol/L 3.5-5.1 [facility] Sodium [Moles/Vol] 140 mmol/L 136-145 [facility] WBC (Bld) [#/Vol] 6.9 10*3/uL 4.4-11.0 [facility] Determination of erythrocyte mean corpuscular volume (MCV)Ordered By: Jorge Luis Johnson on 06-24-2023 MCV (RBC) [Entitic vol] 89.0 fL 81-99 [facility] Erythrocyte distribution wid th ratioOrdered By: Jorge Luis Johnson on 06-24-2023 Erythrocyte distribution width (RBC) [Ratio] 13.1 % 11.6-14.6 [facility] Erythrocyte distribution wid th standard deviationOrdered By: Jorge Luis Johnson on 06-24-2023 Erythrocyte distribution width (RBC) [Entitic vol] 42.5 fL 35.1-43.9 [facility] Hematocrit Auto (Bld) [Volum e fraction]Ordered By: Jorge Luis Johnson on 06-24-2023 Hematocrit (Bld) [Volume fraction] 43.1 % 37-47 [facility] Immature granulocytes/100 WB C Auto (Bld)Ordered By: Jorge Luis Johnson on 06-24-2023 Immature granulocytes/100 WBC (Bld) 0.300 % 0.0-0.9 [facility] Comment on above: IG% - Immature Granu locytes (promyelocytes, myelocytes and metamyelocytes) > 1% indicates that a LEFT SHIFT is Present. International normalized rat io (INR) calculationOrdered By: Jorge Luis Johnson on 06-24-2023 INR Coag (PPP) [Relative time] 1.0 {INR} [facility] Laboratory - Chemistry and C hemistry - challengeOrdered By: Jorge Luis Johnson on 06-24-2023 CO2 [Moles/Vol] 26.0 mmol/L 21.0-32.0 [facility] Urea nitrogen/Creatinine [Mass ratio] 22.2 mg/mg 10-20 [facility] Laboratory - CoagulationOrde red By: Jorge Luis Johnson on 06-24-2023 PT Coag (PPP) [Time] 12.8 s 11.7-14.9 [facility] Laboratory - Hematology and Cell countsOrdered By: Jorge Luis Johnson on 06-24-2023 MCH (RBC) [Entitic mass] 29.3 pg 27.0-32.0 [facility] MCHC (RBC) [Mass/Vol] 32.9 g/dL 32-36 [facility] Nucleated RBC/100 WBC (Bld) [Ratio] 0 % 0-5 [facility] Platelets (Bld) [#/Vol] 186 10*3/uL 150-450 [facility] No Panel InformationOrdered By: Jorge Luis Johnson on 06-24-2023 Troponin I High Sensitivity 9 pg/mL 3.0-54.0 [facility] Comment on above: Please Note: New Leigh t Units and Gender Specific Reference Ranges. For more information see Policy Stat Procedure Riva High Sensitivity Troponin (TNIH) and attachments. Estimated Creatinine Clearance Calc 53.94 ml/min [facility] Estimated GFR (MDRD) Amer 78 mL/min >60 [facility] Comment on above: GFR Calc Estimated GFR (MDRD) Non-Af Amer 65 mL/min >60 [facility] Comment on above: Non- GFR Calc Platelet mean volume Ezra-Ec ker (Bld) [Entitic vol]Ordered By: Jorge Luis Johnson on 06-24-2023 Platelet mean volume (Bld) [Entitic vol] 8.9 fL 6.2-12.0 [facility] RBC Auto (Bld) [#/Vol]Ordere d By: Jorge Luis Johnson on 06-24-2023 RBC (Bld) [#/Vol] 4.84 10*6/uL 4.2-5.4 [facility] Serum or plasma calcium yosi urement (mass/volume)Ordered By: Jorge Luis Johnson on 06-24-2023 Calcium [Mass/Vol] 10.1 mg/dL 8.5-10.1 [facility] Serum or plasma creatinine m easurement (mass/volume)Ordered By: Jorge Luis Johnson on 06-24-2023 Creatinine [Mass/Vol] 0.90 mg/dL 0.55-1.02 [facility] Comment on above: The validity of the calculated GFR & GFRAA in patients over 70 years has not been determined. Clinical correlation is essential. Serum or plasma thyroid stim ulating hormone (TSH) measurement (units/volume)Ordered By: Jorge Luis Johnson on 06-24-2023 TSH Qn 1.46 uIU/mL 0.358-3.74 [facility] Serum or plasma urea nitroge n measurement (mass/volume)Ordered By: Jorge Luis Johnson on 06-24-2023 Urea nitrogen [Mass/Vol] 20 mg/dL 7-18 [facility] Thin prep Papanicolaou smear with manual screeningOrdered By: Jorge Luis Johnson on 06-24-2023 Thin prep Papanicolaou smear with manual screening 6 5-15 [facility] XR RIBS/CHEST 3V AP RIB/OBLS /CXR LEFTon 08-09-2022 [facility] XR Ribs - left Views and Marimar st PAon 08-09-2022 IMPRESSION: No displaced left rib fractures seen. Patient can be reevaluated in 10-14 days if symptoms persist. Bed And Breakfast Innkeeper: JACOB Transcribe Date/Time: Aug 09 2022 8:57A Dictated by : CHARMAINE LOPEZ MD This examination was interpreted and the report reviewed and electronically signed by: CHARMAINE LOPEZ MD on Aug 09 2022 9:03AM [facility] DIVISION OF RADIOLOGY * * *Final Report* * * DATE OF EXAM: Aug 09 2022 8:24AM WOX [id number] - XR RIB/CHST 3V AP RIB/OBL/CHST L / PROCEDURE REASON: Rib pain * * * * Physician Interpretation * * * * XR RIB/CHST 3V AP RIB/OBL/CHST L EXAM DATE/TIME: 08/09/2022 8:24 AM COMPARISON: None. CLINICAL INDICATION/HISTORY: Rib pain. TECHNIQUE: AP views centered high and low and oblique view of left ribs are presented for interpretation. PA view of the chest is also present. FINDINGS: There is no displaced left rib fracture identified. There is no pneumothorax or pleural effusion. The underlying visualized lungs appear normal. The bones are osteopenic. DIVISION OF RADIOLOGY Provider, [facility] [place] - 08/09/2022 * * *Final Report* * * DATE OF EXAM: Aug 09 2022 8:24AM WOX [id number] - XR RIB/CHST 3V AP RIB/OBL/CHST L / PROCEDURE REASON: Rib pain * * * * Physician Interpretation * * * * XR RIB/CHST 3V AP RIB/OBL/CHST L EXAM DATE/TIME: 08/09/2022 8:24 AM COMPARISON: None. CLINICAL INDICATION/HISTORY: Rib pain. TECHNIQUE: AP views centered high and low and oblique view of left ribs are presented for interpretation. PA view of the chest is also present. FINDINGS: There is no displaced left rib fracture identified. There is no pneumothorax or pleural effusion. The underlying visualized lungs appear normal. The bones are osteopenic. IMPRESSION IMPRESSION: No displaced left rib fractures seen. Patient can be reevaluated in 10-14 days if symptoms persist. Bed And Breakfast Innkeeper: JACOB Transcribe Date/Time: Aug 09 2022 8:57A Dictated by : CHARMAINE LOPEZ MD This examination was interpreted and the report reviewed and electronically signed by: CHARMAINE LOPEZ MD on Aug 09 2022 9:03AM EST [facility] Ribs - left Views and Marimar st PAOrdered By: Cc Provider on 08-09-2022 [facility] Clinical Lists Update: Prelo tipple tender 02-13-2017 Tobacco smoking status NHIS Never smoker Invalid Interpretation Code [facility] Tobacco use CPHS Never smoker Invalid Interpretation Code [facility] Vital Signs Date Time Vital Sign Value Performing Clinician Faci bettina 09-23-2024 08:18-0400 Body height 160.[address] Antonia Mendoza MD Work Phone: [facility] 09-23-2024 08:18-0400 Body mass index (BMI) [Ratio] 33.1 kg/m2 Dr. Antonia Mendoza MD Work Phone: [facility] 09-23-2024 08:18-0400 Body weight 84.[address] Antonia Mendoza MD Work Phone: [facility] 09-23-2024 08:18-0400 Diastolic blood pressure 65 mm[Hg] Dr. Antonia Mendoza MD Work Phone: 3(344)[phone] [place] [address] 09-23-2024 08:18-0400 Heart rate 57 /min Dr. Antonia Mendoza MD Work Phone: 3(637)760-684128 [place] [address] 09-23-2024 08:18-0400 Respiratory rate 16 /min Dr. Antonia Mendoza MD Work Phone: [facility] 09-23-2024 08:18-0400 Systolic blood pressure 135 mm[Hg] Dr. Antonia Mendoza MD Work Phone: [facility] 06-29-2024 11:46-0500 Diastolic blood pressure 78 mm[Hg] Antonia Mendoza MD Work Phone: [facility] 06-29-2024 11:46-0500 Systolic blood pressure 120 mm[Hg] Antonia Mendoza MD Work Phone: [facility] 06-29-2024 11:14-0500 Body mass index (BMI) [Ratio] 32.73 kg/m2 Antonia Mendoza MD Work Phone: [facility] 06-29-2024 11:14-0500 Body weight 83.8 kg Antonia Mendoza MD Work Phone: [facility] 06-29-2024 11:14-0500 Heart rate 68 /min Antonia Mendoza MD Work Phone: [facility] 06-29-2024 11:14-0500 SaO2% (BldA) [Mass fraction] 98 % Antonia Mendoza MD Work Phone: [facility] 06-23-2024 10:15-0500 Body mass index (BMI) [Ratio] 33.3 kg/m2 Dr. Antonia Mendoza MD Work Phone: [facility] 06-23-2024 10:15-0500 Body weight 85.[address] Antonia Mendoza MD Work Phone: 8(433)265-581828 [place] [address] 06-23-2024 10:15-0500 Diastolic blood pressure 99 mm[Hg] Dr. Antonia Mendoza MD Work Phone: 0(458)336-778428 [place] [address] 06-23-2024 10:15-0500 Heart rate 79 /min Dr. Antonia Mendoza MD Work Phone: 4(578)320-722528 [place] [address] 06-23-2024 10:15-0500 Respiratory rate 18 /min Dr. Antonia Mendoza MD Work Phone: 0(474)229-335228 [place] [address] 06-23-2024 10:15-0500 SaO2% (BldA) [Mass fraction] 96 % Dr. Antonia Mendoza MD Work Phone: 9(170)036-673628 [place] [address] 06-23-2024 10:15-0500 Systolic blood pressure 157 mm[Hg] Dr. Antonia Mendoza MD Work Phone: 9(384)609-962328 [place] [address] 06-17-2024 15:39-0500 Diastolic blood pressure 66 mm[Hg] Dr. Antonia Mendoza MD Work Phone: 3(145)833-256328 [place] [address] 06-17-2024 15:39-0500 Heart rate 80 /min Dr. Antonia Mendoza MD Work Phone: 5(241)827-935928 [place] [address] 06-17-2024 15:39-0500 Respiratory rate 16 /min Dr. Antonia Mendoza MD Work Phone: 0(146)333-964628 [place] [address] 06-17-2024 15:39-0500 SaO2% (BldA) [Mass fraction] 96 % Dr. Antonia Mendoza MD Work Phone: 7(180)172-738728 [place] [address] 06-17-2024 15:39-0500 Systolic blood pressure 132 mm[Hg] Dr. Antonia Mendoza MD Work Phone: [facility] 06-17-2024 08:00-0500 Body temperature 97.2 [degF] Dr. Antonia Mendoza MD Work Phone: [facility] 06-17-2024 04:00-0500 Body mass index (BMI) [Ratio] 34.5 kg/m2 Dr. Antonia Mendoza MD Work Phone: [facility] 06-17-2024 04:00-0500 Body weight 88.[address] Antonia Mendoza MD Work Phone: [facility] 06-15-2024 16:00-0500 Inhaled oxygen flow rate 2 L/min Dr. Antonia Mendoza MD Work Phone: [facility] 06-15-2024 10:37-0500 Body weight 83.[address] Antonia Mendoza MD Work Phone: [facility] 06-14-2024 07:59-0500 Body mass index (BMI) [Ratio] 32.8 kg/m2 Dr. Antonia Mendoza MD Work Phone: [facility] 06-04-2024 10:10-0500 Body height 160 cm Brea Oh MD Work Phone: [facility] 06-04-2024 10:10-0500 Body mass index (BMI) [Ratio] 32.77 kg/m2 Brea Oh MD Work Phone: [facility] 06-04-2024 10:10-0500 Body weight 83.92 kg Brea Oh MD Work Phone: [facility] 06-04-2024 10:10-0500 Diastolic blood pressure 79 mm[Hg] Brea Oh MD Work Phone: [facility] 06-04-2024 10:10-0500 Heart rate 79 /min Brea Oh MD Work Phone: [facility] 06-04-2024 10:10-0500 Respiratory rate 16 /min Brea Oh MD Work Phone: [facility] 06-04-2024 10:10-0500 SaO2% (BldA) [Mass fraction] 97 % Brea Oh MD Work Phone: [facility] 06-04-2024 10:10-0500 Systolic blood pressure 143 mm[Hg] Brea Oh MD Work Phone: [facility] 05-11-2024 08:35-0500 Body mass index (BMI) [Ratio] 31.9 kg/m2 Chung Jacob SALES PROPERTY MANAGER.BEEF BREAKER Work Phone: [facility] 05-11-2024 08:35-0500 Body weight 84.3 kg Chung Jacob SALES PROPERTY MANAGER.BEEF BREAKER Work Phone: [facility] 05-11-2024 08:35-0500 Diastolic blood pressure 79 mm[Hg] Chung Jacob SALES PROPERTY MANAGER.BEEF BREAKER Work Phone: [facility] 05-11-2024 08:35-0500 Heart rate 90 /min Chung Jacob SALES PROPERTY MANAGER.BEEF BREAKER Work Phone: [facility] 05-11-2024 08:35-0500 Respiratory rate 16 /min Chung Jacob SALES PROPERTY MANAGER.BEEF BREAKER Work Phone: [facility] 05-11-2024 08:35-0500 Systolic blood pressure 118 mm[Hg] Chung Jacob SALES PROPERTY MANAGER.BEEF BREAKER Work Phone: [facility] 12-05-2023 12:43-0400 Body height 162.6 cm Angel Nilo SALES PROPERTY MANAGER.INFORMATION TECHNOLOGY ADMINISTRATOR Work Phone: [facility] 12-05-2023 12:43-0400 Body mass index (BMI) [Ratio] 30.38 kg/m2 Angel Nilo SALES PROPERTY MANAGER.INFORMATION TECHNOLOGY ADMINISTRATOR Work Phone: [facility] 12-05-2023 12:43-0400 Body weight 80.29 kg Angel Nilo SALES PROPERTY MANAGER.INFORMATION TECHNOLOGY ADMINISTRATOR Work Phone: [facility] 12-05-2023 12:43-0400 Diastolic blood pressure 82 mm[Hg] Angel Nilo SALES PROPERTY MANAGER.INFORMATION TECHNOLOGY ADMINISTRATOR Work Phone: [facility] 12-05-2023 12:43-0400 Respiratory rate 14 /min Angel Nilo SALES PROPERTY MANAGER.INFORMATION TECHNOLOGY ADMINISTRATOR Work Phone: [facility] 12-05-2023 12:43-0400 Systolic blood pressure 132 mm[Hg] Angel Nilo SALES PROPERTY MANAGER.INFORMATION TECHNOLOGY ADMINISTRATOR Work Phone: [facility] 11-22-2023 08:11-0400 Body height 164 cm Antonia Mendoza MD Work Phone: [facility] 11-22-2023 08:11-0400 Body mass index (BMI) [Ratio] 29.68 kg/m2 Antonia Mendoza MD Work Phone: [facility] 11-22-2023 08:11-0400 Body weight 79.83 kg Antonia Mendoza MD Work Phone: [facility] 11-22-2023 08:11-0400 Diastolic blood pressure 86 mm[Hg] Antonia Mendoza MD Work Phone: [facility] 11-22-2023 08:11-0400 Heart rate 96 /min Antonia Mendoza MD Work Phone: [facility] 11-22-2023 08:11-0400 Respiratory rate 16 /min Antonia Mendoza MD Work Phone: [facility] 11-22-2023 08:11-0400 SaO2% (BldA) [Mass fraction] 96 % Antonia Mendoza MD Work Phone: [facility] 11-22-2023 08:11-0400 Systolic blood pressure 136 mm[Hg] Antonia Mendoza MD Work Phone: [facility] 08-28-2023 13:08-0400 Diastolic blood pressure 72 mm[Hg] Chung Jacob SALES PROPERTY MANAGER.BEEF BREAKER Work Phone: [facility] 08-28-2023 13:08-0400 Heart rate 80 /min Chung Jacob SALES PROPERTY MANAGER.BEEF BREAKER Work Phone: [facility] 08-28-2023 13:08-0400 Systolic blood pressure 143 mm[Hg] Chung Jacob SALES PROPERTY MANAGER.BEEF BREAKER Work Phone: [facility] 08-28-2023 13:06-0400 Body weight 82.1 kg Chung Jacob SALES PROPERTY MANAGER.BEEF BREAKER Work Phone: [facility] 08-28-2023 13:06-0400 Respiratory rate 16 /min Chung Jacob SALES PROPERTY MANAGER.BEEF BREAKER Work Phone: [facility] 08-28-2023 13:06-0400 SaO2% (BldA) [Mass fraction] 98 % Chung Jacob SALES PROPERTY MANAGER.BEEF BREAKER Work Phone: [facility] 07-24-2023 09:45-0500 Body height 160.[address] Antonia Mendoza Work Phone: [facility] 07-24-2023 09:45-0500 Body mass index (BMI) [Ratio] 30.4 kg/m2 Dr. Antonia Mendoza Work Phone: [facility] 07-24-2023 09:45-0500 Body weight 78.[address] Antonia Mendoza Work Phone: [facility] 07-24-2023 09:45-0500 Diastolic blood pressure 88 mm[Hg] Dr. Antonia Mendoza Work Phone: [facility] 07-24-2023 09:45-0500 Heart rate 88 /min Dr. Antonia Mendoza Work Phone: [facility] 07-24-2023 09:45-0500 Respiratory rate 16 /min Dr. Antonia Mendoza Work Phone: [facility] 07-24-2023 09:45-0500 Systolic blood pressure 130 mm[Hg] Dr. Antonia Mendoza Work Phone: [facility] 06-27-2023 08:51-0500 Body weight 78.93 kg Chung Jacob SALES PROPERTY MANAGER.BEEF BREAKER Work Phone: [facility] 06-27-2023 08:51-0500 Diastolic blood pressure 74 mm[Hg] Chung Jacob SALES PROPERTY MANAGER.BEEF BREAKER Work Phone: [facility] 06-27-2023 08:51-0500 Heart rate 72 /min Chung Jacob SALES PROPERTY MANAGER.BEEF BREAKER Work Phone: [facility] 06-27-2023 08:51-0500 Respiratory rate 16 /min Chung Jacob SALES PROPERTY MANAGER.BEEF BREAKER Work Phone: [facility] 06-27-2023 08:51-0500 Systolic blood pressure 114 mm[Hg] Chung Jacob SALES PROPERTY MANAGER.BEEF BREAKER Work Phone: [facility] 06-24-2023 22:00-0500 Diastolic blood pressure 101 mm[Hg] [facility] 06-24-2023 22:00-0500 Heart rate 84 /min [facility] 06-24-2023 22:00-0500 Respiratory rate 16 /min [facility] 06-24-2023 22:00-0500 SaO2% (BldA) [Mass fraction] 96 % [facility] 06-24-2023 22:00-0500 Systolic blood pressure 169 mm[Hg] [facility] 06-24-2023 16:39-0500 Body height 160.02 cm [facility] 06-24-2023 16:39-0500 Body mass index (BMI) [Ratio] 31 kg/m2 [facility] 06-24-2023 16:39-0500 Body temperature 97.8 [degF] [facility] 06-24-2023 16:39-0500 Body weight 79.56 kg [facility] 11-12-2022 07:53-0400 Body weight 75.75 kg Antonia Mendoza MD Work Phone: [facility] 11-12-2022 07:53-0400 Diastolic blood pressure 80 mm[Hg] Antonia Mendoza MD Work Phone: [facility] 11-12-2022 07:53-0400 Heart rate 72 /min Antonia Mendoza MD Work Phone: [facility] 11-12-2022 07:53-0400 Respiratory rate 16 /min Antonia Mendoza MD Work Phone: [facility] 11-12-2022 07:53-0400 Systolic blood pressure 130 mm[Hg] Antonia Mendoza MD Work Phone: [facility] 08-09-2022 07:54-0400 Body temperature 98.1 [degF] Krislyn Aberegg PA Work Phone: [facility] 08-09-2022 07:54-0400 Body weight 75.3 kg Krislyn Aberegg PA Work Phone: [facility] 08-09-2022 07:54-0400 Diastolic blood pressure 78 mm[Hg] Krislyn Aberegg PA Work Phone: [facility] 08-09-2022 07:54-0400 Heart rate 85 /min Krislyn Aberegg PA Work Phone: [facility] 08-09-2022 07:54-0400 Respiratory rate 18 /min Krislyn Aberegg PA Work Phone: [facility] 08-09-2022 07:54-0400 SaO2% (BldA) [Mass fraction] 97 % Krislyn Aberegg PA Work Phone: [facility] 08-09-2022 07:54-0400 Systolic blood pressure 138 mm[Hg] Krislyn Aberegg PA Work Phone: [facility] 05-16-2022 09:58-0500 Diastolic blood pressure 80 mm[Hg] Chung Jacob SALES PROPERTY MANAGER.BEEF BREAKER Work Phone: [facility] 05-16-2022 09:58-0500 Systolic blood pressure 130 mm[Hg] Chung Jacob SALES PROPERTY MANAGER.BEEF BREAKER Work Phone: [facility] 05-16-2022 08:55-0500 Body height 163.5 cm Chung Jacob SALES PROPERTY MANAGER.BEEF BREAKER Work Phone: [facility] 05-16-2022 08:55-0500 Body weight 76.66 kg Chung Hiness SALES PROPERTY MANAGER.BEEF BREAKER Work Phone: [facility] 05-16-2022 08:55-0500 Heart rate 71 /min Chung Hiness SALES PROPERTY MANAGER.BEEF BREAKER Work Phone: [facility] 05-16-2022 08:55-0500 Respiratory rate 16 /min Chung Hiness SALES PROPERTY MANAGER.BEEF BREAKER Work Phone: [facility] 05-16-2022 08:55-0500 SaO2% (BldA) [Mass fraction] 97 % Chung Hiness SALES PROPERTY MANAGER.BEEF BREAKER Work Phone: [facility] 12-28-2021 15:40-0400 Diastolic blood pressure 70 mm[Hg] Joie Neri MD Work Phone: [facility] 12-28-2021 15:40-0400 Systolic blood pressure 122 mm[Hg] Joie Neri MD Work Phone: [facility] 12-28-2021 14:48-0400 Body height 163.8 cm Joie Neri MD Work Phone: [facility] 12-28-2021 14:48-0400 Body temperature 98.6 [degF] Joie Neri MD Work Phone: [facility] 12-28-2021 14:48-0400 Body weight 79.83 kg Joie Neri MD Work Phone: [facility] 12-28-2021 14:48-0400 Heart rate 73 /min Joie Neri MD Work Phone: [facility] 12-28-2021 14:48-0400 Respiratory rate 12 /min Joie Neri MD Work Phone: [facility] 12-28-2021 14:48-0400 SaO2% (BldA) [Mass fraction] 97 % Joie Neri MD Work Phone: [facility] Encounters Encounter Date Encounter Type Care Provider Facility Start: 11-11-2024 End: 11-11-2024 Telephone encounter Brea Oh MD Work Phone: [facility] [place] Comment on above: Preparations For Pro cedures Start: 09-23-2024 End: 09-23-[address] Logan Santillan MD -[place] [facility] Work Phone: Start: 09-23-2024 End: 09-23-[address] Antonia Mendoza MD Work Phone: [facility] Work Phone: Start: 09-23-2024 End: 09-23-2024 ambulatory Logan Santillan Facility:[facility] Start: 08-23-2024 End: 08-23-2024 ambulatory ANTONIA MENDOZA Facility:[facility] Start: 08-23-2024 End: 08-23-2024 Subsequent hospital visit by physician [facility] D[facility] Work Phone: Radiology Comment on above: Asymptomatic postmen opausal status [Z78.0] Start: 08-02-2024 End: 08-02-2024 ambulatory ANTONIA MENDOZA Facility:[facility] Start: 06-29-2024 End: 06-29-2024 ambulatory ANTONIA MENDOZA Facility:[facility] Start: 06-29-2024 End: 06-29-2024 Office outpatient visit 25 minutes Antonia Mendoza MD Work Phone: [facility] [place] Comment on above: Primary hypertension (Primary Dx); Paroxysmal atrial fibrillation (HCC); Asymptomatic postmenopausal status Start: 06-24-2024 End: 07-06-2024 Telephone encounter Brea Oh MD Work Phone: [facility] [place] Comment on above: Copy Chaser - O ther ([facility] records) Start: 06-23-2024 End: 06-24-2024 Patient encounter procedure [facility] Department Start: 06-23-2024 End: 06-23-2024 ambulatory Antonia Mendoza Facility:[facility] Start: 06-17-2024 Non-patient / Non-visit Dr. Jorge Luis May [facility] Work Phone: Start: 06-16-2024 Non-patient / Non-visit Dr. Karey Conner MD -[facility] Start: 06-16-2024 Non-patient / Non-visit Dr. Jorge Luis May [facility] Work Phone: Start: 06-15-2024 ambulatory Susan Rose Facility:[facility] [place] Start: 06-15-2024 End: 06-17-2024 Evaluation and management of inpatient Dr. Jorge Luis Wyman DO -Intensive Care Unit Work Phone: Start: 06-15-2024 End: 06-15-2024 Admission to same day surgery center Dr. Rehan Denise MD -[employer] Licensee/Special Procedures Work Phone: Start: 06-15-2024 End: 06-15-2024 [facility] Start: 06-15-2024 End: 06-15-2024 Non-patient / Non-visit Dr. Shannan Conner MD -[place] [facility] Work Phone: Start: 06-15-2024 End: 06-15-2024 [facility] Start: 06-09-2024 End: 06-09-2024 Patient encounter procedure Nadia Morgan PA -Laboratory Work Phone: Start: 06-09-2024 End: 06-09-2024 [facility] Start: 06-04-2024 End: 06-04-2024 Telephone encounter Brea Oh MD Work Phone: [facility] Comment on above: Treatment Planning Start: 06-04-2024 End: 06-04-2024 Office outpatient new 45 minutes Brea Oh MD Work Phone: [facility] Comment on above: Persistent atrial fi brillation (HCC) (Primary Dx); At risk for stroke; Anticoagulant long-term use; Nonrheumatic mitral valve regurgitation; Nonrheumatic tricuspid valve regurgitation; Nonrheumatic aortic valve insufficiency Start: 06-04-2024 End: 06-04-2024 ambulatory BREA LONDONBARRYMARIO Facility:[facility] Start: 05-28-2024 End: 05-31-2024 Refill Antonia Mendoza MD Work Phone: [facility] [place] Comment on above: Refill Request Start: 05-25-2024 ambulatory [facility] Facility[facility] [place] Start: 05-25-2024 End: 05-25-2024 ambulatory [facility] Facility:[facility] Start: 05-11-2024 End: 05-11-2024 ambulatory [facility] Facility:[facility] Start: 05-11-2024 End: 05-11-2024 Office outpatient visit 25 minutes Chung Jacob APRN.BEEF BREAKER Work Phone: [facility] [place] Comment on above: PAF (paroxysmal atri al fibrillation) (HCC) (Primary Dx); SOBOE (shortness of breath on exertion); Primary hypertension; Chronic insomnia; Encounter for immunization Start: 05-10-2024 End: 05-10-2024 ambulatory Antonia Mendoza Facility:[facility] Start: 04-15-2024 End: 04-15-2024 [facility] Facility:[facility] Start: 12-25-2023 Encounter for gynecological examination (general) (routine) with abnormal findings Yanna Sinclair [facility] Start: 12-25-2023 End: 12-25-2023 ambulatory Antonia Mendoza Facility:[facility] Start: 12-05-2023 End: 12-05-2023 Patient encounter procedure Angel Flores SALES PROPERTY MANAGER.INFORMATION TECHNOLOGY ADMINISTRATOR Work Phone: [facility] [place] Comment on above: Primary hypertension (Primary Dx); Paroxysmal atrial fibrillation (HCC); Obesity, Class I, BMI 30-34.9 Start: 12-05-2023 End: 12-05-2023 ambulatory ANGEL FLORES Facility:[facility] Start: 11-22-2023 End: 11-22-2023 ambulatory ANTONIA MENDOZA Facility:[facility] Start: 11-22-2023 End: 11-22-2023 Patient encounter procedure Antonia Mendoza MD Work Phone: [facility] [place] Comment on above: Medicare annual well ness visit, subsequent (Primary Dx); Paroxysmal atrial fibrillation (HCC); White coat syndrome with high blood pressure but without hypertension; Elevated fasting glucose; Vitamin D deficiency; Encounter for long-term current use of medication; Encounter for immunization; Muscle spasm Start: 11-14-2023 Refill Antonia oliva MD Work Phone: [facility] [place] Comment on above: Refill Request Start: 11-13-2023 Telephone encounter Antonia contreras MD Work Phone: [facility] [place] Comment on above: Orders Start: 11-13-2023 End: 11-13-2023 ambulatory ANTONIA MENDOZA Facility:[facility] Start: 11-11-2023 End: 11-11-2023 ambulatory Antonia Mendoza Facility:[facility] [place] Start: 09-01-2023 Telephone encounter Antonia contreras MD Work Phone: [facility] [place] Comment on above: patient update on me dication Start: 08-28-2023 ambulatory Antonia oliva MD Work Phone: [facility] [place] Comment on above: Shortness of Breath Refill Request Start: 08-28-2023 End: 08-28-2023 Subsequent hospital visit by physician Apoorva [facility] [place] Work Phone: Radiology Comment on above: SOBOE (shortness of breath on exertion) [R06.02] Start: 08-28-2023 End: 08-28-2023 Office outpatient visit 25 minutes Chung Jacob APRN.CNS Work Phone: [facility] [place] Comment on above: SOBOE (shortness of breath on exertion) (Primary Dx); New onset atrial fibrillation (HCC); Orthopnea; Weight gain; Acute cough Start: 08-25-2023 Non-patient / Non-visit Dr. Jacquie Mendoza Work Phone: [facility] Start: 08-21-2023 Non-patient / Non-visit Dr. Jacquie Mendoza Work Phone: [facility] Start: 08-21-2023 End: 08-21-[address] Antonia Mendoza Work Phone: [facility] Work Phone: Start: 08-21-2023 End: 08-21-[address] Antonia Mendoza Work Phone: [facility]-Cardiovascul ar Services Work Phone: Start: 08-08-2023 Orders Only Chung Barrera PRN.BEEF BREAKER Work Phone: [facility] [place] Start: 08-07-2023 Telephone encounter Antonia contreras MD Work Phone: [facility] [place] Comment on above: Question Start: 07-24-2023 Refill Antonia oliva MD Work Phone: [facility] [place] Comment on above: Refill Request Start: 07-24-2023 End: 07-24-[address] Antonia Mendoza Work Phone: [facility] [facility] Work Phone: Start: 07-14-2023 Telephone encounter Antonia contreras MD Work Phone: [facility] [place] Comment on above: Patient Update Start: 07-10-2023 ambulatory Antonia oliva MD Work Phone: [facility] [place] Comment on above: Message from Dr. Chema contreras Start: 07-10-2023 E-mail encounter fro m caregiver Antonia Mendoza MD Work Phone: [facility] Start: 07-04-2023 Telephone encounter Chung cordoba APRN.BEEF BREAKER Work Phone: [facility] [place] Comment on above: Results (Echo) Start: 06-30-2023 Telephone encounter Chung cordoba SALES PROPERTY MANAGER.BEEF BREAKER Work Phone: [facility] [place] Comment on above: Patient Update Start: 06-27-2023 End: 06-27-2023 Office outpatient visit 25 minutes Chung Jacob APRN.BEEF BREAKER Work Phone: [facility] [place] Comment on above: New onset atrial fib rillation (HCC) (Primary Dx); Left arm pain; Palpitations; On continuous oral anticoagulation; Chronic insomnia Start: 06-24-2023 End: 06-24-2023 Emergency department patient visit [facility]-Emergency Department Work Phone: Start: 05-08-2023 End: 05-08-2023 ambulatory [facility] Work Phone: Start: 05-08-2023 End: 05-08-2023 Patient encounter procedure [facility]-Outpatient Breast Imaging Work Phone: Start: 11-12-2022 End: 11-12-2022 Office outpatient visit 25 minutes Antonia Mendoza MD Work Phone: [facility] [place] Comment on above: Hyperlipidemia with target LDL less than 100 (Primary Dx); Gastroesophageal reflux disease without esophagitis; White coat syndrome with high blood pressure but without hypertension; Persistent disorder of initiating or maintaining sleep; Elevated fasting glucose; Encounter for long-term current use of medication Start: 09-25-2022 Refill Cierra FordINFORMATION TECHNOLOGY ADMINISTRATOR Work Phone: [facility] [place] Comment on above: Refill Request Start: 09-19-2022 Refill Antonia oliva MD Work Phone: [facility] [place] Comment on above: Refill Request Start: 08-09-2022 End: 08-09-2022 Subsequent hospital visit by physician [facility] Work Phone: Radiology Comment on above: Rib pain [R07.81] Start: 08-09-2022 End: 08-09-2022 Patient encounter procedure Yara Payan PA Work Phone: [place] [facility] Comment on above: Rib pain (Primary Dx ) Start: 05-16-2022 End: 05-16-2022 Office outpatient visit 25 minutes Chung Jacob APRN.BEEF BREAKER Work Phone: [facility] [place] Comment on above: Hyperlipidemia with target LDL less than 100 (Primary Dx); Osteopenia, unspecified location; Gastroesophageal reflux disease without esophagitis; Elevated BP without diagnosis of hypertension Start: 05-06-2022 End: 05-06-2022 ambulatory [facility] Work Phone: Start: 05-06-2022 End: 05-06-2022 Patient encounter procedure [facility]-Outpatient Breast Imaging Start: 12-28-2021 End: 12-28-2021 Patient encounter procedure Joie Neri MD Work Phone: [facility] [place] Comment on above: Elevated BP without diagnosis of hypertension (Primary Dx); Hyperlipidemia with target LDL less than 100; Gastroesophageal reflux disease without esophagitis; Abnormal weight gain Start: 12-03-2021 Refill Joie Meier Work Phone: [facility] [place] Comment on above: Refill Request Start: 11-30-2021 Telephone encounter Joie davies MD Work Phone: [facility] [place] Comment on above: Medication Update Start: 10-29-2021 Patient encounter procedure Joie Neri MD Work Phone: [facility] [place] Start: 10-29-2021 Telephone encounter Joie davies MD Work Phone: [facility] [place] Comment on above: Lab Orders Start: 09-17-2021 Refill Cierra Calderón APRN, .CNP Work Phone: [facility] [place] Comment on above: Refill Request Procedures Date Procedure Procedure Detail Performing Clinician Start: 06-23-2024 Evaluation of diagnostic study results Dr. Antonia Mendoza MD Work Phone: Start: 06-15-2024 Plain chest X-ray Dr. Antonia Mendoza MD Work Phone: Start: 06-04-2024 Ecg routine ecg w/least 12 lds w/i&r Brea Oh MD Work Phone: Start: 11-22-2023 Adult depression screening assessment Xr [place] Work Phone: Start: 08-28-2023 Radiologic exam chest 2 views Chung Jacob SALES PROPERTY MANAGER.BEEF BREAKER Work Phone: Start: 08-21-2023 Cardiovascular stress test using pharmacologic stress agent Dr. Antonia Mendoza Work Phone: Start: 08-14-2023 Lipid 1996 panel - Serum or Plasma Chung Jacob SALES PROPERTY MANAGER.BEEF BREAKER Work Phone: Start: 06-24-2023 Plain chest X-ray Start: 05-08-2023 Screening mammography Start: 11-04-2022 Lipid 1996 panel - Serum or Plasma Chung Cecil SALES PROPERTY MANAGER.BEEF BREAKER Work Phone: Start: 08-09-2022 Radex ribs uni w/posteroant ch minimum 3 views Yara Payan PA Work Phone: Start: 05-06-2022 End: 05-06-2022 Screening mammography Start: 05-04-2021 Adult depression screening assessment Cierra Calderón SALES PROPERTY MANAGER.INFORMATION TECHNOLOGY ADMINISTRATOR Work Phone: Start: 05-03-2021 Mammography Cierra Calderón SALES PROPERTY MANAGERLoganINFORMATION TECHNOLOGY ADMINISTRATOR Work Phone: Start: 07-04-2017 Colonoscopy Cierra Calderón SALES PROPERTY MANAGER.INFORMATION TECHNOLOGY ADMINISTRATOR Work Phone: Start: 03-14-2017 Screening mammography Screening mammogram for breast cancer Yanna Sinclair MD Plan of Treatment Date Care Activity Detail Author Start: 03-17-[address] [facility] Start: 08-13-2028 Lipid panel Lipid Screening [facility] Start: 11-05-2027 Lipid panel Lipid Screening [facility] Start: 11-05-2027 [address] [facility] Start: 08-03-2027 Diabetes Screening Diabetes Screenin g [facility] Start: 07-04-[address] [facility] Start: 07-04-2027 COLORECTAL CANCER SCREENING COLORECTAL CANCER SCREENING [facility] Start: 07-04-2027 Screening for malign ant neoplasm of colon [facility] Start: 11-05-2026 L[address]EN L[address]ID SCREEN [facility] Start: 08-13-2026 Diabetes Screening Diabetes Screenin g [facility] Start: 01-11-2026 LIPID SCREEN LIPID SCREEN [facility] Start: 11-04-2025 DIABETES [facility]CRE[facility] Start: 11-04-2025 Diabetes Screening Diabetes Screenpauline g [facility] Start: 06-29-2025 Annual PCP Team Motor Vehicle Emissions Inspector beba Disease Visit Annual PCP Team Chronic Disease Visit [facility] Start: 06-29-2025 BP Controlled (<130/80) BP Controlle d (<130/80) [facility] Start: 05-13-2025 End: 05-13-2025 Patient encounter procedure 05/13/2025 8:40 AM EST Office Visit [facility] [place] [address] [place] [address] Chung Jacob, DAWIT.BEEF BREAKER [address] [place], [place] [id number] 6 month f/u [facility] [place] Comment on above: 6 month f/u Start: 05-11-2025 BP Controlled (<130/80) BP Controlle d (<130/80) [facility] Start: 02-23-2025 Covid-19 Vaccine () Covid-19 Vaccine () [facility] Comment on above: Postponed from 06/30 (Declined at this time) Start: 12-07-2024 Subsequent hospital visit by physician 12/07/2024 Hospital Encounter [facility] [address] [place] [address] Brea Oh MD [address] [place] [address] Persistent atrial fibrillation (HCC) [I48.19], Anticoagulant long-term use [Z79.01] [facility] Comment on above: Persistent atrial fi brillation (HCC) [I48.19], Anticoagulant long-term use [Z79.01] Start: 12-04-2024 Annual PCP Team Motor Vehicle Emissions Inspector beba Disease Visit Annual PCP Team Chronic Disease Visit [facility] Start: 12-03-2024 End: 12-03-2024 Patient encounter procedure 12/03/2024 4:30 PM EDT Office Visit [facility] [place] [address] [place], [place] [id number] Ayan Cerrato, SALES PROPERTY MANAGER.INFORMATION TECHNOLOGY ADMINISTRATOR [address] [place] [address] (Fax) H&P for PVI on 12/07 with [facility] Comment on above: H&P for PVI on 12/07 with BRITT Start: 11-21-2024 Anxiety Screening Anxiety Screening [facility] Start: 11-21-2024 Depression Screening Depression Scre ening [facility] Start: 11-16-2024 Subsequent hospital visit by physician 11/16/2024 Hospital Encounter [facility] [address] [place] [address] Brea Oh MD [address] [place] [phone] (Fax) Persistent atrial fibrillation (HCC) [I48.19], Anticoagulant long-term use [Z79.01] [facility] Comment on above: Persistent atrial fi brillation (HCC) [I48.19], Anticoagulant long-term use [Z79.01] Start: 11-16-2024 End: 11-16-2024 Patient encounter procedure 11/16/2024 8:40 AM EDT Office Visit [facility] [place] [address] [place] [address] Antonia Mendoza MD [address] [place], [place] [id number] Yearly Medicare Wellness [facility] [place] Comment on above: Yearly Medicare Well ness Start: 11-05-2024 DIABETES SCREEN DIABETES SCREEN [facility] Start: 10-27-2024 Subsequent hospital visit by physician 10/27/2024 Hospital Encounter [facility] [address] [place] [address] Brea Oh MD [address] [place] [phone] (Fax) Persistent atrial fibrillation (HCC) [I48.19], Anticoagulant long-term use [Z79.01] [facility] Comment on above: Persistent atrial fi brillation (HCC) [I48.19], Anticoagulant long-term use [Z79.01] Start: 09-23-2024 Evaluation of diagno stic study results [facility] Start: 09-21-2024 Covid-19 Vaccine () Covid-19 Vaccine () [facility] Start: 08-25-2024 End: 08-25-2024 Patient encounter procedure 08/25/2024 3:00 PM EDT Office Visit [facility] [address] [facility] [address] [place] [address] Ida Smith MD [address] [place] [address] See Scanned Documents for OUTSIDE CARDIAC TESTING [facility] Comment on above: See Scanned Docum ents for OUTSIDE CARDIAC TESTING Start: 06-29-2024 End: 06-29-2024 Patient encounter procedure 06/29/2024 10:40 AM EST Office Visit [facility] [place] [address] [employer] [place] [address] Antonia Mendoza MD [address] [place] [address] hospital follow up Internal [facility] [place] Comment on above: hospital follow up Start: 06-17-2024 Patient discharge [facility] Start: 06-15-2024 Following clinical pathway protocol [facility] Start: 06-15-2024 Assessment of risk o f venous thromboembolism [facility] Start: 06-15-[address] [facility] Start: 06-15-2024 Continuous pulse oximetry [facility] Start: 06-15-2024 Inhalation therapy procedure [facility] Start: 06-15-2024 Insertion of cathete r into peripheral vein [facility] Start: 06-15-2024 Measuring intake and output [facility] Start: 06-15-2024 Providing care accor ding to standard [facility] Start: 06-15-2024 Referral to quencher operator [facility] Start: 06-15-2024 Vital signs measurements [facility] Start: 06-15-2024 [facility] Start: 06-15-2024 Admission procedure [facility] Start: 06-04-2024 End: 06-04-2024 Patient encounter procedure 06/04/2024 10:20 AM EST Office Visit [facility] [address] [place] [address] Brea Oh MD [address] [place] [id number] Ref; PCP for PAF, ablation eval EKG jt [facility] [place] Comment on above: Ref; PCP for PAF, ab lation eval EKG jt Start: 05-26-2024 Advance Directive Discussion Advance Directive Discussion [facility] Start: 05-26-2024 Medicare Advantage A nnual Wellness Visit Medicare Advantage Annual Wellness Visit [facility] Start: 05-10-2024 End: 05-10-2024 Patient encounter procedure 05/10/2024 9:40 AM EST Office Visit [facility] [place] [address] [place] [address] Chung Jacob APRN.BEEF BREAKER [address] [place], [place] [address] 6 month follow up [facility] [place] Comment on above: 6 month follow up Start: 01-25-2024 Covid-19 Vaccine ( season) Covid-19 Vaccine ( season) [facility] Start: 01-25-2024 Covid-19 Vaccine ( season) Covid-19 Vaccine ( season) [facility] Start: 01-25-2024 Influenza vaccination Influenza Vacc ine (#1) [facility] Start: 01-12-2024 DIABETES SCREEN DIABETES SCREEN [facility] Start: 12-05-2023 End: 12-05-2023 Nursing evaluation of patient and report 12/05/2023 12:45 PM EDT Nurse Visit [facility] [place] [address] [place] [address] Nurse, Fl [address] [place] [address] Nurse visit to validate BP cuff and follow up on BP and heart rate [facility] [place] Comment on above: Nurse visit to valid ate BP cuff and follow up on BP and heart rate Start: 11-22-2023 End: 11-22-2023 Patient encounter procedure 11/22/2023 8:00 AM EDT Office Visit [facility] [place] [address] [facility] [place] [address] Antonia Mendoza MD [address] [place] [address] yearly [facility] [place] Comment on above: yearly Start: 11-13-2023 End: 01-13-2024 CBC W Auto Differential panel - Blood CBC + DIFF Lab Routine White coat syndrome with high blood pressure but without hypertension Encounter for long-term current use of medication Expected: 11/13/2023 (Approximate), Expires: 01/13/2024 [facility] Work Phone: Comment on above: Expected: 11/13/2023 (Approximate), Expires: 01/13/2024 Start: 11-13-2023 End: 01-13-2024 Comprehensive metabolic 2000 panel - Serum or Plasma COMP METABOLIC PANEL Lab Routine White coat syndrome with high blood pressure but without hypertension Encounter for long-term current use of medication Elevated fasting glucose Expected: 11/13/2023 (Approximate), Expires: 01/13/2024 [facility] Work Phone: Comment on above: Expected: 11/13/2023 (Approximate), Expires: 01/13/2024 Start: 11-13-2023 End: 01-13-2024 Hemoglobin A1c in Blood HGB A1C Lab Routine White coat syndrome with high blood pressure but without hypertension Encounter for long-term current use of medication Elevated fasting glucose Expected: 11/13/2023 (Approximate), Expires: 01/13/2024 [facility] Work Phone: Comment on above: Expected: 11/13/2023 (Approximate), Expires: 01/13/2024 Start: 11-13-2023 End: 01-13-2024 Lipid 1996 panel - Serum or Plasma LIPID PANEL BASIC Lab Routine Hyperlipidemia with target LDL less than 100 White coat syndrome with high blood pressure but without hypertension Encounter for long-term current use of medication Expected: 11/13/2023 (Approximate), Expires: 01/13/2024 [facility] Work Phone: Comment on above: Expected: 11/13/2023 (Approximate), Expires: 01/13/2024 Start: 11-13-2023 End: 01-13-2024 Magnesium [Mass/volume] in Serum or Plasma MAGNESIUM BLD Lab Routine White coat syndrome with high blood pressure but without hypertension Encounter for long-term current use of medication Expected: 11/13/2023 (Approximate), Expires: 01/13/2024 [facility] Work Phone: Comment on above: Expected: 11/13/2023 (Approximate), Expires: 01/13/2024 Start: 11-13-2023 End: 01-13-2024 Thyrotropin [Units/volume] in Serum or Plasma TSH BLD Lab Routine White coat syndrome with high blood pressure but without hypertension Encounter for long-term current use of medication Expected: 11/13/2023 (Approximate), Expires: 01/13/2024 [facility] Work Phone: Comment on above: Expected: 11/13/2023 (Approximate), Expires: 01/13/2024 Start: 11-13-2023 End: 01-13-2024 Thyroxine (T4) free [Mass/volume] in Serum or Plasma T4 FREE/FREE THYROX Lab Routine White coat syndrome with high blood pressure but without hypertension Encounter for long-term current use of medication Expected: 11/13/2023 (Approximate), Expires: 01/13/2024 [facility] Work Phone: Comment on above: Expected: 11/13/2023 (Approximate), Expires: 01/13/2024 Start: 08-08-2023 End: 11-07-2023 Basic metabolic 2000 panel - Serum or Plasma BASIC METABOLIC PNL Lab Routine New onset atrial fibrillation (HCC) Expected: 08/08/2023, Expires: 11/07/2023 [facility] Work Phone: Comment on above: Expected: 08/08/2023 , Expires: 11/07/2023 Start: 06-30-2023 Covid-19 Vaccine () Covid-[address] Vacc[address] () [facility] Start: 06-24-2023 [facility] Start: 06-24-2023 Thyroid stimulating hormone measurement [facility] Start: 06-24-2023 [facility] Start: 05-26-2023 Advance Directive Discussion Advance Directive Discussion [facility] Start: 05-26-2023 Behavioral Health Screening Behavioral Health Screening [facility] Start: 05-26-2023 Depression Assessment Depression Ass essment [facility] Start: 05-06-[address] [facility] Start: 02-05-2023 RSV Vaccine (1 - 1-d ose 75+ series) RSV Vaccine (1 - 1-dose 75+ series) [facility] Start: 10-24-2022 End: 04-25-2023 CBC W Auto Differential panel - Blood CBC + DIFF Lab Routine Elevated BP without diagnosis of hypertension Expected: 10/24/2022 (Approximate), Expires: 04/25/2023 [facility] Work Phone: Comment on above: Expected: 10/24/2022 (Approximate), Expires: 04/25/2023 Start: 10-24-2022 End: 04-25-2023 Comprehensive metabolic 2000 panel - Serum or Plasma COMP METABOLIC PANEL Lab Routine Hyperlipidemia with target LDL less than 100 Elevated BP without diagnosis of hypertension Expected: 10/24/2022 (Approximate), Expires: 04/25/2023 [facility] Work Phone: Comment on above: Expected: 10/24/2022 (Approximate), Expires: 04/25/2023 Start: 10-24-2022 End: 04-25-2023 Lipid 1996 panel - Serum or Plasma LIPID PANEL BASIC Lab Routine Hyperlipidemia with target LDL less than 100 Expected: 10/24/2022 (Approximate), Expires: 04/25/2023 [facility] Work Phone: Comment on above: Expected: 10/24/2022 (Approximate), Expires: 04/25/2023 Start: 05-26-2022 ADVANCE DIRECTIVE DISCUSSION ADVANCE DIRECTIVE DISCUSSION [facility] Start: 05-26-2022 DEPRESSION ASSESSMENT DEPRESSION ASS ESSMENT [facility] Start: 05-04-2022 Adult depression screening assessment DEPRESSION SCREENING [facility] Start: 05-03-[address] [facility] Start: 01-24-2022 Influenza vaccination INFLUENZA (#1) [facility] Start: 12-28-2021 End: 02-27-2022 Thyrotropin [Units/volume] in Serum or Plasma TSH BLD Lab Routine Abnormal weight gain Expected: 12/28/2021, Expires: 02/27/2022 [facility] Work Phone: Comment on above: Expected: 12/28/2021 , Expires: 02/27/2022 Start: 10-29-2021 End: 12-29-2021 CBC W Auto Differential panel - Blood CBC + DIFF Lab Routine Annual physical exam Expected: 10/29/2021, Expires: 12/29/2021 [facility] Work Phone: Comment on above: Expected: 10/29/2021 , Expires: 12/29/2021 Start: 10-29-2021 End: 12-29-2021 Comprehensive metabolic 2000 panel - Serum or Plasma COMP METABOLIC PANEL Lab Routine Hyperlipidemia with target LDL less than 100 Annual physical exam Expected: 10/29/2021, Expires: 12/29/2021 [facility] Work Phone: Comment on above: Expected: 10/29/2021 , Expires: 12/29/2021 Start: 10-29-2021 End: 12-29-2021 LIPID PANEL BASIC LIPID PANEL BASIC Lab Routine Hyperlipidemia with target LDL less than 100 Expected: 10/29/2021, Expires: 12/29/2021 [facility] Work Phone: Comment on above: Expected: 10/29/2021 , Expires: 12/29/2021 Start: 07-23-2021 COVID-19 VACCINE (4 - Booster for Moderna series) COVID-19 VACCINE (4 - Booster for Moderna series) [facility] Start: 03-20-2017 End: 03-20-2017 Appointment Appointment [facility] Start: 03-14-2017 End: 03-17-2017 Mammogram, screening Mammogram, Screening, both breasts [facility] Start: 2008 RSV Vaccine (1 - 1-d ose 60+ series) RSV Vaccine (1 - 1-dose 60+ series) [facility] Start: 02-05-1993 COLOGUARD (FIT-DNA) COLOGUARD (FIT-D NA) [facility] Start: 02-05-[address] COLONOGRAPHY [facility] Start: 02-05-1993 FECAL OCCULT BLOOD FECAL OCCULT BLOO D [facility] Start: 02-05-1993 Screening for malign ant neoplasm of colon [facility] Start: 02-05-1993 SIGMOIDOSCOPY SIGMOIDOSCOPY [facility] Start: 02-05-1966 BP Controlled (<130/80) BP Controlle d (<130/80) [facility] End: 11-21-2024 25-hydroxyvitamin D3 [Mass/volume] in Serum or Plasma VITAMIN D 25 HYDROXY Lab Routine Vitamin D deficiency Encounter for long-term current use of medication Every 6 months for 60 Occurrences starting 11/22/2023 until 11/21/2024 [facility] Comment on above: Every 6 months for 6 0 Occurrences starting 11/22/2023 until 11/21/2024 End: 11-21-2024 Basic metabolic 2000 panel - Serum or Plasma BASIC METABOLIC PANEL Lab Routine Encounter for long-term current use of medication 30 Occurrences starting 11/22/2023 until 11/21/2024 [facility] Work Phone: Comment on above: 30 Occurrences start ing 11/22/2023 until 11/21/2024 End: 07-29-2025 BD DXA TRABECULAR BONE SCORE (TBS) BD DXA TRABECULAR BONE SCORE (TBS) Radiology Routine Asymptomatic postmenopausal status 1 Occurrences starting 06/29/2024 until 07/29/2025 [facility] Comment on above: 1 Occurrences starti ng 06/29/2024 until 07/29/2025 BD DXA TRABECULAR RAFAEL NE SCORE (TBS) BD DXA TRABECULAR BONE SCORE (TBS) Radiology Routine Asymptomatic postmenopausal status 08/23/2024 2:[address] [facility] End: 11-21-2024 CBC panel - Blood by Automated count COMPLETE BLOOD COUNT Lab Routine White coat syndrome with high blood pressure but without hypertension Encounter for long-term current use of medication Every 6 months for 60 Occurrences starting 11/22/2023 until 11/21/2024 [facility] Comment on above: Every 6 months for 6 0 Occurrences starting 11/22/2023 until 11/21/2024 End: 11-21-2024 Comprehensive metabolic 2000 panel - Serum or Plasma COMPREHENSIVE METABOLIC PANEL Lab Routine White coat syndrome with high blood pressure but without hypertension Elevated fasting glucose Encounter for long-term current use of medication Every 6 months for 60 Occurrences starting 11/22/2023 until 11/21/2024 [facility] Comment on above: Every 6 months for 6 0 Occurrences starting 11/22/2023 until 11/21/2024 End: 07-29-2025 DXA Skeletal system.axial Views for bone density DXA-AXIAL SKELETON Radiology Routine Asymptomatic postmenopausal status 1 Occurrences starting 06/29/2024 until 07/29/2025 [facility] Work Phone: Comment on above: 1 Occurrences starti ng 06/29/2024 until 07/29/2025 DXA Skeletal system. axial Views for bone density DXA-AXIAL SKELETON Radiology Routine Asymptomatic postmenopausal status 08/23/2024 2:48 PM EDT [facility] Work Phone: Ephys evl trnsptl tx atrial fib isolat pulm vein COMPRE EP EVAL ABLTJ ATR FIB PULM VEIN ISOLATION Persistent atrial fibrillation (HCC) Anticoagulant long-term use [facility] End: 11-21-2024 Hemoglobin A1c in Blood HEMOGLOBIN A1C Lab Routine Elevated fasting glucose Every 6 months for 30 Occurrences starting 11/22/2023 until 11/21/2024 [facility] Comment on above: Every 6 months for 3 0 Occurrences starting 11/22/2023 until 11/21/2024 End: 11-21-2024 Lipid 1996 panel - Serum or Plasma LIPID PANEL BASIC Lab Routine Encounter for long-term current use of medication Every 6 months for 60 Occurrences starting 11/22/2023 until 11/21/2024 [facility] Comment on above: Every 6 months for 6 0 Occurrences starting 11/22/2023 until 11/21/2024 End: 11-21-2024 Magnesium [Mass/volume] in Serum or Plasma MAGNESIUM Lab Routine Encounter for long-term current use of medication Every 6 months for 60 Occurrences starting 11/22/2023 until 11/21/2024 [facility] Comment on above: Every 6 months for 6 0 Occurrences starting 11/22/2023 until 11/21/2024 Patient Education ED AFIB ED Hypertension, To Be Confirmed [facility] Work Phone: Patient referral [facility] Work Phone: End: 09-26-2024 SPIROMETRY WITH DILATOR IF OBSTRUCTED SPIROMETRY WITH DILATOR IF OBSTRUCTED PFT Routine SOBOE (shortness of breath on exertion) New onset atrial fibrillation (HCC) Orthopnea Weight gain Acute cough 1 Occurrences starting 08/28/2023 until 09/26/2024 [facility] Work Phone: Comment on above: 1 Occurrences starti ng 08/28/2023 until 09/26/2024 Thyroid stimulating hormone measurement [facility] Immunizations Immunization Date Immunization Notes Care Provider Nicky [facility] 03-02-2024 influenza, high dose seasonal, preservative-free Chung Jacob SALES PROPERTY MANAGER.BEEF BREAKER Work Phone: [facility] 02-27-2023 influenza (aIIV4) vaccine, age 65+ yr, quadrivalent, PF (FLUAD QUAD) Chung Jacob SALES PROPERTY MANAGER.BEEF BREAKER Work Phone: [facility] Work Phone: 02-27-2023 influenza virus vacc ine, unspecified formulation Angel Flores SALES PROPERTY MANAGER.INFORMATION TECHNOLOGY ADMINISTRATOR Work Phone: [facility] 03-05-2022 COVID-19 booster vaccine, age 12+ yr, bivalent (MODERNA) Chung Jacob SALES PROPERTY MANAGER.BEEF BREAKER Work Phone: [facility] 03-05-2022 influenza (HD-IIV4) vaccine, age 65+ yr, high dose, quadrivalent, PF (FLUZONE HIGH-DOSE) Chung Jacob SALES PROPERTY MANAGER.BEEF BREAKER Work Phone: [facility] Work Phone: 02-16-2021 influenza, high-dose , quadrivalent vaccine (FLUZONE HIGH DOSE QUADRIVALENT) Cierra Older SALES PROPERTY MANAGER.INFORMATION TECHNOLOGY ADMINISTRATOR Work Phone: [facility] 03-17-2020 tetanus toxoid, redu lucita diphtheria toxoid, and acellular pertussis vaccine, adsorbed Cierra Older SALES PROPERTY MANAGER.INFORMATION TECHNOLOGY ADMINISTRATOR Work Phone: [facility] 02-24-2020 influenza (aIIV4) vaccine, age 65+ yr, quadrivalent, PF (FLUAD QUADRIVALENT) Cierra Older SALES PROPERTY MANAGER.INFORMATION TECHNOLOGY ADMINISTRATOR Work Phone: [facility] 02-24-2020 influenza, high dose seasonal, preservative-free Cierra Older SALES PROPERTY MANAGER.INFORMATION TECHNOLOGY ADMINISTRATOR Work Phone: [facility] 02-25-2019 Seasonal trivalent influenza vaccine, adjuvanted, preservative free Cierra Older SALES PROPERTY MANAGER.INFORMATION TECHNOLOGY ADMINISTRATOR Work Phone: [facility] 11-07-2018 zoster vaccine recombinant Cierra Older SALES PROPERTY MANAGER.INFORMATION TECHNOLOGY ADMINISTRATOR Work Phone: [facility] Work Phone: 11-04-2018 zoster vaccine recombinant Cierra Older SALES PROPERTY MANAGER.INFORMATION TECHNOLOGY ADMINISTRATOR Work Phone: [facility] 09-04-2018 zoster vaccine recombinant Cierra Older SALES PROPERTY MANAGER.INFORMATION TECHNOLOGY ADMINISTRATOR Work Phone: [facility] 09-03-2018 zoster vaccine recombinant Cierra Older SALES PROPERTY MANAGER.INFORMATION TECHNOLOGY ADMINISTRATOR Work Phone: [facility] 02-21-2018 influenza, high dose seasonal, preservative-free Cierra Older SALES PROPERTY MANAGER.INFORMATION TECHNOLOGY ADMINISTRATOR Work Phone: [facility] 02-27-2017 influenza, high dose seasonal, preservative-free Cierra Older SALES PROPERTY MANAGER.INFORMATION TECHNOLOGY ADMINISTRATOR Work Phone: [facility] Work Phone: 03-07-2016 influenza, high dose seasonal, preservative-free Cierra Older SALES PROPERTY MANAGER.INFORMATION TECHNOLOGY ADMINISTRATOR Work Phone: [facility] Work Phone: 09-28-2015 pneumococcal conjuga te vaccine, 13 valent Cierra Older SALES PROPERTY MANAGER.INFORMATION TECHNOLOGY ADMINISTRATOR Work Phone: [facility] 03-23-2015 influenza, high dose seasonal, preservative-free Cierra Older SALES PROPERTY MANAGER.INFORMATION TECHNOLOGY ADMINISTRATOR Work Phone: [facility] 03-25-2014 influenza, high dose seasonal, preservative-free Cierra Older SALES PROPERTY MANAGER.INFORMATION TECHNOLOGY ADMINISTRATOR Work Phone: [facility] 03-25-2014 pneumococcal polysaccharide vaccine, 23 valent Cierra Older SALES PROPERTY MANAGER.INFORMATION TECHNOLOGY ADMINISTRATOR Work Phone: [facility] 03-06-2013 influenza virus vacc ine, unspecified formulation Cierra Older SALES PROPERTY MANAGER.INFORMATION TECHNOLOGY ADMINISTRATOR Work Phone: [facility] 11-22-2009 zoster vaccine, live Cierra Old er SALES PROPERTY MANAGER.INFORMATION TECHNOLOGY ADMINISTRATOR Work Phone: [facility] 03-03-2009 influenza virus vacc ine, unspecified formulation Cierra Older SALES PROPERTY MANAGER.INFORMATION TECHNOLOGY ADMINISTRATOR Work Phone: [facility] 03-25-2008 influenza virus vacc ine, unspecified formulation Cierra Older SALES PROPERTY MANAGER.INFORMATION TECHNOLOGY ADMINISTRATOR Work Phone: [facility] Work Phone: 11-11-2006 tetanus toxoid, redu lucita diphtheria toxoid, and acellular pertussis vaccine, adsorbed Cierra Older SALES PROPERTY MANAGER.INFORMATION TECHNOLOGY ADMINISTRATOR Work Phone: [facility] 04-30-2005 influenza virus vacc ine, whole virus Cierra Older SALES PROPERTY MANAGER.INFORMATION TECHNOLOGY ADMINISTRATOR Work Phone: [facility] Work Phone: Payers Date Payer Category Payer Medicare (Managed Care) [employer] O [id number] 2024 Unknown ANTHEM BLUE CROS S AND BLUE SHIELD ANTHEM MEDICARE ADVANTAGE HMO [id number] 2024-Present [phone] [address] [place] [address] O [id number] 2024 Medicare [id number] 2024 Medicare [id number] 2023 Self-pay [id number] 2022 Medicare [id number] 2021 Medicare HUMANA MEDICARE HUMANA GOLD PLUS [id number] 2021-Present [phone] [address] [address] [place] [address] O [id number] 2021 Medicare [id number] 2013 Medicare MEDICARE PART A B [id number] Unknown [employer]UALTY [id number] Unknown [id number] [id number] Unknown [id number]. 2.462 Unknown [id number] [id number]. 2.462 Unknown [id number] [id number]. 2.462 Unknown [id number] 2.16.840.1.321098.3.579. 2.462 Unknown [id number] 2.16.840.1.665548.3.579. 2.462 Unknown [id number] [id number]. 2.462 Unknown [id number] [id number]. 2.462 Unknown [id number] [id number]. 2.462 Unknown [id number] [id number]. 2.462 Unknown [id number] [id number]. 2.462 Unknown [id number] [id number]. 2.462 Unknown [id number] 2.16.840.1.085430.3.579. 2.462 Unknown [id number] 2.16.840.1.561624.3.579. 2.462 Unknown [id number] 2.16.840.1.265547.3.579. 2.462 Unknown [id number] [id number]. 2.462 Unknown [id number] [id number]. 2.462 Unknown [id number]. 2.462 Social History Date Type Detail Facility Start: 04-10-2012 End: 08-09-2022 Tobacco smoking status NYIS Never smoked tobacco [facility] Start: 08-10-2021 End: 07-03-2024 Alcohol intake Current drinker of alcohol (finding) [facility] Start: 07-04-2017 History SDOH Alcohol Comment rarely [facility] Start: 1950 Sex Assigned At Not on file [facility] Start: 11-06-2021 End: 11-05-2022 History SDOH Alcohol Frequency 1 [facility] Start: 11-06-2021 History SDOH Alcohol Std Drinks 98 [facility] Start: 11-06-2021 End: 11-05-2022 History SDOH Social Connections Phone 5 [facility] Start: 11-06-2021 End: 11-05-2022 History SDOH Social Connections [facility] Start: 11-06-2021 End: 11-05-2022 History SDOH Physical Activity DPW 4 [facility] Start: 11-06-2021 End: 11-05-2022 History SDOH Transport Med 2 [facility] Start: 1950 Sex Assigned At Female C [facility] Start: 11-03-2021 End: 12-28-2021 Exposure to SARS-CoV-2 (event) Not sure [facility] Work Phone: Start: 12-20-2021 End: 07-24-2023 Tobacco smoking status [facility] Unknown if ever smoked [facility] Start: 04-10-2012 End: 08-09-2022 Tobacco use and exposure Smokeless tobacco non-user [facility] Start: 11-05-2022 History SDOH Alcohol Std Drinks 0 [facility] Start: 11-05-2022 History SDOH Physica l Activity MPS 6 [facility] Start: 11-05-2022 End: 11-15-2023 History of Social function [facility] Start: 11-05-2022 End: 11-15-2023 Social connection and isolation panel [facility] Do you belong to any clubs or organizations such as methodist groups, unions, fraternal or athletic groups, or school groups? Yes [facility] Are you now , , , , never or living with a partner? [facility] How often to you hav e a drink containing alcohol? Never [facility] How many standard dr inks containing alcohol do you have on a typical day? Patient does not drink [facility] Do you feel stress - tense, restless, nervous, or anxious, or unable to sleep at night because your mind is troubled all the time - these days [OSQ] Rather much [facility] (I/We) worried whenaya er (my/our) food would run out before (I/we) got money to buy more. Never true [facility] In the past 12 month s, was there a time when you were not able to pay the mortgage or rent on time? No [facility] Start: 11-06-2021 Gender identity Identifies as female gender (finding) [facility] Do you feel stress - tense, restless, nervous, or anxious, or unable to sleep at night because your mind is troubled all the time - these days [OSQ] Not at all [facility] How hard is it for y ou to pay for the very basics like food, housing, medical care, and heating Not very hard [facility] Do you feel stress - tense, restless, nervous, or anxious, or unable to sleep at night because your mind is troubled all the time - these days [OSQ] To some extent [facility] Start: 09-29-2024 Sex Female (finding) [facility] Goals Date Patient Goal Desired Activity /State Personal health goal Functional Status Date Assessment Result Facility 11-11-2024 Total score [AUDIT-C] 0 11/12/19 25 10:28 AM EDT User, Peter [facility] 11-11-2024 How often to you hav e a drink containing alcohol? Never 11/11/2024 10:28 AM EDT User, Mychart Never [facility] 11-11-2024 Functional status Patient does n ot drink 11/11/2024 10:28 AM EDT User, Vegat Patient does not drink [facility] 11-11-2024 How often do you hav e 6 or more drinks on 1 occasion? Never 11/11/2024 10:28 AM EDT User, Mycdamont Never [facility] 06-17-[address] [facility] Work Phone: 03-25-2014 Are you deaf, or do you have serious difficulty hearing No 03/25/2014 10:56 AM Anju Leavitt MA No [facility] 03-25-2014 Are you blind, or do you have serious difficulty seeing, even when wearing glasses No 03/25/2014 10:56 AM Anju Leavitt MA No [facility] 03-25-2014 Do you have serious difficulty walking or climbing stairs No 03/25/2014 10:56 AM Anju Leavitt MA No [facility] 03-25-2014 Do you have difficul ty dressing or bathing No 03/25/2014 10:56 AM EDT Anju Crawley MA No [facility] 03-25-2014 Because of a physica l, mental, or emotional condition, do you have difficulty doing errands alone such as visiting a physician's office or shopping No 03/25/2014 10:56 AM EDT Anju Crawley MA No [facility] Mental Status Date Assessment Result Facility 06-16-2024 Cognitive function Voice/Name [facility] Work Phone: 06-24-2023 Cognitive function Voice/Name [facility] Work Phone: 03-25-2014 Because of a physica l, mental, or emotional condition, do you have serious difficulty concentrating, remembering, or making decisions No 03/25/2014 10:56 AM EDT Anju Crawley MA No [facility] Clinical Notes 03-03-2009 to 11-11-2024 Telephone Encounter - Kristina Melara RN - 11/11/2024 3:02 PM EDTTelephone Encounter - Kristina Melara RN - 11/11/2024 3:02 PM EDTTelephone Encounter - Teresa Dubois - 11/11/2024 2:54 PM EDT Note Date & Type Note Facility 11-11-2024 Telephone encounter Note Pt's name has been added to utica procedure board. Kristina Melara RN [facility] 11-11-2024 Miscellaneous Notes Pt's name has been added to chaudhry procedure board. Kristina Melara RN Patient is scheduled for a PFA Ablation on 12/[address] Oh. The hospital will call the day before between 2-5pm with your arrival time. You should not eat or drink after midnight the day before the procedure. You will need a courtesy car driver when released from the hospital and you will stay overnight for observation. You should continue to take medications as prescribed the morning of the procedure with just a sip of water but Hold flecainide one week prior H&P update on 12/03 at 4:30p with Ayan Cerrato [address] - [address] [address] Spoke with Gisela Johnson on November 11, 2024. Informed of instructions as stated above. Patient verbalized understanding. Teresa Dubois documented in this encounter [facility] 11-11-2024 Telephone encounter Note Patient is scheduled for a PFA Ablation on 12/[address] Oh. The hospital will call the day before between 2-5pm with your arrival time. You should not eat or drink after midnight the day before the procedure. You will need a courtesy car driver when released from the hospital and you will stay overnight for observation. You should continue to take medications as prescribed the morning of the procedure with just a sip of water but Hold flecainide one week prior H&P update on 12/03 at 4:30p with Ayan Cerrato [address] - [address] [address] Spoke with Gisela Johnson on November 11, 2024. Informed of instructions as stated above. Patient verbalized understanding. Teresa Dubois [facility] 08-23-2024 History of Presen t illness Narrative Radiology Service Progress Note PATIENT NAME: Gisela Johnson DATE OF SERVICE: August 23, 2024 TIME: 2:25 PM PATIENT IDENTITY VERIFICATION COMPLETED USING TWO (2) IDENTIFIERS: Name and Date of confirmed by patient verbally. FALL SCREENING: Has the patient had 2 falls in the last year or 1 fall with injury or currently using an Ambulatory Assistive Device (Walker, Cane, Wheelchair, Crutches, etc.)? No PATIENT GENDER DATA: Assigned female at . status: : No status: NO. PATIENT RELEVANT IMPLANT DATA REVIEWED: Not Applicable PATIENT PRESENTS WITH AN IMPLANTABLE OR ATTACHED CENTER CUSTOMER SERVICE ASSOCIATE: No RADIOLOGY DEPARTMENT: Bone Density PERIPHERAL IV DATA: Not applicable SIGNED BY: RT Lenore(R) August 23, 2024 2:25 PM documented in this encounter [facility] 08-23-2024 Note HNO ID: [id number] Author: KAYLAN REYES RT(R) Service: ? Author Type: Technologist Type: Progress Notes Filed: 08/23/2024 14:34 Note Text: Radiology Service Progress Note PATIENT NAME: Gisela Johnson DATE OF SERVICE: August 23, 2024 TIME: 2:25 PM PATIENT IDENTITY VERIFICATION COMPLETED USING TWO (2) IDENTIFIERS: Name and Date of confirmed by patient verbally. FALL SCREENING: Has the patient had 2 falls in the last year or 1 fall with injury or currently using an Ambulatory Assistive Device (Walker, Cane, Wheelchair, Crutches, etc.)? No PATIENT GENDER DATA: Assigned female at . status: : No status: NO. PATIENT RELEVANT IMPLANT DATA REVIEWED: Not Applicable PATIENT PRESENTS WITH AN IMPLANTABLE OR ATTACHED CENTER CUSTOMER SERVICE ASSOCIATE: No RADIOLOGY DEPARTMENT: Bone Density PERIPHERAL IV DATA: Not applicable SIGNED BY: RT Lenore(R) August 23, 2024 2:25 PM [facility] 06-29-2024 Instructions Antonia Mendoza MD - 06/29/2024 11:59 AM EST - Take Metoprolol 50 mg twice daily; prescription for a 90-day supply sent to [facility] in [place]. - Continue taking Losartan 25 mg daily; you have a 90-day supply. - Monitor your blood pressure at home daily. If it consistently stays above 140/90, contact your quencher operator to discuss potential adjustments to your Losartan dosage. - Practice deep breathing exercises to help lower your blood pressure: Inhale for 4 seconds, hold, then exhale slowly for 8 seconds. Repeat as needed. - Follow up with your quencher operator, Dr. Oh, regarding the scheduling of your procedure. A tentative pre-admit date of October 27 is in the system, but confirm the exact date. - Schedule a bone density scan at your convenience; the order is in the system and can be completed within the next year. - Complete any pending lab work before your next appointment in October. - Next appointments are scheduled for October and April. BONE MINERAL DENSITY PATIENT INSTRUCTIONS ========= Bone mineral density testing measures the amount of calcium in certain parts of your bones. This information determines how strong your bones are. The test is used to detect osteoporosis, a disease in which the bone's mineral content and density are low, increasing a person's risk of fractures. The lumbar spine (lower back) and the hip are the skeletal sites usually examined. For the test, remember that: 1. You cannot take this test if you are . 2. Eat a normal diet on the day of the test. 3. Take your medications as you normally would. 4. DO NOT take calcium supplements (such as Tums) for 24 hours before the test. 5. On the day of the test, leave valuables (jewelry or credit cards) at home. 6. The test should be performed prior to oral, rectal or IV contrast studies, or at least 7 days after any of these studies. For the test, you may be asked to wear a hospital gown. You will lie on your back, on a padded table, in a comfortable position. Generally, you can resume your usual activities immediately. documented in this encounter [facility] 06-29-2024 Note HNO ID: [id number] Author: ANTONIA MENDOZA MD Service: ? Author Type: Physician Type: Progress Notes Filed: 06/29/2024 13:01 Note Text: This note was created using [email or web address]. Subjective Gisela Johnson is a 74 year old female. Patient presents with: Hospital F/U: [facility] 06/15/24 had been cardioverted in the am and after released and out running errands became very dizzy. Went to ER and was admitted to ICU. SUBJECTIVE: Gisela Johnson is a 74 year old year old lady here today for hospital follow up appointment for review of medical conditions. Gisela Johnson is a 74-year-old female with a history of atrial fibrillation and hypertension, presenting for follow-up after a recent hospitalization and concerns about elevated blood pressure readings. Gisela was recently hospitalized and discharged on the . During her hospital stay, she underwent cardioversion for atrial fibrillation and was taken off losartan. She was reinitiated on losartan 25 mg once daily last after a follow-up with her quencher operator. Since then, she has been monitoring her blood pressure at home, noting readings in the 150s/90s, with a reading of 164/90 today, which is higher than previous readings this week. Her baseline blood pressure readings are typically in the 110s-130s systolic range. She reports a nagging headache at the base of her neck today, which she attributes to the elevated blood pressure. She denies any episodes of dizziness or lightheadedness since her discharge. During her hospitalization, her heart rate was noted to be bradycardic, leading to the temporary discontinuation of metoprolol and diltiazem. She is currently on metoprolol 50 mg BID, reduced from 100 mg BID, and has a 10-day supply remaining. She has a 90-day supply of losartan. She denies any peripheral edema and reports stable weight. She is also on Eliquis, Lipitor, and omeprazole, with refills available until next year. She denies the need for Lasix or potassium supplementation. Gisela reports improvement in her exercise tolerance since her hospitalization, now able to climb 12 steps without stopping, compared to only 3 steps previously. She notes that her atrial fibrillation is still intermittent but feels that her heart is currently in rhythm. She used to walk 3 miles a day but has not been able to do so recently due to her condition. She is under the care of multiple cardiologists, including Dr. Isiah Fletcher and Dr. Oh, and is awaiting a procedure scheduled tentatively for October 27. She expresses concern about potential scheduling conflicts with her granddaughter's graduation in October. She has completed her advanced directives, including a living will and healthcare power of trademark attorney, with her Misbah and son Collin designated as her healthcare proxies. She received the RSV vaccine on 05/15/2024. She had a bone density scan in 2020, with a previous diagnosis of osteopenia in 2016. She inquires about the need for a repeat bone density scan and any additional lab work. 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 apixaban (ELIQUIS) 5 mg tab(s) Take 1 tablet by mouth two times a day. atorvastatin (LIPITOR) 10 mg tablet Take 1 tablet by mouth once daily. omeprazole (PRILOSEC) 20 mg capsule Take 1 capsule by mouth daily before breakfast. 1/2 hr before meal. zolpidem (AMBIEN) 5 mg tablet Take 1 tablet by mouth at bedtime as needed for sedation for up to 90 days. Take immediately before bedtime with 8 hours of planned sleep before waking. For insomnia losartan (COZAAR) 25 mg tablet Take 25 mg by mouth once daily. nitroglycerin sublingual (NITROSTAT) 0.4 mg SL tablet Dissolve 0.4 mg under the tongue every 5 minutes as needed for chest pain. MULTIVITAMIN CAP Take one(1) tablet daily. metoprolol tartrate, short acting, (LOPRESSOR) 50 mg tablet Take 1 tablet by mouth two times a day. No current facility-administered medications for this visit. Review of Systems Objective BP 164/90 Pulse 68 Wt 83.8 kg (184 lb 11.9 oz) SpO2 98% BMI 32.73 kg/m? Last 5 Encounter Wt Readings: Date: Wt: 06/29/2024 83.8 kg (184 lb 11.9 oz) 06/04/2024 83.9 kg (185 lb) 05/11/2024 84.3 kg (185 lb 13.6 oz) 12/05/2023 80.3 kg (177 lb) 11/22/2023 79.8 kg (more content not included)... [facility] 06-29-2024 History of Presen t illness Narrative This note was created using Done In :60 Second[employer]. Subjective Gisela Johnson is a 74 year old female. Patient presents with: Hospital F/U: [facility] 06/15/24 had been cardioverted in the am and after released and out running errands became very dizzy. Went to ER and was admitted to ICU. SUBJECTIVE: Gisela Johnson is a 74 year old year old lady here today for hospital follow up appointment for review of medical conditions. Gisela Johnson is a 74-year-old female with a history of atrial fibrillation and hypertension, presenting for follow-up after a recent hospitalization and concerns about elevated blood pressure readings. Gisela was recently hospitalized and discharged on the . During her hospital stay, she underwent cardioversion for atrial fibrillation and was taken off losartan. She was reinitiated on losartan 25 mg once daily last after a follow-up with her quencher operator. Since then, she has been monitoring her blood pressure at home, noting readings in the 150s/90s, with a reading of 164/90 today, which is higher than previous readings this week. Her baseline blood pressure readings are typically in the 110s-130s systolic range. She reports a nagging headache at the base of her neck today, which she attributes to the elevated blood pressure. She denies any episodes of dizziness or lightheadedness since her discharge. During her hospitalization, her heart rate was noted to be bradycardic, leading to the temporary discontinuation of metoprolol and diltiazem. She is currently on metoprolol 50 mg BID, reduced from 100 mg BID, and has a 10-day supply remaining. She has a 90-day supply of losartan. She denies any peripheral edema and reports stable weight. She is also on Eliquis, Lipitor, and omeprazole, with refills available until next year. She denies the need for Lasix or potassium supplementation. Gisela reports improvement in her exercise tolerance since her hospitalization, now able to climb 12 steps without stopping, compared to only 3 steps previously. She notes that her atrial fibrillation is still intermittent but feels that her heart is currently in rhythm. She used to walk 3 miles a day but has not been able to do so recently due to her condition. She is under the care of multiple cardiologists, including Dr. Isiah Fletcher and Dr. Oh, and is awaiting a procedure scheduled tentatively for October 27. She expresses concern about potential scheduling conflicts with her granddaughter's graduation in October. She has completed her advanced directives, including a living will and healthcare power of trademark attorney, with her Misbah and son Collin designated as her healthcare proxies. She received the RSV vaccine on 05/15/2024. She had a bone density scan in 2020, with a previous diagnosis of osteopenia in 2015. She inquires about the need for a repeat bone density scan and any additional lab work. 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 apixaban (ELIQUIS) 5 mg tab(s) Take 1 tablet by mouth two times a day. atorvastatin (LIPITOR) 10 mg tablet Take 1 tablet by mouth once daily. omeprazole (PRILOSEC) 20 mg capsule Take 1 capsule by mouth daily before breakfast. 1/2 hr before meal. zolpidem (AMBIEN) 5 mg tablet Take 1 tablet by mouth at bedtime as needed for sedation for up to 90 days. Take immediately before bedtime with 8 hours of planned sleep before waking. For insomnia losartan (COZAAR) 25 mg tablet Take 25 mg by mouth once daily. nitroglycerin sublingual (NITROSTAT) 0.4 mg SL tablet Dissolve 0.4 mg under the tongue every 5 minutes as needed for chest pain. MULTIVITAMIN CAP Take one(1) tablet daily. metoprolol tartrate, short acting, (LOPRESSOR) 50 mg tablet Take 1 tablet by mouth two times a day. No current facility-administered medications for this visit. Review of Systems Objective BP 164/90 Pulse 68 Wt 83.8 kg (184 lb 11.9 oz) SpO2 98% BMI 32.73 kg/m Last 5 Encounter Wt Readings: Date: Wt: 06/29/2024 83.8 kg (184 lb 11.9 oz) 06/04/2024 83.9 kg (185 lb) 05/11/2024 84.3 kg (185 lb 13.6 oz) 12/05/2023 80.3 kg (177 lb) 11/22/2023 79.8 kg (176 lb) No waist measurement recorded Estimated body mass index is 32.73 kg/m as calculated from the following: Height as of 06/04/24: 160 cm (5' 3). Weight as of this encounter: 83.8 kg (184 lb 11.9 oz). Last 5 Encounter BP Readings: Date: BP: 06/29/2024 164/90 06/04/2024 143/79 05/11/2024 118/79 12/05/2023 132/82 11/22/2023 136/86 Physical Exam Constitutional: Appearance: Normal appearance. HENT: Head: Normocephalic. Eyes: Conjunctiva/sclera: Conjunctivae normal. Cardiovascular: Rate and Rhythm: Normal rate and regular rhythm. Heart sounds: Normal heart sounds. Pulmonary: Effort: Pulmonary effort is normal. Breath sounds: Normal breath sounds. Musculoskeletal: Right lower leg: No edema. Left lower leg: No edema. Skin: General: Skin is warm and dry. Neurological: General: No focal deficit present. Mental Status: She is alert and oriented to person, place, and time. Psychiatric: Mood and Affect: Mood normal. Behavior: Behavior normal. Thought Content: Thought content normal. Judgment: Judgment normal. Reviewed labs done at [facility] on discharge summary from [facility] admission. Assessment and Plan # Primary hypertension (I10) - Recent hospitalization led to temporary discontinuation of losartan; resumed on 25 mg daily as of last . - Home blood pressure readings remain elevated, averaging in the 150s/90s; office readings today were 140/82 and 120/78 after relaxation techniques. - Educated patient on deep breathing exercises to help lower blood pressure. - Discussed potential for increasing losartan dosage if blood pressure remains elevated; maximum dosage can be up to 100 mg daily. - Patient advised to monitor blood pressure at home and report if readings consistently exceed 140/90. - Refill for metoprolol 50 mg BID for 90 days with one refill sent to [facility] in [place]. # Paroxysmal atrial fibrillation (HCC) (I48.0) - Recent cardioversion performed; rhythm currently stable but still experiencing intermittent episodes. - Follow-up with Dr. Oh for electrophysiology evaluation; tentative pre-admit date for October 27. - Current medications include metoprolol 50 mg BID and Eliquis. - No recent episodes of dizziness or lightheadedness; heart rate stable at 68 bpm. - Advised patient to continue current medication regimen and follow up with cardiology as scheduled. # Asymptomatic postmenopausal status (Z78.0) - Discussed scheduling a bone density scan; order placed for future scheduling. - No additional lab work needed at this time; standing orders for A1c, magnesium, vitamin D, and cholesterol are in place. I spent a total of 30 minutes on the date of the service which included [id number] patient care, completing clinical documentation, obtaining and/or reviewing separately obtained history, performing a medically appropriate examination, counseling and educating the patient/family/caregiver, ordering medications, tests, or procedures, independently interpreting results (not separately reported), and communicating results to the patient/family/caregiver. Antonia Mendoza MD documented in this encounter [facility] 06-24-2024 Telephone encounter Note [place] [facility] records scanned in for your review. Gal Soto RN [facility] 06-24-2024 Miscellaneous Notes [facility] records scanned in for your review. Gal Soto RN documented in this encounter [facility] 06-17-2024 Note [facility] Medical Records Department [address] [place] [address] Discharge Summary 06/17/24 1430 MR#: [id number] Acct: [id number] Name: GISELA JOHNSON Rep #: [id number] : 1950 74 From: Jorge Luis Wyman DO PCP: Dr. Antonia Mendoza MD Status:ADM IN Location: ICU ICU01-1 Providers Date of Admission: 06/15/24 Primary Care Physician: Dr. Antonia Mendoza MD Consultations 06/15/24 16:35 Consult: Cardiology Routine Consulting Provider: Shannan Conner Reason for Consult: symptomatic bradycardia EMERGENT Consult: No MD Notified: Yes Date Notified: 06/15/24 Time Notified: 15:44 Method of Notification: Text Reason For Visit: SYMPTOMATIC BRADYCARDIA Diagnosis Discharge Diagnosis (1) Symptomatic bradycardia: Status: Acute Code(s): R00.1 - Bradycardia, unspecified Plan Symptomatic bradycardia * Received glucagon without significant improvement but atropine did improve heart rate to 60s. Continued sinus rhythm * Dilt, flecanide, metoprolol tartrate held. States that she was started on flecainide 2 weeks ago by her EP physician Dr. Francis. * Cardiology input greatly appreciated. Headache * with associated nausea. Received acetaminophen earlier this AM. Chronic conditions: * GERD-Continue PPI * Hypertension-Hold antihypertensives as above * pAfib: rate-flecainide and dilt held. Metoprolol tartrate resumed, but at a lower dose. apixaban. Medications at Discharge Home Medications atorvastatin 10 mg tablet (Lipitor) 10 mg PO DAILY 08/20/18 multivitamin,[id number] (Complete Multivitamin tablet) 1 tab PO DAILY 12/10/19 omeprazole 20 mg capsule,delayed release 20 mg PO DAILY 07/15/23 nitroglycerin 0.4 mg sublingual tablet 0.4 mg sublingual Q5-15M PRN chest pain #25 tabs 07/24/23 zolpidem 5 mg tablet 5 mg PO QHS PRN insomnia 07/24/23 apixaban 5 mg tablet (Eliquis) 5 mg PO .COMPLEX #180 tabs 06/08/24 metoprolol tartrate 50 mg tablet 50 mg PO BID #60 tabs 06/17/24 Hospital Course Operations None Procedures None Summary of Care Provided Minutes Spent on Discharge: 35 Hospital Course: Patient presents with symptomatic bradycardia. Her flecainide, diltiazem and metoprolol were held. Patient was in sinus rhythm. Patient was resumed on metoprolol tartrate 25 twice daily (down from 100 twice daily). She did fine with that. Did not actually go into A-fib was rate controlled. Discussed with Dr. Conner, recommend increasing metoprolol tartrate to 50 twice a day and to follow-up with her EP physician. Patient be discharged home in stable condition. Weight / BMI Weight Weight: 88.496 kg Body Mass Index (BMI) 34.5 ABG / Lab / Microbiology Data 06/16/24 04:50 06/16/24 04:50 D/C Instructions Discharge Diet: No restrictions DC O2, CPAP, BIPAP Needs Home O2 Discharge instructions: No Meaningful Use Info Meaningful Use Meaningful Use Diagnoses (Choose all that apply): None applicable Ischemic Stroke Statin Dosing Therapy Reference: STATIN DOSE THERAPY REFERENCE: * Patients > 75 years receive moderate or high dose statin therapy. * Patients 75 years or YOUNGER should receive HIGH intensity statin dose unless contraindicated. You will be required to document reason for non-treatment if statin daily dose does not meet guidelines. HIGH DOSE STATIN THERAPY DAILY Atorvastatin > than or = to 40 mg Rosuvastatin > than or = to 20 mg Amlodipine + Atorvastatin > than or = to 2.5/40 mg Ezetimibe + Simvastatin 10/80 mg Simvastatin 80mg Discharge Plan Admission Admit Date/Time: 06/15/24 15:36 Primary Reason for Your Visit: Bradycardia Attending Provider: Jorge Luis Wyman Primary Care Provider: Antonia Mendoza Consulting Providers: Susan Rose; Shannan Conner Instructions Additional Instructions / Restrictions: You had bradycardia, slow heart rate. This is likely due to her medications which include flecainide, diltiazem and metoprolol. You will only be on metoprolol in that section can to be at a reduced dose from what you are taking before. Please follow-up with your quencher operator and hospitality intern (Dr. Schweikert) earliest availability. If you do have issues in regards to feeling her heart racing or chest or feeling weak or unsteady, notify your physician or return to the emergency room Discharge Orders/Prescriptions Prescriptions: New metoprolol tartrate 50 mg tablet 50 mg PO BID Qty: 60 0RF Continued atorvastatin [Lipitor] 10 mg tablet 10 mg PO DAILY Complete Multivitamin Tablet 1 tab PO DAILY omeprazole 20 mg capsule,delayed release(DR/EC) 20 mg PO DAILY zolpidem 5 mg tablet 5 mg PO QHS PRN (Reason: insomnia) nitroglycerin 0.4 mg tablet, sublingual 0.4 mg sublingual Q5-15M PRN (Reason: chest pain) Qty: 25 3RF Rx (more content not included)... [facility] 06-15-2024 Evaluation note Diagnosis Onset Date Resolution Atrial fibrillation chronic 2024 10:16am Mitral valve regurgitation chronic June 15 10:16am Tricuspid regurgitation chronic J anuary 2024 10:16am Acute kidney injury resolved 2024 3:36pm Symptomatic bradycardia resolved J anuary 2024 3:36pm History of atrial fibrillation inactive June 15 3:36pm Atrial fibrillation chronic 2024 10:15am Dyslipidemia chronic May 10:15am Essential hypertension chronic Ja nuary 2024 10:15am Mitral valve regurgitation chronic June 23 10:15am Tricuspid regurgitation chronic J anuary 2024 10:15am Aortic valve regurgitation chronic September 23, 2024 2: 10pm Dyslipidemia chronic September 23 2:10pm Encounter for monitoring flecainide therapy chronic September 23, 2024 2:10pm Essential hypertension chronic Ma y 2024 2:10pm Mitral valve regurgitation chronic September 23, 2024 2: 10pm Paroxysmal atrial fibrillation chronic September 23, 2024 2: 10pm Tricuspid regurgitation chronic M ay 2024 2:10pm [facility] Work Phone: 1(636) 508-943501-21-2025 [facility] Medical Records Department [address] [place] [address] History Physical Exam 06/15/24 1013 MR#: [id number] Acct: [id number] Name: GISELA JOHNSON Rep #: [id number] : 1950 74 From: Nadia VILLAGRAN PCP: Dr. Antonia Mendoza MD Status:PRE [facility] Location: [facility] History and Physical Gisela Guillen is a 74-year-old female that presents here today for a cardioversion. She does have a history of persistent atrial fibrillation, moderate to severe mitral valve regurgitation and tricuspid regurgitation. Patient was referred to EP. EP had started her on flecainide. They had requested that she undergo a cardioversion. She had opted to have this done here at [facility] instead of [facility]. The ultimate plan for patient is to proceed with an ablation. This is being scheduled in the future however it will be several months before this is done. 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 Ductal carcinoma in situ (DCIS) of left breast Surgical History Status post left breast lumpectomy Family History Brother Kidney disease cancer Parkinsons Mother Paroxysmal atrial fibrillation Father CAD (coronary artery disease) CABG x 4 Social History housing: house Smoking Status: Never smoker second hand exposure: No alcohol intake: current alcohol intake frequency: holidays/special occasions only substance use type: does not use what type of physical activity do you participate in: walking frequency: 3-4 times per week duration: 30-45 minutes/day seatbelt use: always additional social history: 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 ROS Const Const: Negative for fatigue, weakness, headache(s) or weight gain ENT ENT: Negative for headache(s), dizziness, Nosebleed/epistaxis or balance problems Cardio Chest Pain: No Palpitations: No Edema: None Muscle aches with walking: None Resp Respiratory: Positive for SOB with activity (w/ stairs); Negative for SOB at rest or SOB orthopnea SOB lying down GI GI: Negative nausea, vomiting or heartburn Musc Musc: Positive for joint pain (left shoulder); Negative for muscle aches/ myalgia, muscle weakness or balance problems Neuro Neuro: Negative for dizziness, lightheadedness, near syncope, syncope, headache(s) or weakness Endo Endo: Negative for fatigue Cardiology Exam Const Appearance: comfortable and no acute distress Nutritional Appearance: well nourished Neck Neck: no JVD Carotids: Negative bruit Chest Auscultation: Bilateral: Clear to Auscultation Cardio Rhythm: irregularly irregular Heart sounds: S1 normal and S2 normal Neuro General: patient alert, patient awake and patient oriented x3 Extremities Lower Extremity Edema: None: Bilateral Assessment Plan Assessment/Plan (1) Atrial fibrillation: (2) Mitral valve regurgitation: (3) Tricuspid regurgitation: PLAN: Plan Patient will undergo a cardioversion today. She will continue to follow with the EP. Will also continue to follow-up with us in our office. 06/15/24 1016 Cosign Signature (if applicable): CC: Dr. Antonia Mendoza MD; SPARKLE Kasper [facility] Telephone encounter Note* Telephone Encounter - Gal Soto RN - 06/04/2024 1:54 PM EST Spoke with pt. Notified of Dr Oh's message and recommendations. Pt voices understanding. She will tack picker and start flecainide. She will reach out to the [facility] to arrange DCC in a week or so. She will call our office if [facility] cannot do DCCV. Gal Soto RN [facility]01-10-2025 Miscellaneous Notes* Telephone Encounter - Gal Soto RN - 06/04/2024 1:54 PM EST Spoke with pt. Notified of Dr Oh's message and recommendations. Pt voices understanding. She will tack picker and start flecainide. She will reach out to the [facility] to arrange DCC in a week or so. She will call our office if [facility] cannot do DCCV. Gal Soto RN * Telephone Encounter - Gal Soto RN - 06/04/2024 1:50 PM EST Left message on voicemail requesting pt return call for Dr Oh's recommendation for treatment plan. Office phone number provided. Gal Soto RN * Telephone Encounter - Brea Oh MD - 06/04/2024 1:[address] [facility] [place] [facility] Electrophysiology (EP) Please let Ms. Johnson know that as we discussed at the office visit this morning I did review her case in more detail. As discussed, I did send the flecainide prescription to her [facility] pharmacy in [place]. I sent my note to [facility], as discussed she should contact them and see if theywill perform the electrical cardioversion in about a week or so after she starts the [facility]ainide. [facility], then she should let us know and I will schedule itat [place] [facility]. Also let her know that I submitted a request for the scheduling process for catheter ablation. Brea Oh MD June 04, 2024 1:41 PM documented in this encounterSt[facility] Telephone encounter Note * Telephone Encounter - Gal Soto RN - 06/04/2024 1:50 PM EST Left message on voicemail requesting pt return call for Dr Oh's recommendation for treatment plan. Office phone number provided. Gal Soto RN [facility]01-10-2025 Telephone encounter Note* Telephone Encounter - Brea Oh MD - 06/04/2024 1:38 PM EST [facility] General Electrophysiology (EP) Please let Ms. Johnson know that as we discussed at the office visit this morning I did review her case in more detail. As discussed, I did send the flecainide prescription to her [facility] pharmacy in [place]. I sent my note to [facility], as discussed she should contact them and see if theywill perform the electrical cardioversion in about a week or so after she starts the flecainide. [facility], then she should let us know and I will schedule itat [place] [facility]. Also let her know that I submitted a request for the scheduling process for catheter ablation. Brea Oh MD June 04, 2024 1:[address] [facility]01-10-2025 History of Present illness Narrative* Brea Oh MD - 06/04/2024 10:20 AM EST PRIMARY CARE PHYSICIAN: Antonia Mendoza [address] [id number] REFERRING PHYSICIAN: Antonia Mendoza [address] [facility] [address] Patient Care Team: Antonia Mendoza MD as PCP - General (Internal Medicine) Chung Jacob APRN.BEEF BREAKER as Production Recorder (Internal Medicine) Angel Flores APRN.INFORMATION TECHNOLOGY ADMINISTRATOR as Production Recorder (Internal Medicine) Logan Santillan MD as Specialty President And Chief Commercial Officer (Cardiology) CHIEF COMPLAINT: Evaluation of arrhythmia HISTORY OF PRESENT ILLNESS: Ms. Johnson is a 74 year old female who presents today for evaluation of arrhythmia, accompanied by her . She was diagnosed with atrial fibrillation in early 2023. She had presented to [facility] ED in about May 2023 with palpitations, shortness of breath, lightheadedness. Episodes w ere worse at nighttime. She has experienced intermittent palpitations for many years. But this ED visit in early 2023 was the first time that atrial fibrillation was documented. She was treated with rate controlling medications and oral anticoagulation therapy. She followed up with general quencher operator, Dr. Santillan, of [facility]. She underwent cardiac testing including an echocardiogram. She was found to have moderately severe MR and TR, and mild to moderate AI. A cardiac stress test in August 2023 revealed no evidence for ischemia. She has still experienced frequent episodes of palpitations. She has exertional shortness of breath. She believes she has been in atrial fibrillation persistently since early 2023. A monitor technician in 07/14/2023 - 07/28/2023 revealed persistent atrial fibrillation. Medical records mention electrical cardioversion but she states she has not had one performed. She has not yet been treated with antiarrhythmic drug or electrical cardioversion. Shewas referred to EP for consideration of catheter ablation, initially to [facility] but Ms. Johnson did not want to wait for such an appointment so she scheduled an appointment here with us in [place]. I have confirmed and edited as necessary, the PFSH and ROS obtained by others. 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/24/2014 Was treated with tamoxifen Hyperlipidemia LDL goal < 100 05/09/2014 Nocturia Nonrheumatic aortic valve insufficiency 06/04/2024 Nonrheumatic mitral valve regurgitation 06/04/2024 Nonrheumatic tricuspid valve regurgitation 06/04/2024 Obesity, Class I, BMI 30-34.9 Paroxysmal atrial fibrillation (HCC) 12/05/2023 Persistent atrial fibrillation (HCC) 12/05/2023 Primary hypertension 12/05/2023 SOBOE (shortness of breath on exertion) PAST SURGICAL HISTORY Procedure Laterality Date BREAST LUMPECTOMY HX Left 02/16/2015 Left breast COLONOSCOPY FLX DX W/COLLJ SPEC WHEN PFRMD 02/02/2007 Colonoscopy COLONOSCOPY FLX DX W/COLLJ SPEC WHEN PFRMD 07/04/2017 Colonoscopy LIG/TRNSXJ FLP TUBE ABDL/VAG APPR UNI/BI Tubal ligation SOCIAL HISTORY Social History Tobacco Use Smoking status: Never Smokeless tobacco: Never Vaping Use Vaping status: Never Used Substance Use Topics Alcohol use: Yes Comment: rarely Drug use: No FAMILY HISTORY Problem Relation Age of Onset other (Macular Degeneration [Other]) Mother Breast Cancer Mother 76 Surgery then radiation and tamoxifen Arrhythmia Mother atrial fibrillation Diabetes Father Coronary Artery Disease Father 4 X BYPASS Stroke Father No Known Problems Brother Diabetes Brother Cancer Brother 12 RCC--Surgically excised. Alive and well now. other (Parkinson's disease [Other]) Brother Heart Maternal Grandmother Diabetes Paternal Grandmother Coronary Artery Disease Maternal Aunt Coronary Artery Disease Maternal Aunt ALLERGIES: ALLERGIES Allergen Reactions Codeine GI Upset Losartan Intolerance Naprosyn [Naproxen] GI Upset Pseudoephedrine Hcl Other: See Comments palpitations Tavist [Clemastine * GI Upset MEDICATIONS: apixaban (ELIQUIS) 5 mg tab(s) Take 1 tablet by mouth two times a day. atorvastatin (LIPITOR) 10 mg tablet Take 1 tablet by mouth once daily. omeprazole (PRILOSEC) 20 mg capsule Take 1 capsule by mouth daily before breakfast. 1/2 hr before meal. zolpidem (AMBIEN) 5 mg tablet Take 1 tablet by mouth at bedtime as needed for sedation for up to 90days. Take immediately before bedtime with 8 hours of planned sleep before waking. For insomnia potassium chloride 20 mEq/15 mL solution Take 15 mL by mouth once daily. furosemide (LASIX) 40 mg tablet Take 1 tablet by mouth once daily. losartan (COZAAR) 25 mg tablet Take 25 mg by mouth once daily. dilTIAZem CD (CARDIZEM CD, CARTIA XT) 180 mg 24 hr capsule Take 240 mg by mouth once daily. nitroglycerin sublingual (NITROSTAT) 0.4 mg SL tablet Dissolve 0.4 mg under the tongue every 5 minutes as needed for chest pain. metoprolol tartrate, short acting, (LOPRESSOR) 100 mg tablet Take 100 mg by mouth two times a day. [facility] MULTIVITAMIN CAP Take one(1) tablet daily. REVIEW OF SYSTEMS: Review of Systems Constitutional: Positive for malaise/fatigue. Negative for chills and fever. Respiratory: Positive for shortness of breath. Negative for cough, hemoptysis and sputum production. Cardiovascular: Positive for palpitations. Negative for chest pain, orthopnea, claudication, leg swelling and PND. Gastrointestinal: Negative for abdominal pain, blood in stool, melena, nausea and vomiting. Genitourinary: Negative for dysuria, flank pain and hematuria. Musculoskeletal: Negative for falls. Skin: Negative for rash. Neurological: Positive for dizziness. Negative for focal weakness, seizures and loss of consciousness. PHYSICAL EXAMINATION: BP 143/79 Pulse 79 Resp 16 Ht 5' 3 (1.60m) Wt 185 lb (83.9kg) SpO2 97% BMI 32.78 kg/(m^2). Physical Exam Vitals reviewed. Constitutional: General: She is not in acute distress. Appearance: Normal appearance. HENT: Head: Normocephalic and atraumatic. Cardiovascular: Rate and Rhythm: Normal rate. Rhythm irregularly irregular. Heart sounds: Normal heart sounds, S1 normal and S2 normal. No murmur heard. No friction rub. Pulmonary: Effort: Pulmonary effort is normal. No respiratory distress. Breath sounds: Normal breath sounds. No wheezing, rhonchi or rales. Musculoskeletal: Cervical back: Neck supple. Right lower leg: No edema. Left lower leg: No edema. Skin: General: Skin is warm and dry. Neurological: General: No focal deficit present. Mental Status: She is alert and oriented to person, place, and time. Psychiatric: Mood and Affect: Mood normal. Behavior: Behavior normal. Thought Content: Thought content normal. CARDIOVASCULAR MEDICINE TESTING: Electrocardiogram: Atrial fibrillation with controlled ventricular response, average 70 bpm; PVCs more likely than aberrantly conducted beats; normal QRS duration 76 ms; QTc 451 ms I have personally reviewed the Electrocardiogram. 1. Persistent atrial fibrillation (HCC) - ICD9: 427.31, ICD10: I48.19 (primary diagnosis) 2. At risk for stroke - ICD9: V15.89, ICD10: Z91.89 3. Anticoagulant long-term use - ICD9: V58.61, ICD10: Z79.01 4. Nonrheumatic mitral valve regurgitation - ICD9: 424.0, ICD10: I34.0 5. Nonrheumatic tricuspid valve regurgitation - ICD9: 424.2, ICD10: I36.1 6. Nonrheumatic aortic valve insufficiency - ICD9: 424.1, ICD10: I35.1 CHADS2-Vasc Score Breakdown 4 Total Score 1 Female 2 Age >= 75 years old 1 History of hypertension IMPRESSION: Ms. Johnson has persistent atrial fibrillation and this arrhythmia seems to be symptomatic despite ventricular rate control. There is therefore indication for advanced arrhythmia treatment strategies such as antiarrhythmic drug therapy, electrical cardioversion and/or catheter ablation. She has not yet had a chance at maintaining sinus rhythm on her own, as with just electrical cardioversion. However, she has been in atrial fibrillation persistently since almost a year ago so I am not optimisticat this point that she will maintain sinus rhythm on her own. So I do not think that just performing electrical cardioversion would be likely to result in maintenance of sinus rhythm without antiarrhythmic drug therapy. I had a detailed discussion with Ms. Johnson and her regarding atrial fibrillation and its management. I reviewed the cornerstones or pillars of management including stroke prevention, ventricular response rate control, atrial rhythm control and patient modifiable risk factors and lifestyle changes relevant to atrial fibrillation. Stroke prevention, she has been appropriately treated with oral anticoagulation therapy and the risk to benefit of such therapy seems to be favorable. I did have a discussion with her that the recommendation for stroke prevention with oral anticoagulation would likely be indefinite, as there is not sufficient evidence from clinical trials that mandaeism and maintenance of sinus rhythm reduces stroke risk, even catheter ablation has not been shown to do so. So she will most likely have a recommendation for oral anticoagulation therapy indefinitely. Regarding modifiable risk factors and lifestyle changes, treatment for sleep apnea would be important as untreated sleep apnea is a risk factor for atrial fibrillation. For patients who are overweight orobese, weight loss can also be beneficial in this regard. Avoidance of excessive intake of alcohol and caffeine can also be beneficial. Regarding rhythm management, as noted above I think she will need an antiarrhythmic drug to maintain sinus rhythm after electrical cardioversion. I do feel that antiarrhythmic drug therapy should be initiated as at least a short-term measure. She does not have contraindication to the most desirable antiarrhythmic drug class that has the most favorable profile of efficacy, safety and patient tolerance, that being the Class IC agents such as flecainide or propafenone. I recommend as a short-term measure that she start flecainide and then after at minimum 1 week of such therapy she undergo electrical cardioversion. This could at least buy us some time to gether scheduled for a more definitive treatment such as catheter ablation. However, if she did well wi th flecainide therapy and maintain sinus rhythm she could defer catheter ablation and just continuewith antiarrhythmic drug therapy if she desires in the future. We can determine this as we go along. I did discuss with Ms. Johnson and her the catheter ablation procedure for atrial fibrillation. We discussed the procedure including the pros/cons, the risks benefits and alternatives. She was very interested in pursuing catheter ablation but also agreed that if she did very well on flecainide she might want to just follow that therapy for a while. I had a detailed discussion with Ms. Johnson and her regarding my evaluation and recommendations. After our discussion, Ms. Johnson and her expressed understanding and I answered all questions to their apparent satisfaction. She agrees to proceed as outlined. INFORMED CONSENT The risks, benefits and anticipated outcomes of the procedure (electrical cardioversion, catheter ablation), the risks and benefits of the alternatives to the procedures and the roles and tasks of the personnel to be involved were discussed with the patient. Consent for the procedure and agreement to proceed has been obtained. I verify that I personally obtained the consent. PLAN AND RECOMMENDATIONS: 1) Prescribe flecainide 100 mg twice daily. The RX will be sent to [facility] as she requested. 2) Perform electrical cardioversion after a minimum of one week of flecainide. For her convenience this can be performed at [facility] by [facility], otherwise we can do it at [facility]. She will contact [facility] and I will send this office note to them. 3) Schedule atrial fibrillation catheter ablation. This is scheduling out several months so we willget the process going now and hopefully the antiarrhythmic drug therapy will get us some time to restore/maintain sinus rhythm for awhile in the short term. 4) Evaluation for sleep apnea and treatment if present would be potentially beneficial. 5) Weight loss could also be beneficial. Brea Oh MD 06/04/2024 Medical Decision Making: Problems: Moderate: New problem with uncertain prognosis Data: Unique source(s) for external note(s) reviewed: 3+ Unique test result(s) reviewed: 3+ Unique test(s) ordered: 1 Risk: Moderate: Moderate risk from testing/treatment, Drug management and Decision on minor surgery w/ risk factors Medical Decision Making Level: 4 - Moderate documented in this encounterSt. [facility] NoteHNO ID: [id number] Author: BREA OH MD Service: ? Author Type: Physician Type: Progress Notes Filed: 06/04/2024 13:38 Note Text: PRIMARY CARE PHYSICIAN: Antonia Mendoza [address] [place] [address] REFERRING PHYSICIAN: Antonia Mendoza [address] [facility] [id number] Patient Care Team: Antonia Mendoza MD as PCP - General (Internal Medicine) Chung Jacob APRN.BEEF BREAKER as Production Recorder (Internal Medicine) Angel Floers APRN.INFORMATION TECHNOLOGY ADMINISTRATOR as Production Recorder (Internal Medicine) Logan Santillan MD as Specialty President And Chief Commercial Officer (Cardiology) CHIEF COMPLAINT: Evaluation of arrhythmia HISTORY OF PRESENT ILLNESS: Ms. Johnson is a 74 year old female who presents today for evaluation of arrhythmia, accompanied by her . She was diagnosed with atrial fibrillation in early 2023. She had presented to [facility] ED in about May 2023 with palpitations, shortness of breath, lightheadedness. Episodes were worse at nighttime. She has experienced intermittent palpitations for many years. But this ED visit in early 2023 was the first time that atrial fibrillation was documented. She was treated with rate controlling medications and oral anticoagulation therapy. She followed up with general quencher operator, Dr. Santillan, of [facility]. She underwent cardiac testing including an echocardiogram. She was found to have moderately severe MR and TR, and mild to moderate AI. A cardiac stress test in August 2023 revealed no evidence for ischemia. She has still experienced frequent episodes of palpitations. She has exertional shortness of breath. She believes she has been in atrial fibrillation persistently since early 2023. A monitor technician in 07/14/2023 - 07/28/2023 revealed persistent atrial fibrillation. Medical records mention electrical cardioversion but she states she has not had one performed. She has not yet been treated with antiarrhythmic drug or electrical cardioversion. She was referred to [facility] so she scheduled an appointment here with us in [place]. I have confirmed and edited as necessary, the PFSH and ROS obtained by others. 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/24/2014 Was treated with tamoxifen Hyperlipidemia LDL goal < 100 05/09/2014 Nocturia Nonrheumatic aortic valve insufficiency 06/04/2024 Nonrheumatic mitral valve regurgitation 06/04/2024 Nonrheumatic tricuspid valve regurgitation 06/04/2024 Obesity, Class I, BMI 30-34.9 Paroxysmal atrial fibrillation (HCC) 12/05/2023 Persistent atrial fibrillation (HCC) 12/05/2023 Primary hypertension 12/05/2023 SOBOE (shortness of breath on exertion) PAST SURGICAL HISTORY Procedure Laterality Date BREAST LUMPECTOMY HX Left 02/16/2015 Left breast COLONOSCOPY FLX DX W/COLLJ SPEC WHEN PFRMD 02/02/2007 Colonoscopy COLONOSCOPY FLX DX W/COLLJ SPEC WHEN PFRMD 07/04/2017 Colonoscopy LIG/TRNSXJ FLP TUBE ABDL/VAG APPR UNI/BI Tubal ligation SOCIAL HISTORY Social History Tobacco Use Smoking status: Never Smokeless tobacco: Never Vaping Use Vaping status: Never Used Substance Use Topics Alcohol use: Yes Comment: rarely Drug use: No FAMILY HISTORY Problem Relation Age of Onset other (Macular Degeneration [Other]) Mother Breast Cancer Mother 76 Surgery then radiation and tamoxifen Arrhythmia Mother atrial fibrillation Diabetes Father Coronary Artery Disease Father 4 X BYPASS Stroke Father No Known Problems Brother Diabetes Brother Cancer Brother 12 RCC--Surgically excised. Alive and well now. other (Parkinson's disease [Other]) Brother Heart Maternal Grandmother Diabetes Paternal Grandmother Coronary Artery Disease Maternal Aunt Coronary Artery Disease Maternal Aunt ALLERGIES: ALLERGIES Allergen Reactions Codeine GI Upset Losartan Intolerance Naprosyn [Naproxen] GI Upset Pseudoephedrine Hcl Other: See Comments palpitations Tavist [Clemastine * GI Upset MEDICATIONS: apixaban (ELIQUIS) 5 mg tab(s) Take 1 tablet by mouth two times a day. atorvastatin (LIPITOR) 10 mg tablet Take 1 tablet by mouth once daily. omeprazole (PRILOSEC) 20 mg capsule Take 1 capsule by mouth daily before breakfast. 1/2 hr before meal. zolpidem (AMBIEN) 5 mg tablet Take 1 tablet by mouth at bedtime as needed for sedation for up to 90 days. Take immediately before bedtime with 8 hours of planned sleep before waking. For insomnia potassium chloride 20 mEq/15 mL solution Take 15 mL by mouth once daily. furosemide (LASIX) 40 mg tablet Take 1 tablet by mouth once daily. losartan (COZAAR) 25 mg tablet Take 25 mg by mouth once daily. dilTIAZem CD (CARDIZEM CD, CARTIA XT) 180 mg 24 hr caps (more content not included)...[facility]01-03-2025 Telephone encounter Note* Telephone Encounter - Jackie Laws RN - 05/28/2024 9:08 AM EST Patient switched insurance and now uses [facility]. Please send prescriptions there. The patient has been identified by name and date of : Yes Caregiver verified no other encounters exist for this prescription request: Yes Caregiver confirmed with patient/requestor that no other refills are due, in the near future, with this provider at this time: Yes The last office visit in the department: 05/11/2024 Does the patient have a future office visit with this provider/department: Yes 11/16/2024 Requested Prescriptions Pending Prescriptions Disp Refills apixaban (ELIQUIS) 5 mg tab(s) 180 tablet 3 Sig: Take 1 tablet by mouth two times a day. atorvastatin (LIPITOR) 10 mg tablet 90 tablet 3 Sig: Take 1 tablet by mouth once daily. omeprazole (PRILOSEC) 20 mg capsule 90 capsule 3 Sig: Take 1 capsule by mouth daily before breakfast. 1/2 hr before meal. Jackie Laws RN May 28, 2024 9:[address] [facility]01-03-2025 Miscellaneous Notes* Telephone Encounter - Jackie Laws RN - 05/28/2024 9:08 AM EST Patient switched insurance and now uses [facility]. Please send prescriptions there. The patient has been identified by name and date of : Yes Caregiver verified no other encounters exist for this prescription request: Yes Caregiver confirmed with patient/requestor that no other refills are due, in the near future, with this provider at this time: Yes The last office visit in the department: 05/11/2024 Does the patient have a future office visit with this provider/department: Yes 11/16/2024 Requested Prescriptions Pending Prescriptions Disp Refills apixaban (ELIQUIS) 5 mg tab(s) 180 tablet 3 Sig: Take 1 tablet by mouth two times a day. atorvastatin (LIPITOR) 10 mg tablet 90 tablet 3 Sig: Take 1 tablet by mouth once daily. omeprazole (PRILOSEC) 20 mg capsule 90 capsule 3 Sig: Take 1 capsule by mouth daily before breakfast. 1/2 hr before meal. Jackie Laws RN May 28, 2024 9:09 AM documented in this encounterSt[facility] History of Present illness Narrative* Chung Jacob, DAWIT.BEEF BREAKER - 05/11/2024 8:40 AM EST SUBJECTIVE: RSV Vaccine(1 - 1-dose 75+ series) Never done HPI Gisela Johnson is a 74 year old female. PMH significant for ACTIVE PROBLEM LIST Postmenopausal Atrophic Vaginitis Osteopenia Hyperlipidemia With Target Ldl Less Than 100 Ductal Carcinoma in Situ (Dcis) of Left Breast Obesity, Class I, Bmi 30-34.9 Primary Hypertension Paroxysmal Atrial Fibrillation (Hcc) Presents for routine follow-up visit. HPI excerpted from previous visit: She was seen in office June 24, 2023 regarding palpitations. Found to be in atrial fibrillation in the office on this date. Referred to [facility]. She was seen at [facility] emergency department May 28, 2023. Troponins were negative. EKG showed that she continued in atrial fibrillation. She was treated with IV Cardizem but did not convert to sinus rhythm. She was discharged on metoprolol and Eliquis in stable condition. Follow-up echocardiogram was completed. Showed LVEF in normal range.There is mild aortic and mitralvalve regurgitation (mild leakage) There is moderate tricuspid valve regurgitation (moderate leakage) There is elevation of RSVP, this can indicate volume overload. She was treated with short-term Lasix and potassium. She has been seen by [facility] cardiology. Dose of metoprolol has been increased from 50 mg twice daily to 100 mg twice daily. Additional cardiology testing: stress test 07/24/2023 [facility] which was negative for ischemia with good functional capacity. Most recent cardiology visit August 21, 2023. She has an upcoming appointment in September. Today notes increased shortness of breath on exertion. Short of breath with taking 3 stairs. Able to walk a flat surface without difficulty, no shortness of breath or chest pain. Notes shortness of breath when lying down, feels better when in the recliner. Has had 7 pound weight gain since last seen. Some minor leg swelling is noted. Cough noted last night. Was not continued on Lasix and potassium which she is taking previously. She was seen in October by PCP for Medicare annual wellness visit. Subsequent follow-up with Angel Flores CNP regarding hypertension and [facility] medication changes. She noted thatablation was discussed. Today reports that she had an appointment with electrophysiology specialist in May at [facility] to discuss possibility of she is interested in seeing someone sooner than this if possible. Ablation but this appointment was canceled and rescheduled for July. She can continues to note symptomatic atrial fibrillation most often waking her at night feeling her heart racing this can happen 2-3 times per month. She was advised by [facility] to take an additional 50 mg metoprolol to tartrate when she experienced these episodes. She notes this has been effective. She reports DCCV at [facility] in July 2023 that was not effective. She continues to note shortness of breath on exertion with 1 flight of stairs. Can no longer carry a laundry basket. She notes ankle edema and weight gain if she does not take Lasix daily. Without report of headache, chest pain, palpitations, dyspnea, peripheral edema, orthopnea, and PND. Last 14 Encounter BP Readings: Date: BP: 05/11/2024 118/79 12/05/2023 132/82 11/22/2023 136/86 08/28/2023 143/72[bp average[ 06/27/2023 114/74 06/24/2023 149/72 11/12/2022 130/80 08/09/2022 138/78 05/16/2022 130/80[Home BP cuff[ 05/09/2022 152/87 12/28/2021 122/70 11/13/2021 144/72 08/10/2021 131/76 05/09/2021 136/88 Insomnia: She reports intermittent use of zolpidem which has been very effective and without adverse effects noted. Hemoglobin A1C (%) Date Value 08/14/2023 5.4 Review of Systems Constitutional: Negative. Respiratory: Positive for shortness of breath. Cardiovascular: Positive for palpitations. Objective BP 118/79 Pulse 90 Resp 16 Wt 84.3 kg (185 lb 13.6 oz) BMI 31.90 kg/m Physical Exam Vitals and nursing note reviewed. Constitutional: Appearance: Normal appearance. HENT: Head: Normocephalic and atraumatic. Eyes: Conjunctiva/sclera: Conjunctivae normal. Neck: Thyroid: No thyromegaly. Vascular: Normal carotid pulses. JVD present. Cardiovascular: Rate and Rhythm: Normal rate. Rhythm irregular. Pulses: Carotid pulses are 2+ on the right side and 2+ on the left side. Radial pulses are 2+ on the right side and 2+ on the left side. Heart sounds: Normal heart sounds, S1 normal and S2 normal. Pulmonary: Effort: Pulmonary effort is normal. Breath sounds: Normal breath sounds. Abdominal: General: Bowel sounds are normal. Palpations: Abdomen is soft. Musculoskeletal: Right lower leg: No edema. Left lower leg: No edema. Skin: General: Skin is warm and dry. Neurological: General: No focal deficit present. Mental Status: She is alert and oriented to person, place, and time. ALLERGIES Allergen Reactions Acetaminophen Unknown Codeine GI Upset Losartan Intolerance Naprosyn [Naproxen] GI Upset Pseudoephedrine Hcl Unknown Tavist [Clemastine * GI Upset Medications potassium chloride 20 mEq/15 mL solution Take 15 mL by mouth once daily. furosemide (LASIX) 40 mg tablet Take 1 tablet by mouth once daily. losartan (COZAAR) 25 mg tablet Take 25 mg by mouth once daily. dilTIAZem CD (CARDIZEM CD, CARTIA XT) 180 mg 24 hr capsule Take 240 mg by mouth once daily. nitroglycerin sublingual (NITROSTAT) 0.4 mg SL tablet Dissolve 0.4 mg under the tongue every 5 minutes as needed for chest pain. zolpidem (AMBIEN) 5 mg tablet Take 1 tablet by mouth at bedtime as needed for sedation for up to 90days. Take immediately before bedtime with 8 hours of planned sleep before waking. For insomnia metoprolol tartrate, short acting, (LOPRESSOR) 100 mg tablet Take 100 mg by mouth two times a day. [facility] atorvastatin (LIPITOR) 10 mg tablet Take 1 tablet by mouth once daily. omeprazole (PRILOSEC) 20 mg capsule Take 1 capsule by mouth daily before breakfast. 1/2 hr before meal. apixaban (ELIQUIS) 5 mg tab(s) Take 1 tablet by mouth two times a day. MULTIVITAMIN CAP Take one(1) tablet daily. PAST MEDICAL HISTORY Diagnosis Date Ductal carcinoma in situ (DCIS) of left breast 12/24/2014 Was treated with tamoxifen Hyperlipidemia LDL goal < 100 05/09/2014 Nocturia Social History Tobacco Use Smoking status: Never Smokeless tobacco: Never Vaping Use Vaping status: Never Used Substance Use Topics Alcohol use: Yes Comment: rarely Drug use: No Latest Ref [facility] 08/14/2023 WBC 3.70 - 11.00 k/uL 6.14 RBC 3.90 - 5.20 m/uL 5.08 Hemoglobin 11.5 - 15.5 g/dL 14.8 Hematocrit 36.0 - 46.0 % 46.3 (H) MCV 80.0 - 100.0 fL 91.1 MCH 26.0 - 34.0 pg 29.1 MCHC 30.5 - 36.0 g/dL 32.0 RDW-CV 11.5 - 15.0 % 13.1 Platelet Count 150 - 400 k/uL 170 MPV 9.0 - 12.7 fL 9.9 Neut% % 46.2 Abs Neut (ANC) 1.45 - 7.50 k/uL 2.84 Lymph% % 35.3 Abs Lymph 1.00 - 4.00 k/uL 2.17 [place]% % 14.2 Abs [place] <0.87 k/uL 0.87 (H) Eosin% % 3.3 Abs Eosin <0.46 k/uL 0.20 Baso% % 0.5 Abs Baso <0.11 k/uL 0.03 Immature Gran % % 0.5 IMMATURE GRANS (ABS) <0.10 k/uL 0.03 NRBC /100 WBC 0.0 Absolute nRBC <0.01 k/uL <0.01 DTYPE Auto Protein, Total 6.3 - 8.0 g/dL 7.2 Albumin 3.9 - 4.9 g/dL 4.5 Calcium 8.5 - 10.2 mg/dL 9.6 Bilirubin, Total 0.2 - 1.3 mg/dL 0.7 Alkaline Phosphatase 34 - 123 U/L 78 AST 13 - 35 U/L 30 ALT 7 - 38 U/L 35 Glucose 74 - 99 mg/dL 82 BUN 7 - 21 mg/dL 18 Creatinine 0.58 - 0.96 mg/dL 0.89 Sodium 136 - 144 mmol/L 138 Potassium 3.7 - 5.1 mmol/L 5.3 (H) Chloride 97 - 105 mmol/L 100 CO2 22 - 30 mmol/L 23 Anion Gap 9 - 18 mmol/L 15 eGFR >=60 mL/min/1.73m 68 Cholesterol, Total <200 mg/dL 149 Triglyceride <150 mg/dL 99 HDL Cholesterol >39 mg/dL 61 Non HDL Cholesterol <130 mg/dL 88 Fasting Time hrs 14 VLDL Cholesterol <30 mg/dL 20 TC:HDL Ratio <5.10 2.44 LDL Cholesterol <100 mg/dL 68 LDL:HDL Ratio <2.54 1.11 Hemoglobin A1C 4.3 - 5.6 % 5.4 Estimated Average Glucose mg/dL 108 Magnesium 1.7 - 2.3 mg/dL 2.2 TSH 0.270 - 4.200 mIU/L 1.790 Free T4 0.9 - 1.7 ng/dL 1.3 ASSESSMENT/PLAN: 1. PAF (paroxysmal atrial fibrillation) (HCC) - ICD9: 427.31, ICD10: I48.0 (primary diagnosis) She is followed locally by general cardiology in [facility], would like to see if she can get a sooner appointment with hospitality intern to discuss options for atrial fibrillation, possible ablation. - CONSULT TO CARDIOLOGY 2. SOBOE (shortness of breath on exertion) - ICD9: 786.05, ICD10: R06.02 Shortness of breath on exertion which is stable since she has been in atrial fibrillation, a bit improved on daily diuretic . 3. Primary hypertension - ICD9: 401.9, ICD10: I10 Controlled - Continue current medications - Encouraged sodium restriction, DASH or Mediterranean diet - Recommend regular aerobic exercise 4. Chronic insomnia - ICD9: 780.52, ICD10: F51.04 Stable, currently controlled, continue to monitor. - ZOLPIDEM 5 MG TABLET 5. Encounter for immunization - ICD9: V03.89, ICD10: Z23 Will get RSV at pharmacy 6 mo follow up Antonia Mendoza MD 12 mo follow up RAISSA Emery APRN.CNS Medical Decision Making: Problems: Moderate: 2+ stable chronic illnesses Risk: Moderate: Drug management Medical Decision Making Level: 4 - Moderate documented in this encounterSt. [facility]12-[facility]24 NoteHNO ID: [id number] Author: CHUNG JACOB APRN.CNS Service: ? Author Type: Nurse Specialist Type: Progress Notes Filed: 05/11/2024 09:23 Note Text: SUBJECTIVE: RSV Vaccine(1 - 1-dose 75+ series) Never done HPI Gisela Johnson is a 74 year old female. PMH significant for ACTIVE PROBLEM LIST Postmenopausal Atrophic Vaginitis Osteopenia Hyperlipidemia With Target Ldl Less Than 100 Ductal Carcinoma in Situ (Dcis) of Left Breast Obesity, Class I, Bmi 30-34.9 Primary Hypertension Paroxysmal Atrial Fibrillation (Hcc) Presents for routine follow-up visit. HPI excerpted from previous visit: She was seen in office June 24, 2023 regarding palpitations. Found to be in atrial fibrillation in the office on this date. Referred to [facility]. She was seen at [facility] emergency department May 28, 2023. Troponins were negative. EKG showed that she continued in atrial fibrillation. She was treated with IV Cardizem but did not convert to sinus rhythm. She was discharged on metoprolol and Eliquis in stable condition. Follow-up echocardiogram was completed. Showed LVEF in normal range.There is mild aortic and mitral valve regurgitation (mild leakage) There is moderate tricuspid valve regurgitation (moderate leakage) There is elevation of RSVP, this can indicate volume overload. She was treated with short-term Lasix and potassium. She has been seen by [facility] cardiology. Dose of metoprolol has been increased from 50 mg twice daily to 100 mg twice daily. Additional cardiology testing: stress test 07/24/2023 [facility] which was negative for ischemia with good functional capacity. Most recent cardiology visit August 21, 2023. She has an upcoming appointment in September. Today notes increased shortness of breath on exertion. Short of breath with taking 3 stairs. Able to walk a flat surface without difficulty, no shortness of breath or chest pain. Notes shortness of breath when lying down, feels better when in the recliner. Has had 7 pound weight gain since last seen. Some minor leg swelling is noted. Cough noted last night. Was not continued on Lasix and potassium which she is taking previously. She was seen in October by PCP for Medicare annual wellness visit. Subsequent follow-up with Angel Flores CNP regarding hypertension and [facility] medication changes. She noted that ablation was discussed. Today reports that she had an appointment with electrophysiology specialist in May at [facility] to discuss possibility of she is interested in seeing someone sooner than this if possible. Ablation but this appointment was canceled and rescheduled for July. She can continues to note symptomatic atrial fibrillation most often waking her at night feeling her heart racing this can happen 2-3 times per month. She was advised by [facility] to take an additional 50 mg metoprolol to tartrate when she experienced these episodes. She notes this has been effective. She reports DCCV at [facility] in July 2023 that was not effective. She continues to note shortness of breath on exertion with 1 flight of stairs. Can no longer carry a laundry basket. She notes ankle edema and weight gain if she does not take Lasix daily. Without report of headache, chest pain, palpitations, dyspnea, peripheral edema, orthopnea, and PND. Last 14 Encounter BP Readings: Date: BP: 05/11/2024 118/79 12/05/2023 132/82 11/22/2023 136/86 08/28/2023 143/72[bp average[ 06/27/2023 114/74 06/24/2023 149/72 11/12/2022 130/80 08/09/2022 138/78 05/16/2022 130/80[Home BP cuff[ 05/09/2022 152/87 12/28/2021 122/70 11/13/2021 144/72 08/10/2021 131/76 05/09/2021 136/88 Insomnia: She reports intermittent use of zolpidem which has been very effective and without adverse effects noted. Hemoglobin A1C (%) Date Value 08/14/2023 5.4 Review of Systems Constitutional: Negative. Respiratory: Positive for shortness of breath. Cardiovascular: Positive for palpitations. Objective BP 118/79 Pulse 90 Resp 16 Wt 84.3 kg (185 lb 13.6 oz) BMI 31.90 kg/m? Physical Exam Vitals and nursing note reviewed. Constitutional: Appearance: Normal appearance. HENT: Head: Normocephalic and atraumatic. Eyes: Conjunctiva/sclera: Conjunctivae normal. Neck: Thyroid: No thyromegaly. Vascular: Normal carotid pulses. JVD present. Cardiovascular: Rate and Rhythm: Normal rate. Rhythm irregular. Pulses: Carotid pulses are 2+ on the right side and 2+ on the left side. Radial pulses are 2+ on the right side and 2+ on the left side. Heart sounds: Normal heart sounds, S1 normal and S2 normal. Pulmonary: Effort: Pulmonary effort is normal. Breath sounds: Normal breath sounds. Abdominal: General: Bowel sounds are normal. Palpations: Abdomen is soft. Musculoskeletal: Right lower leg: No edema. Left lower leg: No edema. Skin: General: (more content not included)...[facility]07-12-2024 Note HNO ID: [id number] Author: ANGEL FLORES APRN.INFORMATION TECHNOLOGY ADMINISTRATOR Service: ? Author Type: Nurse Practitioner Type: Progress Notes Filed: 12/05/2023 13:36 Note Text: SUBJECTIVE Gisela Johnson is a 73 year old female here today for a check up on her medical problems. Chief Complaint Patient presents with: Blood Pressure: check bp- home monitor was high, also clarify new meds that prescribed from the [facility] MAYUR Cuellar is a 73 year old female who presents for follow-up for hypertension. They are here today for a recheck of blood pressure. Blood pressure appears to be stable. Denies any symptoms referable to elevated blood pressure. Specifically denies headache, chest pain, palpitations, dyspnea and peripheral edema. Tolerating medications well. Following with [facility], seeing specialist to discuss possible ablation for her a fib. Her medications were reviewed today and her list is now up to date. Medications Current Outpatient Medications Medication Sig potassium chloride 20 mEq/15 mL solution Take 15 mL by mouth once daily. furosemide (LASIX) 40 mg tablet Take 1 tablet by mouth once daily. losartan (COZAAR) 25 mg tablet Take 25 mg by mouth once daily. dilTIAZem CD (CARDIZEM CD, CARTIA XT) 180 mg 24 hr capsule Take 180 mg by mouth once daily. nitroglycerin sublingual (NITROSTAT) 0.4 mg SL tablet Dissolve 0.4 mg under the tongue every 5 minutes as needed for chest pain. zolpidem (AMBIEN) 5 mg tablet Take 1 tablet by mouth at bedtime as needed for sedation for up to 90 days. Take immediately before bedtime with 8 hours of planned sleep before waking. For insomnia metoprolol tartrate, short acting, (LOPRESSOR) 100 mg tablet Take 100 mg by mouth two times a day. [facility] atorvastatin (LIPITOR) 10 mg tablet Take 1 tablet by mouth once daily. omeprazole (PRILOSEC) 20 mg capsule Take 1 capsule by mouth daily before breakfast. 1/2 hr before meal. apixaban (ELIQUIS) 5 mg tab(s) Take 1 tablet by mouth two times a day. MULTIVITAMIN CAP Take one(1) tablet daily. No current facility-administered medications for this visit. 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 Respiratory: Negative. Cardiovascular: Negative. OBJECTIVE BP 132/82 Resp 14 Ht 5' 4 (1.63m) Wt 177 lb (80.3kg) BMI 30.37 kg/(m2). Physical Exam Vitals and nursing note reviewed. Constitutional: General: She is awake. She is not in acute distress. Appearance: Normal appearance. She is well-developed and well-groomed. She is not ill-appearing, toxic-appearing or diaphoretic. HENT: Head: Normocephalic. Right Ear: External ear normal. Left Ear: External ear normal. Nose: Nose normal. Eyes: General: Vision grossly intact. Conjunctiva/sclera: Conjunctivae normal. Pupils: Pupils are equal, round, and reactive to light. Neck: Vascular: No JVD. Trachea: Trachea normal. Cardiovascular: Rate and Rhythm: Normal rate. Rhythm irregular. Pulses: Normal pulses. Heart sounds: Normal heart sounds. No murmur heard. Pulmonary: Effort: Pulmonary effort is normal. No accessory muscle usage, prolonged expiration or respiratory distress. Breath sounds: Normal breath sounds. Musculoskeletal: Cervical back: Neck supple. Skin: General: Skin is warm and dry. Capillary Refill: Capillary refill takes less than 2 seconds. Neurological: General: No focal deficit present. Mental Status: She is alert and oriented to person, place, and time. Mental status is at baseline. Psychiatric: Attention and Perception: Attention and perception normal. Mood and Affect: Mood and affect normal. Speech: Speech normal. Behavior: Behavior normal. Behavior is cooperative. Thought Content: Thought content normal. Cognition and Memory: Cognition and memory normal. Judgment: Judgment normal. ASSESSMENT/PLAN: 1. Primary hypertension - ICD9: 401.9, ICD10: I10 (primary diagnosis) - Controlled - Continue current medications - Recommend home blood pressure monitoring, to bring results to next visit - Encouraged sodium restriction, DASH or Mediterranean diet - Recommend regular aerobic exercise 2. Paroxysmal atrial fibrillation (HCC) - ICD9: 427.31, ICD10: (more content not included)...[facility]07-12-2024 History of Present illness Narrative* Angel Flores APRN.INFORMATION TECHNOLOGY ADMINISTRATOR - 12/05/2023 12:53 PM EDT SUBJECTIVE Gisela Johnson is a 73 year old female here today for a check up on her medical problems. Chief Complaint Patient presents with: Blood Pressure: check bp- home monitor was high, also clarify new meds that prescribed from the [facility] MAYUR Cuellar is a 73 year old female who presents for follow-up for hypertension. They are here today for a recheck of blood pressure. Blood pressure appears to be stable. Denies any symptoms referable toelevated blood pressure. Specifically denies headache, chest pain, palpitations, dyspnea and peripheral edema. Tolerating medications well. Following with [facility], seeing specialist to discuss possible ablation for her a fib. Her medications were reviewed today and her list is now up to date. Medications Current Outpatient Medications Medication Sig potassium chloride 20 mEq/15 mL solution Take 15 mL by mouth once daily. furosemide (LASIX) 40 mg tablet Take 1 tablet by mouth once daily. losartan (COZAAR) 25 mg tablet Take 25 mg by mouth once daily. dilTIAZem CD (CARDIZEM CD, CARTIA XT) 180 mg 24 hr capsule Take 180 mg by mouth once daily. nitroglycerin sublingual (NITROSTAT) 0.4 mg SL tablet Dissolve 0.4 mg under the tongue every 5 minutes as needed for chest pain. zolpidem (AMBIEN) 5 mg tablet Take 1 tablet by mouth at bedtime as needed for sedation for up to 90days. Take immediately before bedtime with 8 hours of planned sleep before waking. For insomnia metoprolol tartrate, short acting, (LOPRESSOR) 100 mg tablet Take 100 mg by mouth two times a day. [facility] atorvastatin (LIPITOR) 10 mg tablet Take 1 tablet by mouth once daily. omeprazole (PRILOSEC) 20 mg capsule Take 1 capsule by mouth daily before breakfast. 1/2 hr before meal. apixaban (ELIQUIS) 5 mg tab(s) Take 1 tablet by mouth two times a day. MULTIVITAMIN CAP Take one(1) tablet daily. No current facility-administered medications for this visit. 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 Respiratory: Negative. Cardiovascular: Negative. OBJECTIVE BP 132/82 Resp 14 Ht 5' 4 (1.63m) Wt 177 lb (80.3kg) BMI 30.37 kg/(m^2). Physical Exam Vitals and nursing note reviewed. Constitutional: General: She is awake. She is not in acute distress. Appearance: Normal appearance. She is well-developed and well-groomed. She is not ill-appearing, toxic-appearing or diaphoretic. HENT: Head: Normocephalic. Right Ear: External ear normal. Left Ear: External ear normal. Nose: Nose normal. Eyes: General: Vision grossly intact. Conjunctiva/sclera: Conjunctivae normal. Pupils: Pupils are equal, round, and reactive to light. Neck: Vascular: No JVD. Trachea: Trachea normal. Cardiovascular: Rate and Rhythm: Normal rate. Rhythm irregular. Pulses: Normal pulses. Heart sounds: Normal heart sounds. No murmur heard. Pulmonary: Effort: Pulmonary effort is normal. No accessory muscle usage, prolonged expiration or respiratory distress. Breath sounds: Normal breath sounds. Musculoskeletal: Cervical back: Neck supple. Skin: General: Skin is warm and dry. Capillary Refill: Capillary refill takes less than 2 seconds. Neurological: General: No focal deficit present. Mental Status: She is alert and oriented to person, place, and time. Mental status is at baseline. Psychiatric: Attention and Perception: Attention and perception normal. Mood and Affect: Mood and affect normal. Speech: Speech normal. Behavior: Behavior normal. Behavior is cooperative. Thought Content: Thought content normal. Cognition and Memory: Cognition and memory normal. Judgment: Judgment normal. ASSESSMENT/PLAN: 1. Primary hypertension - ICD9: 401.9, ICD10: I10 (primary diagnosis) - Controlled - Continue current medications - Recommend home blood pressure monitoring, to bring results to next visit - Encouraged sodium restriction, DASH or Mediterranean diet - Recommend regular aerobic exercise 2. Paroxysmal atrial fibrillation (HCC) - ICD9: 427.31, ICD10: I48.0 Rate controlled and anticoagulated. Following with [facility], getting evaluation for possible ablation. 3. Obesity, Class I, BMI 30-34.9 - ICD9: 278.00, ICD10: E66.9 Portions of this note have been entered by ancillary staff. I have reviewed and when necessary edited, so that they are an adequate record of my encounter with this patient Please note that parts of this document were created using voice recognition software and therefore may contain grammatical errors. Patient verbalizes understanding of instructions from today's visit and in agreement with treatmentplan. Questions answered. Agrees to call the office if questions, concerns of issues with acute symptoms not improving or if they worsen. See diagnoses and orders for additional plan(s). Allergies and medications were reviewed, list was updated, and refills given if needed. Past medical, surgical, social, and family history reviewed and updated as appropriate. Encouraged proper diet & exercise as well as compliance with taking medications. Age- appropriate health preventative measures were discussed. Return if symptoms worsen or fail to improve, for Keep next scheduled appointment.. Angel Flores APRN-MARSHA documented [facility] Nurse Note* Radha Cole LPN - 12/05/2023 12:51 PM EDT Patient brought in home BP monitor right arm large cuff reading in office 143/89 [facility] Nurse Note* Radha Cole LPN - 12/05/2023 12:51 PM EDT Patient brought in home BP monitor right arm large cuff reading in office 143/89 documented in this encounterSt. [facility] Instructions* Patient Instructions* Antonia Mendoza MD - 11/22/2023 8:21 AM EDT Screening schedule The following prevention plan is recommended: RSV Vaccine(1 - 1-dose 60+ series) Never done Advance Directive Discussion due on 05/26/2023 Behavioral Health Screening Never done Covid-19 Vaccine( season) due on 06/30/2023 WHAT YOU CAN DO TO PREVENT FALLS Many falls can be prevented. By making some changes, you can lower your chances of falling. Four things YOU can do to prevent falls for you* and your caregiver 1. Begin a regular exercise program Exercise is one of the most important ways to lower your chances of falling. It makes you stronger and helps you feel better. Exercises that improve balance and coordination (like Akbar Chi) are the most helpful. Lack of exercise leads to weakness and increases your chances of falling. Ask your doctor or health care provider about the best type of exercise program for you. 2. Have your health care provider review your medicines Have your doctor or pharmacist review all the medicines you take, even [id number] medicines. As you get older, the way medicines work in your body can change. Some medicines, or combinations of medicines, can make you sleepy or dizzy andcan cause you to fall. 3. Have your vision checked Have your eyes checked by an eye doctor at least once a year. You may be wearing the wrong glasses or have a condition like glaucoma or cataracts that limits your vision. Poor vision can increase your chances of falling. 4. Make your home safer About half of all falls happen at home. To make your home safer: Remove things you can trip over (like papers, books, clothes, and shoes) from stairs and places where you walk. Remove small throw rugs or use double-sided tape to keep the rugs from slipping. Keep items you use often in cabinets you can reach easily without using a step stool. Have grab bars put in next to your toilet and in the tub or shower. Use non-slip mats in the bathtub and on shower floors. Improve the lighting in your home. As you get older, you need brighter lights to see well. Hang light-weight curtains or shades to reduce glare. Have handrails and lights put in on all staircases. Wear shoes both inside and outside the house. Avoid going barefoot or wearing slippers. For more information, contact: Centers for Disease Control and Prevention www.cdc.gov/injury * This information may not apply if you have certain medical conditions. documented in this encounterSt. [facility]06[facility]24 NoteHNO ID: [id number] Author: ANTONIA MENDOZA MD Service: ? Author Type: Physician Type: Progress Notes Filed: 11/22/2023 13:26 Note Text: This note was created using NoteWriter. Subjective Gisela Johnson is a 73 year old female. HISTORY Gisela Johnson is a 73 year old lady here for yearly exam and follow up appointment. Following with [facility] for a fib. Goes in and out a fib. Seen last Friday. Plans for May ablation at [facility]. On cancellation list. Home BP 92/59 with heart 68 at home. Ambien does help when needed. Does not need every night. 5 to 7 hours. Without it, might get only an hour and a half. Left lower rib pain that occurs if turns to the left like when pulling weeds while sitting in a chair in the garden. 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 dilTIAZem CD (CARDIZEM CD, CARTIA XT) 180 mg 24 hr capsule Take 180 mg by mouth once daily. nitroglycerin sublingual (NITROSTAT) 0.4 mg SL tablet Dissolve 0.4 mg under the tongue every 5 minutes as needed for chest pain. zolpidem (AMBIEN) 5 mg tablet Take 1 tablet by mouth at bedtime as needed for sedation for up to 90 days. Take immediately before bedtime with 8 hours of planned sleep before waking. For insomnia potassium chloride SR (MICRO-K) 8 mEq cpER Take 1 capsule by mouth once daily. furosemide (LASIX) 20 mg tablet Take 1 tablet by mouth once daily. metoprolol tartrate, short acting, (LOPRESSOR) 100 mg tablet Take 100 mg by mouth two times a day. [facility] atorvastatin (LIPITOR) 10 mg tablet Take 1 tablet by mouth once daily. omeprazole (PRILOSEC) 20 mg capsule Take 1 capsule by mouth daily before breakfast. 1/2 hr before meal. apixaban (ELIQUIS) 5 mg tab(s) Take 1 tablet by mouth two times a day. MULTIVITAMIN CAP Take one(1) tablet daily. ELIQUIS 5 mg tab(s) Take 5 mg by mouth two times a day. (Patient not taking: Reported on 08/28/2023) No current facility-administered medications for this visit. ALLERGIES Allergen Reactions Acetaminophen Unknown Codeine GI Upset Losartan Intolerance Naprosyn [Naproxen] GI Upset Pseudoephedrine Hcl Unknown Tavist [Clemastine * GI Upset FAMILY HISTORY Problem Relation Age of Onset [...] use: No Review of Systems Objective BP 136/86 Pulse 96 Resp 16 Ht 164 cm (5' 4.57) Wt 79.8 kg (176 lb) SpO2 96% BMI 29.68 kg/m? Last 5 Encounter Wt Readings: Date: Wt: 11/22/2023 79.8 kg (176 lb) 08/28/2023 82.1 kg (181 lb) 06/27/2023 78.9 kg (174 lb) 06/24/2023 79.4 kg (175 lb) 11/12/2022 75.8 kg (167 lb) No waist measurement recorded Estimated body mass index is 29.68 kg/m? as calculated from the following: Height as of this encounter: 164 cm (5' 4.57). Weight as of this encounter: 79.8 kg (176 lb). Last 5 Encounter BP Readings: Date: BP: 11/22/2023 136/86 08/28/2023 143/72[bp average[ 06/27/2023 114/74 06/24/2023 149/72 11/12/2022 130/80 Physical Exam Vitals reviewed. Constitutional: Appearance: She is well-developed. HENT: Head: Normocephalic and atraumatic. Right Ear: External ear normal. Left Ear: External ear normal. Nose: Nose normal. Eyes: Conjunctiva/sclera: Conjunctivae normal. Neck: Thyroid: No thyromegaly. Vascular: No carotid bruit. Cardiovascular: Rate and Rhythm: Normal rate and [...] General: No deformity. Normal range of motion. Right lower leg: No edema. Left lower leg: No edema. Lymphadenopathy: Cervical: No cervical adenopathy. Skin: General: Skin is warm and dry. Coloration: Skin is not jaundiced or pale. Findings: No rash. Neurological: General: No focal deficit present. Mental Status: She is alert and o (more content not included)...[facility]06-29-[facility] History of Present illness Narrative* Antnoia Mendoza MD - 11/22/2023 8:19 AM EDT Images from the original note were not included. This note was created using GigaBryte. Subjective Gisela Johnson is a 73 year old female. HISTORY Gisela Johnson is a 73 year old lady here for yearly exam and follow up appointment. Following with [facility] for a fib. Goes in and out a fib. Seen last Friday. Plans for May ablation at [facility]. On cancellation list. Home BP 92/59 with heart 68 at home. Ambien does help when needed. Does not need every night. 5 to 7 hours. Without it, might get only an hour and a half. Left lower rib pain that occurs if turns to the left like when pulling weeds while sitting in a chair in the garden. 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 dilTIAZem CD (CARDIZEM CD, CARTIA XT) 180 mg 24 hr capsule Take 180 mg by mouth once daily. nitroglycerin sublingual (NITROSTAT) 0.4 mg SL tablet Dissolve 0.4 mg under the tongue every 5 minutes as needed for chest pain. zolpidem (AMBIEN) 5 mg tablet Take 1 tablet by mouth at bedtime as needed for sedation for up to 90days. Take immediately before bedtime with 8 hours of planned sleep before waking. For insomnia potassium chloride SR (MICRO-K) 8 mEq cpER Take 1 capsule by mouth once daily. furosemide (LASIX) 20 mg tablet Take 1 tablet by mouth once daily. metoprolol tartrate, short acting, (LOPRESSOR) 100 mg tablet Take 100 mg by mouth two times a day. [facility] atorvastatin (LIPITOR) 10 mg tablet Take 1 tablet by mouth once daily. omeprazole (PRILOSEC) 20 mg capsule Take 1 capsule by mouth daily before breakfast. 1/2 hr before meal. apixaban (ELIQUIS) 5 mg tab(s) Take 1 tablet by mouth two times a day. MULTIVITAMIN CAP Take one(1) tablet daily. ELIQUIS 5 mg tab(s) Take 5 mg by mouth two times a day. (Patient not taking: Reported on 08/28/2023) No current facility-administered medications for this visit. ALLERGIES Allergen Reactions Acetaminophen Unknown Codeine GI Upset Losartan Intolerance Naprosyn [Naproxen] GI Upset Pseudoephedrine Hcl Unknown Tavist [Clemastine * GI Upset FAMILY HISTORY Problem Relation Age of Onset [...] use: No Review of Systems Objective BP 136/86 Pulse 96 Resp 16 Ht 164 cm (5' 4.57) Wt 79.8 kg (176 lb) SpO2 96% BMI 29.68 kg/m Last 5 Encounter Wt Readings: Date: Wt: 11/22/2023 79.8 kg (176 lb) 08/28/2023 82.1 kg (181 lb) 06/27/2023 78.9 kg (174 lb) 06/24/2023 79.4 kg (175 lb) 11/12/2022 75.8 kg (167 lb) No waist measurement recorded Estimated body mass index is 29.68 kg/m as calculated from the following: Height as of this encounter: 164 cm (5' 4.57). Weight as of this encounter: 79.8 kg (176 lb). Last 5 Encounter BP Readings: Date: BP: 11/22/2023 136/86 08/28/2023 143/72[bp average[ 06/27/2023 114/74 06/24/2023 149/72 11/12/2022 130/80 Physical Exam Vitals reviewed. Constitutional: Appearance: She is well-developed. HENT: Head: Normocephalic and atraumatic. Right Ear: External ear normal. Left Ear: External ear normal. Nose: Nose normal. Eyes: Conjunctiva/sclera: Conjunctivae normal. Neck: Thyroid: No thyromegaly. Vascular: No carotid bruit. Cardiovascular: Rate and Rhythm: Normal rate and [...] General: No deformity. Normal range of motion. Right lower leg: No edema. Left lower leg: No edema. Lymphadenopathy: Cervical: No cervical adenopathy. Skin: General: [...] Content: Thought content normal. Judgment: Judgment normal. Latest Ref Rng 01/01/2022 11/04/2022 08/14/2023 WBC 3.70 - 11.00 k/uL 5.43 6.14 RBC 3.90 - 5.20 m/uL 4.64 5.08 Hemoglobin 11.5 - 15.5 g/dL 13.7 14.8 Hematocrit 36.0 - 46.0 % 42.9 46.3 (H) MCV 80.0 - 100.0 fL 92.5 91.1 MCH 26.0 - 34.0 pg 29.5 29.1 MCHC 30.5 - 36.0 g/dL 31.9 32.0 RDW-CV 11.5 - 15.0 % 13.0 13.1 Platelet Count 150 - 400 k/uL 183 170 MPV 9.0 - 12.7 fL 9.7 9.9 Neut% % 47.4 46.2 Abs Neut (ANC) 1.45 - 7.50 k/uL 2.58 2.84 Lymph% % 35.4 35.3 Abs Lymph 1.00 - 4.00 k/uL 1.92 2.17 [place]% % 13.3 14.2 Abs [place] <0.87 k/uL 0.72 0.87 (H) Eosin% % 2.9 3.3 Abs Eosin <0.46 k/uL 0.16 0.20 Baso% % 0.6 0.5 Abs Baso <0.11 k/uL 0.03 0.03 Immature Gran % % 0.4 0.5 IMMATURE GRANS (ABS) <0.10 k/uL <0.03 0.03 NRBC /100 WBC 0.0 0.0 Absolute nRBC <0.01 k/uL <0.01 <0.01 DTYPE Auto Auto Protein, Total 6.3 - 8.0 g/dL 7.2 7.2 Albumin 3.9 - 4.9 g/dL 4.8 4.5 Calcium 8.5 - 10.2 mg/dL 9.6 9.6 Bilirubin, Total 0.2 - 1.3 mg/dL 0.4 0.7 Alkaline Phosphatase 34 - 123 U/L 80 78 AST 13 - 35 U/L 23 30 ALT 7 - 38 U/L 18 35 Glucose 74 - 99 mg/dL 100 (H) 82 BUN 7 - 21 mg/dL 15 18 Creatinine 0.58 - 0.96 mg/dL 0.77 0.89 Sodium 136 - 144 mmol/L 134 (L) 138 Potassium 3.7 - 5.1 mmol/L 4.3 5.3 (H) Chloride 97 - 105 mmol/L 98 100 CO2 22 - 30 mmol/L 25 23 Anion Gap 9 - 18 mmol/L 11 15 eGFR >=60 mL/min/1.73m 81 68 Cholesterol, Total <200 mg/dL 173 149 Triglyceride <150 mg/dL 85 99 HDL Cholesterol >39 mg/dL 72 61 Non HDL Cholesterol <130 mg/dL 101 88 Fasting Time hrs 13 14 VLDL Cholesterol <30 mg/dL 17 20 TC:HDL Ratio <5.10 2.40 2.44 LDL Cholesterol <100 mg/dL 84 68 LDL:HDL Ratio <2.54 1.17 1.11 Hemoglobin A1C 4.3 - 5.6 % 5.4 Estimated Average Glucose mg/dL 108 TSH 0.270 - 4.200 mIU/L 1.960 1.790 Magnesium 1.7 - 2.3 mg/dL 2.2 Free T4 0.9 - 1.7 ng/dL 1.3 Legend: (H) High (L) Low Gisela Johnson is a 73 year old female here for a Medicare wellness visit. Medicare Health Risk Assessment General Health Good Exercise: Minutes/Day 40 min Exercise: Days/Week 4 days Alcohol: Daily Use Never Alcohol: Drinks/Day Patient does not drink Alcohol: 6 or more drinks Never Feel off balance No Concerns: Teeth/Dentures No Concerns: Sexual function No Troubled by feelings None of the above Frequency: Eating healthy diet Nearly every day ADLs requiring help None of the above Safety precautions in home/vehicle Yes Smoke, vape, chews tobacco No Difficulty hearing No Difficulty seeing No Current Providers Specialists: I have reviewed specialist-related care of the patient in the medical record. Outside specialists seen: Dr. Santillan (cardiology) , Dr. Puri([facility]) Medical/Family history review Reviewed and updated problem list, medical/surgical/family/social history, medications, and allergies. Opioid use review Opioid Medications (last 90 days) No data to display Anxiety/Depression screening PHQ-9 Score: 3 (Minimal Depression) Recommendation: no further intervention at this time Cognitive screening Mini Cog Score: 5 Cognitive screening reviewed and No further action needed (score 3-5). Functional Observation Was the patient's Timed Up & Go test unsteady or ? 12 seconds? No Advance Care Planning Surrogate decision maker and/or advance care plan documented Measurements BP 136/86 Pulse 96 Resp 16 Ht 5' 4.567 (1.64m) Wt 176 lb (79.8kg) SpO2 96% BMI 29.68 kg/(m^2). Vision Screening: Follows with optometry/ophthalmology Assessment/Plan Medicare annual wellness visit, subsequent () - Counseled on healthy diet and regular exercise - Fall avoidance information provided - Personalized prevention plan provided Encounter Diagnosis ICD-10-CM 1. Medicare annual wellness visit, subsequent Z 2. Paroxysmal atrial fibrillation (HCC) I48.0 Heart Group managing 3. White coat syndrome with high blood pressure but without hypertension R03.0 COMPREHENSIVE METABOLIC PANEL COMPLETE BLOOD COUNT Will plan to validate BP cuff. Stay on same meds. Drink more water if BP gets low. Follow up with cardiology as needed 4. Elevated fasting glucose R73.01 COMPREHENSIVE METABOLIC PANEL HEMOGLOBIN A1C Glucose and HgA1C are fine. Continue to monitor 5. Vitamin D deficiency E55.9 VITAMIN D 25 HYDROXY Follow up labs and adjust as needed 6. Encounter for long-term current use of medication Z79.899 BASIC METABOLIC PANEL COMPREHENSIVE METABOLIC PANEL COMPLETE BLOOD COUNT LIPID PANEL BASIC VITAMIN D 25 HYDROXY MAGNESIUM 7. Encounter for immunization Z23 RSV PRINTED PHARMACY INSTRUCTIONS 8. Muscle spasm M62.838 LUQ/left lower rib cage area; stretching and avoiding certain movements discussed Patient here for yearly exam and follow up. Above issues addressed with patient. Patient involved in shared decision making for management of medical issues. History and medications reviewed. Epic updated as needed Refills taken care of and meds adjusted as indicated after reviewed history, exam and labs. Health Maintenance reviewed. Updated record and/or ordered tests as recorded. Encouraged on efforts at healthy diet and regular exercise and adequate sleep. Further evaluation and treatment as indicated. Antonia Mendoza MD documented [facility] encounter[facility] Telephone encounter Note * Telephone Encounter - Benita Mike - 11/14/2023 12:30 PM EDT Prescription Refill Information The patient has been identified by name and date of : Yes Caregiver verified no other encounters exist for this prescription request: Yes Caregiver confirmed with patient/requestor that no other refills are due, in the near future, with this provider at this time: Yes The last office visit in the department: 08/28/2023 Does the patient have a future office visit with this provider/department: Yes Requested Prescriptions Pending Prescriptions Disp Refills zolpidem (AMBIEN) 5 mg tablet 30 tablet 2 Sig: Take 1 tablet by mouth at bedtime as needed for sedation for up to 90 days. Take immediately before bedtime with 8 hours of planned sleep before waking. For insomnia Benita Mike November 14, 2023 12:[address] [facility] Miscellaneous Notes* Telephone Encounter - Benita Mike - 11/14/2023 12:30 PM EDT Prescription Refill Information The patient has been identified by name and date of : Yes Caregiver verified no other encounters exist for this prescription request: Yes Caregiver confirmed with patient/requestor that no other refills are due, in the near future, with this provider at this time: Yes The last office visit in the department: 08/28/2023 Does the patient have a future office visit with this provider/department: Yes Requested Prescriptions Pending Prescriptions Disp Refills zolpidem (AMBIEN) 5 mg tablet 30 tablet 2 Sig: Take 1 tablet by mouth at bedtime as needed for sedation for up to 90 days. Take immediately before bedtime with 8 hours of planned sleep before waking. For insomnia Benita Mike November 14, 2023 12:30 PM documented in this encounterSt. [facility]06[facility] Telephone encounter Note * Telephone Encounter - Tasha Bernstein LPN - 11/13/2023 4:48 PM EDT Pt notified. [facility] Miscellaneous Notes* Telephone Encounter - Tasha Bernstein LPN - 11/13/2023 4:48 PM EDT Pt notified. * Telephone Encounter - Chung Jacob APRN.CNS - 11/13/2023 4:37 PM EDT She had labs in July, does not look like she needs any labs for upcoming appointment * Telephone Encounter - Tasha Bernstein LPN - 11/13/2023 8:16 AM EDT Pt walked in questioning any labs due. Pt has yearly with pcp 11/22/23. Any labs due for this appt? Call pt with response. documented in this encounterSt[facility] Telephone encounter Note * Telephone Encounter - Chung Jacob APRN.CNS - 11/13/2023 4:37 PM EDT She had labs in July, does not look like she needs any labs for upcoming appointment [facility] Telephone encounter Note* Telephone Encounter - Tasha Bernstein LPN - 11/13/2023 8:16 AM EDT Pt walked in questioning any labs due. Pt has yearly with pcp 11/22/23. Any labs due for this appt? Call pt with response. [facility] Miscellaneous Notes* Telephone Encounter - Katy Quesada LPN - 09/01/2023 12:13 PM EDT Patient notified of providers message and verbalized understanding. * Telephone Encounter - Chung Jacob APRN.CNS - 09/01/2023 12:01 PM EDT Should should take lasix and potassium until seen by cardiology. Take potassium as long as she is taking lasix. * Telephone Encounter - Bethany Marroquin LPN - 09/01/2023 11:11 AM EDT Pt called with an update. Pt was seen earlier and put on Lasix and she has last 7# and reports feeling much better. Pt was also put on potassium and wants to know if she is to continue on this. Please advise pt on taking above medications. Bethany Marroquin LPN documented in this encounterSt. [facility]04-04-2024 Miscellaneous Notes* Telephone Encounter - Bethany Marroquin LPN - 08/28/2023 4:47 PM EDT Short term to local pharmacy for prescriptions below. Pt is out of medication. GWEN: 08/28/23 NOV: 09/09/23 Bethany Marroquin LPN documented in this encounterSt. [facility]04-04-2024 Miscellaneous Notes* Telephone Encounter - Chung Jacob APRN.CNS - 08/28/2023 4:26 PM EDT See OV notes today * Telephone Encounter - Arely Hussein RN - 08/28/2023 8:08 AM EDT Patient having SOB on exertion since Jun, but worse recently, gained 3 lbs since , hands & ankles with pitting edema. One episode of cough last night with wheeze. Hx A-fib, newly diagnosed in Jun. 08-21-23 completed Echo / Stress test. [facility] will see patient on 10-07-23 for f/u. See below for results. Protocol recommends see provider in 4 hours. Scheduled same day appt. Patient agreeable to ER if symptoms worsen. Reason for Disposition [1] MILD difficulty breathing (e.g., minimal/no SOB at rest, SOB with walking, pulse <100) AND [2] NEW-onset or WORSE than normal Answer Assessment - Initial Assessment Questions 1. RESPIRATORY STATUS: SOB on exertion- going up steps since Jun but worse recently. Has pitting edema in hands and ankles. Last night, one time had cough episode with wheezing. ECHO and stress test-done 08-21-23 [facility] next appt 10-07-23. Was told by [facility]- one sideheart larger than the other and has a-fib - taking eliquis bid, metoprolol 100 mg bid. Was told overall looks good- no blockage- 70% overall normal, Left atrium severe enlargement, Right atrium moderate enlargement, and A-fib, Mitral valve leaky moderate to severe. 2. ONSET: Had since Jun- SOB on exertion- worse recently with edema. A-fib new since Jun 24. 3. PATTERN Comes and goes. SOB only on exertion. 4. SEVERITY: SOB when going up steps, and on exertion only. 5. RECURRENT SYMPTOM: SOB started with new diagnoses of a-fib, in Jun. 6. CARDIAC HISTORY: Parent's have heart history. For patient A-fib dx new as of May. 7. LUNG HISTORY: No lung history. Never had PE. 8. CAUSE: Had gained 8 lbs. Went from 171 to 179 #. Digital Asset Manager put her on lasix and lost the 8 lbs, but hasgained 3 # since Friday. 9. OTHER SYMPTOMS: No dizziness. No CP. No s/s of cold. No fever. BP: 117/79 (88) 08-21-23 for Echo & Stress. Pitting edema in hands and ankles. 10. O2 SATURATION MONITOR: Does not have POX 11. : Post menopause 12. TRAVEL: No travel. No exposures. Protocols used: Breathing [id number] documented in this encounterSt. [facility]04-[facility] History of Present illness Narrative* Vivian Arzate RT(R) - 08/28/2023 1:40 PM EDT Radiology Service Progress Note PATIENT NAME: Gisela Johnson DATE OF SERVICE: August 28, 2023 TIME: 1:40 PM PATIENT IDENTITY VERIFICATION COMPLETED USING TWO (2) IDENTIFIERS: Name and Date of confirmedby patient verbally. FALL SCREENING: Has the patient had 2 falls in the last year or 1 fall with injury or currently using an Ambulatory Assistive Device (Walker, Cane, Wheelchair, Crutches, etc.)? No PATIENT GENDER DATA: Female. status: : No status: NO. PATIENT RELEVANT IMPLANT DATA REVIEWED: Yes PATIENT PRESENTS WITH AN IMPLANTABLE OR ATTACHED CENTER CUSTOMER SERVICE ASSOCIATE: No RADIOLOGY DEPARTMENT: General X-ray: Exam(s) Completed: Chest X-Ray PERIPHERAL IV DATA: Not applicable SIGNED BY: RT You(R) August 28, 2023 1:40 PM documented in this encounterSt. [facility] Hospital04-04-2024 Miscellaneous Notes* Result Encounter Note - Chung Jacob APRN.CNS - 08/28/2023 1:40 PM EDT Small bilateral pleural fluid collection documented in this encounterSt. [facility] Hospital04-04-2024 Progress note* Result Encounter Note - Chung Jacob APRN.CNS - 08/28/2023 1:40 PM EDT Small bilateral pleural fluid collection [facility] History of Present illness Narrative* Chung Jacob APRN.CNS - 08/28/2023 1:20 PM EDT SUBJECTIVE: RSV Vaccine(1 - 1-dose 60+ series) Never done Advance Directive Discussion due on 05/26/2023 Behavioral Health Screening Never done HPI Gisela Johnson is a 73 year old female. PMH significant for ACTIVE PROBLEM LIST Postmenopausal Atrophic Vaginitis Osteopenia Hyperlipidemia With Target Ldl Less Than 100 Ductal Carcinoma in Situ (Dcis) of Left Breast She was seen in office June 24, 2023 regarding palpitations. Found to be in atrial fibrillation in the office on this date. Referred to [facility]. She was seen at [facility] emergency department May 28, 2023. Troponins were negative. EKG showed that she continued in atrial fibrillation. She was treated with IV Cardizem but did not convert to sinus rhythm. She was discharged on metoprolol and Eliquis in stable condition. Follow-up echocardiogram was completed. Showed LVEF in normal range.There is mild aortic and mitralvalve regurgitation (mild leakage) There is moderate tricuspid valve regurgitation (moderate leakage) There is elevation of RSVP, this can indicate volume overload. She was treated with short-term Lasix and potassium. She has been seen by [facility] cardiology. Dose of metoprolol has been increased from 50 mg twice daily to 100 mg twice daily. Additional cardiology testing: stress test 07/24/2023 [facility] which was negative for ischemia with good functional capacity. Most recent cardiology visit August 21, 2023. She has an upcoming appointment in September. Today notes increased shortness of breath on exertion. Short of breath with taking 3 stairs. Able to walk a flat surface without difficulty, no shortness of breath or chest pain. Notes shortness of breath when lying down, feels better when in the recliner. Has had 7 pound weight gain since last seen. Some minor leg swelling is noted. Cough noted last night. Was not continued on Lasix and potassium which she is taking previously. Without report of headache, chest pain, palpitations, dyspnea, peripheral edema, orthopnea, and PND. Last 14 Encounter BP Readings: Date: BP: 06/24/2023 149/72 11/12/2022 130/80 08/09/2022 138/78 05/16/2022 130/80[Home BP cuff[ 05/09/2022 152/87 12/28/2021 122/70 11/13/2021 144/72 08/10/2021 131/76 05/09/2021 136/88 05/04/2021 152/90 03/19/2021 116/64 05/04/2020 144/80 03/17/2020 128/84 05/06/2019 134/76 Review of Systems Respiratory: Positive for cough and shortness of breath. Cardiovascular: Positive for leg swelling. Objective BP 143/72 Pulse 80 Resp 16 Wt 82.1 kg (181 lb) SpO2 98% BMI 30.71 kg/m Physical Exam Vitals and nursing note reviewed. Constitutional: Appearance: Normal appearance. HENT: Head: Normocephalic and atraumatic. Eyes: Conjunctiva/sclera: Conjunctivae normal. Neck: Thyroid: No thyromegaly. Vascular: Normal carotid pulses. JVD present. Cardiovascular: Rate and Rhythm: Normal rate. Rhythm irregular. Pulses: Carotid pulses are 2+ on the right side and 2+ on the left side. Radial pulses are 2+ on the right side and 2+ on the left side. Heart sounds: Normal heart sounds, S1 normal and S2 normal. Pulmonary: Effort: Pulmonary effort is normal. Breath sounds: Normal breath sounds. Abdominal: General: Bowel sounds are normal. Palpations: Abdomen is soft. Skin: General: Skin is warm and dry. Neurological: General: No focal deficit present. Mental Status: She is alert and oriented to person, place, and time. ALLERGIES Allergen Reactions Acetaminophen Unknown Codeine GI Upset Losartan Intolerance Naprosyn [Naproxen] GI Upset Pseudoephedrine Hcl Unknown Tavist [Clemastine * GI Upset Medications metoprolol tartrate, short acting, (LOPRESSOR) 100 mg tablet Take 100 mg by mouth two times a day. [facility] atorvastatin (LIPITOR) 10 mg tablet Take 1 tablet by mouth once daily. omeprazole (PRILOSEC) 20 mg capsule Take 1 capsule by mouth daily before breakfast. 1/2 hr before meal. zolpidem (AMBIEN) 5 mg tablet Take 1 tablet by mouth at bedtime as needed for sedation for up to 90days. Take immediately before bedtime with 8 hours of planned sleep before waking. For insomnia apixaban (ELIQUIS) 5 mg tab(s) Take 1 tablet by mouth two times a day. MULTIVITAMIN CAP Take one(1) tablet daily. furosemide (LASIX) 20 mg tablet Take 1 tablet by mouth once daily. potassium chloride SR (MICRO-K) 8 mEq cpER Take 1 capsule by mouth once daily. ELIQUIS 5 mg tab(s) Take 5 mg by mouth two times a day. (Patient not taking: Reported on 08/28/2023) PAST MEDICAL HISTORY Diagnosis Date Ductal carcinoma in situ (DCIS) of left breast December, on tamoxifen Hyperlipidemia LDL goal < 100 05/09/2014 Nocturia Social History Tobacco Use Smoking status: Never Smokeless tobacco: Never Vaping Use Vaping Use: Never used Substance Use Topics Alcohol use: Yes Comment: rarely Drug use: No ASSESSMENT/PLAN: 1. SOBOE (shortness of breath on exertion) - ICD9: 786.05, ICD10: R06.02 (primary diagnosis) 2. New onset atrial fibrillation (HCC) - ICD9: 427.31, ICD10: I48.91 3. Orthopnea - ICD9: 786.02, ICD10: R06.01 4. Weight gain - ICD9: 783.1, ICD10: R63.5 5. Acute cough - ICD9: 786.2, ICD10: R05.1 Suspect some volume overload. Will resume Lasix and potassium to see if symptoms improve. Chest x-ray today to check for CHF. Discuss at upcoming appointment with cardiology if there is a need for ongoing Lasix and potassium. Complete spirometry if not improving with treatment. Consider EP referralin future if needed. - SPIROMETRY WITH DILATOR IF OBSTRUCTED - XR CHEST 2V FRONTAL/LAT - FUROSEMIDE 20 MG TABLET - POTASSIUM CHLORIDE ER 8 MEQ CAPSULE,EXTENDED RELEASE Chung Jacob APRN.CNS Medical Decision Making: Problems: Moderate: 1+ chronic illnesses with change Risk: Moderate: Drug management Medical Decision Making Level: 4 - Moderate documented in this encounterSt. [facility] Hospital03-[facility]-2024 Miscellaneous Notes* Telephone Encounter - Katy Quesada LPN - 08/08/2023 12:21 PM EDT Patient notified of providers message and verbalized understanding. * Telephone Encounter - Chung Jacob APRN.CNS - 08/08/2023 12:06 PM EDT Review of office notes shows that quencher operator did not reorder diuretics so we will discontinue. He did increase her dose of metoprolol to tartrate from 50 mg twice daily to 100 mg twice daily * Telephone Encounter - Chung Jacob APRN.CNS - 08/08/2023 8:16 AM EDT I thought she was to see Dr [facility] at the end of June, did that happen? If so did he discuss the medications with her? Is that who she is seeing in September? The plan was to take the medicine until seen in cardiology at the end of June (see notes). If she has not yet seen anyone in cardiology would recommend a recheck in office with me next week with labs. Zio showed atrial fibrillation with 6 runs of VT. Will send this report to quencher operator today. Confirm taking metoprolol BID - appears Dr Santillan re-ordered this 07/24/2023. * Telephone Encounter - Antonia Mendoza MD - 08/08/2023 12:34 AM EDT Not sure what the plan was for Lasix and potassium--whether to stay on till sees cardiology and they decide whether needs to stay on the meds, or just was for short term. Will check with Chung since she saw patient most recently. Since patient not being seen till September, does she need reassessed sooner? * Telephone Encounter - Ondina Acuna - 08/07/2023 10:34 AM EDT Sushil is calling Antonia Mendoza MD today with concern regarding Question Patient is calling in today asking if she needs to keep talking the following medications? Furosemide and Potassium Chloride Patient states if she needs to continue that she will need these medications sent to [facility]. Patient has been identified by name and birthdate. Duration of symptoms: N/A Person calling: self Call patient at: at home [phone] (home) [phone] (cell) Was an appointment scheduled: No Closing statement: Results or non-symptom based questions: [facility], your call will be returned within the next business day. Ondina Sánchez documented in this encounterSt. [facility] Hospital02-29-2024 Miscellaneous Notes* Telephone Encounter - Cassidy Munoz RN - 07/24/2023 2:56 PM EST Patient has been identified by name and date of : Yes, Provider Date Time Patient phones for refill(s): Requested Prescriptions Pending Prescriptions Disp Refills atorvastatin (LIPITOR) 10 mg tablet 90 tablet 3 Sig: Take 1 tablet by mouth once daily. omeprazole (PRILOSEC) 20 mg capsule 90 capsule 3 Sig: Take 1 capsule by mouth daily before breakfast. 1/2 hr before meal. [facility] tells patient she needs new scripts for these medications. Date of last office visit in primary care: 06/27/2023 Date of next office visit in primary care: 09/09/2023 Please advise. Thank you. Cassidy Munoz RN. documented in this encounterSt. [facility] Hospital02-29-2024 Miscellaneous Notes* Telephone Encounter - Chung Jacob APRN.CNS - 07/24/2023 12:33 PM EST OK * Telephone Encounter - Tamara Tinoco RN - 07/24/2023 11:57 AM EST Patient has been identified by name and date of : Yes, Tamara Tinoco RN Date 07/24/2023 Time 11:58 am Patient phones for refill(s): Requested Prescriptions Pending Prescriptions Disp Refills furosemide (LASIX) 20 mg tablet 0 Sig: Take 1 tablet by mouth once daily. potassium chloride SR (MICRO-K) 8 mEq cpER 0 Sig: Take 1 capsule by mouth once daily. Date of last office visit in primary care: 06/27/2023 Date of next office visit in primary care: 09/09/2023 Patient calls to request refill of lasix and potassium. Patient has an initial appointment with with [facility] on October 07. Please advise. Thank you. Tamara Tinoco RN. documented in this encounterSt. [facility] Hospital02-19-2024 Miscellaneous Notes* Telephone Encounter - Chung Jacob APRN.CNS - 07/14/2023 10:47 AM EST OK for 2 more weeks of treatment with diuretic until seen by cardiology. Rx sent. * Telephone Encounter - Ginger Frankel RN - 07/14/2023 9:55 AM EST Pt called and is notified of providers message and instructions. Pt voices understanding, states SOB mainly when going up stairs and leg swelling better. She was agreeable and asked if it could be called into [facility] in [place]. Patient has been identified by name and date of : Yes, Provider Dr Mendoza Date 07/14/23 Time 0958. Patient phones for refill(s): Requested Prescriptions Pending Prescriptions Disp Refills furosemide (LASIX) 20 mg tablet 15 tablet 0 Sig: Take 1 tablet by mouth once daily. potassium chloride SR (MICRO-K) 8 mEq cpER 15 capsule 0 Sig: Take 1 capsule by mouth once daily. Date of last office visit in primary care: 06/27/2023 Date of next office visit in primary care: 09/09/2023 Please advise. Thank you. Ginger Frankel RN. * Telephone Encounter - Chung Jacob APRN.BEEF BREAKER - 07/14/2023 9:31 AM EST Check to see if currently having leg swelling or shortness of breath. May want to continue with diuretic until she is seen by cardiology. Note doing well with sleep with zolpidem. * Telephone Encounter - Ginger Frankel RN - 07/14/2023 9:21 AM EST Pt called in and reports she was put on 7 days of Lasix and K+ and she lost 3 lbs during that time.She also reports she was put on Ambien her sleep has increased from 2-4 hours to 7 hours of sleep anight. documented in this encounterSt. [facility] Hospital02-15-2024 Miscellaneous Notes* Telephone Encounter - Italia Sams RN - 07/10/2023 9:01 AM EST Patient returned call and given provider's message below and patient verbalized understanding. Anila Sams RN * Telephone Encounter - Ginger Frankel RN - 07/10/2023 8:43 AM EST Called and left a voicemail for the Patient to call back and ask for a nurse to receive the providers message. Ginger Frankel RN * Telephone Encounter - Antonia Mendoza MD - 07/09/2023 7:48 PM EST Not sure what more information patient wants. Note that the leaking/regurgitation noted for the valves was just mild for the aortic and mitral valves and moderate for the tricuspid valves. Nothing needs done about the leaky valves at this time. She can discuss with the quencher operator whether needs to do any follow up testing for these findings.They can also discuss whether needs to do anything about the increased right systolic ventricular pressure which might be due to mild pulmonary hypertension. * Telephone Encounter - Ginger Frankel RN - 07/04/2023 4:33 PM EST Pt called and is notified of providers results and instructions. Pt voices understanding. Pt askingif provider could give her some more information on the echo and what it means especially the regurgitation and leakage. Pt has and appointment with [facility]iology on 07/24/[address] Santillan. Pt will call in next week with daily weights. Ginger Frankel RN * Telephone Encounter - Chung Jacob APRN.CNS - 07/04/2023 4:17 PM EST Please let her know that echocardiogram showed normal pumping action of the heart. There is mild aortic and mitral valve regurgitation (mild leakage) There is moderate tricuspid valve regurgitation (moderate leakage) There is elevation of RSVP, this can indicate volume overload. Recommend taking Lasix 20 mg daily in the morning along with potassium for one week. This will cause her to pee a lot so should stay by a toilet for a few hours. Check weight daily and write down results. Ask if she was able to get in with [facility] for an appointment. documented in this encounterSt. [facility] Hospital02-05-2024 Miscellaneous Notes* Telephone Encounter - Katy Quesada LPN - 06/30/2023 1:11 PM EST Patient notified of providers message and verbalized understanding. * Telephone Encounter - Chung Jacob APRN.CNS - 06/30/2023 12:26 PM EST Discontinue trazodone. Please let her know she can try zolpidem. Take immediately before bedtime with 8 hours of planned sleep before waking * Telephone Encounter - Tamara Tinoco RN - 06/30/2023 9:30 AM EST Patient calls to report that she took one dose of trazodone 50 mg at bedtime for sleep and it caused her heart to feel like it was racing. She reports that night she only got 2 hours of sleep. Patient reports she doesn't feel comfortable taking trazodone with heart racing and recent A-fib diagnosis. Patient asking if provider has any other recommendations. Tamara Tinoco RN documented in this encounterSt. [facility] Hospital02-02-2024 Instructions* Patient Instructions* Chung Jacob APRN.CNS - 06/27/2023 9:27 AM EST Try trazodone for sleep. Take at bedtime. Continue with apixaban and metoprolol tartrate unchanged. documented in this encounterSt. Vincent Hospital02-02-2024 History of Present illness Narrative* Chung Jacob APRN.CNS - 06/27/2023 9:00 AM EST SUBJECTIVE: RSV Vaccine(1 - 1-dose 60+ series) Never done Advance Directive Discussion due on 05/26/2023 Depression Assessment due on 05/26/2023 HPI Gisela Johnson is a 73 year old female. PMH significant for ACTIVE PROBLEM LIST Postmenopausal Atrophic Vaginitis Osteopenia Hyperlipidemia With Target Ldl Less Than 100 Ductal Carcinoma in Situ (Dcis) of Left Breast Presents today for emergency department follow-up visit. HPI excerpted from previous visit: Presents today noting elevated blood pressure readings and heart rate at home when checking.She notes intermittent palpitations lasting just for a few minutes present for years. Passes with deep breathing typically. No associated symptoms. Now noting 2 episodes where she awoke from sleep at night with her heart racing. First occurrence was on Friday. She notes this lasted for about 10 minutes. She noted associated left arm pain. No chest pain. No shortness of breath, dizziness lightheadedness presyncope or syncope. She second occurrence of the symptoms awaken her from sleep around 2 AM on Friday. This lasted for about 10 minutes as well and passed with deep breathing. She brings home blood pressure and heart rate readings from June 22 through . Blood pressures range from 108/88 -152/73 , pulse ranging from 53-139 bpmCurrently noting left arm pain, no palpitations, dizziness, lightheadedness, edema presyncope or syncope. Typically can walk 3 miles without difficulty. She was seen at [facility] emergency department May 28, 2023. Troponins were negative. EKG showed continued atrial fibrillation. She was treated with IV Cardizem but did not convert to sinus rhythm. She was discharged on metoprolol and Eliquis in stable condition. Age less than 80, weight above 60 kg normal creatinine. [id number] risk stratification score for estimation of stroke risk for nonvalvular atrial fibrillation in adults = 3 Today reports feeling improved on current medications. Less fatigue is noted. Decrease in palpitations and left arm/shoulder pain, this only bothered her a couple times at night since discharge home. Home BP and HR: 135/83, pulse 80, 132/68 pulse 73, 133/68 pulse 43 HTN: Without report of headache, chest pain, palpitations, dyspnea, peripheral edema, orthopnea, and PND. Last 14 Encounter BP Readings: Date: BP: 06/24/2023 149/72 11/12/2022 130/80 08/09/2022 138/78 05/16/2022 130/80[Home BP cuff[ 05/09/2022 152/87 12/28/2021 122/70 11/13/2021 144/72 08/10/2021 131/76 05/09/2021 136/88 05/04/2021 152/90 03/19/2021 116/64 05/04/2020 144/80 03/17/2020 128/84 05/06/2019 134/76 She notes chronic insomnia. Trouble falling and staying asleep. Has tried melatonin but did not agree with her so stopped taking it. Reports about 3 times per week only getting 2 to 4 hours of sleep. Going to bed at 11 and up bed at2am or so. No prior insomnia treatment other than melatonin. Wonders if she has sleep apnea after speaking with a friend. No known observed apnea episodes. Typically feels well rested when she does sleep. She notes fatigue only when unable to sleep. STOP BANG Questionnaire 1. Snoring Do you snore loudly (louder than talking or loud enough to be heard through closed doors)? YES 2. Tired Do you often feel tired, fatigued, or sleepy during daytime? NO 3. Observed Has anyone observed you stop breathing during your sleep? NO 4. Blood Pressure Do you have or are you being treated for high blood pressure? NO 5. BMI BMI more than 35 kg/m2? NO 6. Age Age over 50 yr old? YES 7. Neck circumference Neck circumference greater than 40 cm? NO 8. Gender Gender male? NO * Neck circumference is measured by staff High risk of JESSE: answering yes to three or more items Low risk of JESSE: answering yes to less than three items Review of Systems Respiratory: Negative. Cardiovascular: Negative for chest pain (CP equivalent possible- left arm pain) and palpitations. Objective BP 114/74 Pulse 72 Resp 16 Wt 78.9 kg (174 lb) BMI 29.52 kg/m Physical Exam Vitals and nursing note [...] the left side. Heart sounds: Normal heart sounds, S1 normal and S2 normal. Pulmonary: Effort: Pulmonary effort is normal. Breath sounds: Normal breath sounds. Abdominal: General: Bowel sounds are normal. Palpations: Abdomen is soft. Skin: General: Skin is warm and dry. Neurological: General: No focal deficit present. Mental Status: She is alert and oriented to person, place, and time. ALLERGIES Allergen Reactions Acetaminophen Unknown Codeine GI Upset Losartan Intolerance Naprosyn [Naproxen] GI Upset Pseudoephedrine Hcl Unknown Tavist [Clemastine * GI Upset Medications metoprolol tartrate, short acting, (LOPRESSOR) 50 mg tablet Take 50 mg by mouth two times a day. ELIQUIS 5 mg tab(s) Take 5 mg by mouth two times a day. atorvastatin (LIPITOR) 10 mg tablet TAKE 1 TABLET EVERY DAY omeprazole (PRILOSEC) 20 mg capsule Take 1 capsule by mouth daily before breakfast. 1/2 hr before meal. MULTIVITAMIN CAP Take one(1) tablet daily. apixaban (ELIQUIS) 5 mg tab(s) Take 1 tablet by mouth two times a day. metoprolol tartrate, short acting, (LOPRESSOR) 50 mg tablet Take 1 tablet by mouth two times a day. traZODone (DESYREL) 50 mg tablet Take 1 tablet by mouth daily at bedtime. CALCIUM CARBONATE/VITAMIN D3 (CALCIUM + D ORAL) Take 2 tablets by mouth twice daily. (Patient not taking: Reported on 06/27/2023) PAST MEDICAL HISTORY Diagnosis Date Ductal carcinoma in situ (DCIS) of left breast December, on tamoxifen Hyperlipidemia LDL goal < 100 05/09/2014 Nocturia Social History Tobacco Use Smoking status: Never Smokeless tobacco: Never Vaping Use Vaping Use: Never used Substance Use Topics Alcohol use: Yes Comment: rarely Drug use: No ASSESSMENT/PLAN: 1. New onset atrial fibrillation (HCC) - ICD9: 427.31, ICD10: I48.91 (primary diagnosis) 2. Left arm pain - ICD9: 729.5, ICD10: M79.602 3. Palpitations - ICD9: 785.1, ICD10: R00.2 4. On continuous oral anticoagulation - ICD9: V58.61, ICD10: Z79.01 Presents for emergency department follow-up visit for new onset atrial fibrillation. Currently feeling improved on metoprolol 50 mg twice daily. Will continue on apixaban 5 mg twice daily for stroke prophylaxis. No bleeding difficulties noted. Former patient [facility], Dr. Denise, would like to return. Consult placed. Recommend echocardiogram completion. Appointment with [facility] at her earliest convenience. Reports emergency department discussed cardioversion with her. 5. Chronic insomnia F51.04 She reports chronic insomnia present for a long time, not helped with melatonin in the past. Reports getting 2 to 4 hours of sleep perhaps 3 days/week. Recommend trial of trazodone nightly to see if this is helpful. She will let us know if any problems or if needing dose increase. 3 mo follow up Chung Jacob APRN.BEEF BREAKER 6 o follow up MD Chung Swanson APRN.CNS Medical Decision Making: Problems: Moderate: Acute illness with systemic symptoms Data: Unique source(s) for external note(s) reviewed: 1 Unique test result(s) reviewed: 3+ Risk: Moderate: Drug management Medical Decision Making Level: 4 - Moderate documented in this encounterSt[facility] Instructions* Patient Instructions* Antonia Mendoza MD - 11/12/2022 8:31 AM EDT Sleep [...] falling asleep or wake up shortly after goingto sleep, leave the bedroom and read quietly or do some other relaxing activity. Avoid bright lights as this can cue your wake cycle. Develop sleep rituals before going to bed. Do the same things in the same order before going to bedto cue your body to slow down and [...] sense of time), get out of bed anddo something relaxing or boring (reading, listening to [...] 4 hours of bedtime. documented in this encounterSt. [facility]06-[facility] History of Present illness Narrative* Antonia Mendoza MD - 11/12/2022 8:23 AM EDT This note was created using [email or web address]. Subjective Gisela Johnson is a 72 year old female. HISTORY Gisela Johnson is a 72 year old lady [...] in July. After pulling on stuck cart atstore. GERD acts up if stops taking PPI or misses dose. Had Free Blood Flow Screening done at [facility]. All normal--Carotid artery screening 0-15%, Normal Aortic [...] Height as of 05/16/22: 163.5 cm (5' 4.37). Weight as of this encounter: 75.8 kg [...] 1.00 - 4.00 k/uL 2.18 1.81 1.92 Yazoo% % 12.4 12.1 13.3 Abs Yazoo <0.87 k/uL 0.76 0.62 0.72 Eosin% % [...] with me.. Follows with Dr. Sinclair at [facility] so gets mammograms done there. Last appointment with Soraya Crooks was last year--DCIS. Had seen Dr. [...] getting both knees replaced this summer. Antonia Mendoza MD documented in this encounterSt. [facility]05-[facility]-2023 Miscellaneous Notes* Telephone Encounter - Antonia Mendoza MD - 09/25/2022 1:28 PM EDT Okayed * Telephone Encounter - Deborah Peoples LPN - 09/25/2022 10:51 AM EDT Patient has been identified by name and [...] you. Deborah Peoples LPN documented in this encounterSt. [facility]04-27-2023 Miscellaneous Notes* Telephone Encounter - Deborah Peoples LPN - 09/19/2022 2:19 PM EDT Patient has been identified by name and [...] Please advise. Thank you. Deborah Peoples LPN * Telephone Encounter - Kate Patel Pss - 09/19/2022 1:39 PM EDT Patient has been identified by name and date of : Yes Requested Prescriptions Pending Prescriptions Disp Refills omeprazole (PRILOSEC) 20 mg capsule 90 capsule 3 Sig: Take 1 capsule by mouth daily before breakfast. 1/2 hr before meal. RX INSTRUCTIONS: Patient aware RX escripted to mail away pharmacy. No need to notify patient. Kate Patel Pss documented in this encounterSt. [facility] Hospital03-17-2023 Instructions* Patient Instructions* SPARKLE Arce - 08/09/2022 9:06 AM EDT [...] thin washcloth between the bag and your skin.Apply the ice bag to the area for [...] pillows when lying down. documented in this encounterSt. [facility] Hospital03-17-2023 History of Present illness Narrative* Fauzia Jurado RT(R) - 08/09/2022 8:10 AM EDT Radiology Service Progress Note PATIENT NAME: Gisela Johnson DATE OF SERVICE: August 09, 2022 TIME: 8:25 AM PATIENT IDENTITY VERIFICATION COMPLETED USING TWO (2) IDENTIFIERS: Name and Date of confirmedby patient verbally. FALL SCREENING: Has the patient [...] RT Geo(R) August 09, 2022 8:25 AM documented in this encounterSt. [facility] Hospital03-17-2023 History of Present illness Narrative* SPARKLE Arce - 08/09/2022 7:59 AM EDT Images from the original note were not included. This note was created using [email or web address]. Subjective Gisela Johnson is a 72 year old female. HPI 72-year-old female presents for left-sided rib pain. Patient states that she was in the grocerystore yesterday pushing a grocery cart when she started to get some pain in her left ribs. She states she did not fall or injure herself, but was bending and twisting in the grocery store. She has pain over her left lower anterior ribs. She denies any abdominal pain. No chest pain or shortness of br eath. Pain is worse with movement. She states [...] ER evaluation. SPARKLE Arce documented in this encounterSt. [facility] Hospital12-22-2022 History of Present illness Narrative* Chung Jacob APRN.BEEF BREAKER - 05/16/2022 9:00 AM EST SUBJECTIVE: DEPRESSION ASSESSMENT Never done HPI Giesla Johnson is a 72 year old female. PMH significnat for ACTIVE PROBLEM LIST Postmenopausal Atrophic Vaginitis Osteopenia Hyperlipidemia With Target Ldl Less Than 100 Ductal Carcinoma in Situ (Dcis) of Left Breast Has seen Dr Neri previously. Presents today to establish care with Antonia Mendoza MD Has seen Soraya Crooks [facility] hematology/oncology for DCIS left, last visit [...] 71 Resp 16 Ht 163.5 cm (5' 4.37) Wt 76.7 kg (169 lb) SpO2 97% [...] Abs Lymph 1.00 - 4.00 k/uL 1.81 Yazoo% % 12.1 Abs Yazoo <0.87 k/uL 0.62 Eosin% % 2.2 Abs [...] BMD [address] Colbert at [facility] 3. Gastroesophageal reflux disease without esophagitis - [...] recheck with labs - establish with MD Chung Swanson APRN.BEEF BREAKER Medical Decision Making: Problems: Moderate: 2+ stable chronic illnesses Data: Unique test(s) ordered: 3+ Medical Decision Making Level: 4 - Moderate documented in this encounterSt. [facility] Hospital08-05-2022 History of Present illness Narrative* Joie Neri MD - 12/28/2021 3:23 PM EDT Reason for Visit Patient presents with: Established Patient: blood pressure folllow up Gisela Johnson is a 71 year old female [...] F) Resp 12 Ht 163.8 cm (5' 4.5) Wt 79.8 kg (176 lb) SpO2 97% [...] exercise. Discussed use of small plate to eatmeals from, drink 1 glass of water 10-15 [...] well. - TSH BLD Joie Neri MD * Joie Neri MD - 12/28/2021 3:21 PM EDT error documented in this encounterSt. Vincent Hospital08-05-2022 Nurse Note* Radha Holm LPN - 12/28/2021 2:52 PM EDT Home Bp monitor 145/82 right arm documented in this encounterSt. [facility] Hospital07-11-2022 Miscellaneous Notes* Telephone Encounter - Bethany Marroquin LPN - 12/03/2021 11:52 AM EDT Patient has been identified by name and [...] you. Bethany Marroquin LPN documented in this encounterSt. [facility] Hospital07-08-2022 Miscellaneous Notes* Telephone Encounter - Radha Holm LPN - 11/30/2021 3:30 PM EDT Patient notified and follow up made for dec with . Radha Holm LPN * Telephone Encounter - Joie Neri MD - 11/30/2021 3:10 PM EDT I would like Sushil to see me in a months time If her bp is getting up high quickly we will send amlodipine to her if needed, Basically I think it is normal range now, I want to see how high her bp would go after medication, * Telephone Encounter - Tamara Tinoco RN - 11/30/2021 8:32 AM EDT Patient calls to report that she stopped taking the prescribed losartan yesterday. BP 120/70 yesterday but not taken today. Stopped medication d/t side effects that include: dizziness, nausea, stomach aches, and muscle aches. Patient reports symptoms are resolving but still has some stomach ache and muscle aches in arms and back. Patient asking to try a different medication for blood pressure. Pharmacy is [facility]. Tamara Tinoco RN documented in this encounterSt. [facility] Hospital06-06-2022 Miscellaneous Notes* Telephone Encounter - Winifred Huddleston Ma - 10/29/2021 9:30 AM EDT Patient notified. * Telephone Encounter - Cierra Calderón APRN.MARSHA - 10/29/2021 8:28 AM EDT Fasting lab orders have been placed. Thank you Cierra Calderón APRN.MARSHA * Telephone Encounter - Ginger Frankel RN - 10/29/2021 8:15 AM EDT Pt called in and reports she has an upcoming appointment on 11/13. Pt asking if provider can put in labs. Once labs are ordered please call the Pt. documented in this encounterSt. [facility] Hospital10-09-2009 History of Past illness Narrative* Problem Noted Date Resolved Date GERD (gastroesophageal reflux disease) 9 09/28/2015 Dysmetabolic syndrome X 11/11/2006 05/09/20 14 documented as of this encounter (statuses as of 09/17/2021) [facility] of Past illness Narrative* Problem Noted Date Resolved Date GERD (gastroesophageal reflux disease) 9 09/28/2015 Dysmetabolic syndrome X 11/11/2006 05/09/20 14 documented as of this encounter (statuses as of 10/29/2021) [facility] illness Narrative* Problem Noted Date Resolved Date GERD (gastroesophageal reflux disease) 9 09/28/2015 Dysmetabolic syndrome X 11/11/2006 05/09/20 14 documented as of this encounter (statuses as of 11/30/2021) [facility] illness Narrative* Problem Noted Date Resolved Date GERD (gastroesophageal reflux disease) 9 09/28/2015 Dysmetabolic syndrome X 11/11/2006 05/09/20 14 documented as of this encounter (statuses as of 12/03/2021) [facility] Narrative* Problem Noted Date Resolved Date GERD (gastroesophageal reflux disease) 9 09/28/2015 Dysmetabolic syndrome X 11/11/2006 05/09/20 14 documented as of this encounter (statuses as of 12/28/2021) [facility] Narrative* Problem Noted Date Resolved Date GERD (gastroesophageal reflux disease) 9 09/28/2015 Dysmetabolic syndrome X 11/11/2006 05/09/20 14 documented as of this encounter (statuses as of 05/17/2022) [facility] Narrative* Problem Noted Date Resolved Date GERD (gastroesophageal reflux disease) 9 09/28/2015 Dysmetabolic syndrome X 11/11/2006 05/09/20 14 documented as of this encounter (statuses as of 08/09/2022) [facility] Narrative* Problem Noted Date Resolved Date GERD (gastroesophageal reflux disease) 9 09/28/2015 Dysmetabolic syndrome X 11/11/2006 05/09/20 14 documented as of this encounter (statuses as of 09/20/2022) [facility] Narrative* Problem Noted Date Resolved Date GERD (gastroesophageal reflux disease) 9 09/28/2015 Dysmetabolic syndrome X 11/11/2006 05/09/20 14 documented as of this encounter (statuses as of 09/25/2022) [facility] Narrative* Problem Noted Date Resolved Date GERD (gastroesophageal reflux disease) 9 09/28/2015 Dysmetabolic syndrome X 11/11/2006 05/09/20 14 documented as of this encounter (statuses as of 11/13/2022) [facility] Narrative* Problem Noted Date Diagnosed Date Resolved Date GERD (gastroesophageal reflux disease) 03/03/2009 09/28/2015 Dysmetabolic syndrome X 11/11/200604/25 documented as of this encounter (statuses as of 06/27/2023) [facility] Narrative* Problem Noted Date Diagnosed Date Resolved Date GERD (gastroesophageal reflux disease) 03/03/2009 09/28/2015 Dysmetabolic syndrome X 11/11/200604/25 documented as of this encounter (statuses as of 06/30/2023) [facility] Narrative* Problem Noted Date Diagnosed Date Resolved Date GERD (gastroesophageal reflux disease) 03/03/2009 09/28/2015 Dysmetabolic syndrome X 11/11/200604/25 documented as of this encounter (statuses as of 07/10/2023) [facility] Narrative* Problem Noted Date Diagnosed Date Resolved Date GERD (gastroesophageal reflux disease) 03/03/2009 09/28/2015 Dysmetabolic syndrome X 11/11/200604/25 documented as of this encounter (statuses as of 07/10/2023) [facility] Narrative* Problem Noted Date Diagnosed Date Resolved Date GERD (gastroesophageal reflux disease) 03/03/2009 09/28/2015 Dysmetabolic syndrome X 11/11/200604/25 documented as of this encounter (statuses as of 07/14/2023) [facility] Narrative* Problem Noted Date Diagnosed Date Resolved Date GERD (gastroesophageal reflux disease) 03/03/2009 09/28/2015 Dysmetabolic syndrome X 11/11/200604/25 documented as of this encounter (statuses as of 07/24/2023) [facility] Narrative* Problem Noted Date Diagnosed Date Resolved Date GERD (gastroesophageal reflux disease) 03/03/2009 09/28/2015 Dysmetabolic syndrome X 11/11/200604/25 documented as of this encounter (statuses as of 07/25/2023) [facility] Narrative* Problem Noted Date Diagnosed Date Resolved Date GERD (gastroesophageal reflux disease) 03/03/2009 09/28/2015 Dysmetabolic syndrome X 11/11/200604/25 documented as of this encounter (statuses as of 08/08/2023) [facility] Narrative* Problem Noted Date Diagnosed Date Resolved Date GERD (gastroesophageal reflux disease) 03/03/2009 09/28/2015 Dysmetabolic syndrome X 11/11/200604/25 documented as of this encounter (statuses as of 08/08/2023) [facility] Narrative* Problem Noted Date Diagnosed Date Resolved Date GERD (gastroesophageal reflux disease) 03/03/2009 09/28/2015 Dysmetabolic syndrome X 11/11/200604/25 documented as of this encounter (statuses as of 08/29/2023) [facility] Narrative* Problem Noted Date Diagnosed Date Resolved Date GERD (gastroesophageal reflux disease) 03/03/2009 09/28/2015 Dysmetabolic syndrome X 11/11/200604/25 documented as of this encounter (statuses as of 08/29/2023) [facility] Narrative* Problem Noted Date Diagnosed Date Resolved Date GERD (gastroesophageal reflux disease) 03/03/2009 09/28/2015 Dysmetabolic syndrome X 11/11/200604/25 documented as of this encounter (statuses as of 08/29/2023) [facility] Narrative* Problem Noted Date Diagnosed Date Resolved Date GERD (gastroesophageal reflux disease) 03/03/2009 09/28/2015 Dysmetabolic syndrome X 11/11/200604/25 documented as of this encounter (statuses as of 09/01/2023) [facility]* Diagnosis Hyperlipidemia with target LDL less than 100- Primary Other and unspecified hyperlipidemia Annual physical exam Routine general medical examination at a health care facility [facility]* Diagnosis Hyperlipidemia with target LDL less than 100 Other and unspecified hyperlipidemia [facility]* Diagnosis Elevated BP without diagnosis of hypertension- Primary Hyperlipidemia with target LDL less than 100 Other and unspecified hyperlipidemia Gastroesophageal reflux disease without esophagitis Esophageal reflux Abnormal weight gain [facility] noteNo assessment information availableWFort [facility] Work Phone: Evaluation note* Diagnosis Hyperlipidemia with target LDL less than 100- Primary Other and unspecified hyperlipidemia Osteopenia, unspecified location Gastroesophageal reflux disease without esophagitis Esophageal reflux Elevated BP without diagnosis of hypertension [facility]* Diagnosis Rib pain- Primary Chest pain, unspecified documented [facility]* Diagnosis Hyperlipidemia with target LDL less than 100 Other and unspecified hyperlipidemia [facility]* Diagnosis Hyperlipidemia with target LDL less than 100- Primary Other and unspecified hyperlipidemia Gastroesophageal reflux disease without esophagitis Esophageal reflux White coat syndrome with high blood pressure but without hypertension Persistent disorder of initiating or maintaining sleep Elevated fasting glucose Impaired fasting glucose Encounter for long-term current use of medication [facility]* Diagnosis New onset atrial fibrillation (HCC)- Primary Atrial fibrillation Left arm pain Pain in limb Palpitations On continuous oral anticoagulation Long-term (current) use of anticoagulants Chronic insomnia Insomnia, unspecified [facility]* Diagnosis Chronic insomnia- Primary Insomnia, unspecified [facility]* Diagnosis New onset atrial fibrillation (HCC)- Primary Atrial fibrillation Hypervolemia, unspecified hypervolemia type [facility]* Diagnosis New onset atrial fibrillation (HCC) Atrial fibrillation [facility]* Diagnosis New onset atrial fibrillation (HCC) Atrial fibrillation [facility]* Diagnosis Hyperlipidemia with target LDL less than 100 Other and unspecified hyperlipidemia [facility] this [facility]* Diagnosis New onset atrial fibrillation (HCC) Atrial fibrillation [facility]* Diagnosis Onset Date Resolution Status Atrial fibrillation acute Dyslipidemia chronic Essential hypertension chron ic Stable angina pectoris chron ic [facility] Work Phone: Evaluation note* Diagnosis SOBOE (shortness of breath on exertion)- Primary Shortness of breath New onset atrial fibrillation (HCC) Atrial fibrillation Orthopnea Weight gain Abnormal weight gain Acute cough documented in this encounter [facility] note* Diagnosis SOBOE (shortness of breath on exertion) Shortness of breath New onset atrial fibrillation (HCC) Atrial fibrillation Orthopnea Weight gain Abnormal weight gain Acute cough [facility]* Diagnosis Chronic insomnia Insomnia, unspecified documented [facility]* Diagnosis Medicare annual wellness visit, subsequent- Primary Routine general medical examination at a health care facility Paroxysmal atrial fibrillation (HCC) Atrial fibrillation White coat syndrome with high blood pressure but without hypertension Elevated fasting glucose Impaired fasting glucose Vitamin D deficiency Unspecified vitamin D deficiency Encounter for long-term current use of medication Encounter for immunization Need for other specified prophylactic vaccination against single bacterial disease Muscle spasm Spasm of muscle [facility]* Diagnosis Primary hypertension- Primary Unspecified essential hypertension Paroxysmal atrial fibrillation (HCC) Atrial fibrillation Obesity, Class I, BMI 30-34.9 Obesity, unspecified documented in this encounter [facility] note* Diagnosis SOBOE (shortness of breath on exertion) Shortness of breath New onset atrial fibrillation (HCC) Atrial fibrillation Orthopnea Weight gain Abnormal weight gain Acute cough documented in this encounter [facility] note* Diagnosis Rib pain Chest pain, unspecified documented in this encounter [facility] note* Diagnosis PAF (paroxysmal atrial fibrillation) (HCC)- Primary Atrial fibrillation SOBOE (shortness of breath on exertion) Shortness of breath Primary hypertension Unspecified essential hypertension Chronic insomnia Insomnia, unspecified Encounter for immunization Need for other specified prophylactic vaccination against single bacterial disease documented in this encounter [facility] note* Diagnosis Hyperlipidemia with target LDL less than 100 Other and unspecified hyperlipidemia Paroxysmal atrial fibrillation (HCC)- Primary Atrial fibrillation At risk for stroke Other specified personal history presenting hazards to health Anticoagulant long-term use Long-term (current) use of anticoagulants documented in this encounter [facility] note* Diagnosis Persistent atrial fibrillation (HCC)- Primary Atrial fibrillation At risk for stroke Other specified personal history presenting hazards to health Anticoagulant long-term use Long-term (current) use of anticoagulants Nonrheumatic mitral valve regurgitation Nonrheumatic tricuspid valve regurgitation Tricuspid valve disorders, specified as nonrheumatic Nonrheumatic aortic valve insufficiency Aortic valve disorders documented in this encounter [facility] note* Diagnosis Primary hypertension- Primary Unspecified essential hypertension Paroxysmal atrial fibrillation (HCC) Atrial fibrillation Asymptomatic postmenopausal status documented in this encounter [facility] note* Diagnosis Asymptomatic postmenopausal status documented in this encounter [facility] for referral (narrative)* Diagnostic Procedure Only (Urgent) - Closed Specialty Diagnoses / Procedures Referred By Ana bean Referred To Contact XR IMAGING Diagnoses Rib pain Procedures XR RIBS/CHEST 3V AP RIB/OBLS/CXR LEFT RADEX RIBS UNI W/POSTEROANT CH MINIMUM 3 VIEWS [facility] [address] [place] [address] Xr Imaging Referral ID Status Reason Start Date Expiration Date V isits Requested Visits Authorized [id number] Closed Auto-Generate d Referral 08/09/2022 09/08/2023 1 1 [facility] for referral (narrative)* Outpatient Procedure (Routine) - Pending Review Specialty Diagnoses / Procedures Referred By Contac t Referred To Contact [facility] Diagnoses SOBOE (shortness of breath on exertion) New onset atrial fibrillation (HCC) Orthopnea Weight gain Acute cough Procedures SPIROMETRY WITH DILATOR IF OBSTRUCTED BRNCDILAT RSPSE SPMTRY PRE&POST-BRNCDILAT Chung Khan APRN.CNS [address] [place] [address] Respiratory [place] [address] [place] [address] Referral ID Status Reason Start Date Expiration Date Visits Requested Visits Authorized [id number] Pending Review Auto-Generat ed Referral 08/28/2023 09/26/2024 1 1 [facility] for referral (narrative)* Diagnostic Procedure Only (Urgent) - Closed Specialty Diagnoses / Procedures Referred By Contac t Referred To Contact XR IMAGING Diagnoses Rib pain Procedures XR RIBS/CHEST 3V AP RIB/OBLS/CXR LEFT RADEX RIBS UNI W/POSTEROANT CH MINIMUM 3 VIEWS [facility] [address] [place] [address] [place] [address] Referral ID Status Reason Start Date Expiration Date V isits Requested Visits Authorized [id number] Closed Auto-Generate d Referral 08/09/2022 09/08/2023 1 1 [facility] for referral (narrative)* Diagnostic Procedure Only (Routine) - New Request Specialty Diagnoses / Procedures Referred By Contac t Referred To Contact XR IMAGING Diagnoses Asymptomatic postmenopausal status Procedures DXA-AXIAL SKELETON DXA BONE DENSITY STUDY 1/> SITES AXIAL Antonia Capone MD [address] [place] [address] [place] [address] Referral ID Status Reason Start Date Expiration Date Visits Requested Visits Authorized [id number] New Request Auto-Generat ed Referral 06/29/2024 07/29/2025 1 1 [facility] for referral (narrative)No reason for referral information availableWFort [facility] Work Phone: Reason for visit Narrative* Diagnostic Procedure Only (Urgent) - Closed Specialty Diagnoses / Procedures Referred By Contac t Referred To Contact XR IMAGING Diagnoses Rib pain Procedures XR RIBS/CHEST 3V AP RIB/OBLS/CXR LEFT RADEX RIBS UNI W/POSTEROANT CH MINIMUM 3 VIEWS [facility] [address] [address] [place] [address] [place] [address] Referral ID Status Reason Start Date Expiration Date V isits Requested Visits Authorized [id number] Closed Auto-Generate d Referral 08/09/2022 09/08/2023 1 1 [facility] for visit Narrative* Diagnostic Procedure Only (Routine) - Closed Specialty Diagnoses / Procedures Referred By Contac t Referred To Contact XR IMAGING Diagnoses Asymptomatic postmenopausal status Procedures DXA-AXIAL SKELETON DXA BONE DENSITY STUDY / SITES AXIAL Antonia Capone MD [address] [place] [address] Phone: tel: fax: [place] [address] Referral ID Status Reason Start Date Expiration Date V isits Requested Visits Authorized [id number] Closed Auto-Generate d Referral 06/29/2024 07/29/[address] [facility] Advance Directives Documents on File Type Date Recorded Patient Boiler Technician Expl anation Advance Directive(s) 07/04/2017 9:09 AM Advance Directive(s) 07/04/2017 6:01 AM Advance Directive Response Recorded Date/ Time Advance Directives Yes January 10:28am Living Will Yes February 14, 2015 10:28am Power of Cafeteria Associate Yes January 10:28am Documents on File Type Date Recorded Patient Boiler Technician Expl anation Advance Directive(s) 07/04/2017 6:01 AM Documents on File Type Date Recorded Patient Boiler Technician Expl anation Advance Directive(s) 07/04/2017 6:01 AM Advance Directive Response Recorded Date/ Time Advance Directives Yes October 19 0 11:46am Living Will Yes October 20, 2019 1 1:46am Power of Cafeteria Associate Yes October 20, 2019 11:46am Advance Directive Response Recorded Date/ Time Name of Medical Power of Cafeteria Associate Collin Johnson June 24, 2023 4:57pm Advance Directives Yes October 19 11:46am Living Will Yes June 24 4:57pm Power of Cafeteria Associate Yes June 24, 2023 4:57pm Documents on File Type Date Recorded Patient Boiler Technician Expl anation Advance Directive(s) 11/15/2022 10:52 AM Advance Directive Response Recorded Date/ Time Name of Medical Power of Cafeteria Associate Collin Johnson June 24, 2023 5:57pm Advance Directives Yes October 19 12:46pm Living Will Yes June 24 5:57pm Power of Cafeteria Associate Yes June 24, 2023 5:57pm Documents on File Type Date Recorded Patient Boiler Technician Expl anation Advance Directive(s) 11/15/2022 10:52 AM Advance Directive Response Recorded Date/ Time Advance Directives on File Yes 2024 11:37am Living Will Yes June 15 11:37am Do you have a Healthcare Pow er of Cafeteria Associate? Yes June 15, 2024 11:37am Name of Medical Power of Cafeteria Associate Irving Johnson-phoebe allison June 15, 2024 11:37am Advance Directives Yes June 15, 2024 11:37am Living Will Yes June 15 5:36pm Do you have a Healthcare Pow er of Cafeteria Associate? Yes June 15, 2024 5:36pm Name of Medical Power of Cafeteria Associate Misbah Johnson June 15, 2024 5:36pm Chief Complaint and Reason for Visit Chief Complaint SCREENING Chief Complaint SCREENING PALPITATIONS Chief Complaint SCREENING PALPITATIONS AFIB / HTN ([facility]) AFIB Atrial fibrillation Reason for Visit Atrial fibrillation Dyslipidemia Essential hypertension Stable angina pectoris Chief Complaint Admit Date E-ORDER June 09, 2024 4 :26pm Atrial fibrillation June 15, 2024 1 0:13am AFIB June 15, 2024 1 0:16am DCCV June 15, 2024 1 0:23am SYMPTOMATIC BRADYCARDIA June 15 3:36pm SYMPTOMATIC BRADYCARDIA June 16 7:02am SYMPTOMATIC BRADYCARDIA June 16 2:11pm SYMPTOMATIC BRADYCARDIA June 17 7:00am S/P [facility] 06/17 OK PER MMM June 23 10:15am 6 M FU September 23, 2024 2:10pm INT LAB ORDERS September 23, 2024 3:05pm Reason for Visit Admit Date Atrial fibrillation June 15, 2024 1 0:16am Mitral valve regurgitation June 15, 2024 10:16am Tricuspid regurgitation June 15 10:16am Acute kidney injury June 15, 2024 3 :36pm Symptomatic bradycardia June 15 3:36pm History of atrial fibrillation May 272024 3:36pm Atrial fibrillation June 23, 2024 1 0:15am Dyslipidemia June 23, 2024 1 0:15am Essential hypertension June 23 10:15am Mitral valve regurgitation June 23, 2024 10:15am Tricuspid regurgitation June 23 10:15am Aortic valve regurgitation September 23, 2024 2:10pm Dyslipidemia September 23, 2024 2:10pm Encounter for monitoring flecainide ther apy September 23, 2024 2:10pm Essential hypertension September 23, 2024 2:1 0pm Mitral valve regurgitation September 23, 2024 2:10pm Paroxysmal atrial fibrillation September 23, 2024 2:10pm Tricuspid regurgitation September 23, 2024 2: 10pm Family History Relationship Condition Age at Onset Recorded Date/T frida brother Kidney disorder Unknown Parkinson's disease Unknown Relationship Condition Age at Onset Recorded Date/T frida brother Kidney disorder Unknown Parkinson's disease Unknown mother Paroxysmal atrial fibrillation Unknown father Coronary artery disease Unknown Reason for Referral Specialty Diagnoses / Procedures Referred By Contac t Referred To Contact Cardiology Diagnoses PAF (paroxysmal atrial fibrillation) ([facility]) Procedures CONSULT TO CARDIOLOGY OFFICE/OUTPATIENT [facility] 60 MINUTES Cecil, Chung, SALES PROPERTY MANAGER.BEEF BREAKER [address] [place] [address] Referral ID Status Reason Start Date Expiration Date Visits Requested Visits Authorized [id number] Authorized PCP Requested Referral 4 05/11/2025 1 1 Summary Purpose Additional Source Comments Source Comments (unrecognize d section and content) In the event this informatio n is protected by the Federal Confidentiality of Alcohol and Drug Abuse Patient Records regulations: The Federal rules restrict any use of the information to criminally investigate or prosecute any alcohol or drug abuse patient.[facility] the event this information is protected by the Federal Confidentiality of Alcohol and Drug Abuse Patient Records regulations: The Federal rules restrict any use of the information to criminally investigate or prosecute any alcohol or drug abuse patient.[facility] the event this information is protected by the Federal Confidentiality of Alcohol and Drug Abuse Patient Records regulations: The Federal rules restrict any use of the information to criminally investigate or prosecute any alcohol or drug abuse patient.[facility] the event this information is protected by the Federal Confidentiality of Alcohol and Drug Abuse Patient Records regulations: The Federal rules restrict any use of the information to criminally investigate or prosecute any alcohol or drug abuse patient.[facility] the event this information is protected by the Federal Confidentiality of Alcohol and Drug Abuse Patient Records regulations: The Federal rules restrict any use of the information to criminally investigate or prosecute any alcohol or drug abuse patient.[facility] the event this information is protected by the Federal Confidentiality of Alcohol and Drug Abuse Patient Records regulations: The Federal rules restrict any use of the information to criminally investigate or prosecute any alcohol or drug abuse patient.[facility] the event this information is protected by the Federal Confidentiality of Alcohol and Drug Abuse Patient Records regulations: The Federal rules restrict any use of the information to criminally investigate or prosecute any alcohol or drug abuse patient.[facility] the event this information is protected by the Federal Confidentiality of Alcohol and Drug Abuse Patient Records regulations: The Federal rules restrict any use of the information to criminally investigate or prosecute any alcohol or drug abuse patient.[facility] the event this information is protected by the Federal Confidentiality of Alcohol and Drug Abuse Patient Records regulations: The Federal rules restrict any use of the information to criminally investigate or prosecute any alcohol or drug abuse patient.[facility] the event this information is protected by the Federal Confidentiality of Alcohol and Drug Abuse Patient Records regulations: The Federal rules restrict any use of the information to criminally investigate or prosecute any alcohol or drug abuse patient.[facility] the event this information is protected by the Federal Confidentiality of Alcohol and Drug Abuse Patient Records regulations: The Federal rules restrict any use of the information to criminally investigate or prosecute any alcohol or drug abuse patient.[facility] the event this information is protected by the Federal Confidentiality of Alcohol and Drug Abuse Patient Records regulations: The Federal rules restrict any use of the information to criminally investigate or prosecute any alcohol or drug abuse patient.[facility] the event this information is protected by the Federal Confidentiality of Alcohol and Drug Abuse Patient Records regulations: The Federal rules restrict any use of the information to criminally investigate or prosecute any alcohol or drug abuse patient.[facility] HospitalIn the event this information is protected by the Federal Confidentiality of Alcohol and Drug Abuse Patient Records regulations: The Federal rules restrict any use of the information to criminally investigate or prosecute any alcohol or drug abuse patient.[facility] Hospital[facility] the event this information is protected by the Federal Confidentiality of Alcohol and Drug Abuse Patient Records regulations: The Federal rules restrict any use of the information to criminally investigate or prosecute any alcohol or drug abuse patient.[facility] the event this information is protected by the Federal Confidentiality of Alcohol and Drug Abuse Patient Records regulations: The Federal rules restrict any use of the information to criminally investigate or prosecute any alcohol or drug abuse patient.[facility] the event this information is protected by the Federal Confidentiality of Alcohol and Drug Abuse Patient Records regulations: The Federal rules restrict any use of the information to criminally investigate or prosecute any alcohol or drug abuse patient.[facility]In the event this information is protected by the Federal Confidentiality of Alcohol and Drug Abuse Patient Records regulations: The Federal rules restrict any use of the information to criminally investigate or prosecute any alcohol or drug abuse patient.[facility]In the event this information is protected by the Federal Confidentiality of Alcohol and Drug Abuse Patient Records regulations: The Federal rules restrict any use of the information to criminally investigate or prosecute any alcohol or drug abuse patient.[facility] HospitalIn the event this information is protected by the Federal Confidentiality of Alcohol and Drug Abuse Patient Records regulations: The Federal rules restrict any use of the information to criminally investigate or prosecute any alcohol or drug abuse patient.[facility] HospitalIn the event this information is protected by the Federal Confidentiality of Alcohol and Drug Abuse Patient Records regulations: The Federal rules restrict any use of the information to criminally investigate or prosecute any alcohol or drug abuse patient.[facility] HospitalIn the event this information is protected by the Federal Confidentiality of Alcohol and Drug Abuse Patient Records regulations: The Federal rules restrict any use of the information to criminally investigate or prosecute any alcohol or drug abuse patient.[facility] HospitalIn the event this information is protected by the Federal Confidentiality of Alcohol and Drug Abuse Patient Records regulations: The Federal rules restrict any use of the information to criminally investigate or prosecute any alcohol or drug abuse patient.[facility] HospitalIn the event this information is protected by the Federal Confidentiality of Alcohol and Drug Abuse Patient Records regulations: The Federal rules restrict any use of the information to criminally investigate or prosecute any alcohol or drug abuse patient.[facility] HospitalIn the event this information is protected by the Federal Confidentiality of Alcohol and Drug Abuse Patient Records regulations: The Federal rules restrict any use of the information to criminally investigate or prosecute any alcohol or drug abuse patient.[facility] HospitalIn the event this information is protected by the Federal Confidentiality of Alcohol and Drug Abuse Patient Records regulations: The Federal rules restrict any use of the information to criminally investigate or prosecute any alcohol or drug abuse patient.[facility] HospitalIn the event this information is protected by the Federal Confidentiality of Alcohol and Drug Abuse Patient Records regulations: The Federal rules restrict any use of the information to criminally investigate or prosecute any alcohol or drug abuse patient.[facility]In the event this information is protected by the Federal Confidentiality of Alcohol and Drug Abuse Patient Records regulations: The Federal rules restrict any use of the information to criminally investigate or prosecute any alcohol or drug abuse patient.[facility] HospitalIn the event this information is protected by the Federal Confidentiality of Alcohol and Drug Abuse Patient Records regulations: The Federal rules restrict any use of the information to criminally investigate or prosecute any alcohol or drug abuse patient.[facility] HospitalIn the event this information is protected by the Federal Confidentiality of Alcohol and Drug Abuse Patient Records regulations: The Federal rules restrict any use of the information to criminally investigate or prosecute any alcohol or drug abuse patient.[facility] HospitalIn the event this information is protected by the Federal Confidentiality of Alcohol and Drug Abuse Patient Records regulations: The Federal rules restrict any use of the information to criminally investigate or prosecute any alcohol or drug abuse patient.[facility] HospitalIn the event this information is protected by the Federal Confidentiality of Alcohol and Drug Abuse Patient Records regulations: The Federal rules restrict any use of the information to criminally investigate or prosecute any alcohol or drug abuse patient.[facility]In the event this information is protected by the Federal Confidentiality of Alcohol and Drug Abuse Patient Records regulations: The Federal rules restrict any use of the information to criminally investigate or prosecute any alcohol or drug abuse patient.[facility] HospitalIn the event this information is protected by the Federal Confidentiality of Alcohol and Drug Abuse Patient Records regulations: The Federal rules restrict any use of the information to criminally investigate or prosecute any alcohol or drug abuse patient.[facility] HospitalIn the event this information is protected by the Federal Confidentiality of Alcohol and Drug Abuse Patient Records regulations: The Federal rules restrict any use of the information to criminally investigate or prosecute any alcohol or drug abuse patient.[facility] HospitalIn the event this information is protected by the Federal Confidentiality of Alcohol and Drug Abuse Patient Records regulations: The Federal rules restrict any use of the information to criminally investigate or prosecute any alcohol or drug abuse patient.[facility] HospitalIn the event this information is protected by the Federal Confidentiality of Alcohol and Drug Abuse Patient Records regulations: The Federal rules restrict any use of the information to criminally investigate or prosecute any alcohol or drug abuse patient.[facility] HospitalIn the event this information is protected by the Federal Confidentiality of Alcohol and Drug Abuse Patient Records regulations: The Federal rules restrict any use of the information to criminally investigate or prosecute any alcohol or drug abuse patient.[facility] Reason for Visit (unrecogniz ed section and content) Reason Comments Refill Request Reason Comments Lab Orders Reason Comments Medication Update Reason Onset Date Comments Refill Request 12/03/2021 Reason Comments Established Patient blood pressure folll ow up Reason Comments Establish Care Reason Comments Rib Pain L sided rib pain x1 day, intermittent with certain activity Reason Onset Date Comments Refill Request 09/19/2022 Reason Comments Hospital F/U Reason Comments Patient Update Reason Comments Results Echo Reason Onset Date Comments Refill Request 07/24/2023 Reason Comments Question Reason Comments Shortness of Breath Reason Comments Shortness of Breath Reason Onset Date Comments Refill Request 08/28/2023 Reason Comments patient update on medication Reason Comments Orders Reason Onset Date Comments Refill Request 11/14/2023 Reason Comments Medicare Wellness Exam C/o intermittent LUQ pain after meals Reason Comments Blood Pressure check bp- home monit or was high, also clarify new meds that prescribed from the [facility] Reason Comments F/U 6 Month Reason Onset Date Comments Refill Request 05/28/2024 Reason Comments New Patient Evaluation PAF Reason Comments Treatment Planning Reason Comments Hospital F/U [facility] 06/15/24 had bee n cardioverted in the am and after released and out running errands became very dizzy. Went to ER and was admitted to ICU. Reason Comments Copy Chaser - Other [facility] records Reason Comments Preparations For Procedures Care Teams (unrecognized sec tion and content) In Store Demonstrator Relationship Specialty Start Date End Date Joie Neri MD [address] [place] [address] PCP - General Internal Medicine 03/19/21 In Store Demonstrator Relationship Specialty Start Date End Date Joie Neri MD [address] [place] [address] PCP - General Internal Medicine 03/19/21 In Store Demonstrator Relationship Specialty Start Date End Date Joie Neri MD [address] [place] [address] PCP - General Internal Medicine 03/19/21 In Store Demonstrator Relationship Specialty Start Date End Date Joie Neri MD [address] [facility] [place] [address] PCP - General Internal Medicine 03/19/21 In Store Demonstrator Relationship Specialty Start Date End Date Joie Neri MD [address] [place] [address] PCP - General Internal Medicine 03/19/21 In Store Demonstrator Relationship Specialty Start Date End Date Antonia Mendoza MD [address] [place] [address] PCP - General Internal Medicine 05/16/22 In Store Demonstrator Relationship Specialty Start Date End Date Antonia Mendoza MD [address] [place] [address] PCP - General Internal Medicine 05/16/22 In Store Demonstrator Relationship Specialty Start Date End Date Antonia Mendoza MD [address] [place] [address] PCP - General Internal Medicine 05/16/22 In Store Demonstrator Relationship Specialty Start Date End Date Antonia Mendoza MD [address] [place] [address] PCP - General Internal Medicine 05/16/22 In Store Demonstrator Relationship Specialty Start Date End Date Antonia Mendoza MD [address] [place] [address] PCP - General Internal Medicine 05/16/22 Team Status: Active Member Role Status Dates Dr. José Conti III, MD Family Provider Active Dr. Antonia Mendoza MD Primary Care Provider Active Team Status: Inactive Member Role Status Dates Dr. Antonia Mendoza MD Primary Care Provider Active Dr. Yanna Sinclair MD Attending Provider, Referr ing Provider Active Team Status: Inactive Member Role Status Dates Dr. Antonia Mendoza MD Primary Care Provider Active Dr. Jorge Luis Johnson DO Emergency Provider Active In Store Demonstrator Relationship Specialty Start Date End Date Antonia Mendoza MD [address] [place] [address] PCP - General Internal Medicine 05/16/22 In Store Demonstrator Relationship Specialty Start Date End Date Antonia Mendoza MD [address] [place] [address] PCP - General Internal Medicine 05/16/22 In Store Demonstrator Relationship Specialty Start Date End Date Antonia Mendoza MD [address] [place] [address] PCP - General Internal Medicine 05/16/22 In Store Demonstrator Relationship Specialty Start Date End Date Antonia Mendoza MD [address] [place] [address] PCP - General Internal Medicine 05/16/22 In Store Demonstrator Relationship Specialty Start Date End Date Antonia Mendoza MD [address] [place] [address] PCP - General Internal Medicine 05/16/22 In Store Demonstrator Relationship Specialty Start Date End Date Antonia Mendoza MD [address] [place] [address] PCP - General Internal Medicine 05/16/22 In Store Demonstrator Relationship Specialty Start Date End Date Antonia Mendoza MD [address] [place] [address] PCP - General Internal Medicine 05/16/22 In Store Demonstrator Relationship Specialty Start Date End Date Antonia Mendoza MD [address] [place] [address] PCP - General Internal Medicine 05/16/22 Team Status: Inactive Member Role Status Dates Dr. Antonia Mendoza MD Primary Care Provider, Referr ing Provider Active Dr. Logan Santillan MD Attending Provider Active Team Status: Active Member Role Status Dates Dr. Antonia Mendoza MD Primary Care Provider Active Dr. Logan Santillan MD Attending Provider Active Team Status: Active Member Role Status Dates Dr. Antonia Mendoza MD Primary Care Provider Active Dr. Logan Santillan MD Attending Provider , Referring Provider, Other Provider Active Team Status: Inactive Member Role Status Dates Dr. Antonia Mendoza MD Primary Care Provider Active Dr. Jorge Luis Johnson DO Attending Provider, Emergency Beronica peralta Active Team Status: Inactive Member Role Status Dates Dr. Antonia Mendoza MD Primary Care Provider Active Dr. Logan Santillan MD Attending Provider, Referring Pr ovider Active In Store Demonstrator Relationship Specialty Start Date End Date Antonia Mendoza MD [address] [place] [address] PCP - General Internal Medicine 05/16/22 In Store Demonstrator Relationship Specialty Start Date End Date Antonia Mendoza MD [address] [place] [address] PCP - General Internal Medicine 05/16/22 In Store Demonstrator Relationship Specialty Start Date End Date Antonia Mendoza MD [address] [place] [address] PCP - General Internal Medicine 05/16/22 In Store Demonstrator Relationship Specialty Start Date End Date Antonia Mendoza MD [address] [place] [address] PCP - General Internal Medicine 05/16/22 In Store Demonstrator Relationship Specialty Start Date End Date Antonia Mendoza MD [address] [place] [address] PCP - General Internal Medicine 05/16/22 In Store Demonstrator Relationship Specialty Start Date End Date Antonia Mendoza MD [address] [place], [place] [address] PCP - General Internal Medicine 05/16/22 In Store Demonstrator Relationship Specialty Start Date End Date Antonia Mendoza MD [address] [place] [address] PCP - General Internal Medicine 05/16/22 In Store Demonstrator Relationship Specialty Start Date End Date Antonia Mendoza MD [address] [place] [address] PCP - General Internal Medicine 05/16/22 Chung Jacob, SALES PROPERTY MANAGER.BEEF BREAKER [address] [place] [address] Production Recorder Internal Medicine 05/03/24 Angel Flores SALES PROPERTY MANAGER.INFORMATION TECHNOLOGY ADMINISTRATOR [address] [place] [address] Production Recorder Internal Medicine 05/03/24 In Store Demonstrator Relationship Specialty Start Date End Date Antonia Mendoza MD [address] [place] [address] PCP - General Internal Medicine 05/16/22 Chung Jacob, SALES PROPERTY MANAGER.BEEF BREAKER [address] [place] [address] Production Recorder Internal Medicine 05/03/24 Angel Flores SALES PROPERTY MANAGER.INFORMATION TECHNOLOGY ADMINISTRATOR [address] [place] [address] Production Recorder Internal Medicine 05/03/24 In Store Demonstrator Relationship Specialty Start Date End Date Antonia Mendoza MD [address] [place] [address] PCP - General Internal Medicine 05/16/22 Chung Jacob, SALES PROPERTY MANAGER.BEEF BREAKER [address] [place] [address] [facility] Internal Medicine 05/03/24 Angel Flores SALES PROPERTY MANAGER.INFORMATION TECHNOLOGY ADMINISTRATOR [address] [place] [address] [facility] Internal Medicine 05/03/24 Logan Santillan MD [address] [facility] [address] [place] [address] Specialty President And Chief Commercial Officer Cardiology 06/04/24 In Store Demonstrator Relationship Specialty Start Date End Date Antonia Mendoza MD [address] [place] [address] PCP - General Internal Medicine 05/16/22 Chung Jacob, SALES PROPERTY MANAGER.BEEF BREAKER [address] [place] [address] [facility] Internal Medicine 05/03/24 Angel Flores SALES PROPERTY MANAGER.INFORMATION TECHNOLOGY ADMINISTRATOR [address] [place] [address] [facility] Internal Medicine 05/03/24 Logan Santillan MD [address] [place] [address] Specialty President And Chief Commercial Officer Cardiology 06/04/24 In Store Demonstrator Relationship Specialty Start Date End Date Antonia Mendoza MD [address] [place] [address] PCP - General Internal Medicine 05/16/22 Chung Jacob, SALES PROPERTY MANAGER.BEEF BREAKER [address] [place] [address] [facility] Internal Medicine 05/03/24 Angel Flores APRN.INFORMATION TECHNOLOGY ADMINISTRATOR [address] [place] [address] [facility] Internal Medicine 05/03/24 Logan Santillan MD [address] [address] Specialty President And Chief Commercial Officer Cardiology 06/04/24 In Store Demonstrator Relationship Specialty Start Date End Date Antonia Mendoza MD [address] [place] [address] PCP - General Internal Medicine 05/16/22 Chung Jacob, SALES PROPERTY MANAGER.BEEF BREAKER [address] [place] [address] [facility] Internal Medicine 05/03/24 Angel Flores APRN.INFORMATION TECHNOLOGY ADMINISTRATOR [address] [place] [address] [facility] Internal Medicine 05/03/24 Logan Santillan MD [address] [address] Specialty President And Chief Commercial Officer Cardiology 06/04/24 In Store Demonstrator Relationship Specialty Start Date End Date Antonia Mendoza MD [address] [place] [address] PCP - General Internal Medicine 05/16/22 Chung Jacob, SALES PROPERTY MANAGER.BEEF BREAKER [address] [place] [address] [facility] Internal Medicine 05/03/24 Angel Flores SALES PROPERTY MANAGER.INFORMATION TECHNOLOGY ADMINISTRATOR [address] [place], [place] [address] [facility] Internal Medicine 05/03/24 Logan Santillan MD [address] [address] Specialty President And Chief Commercial Officer Cardiology 06/04/24 In Store Demonstrator Relationship Specialty Start Date End Date Antonia Mendoza MD [address] [place] [address] PCP - General Internal Medicine 05/16/22 Chung Jacob APRN.BEEF BREAKER [address] [place] [address] [facility] Internal Medicine 05/03/24 Logan Santillan MD [address] [address] Specialty President And Chief Commercial Officer Cardiology 06/04/24 Angel Flores SALES PROPERTY MANAGER.INFORMATION TECHNOLOGY ADMINISTRATOR [address] [place] [address] [facility] Internal Medicine 08/17/24 Team Status: Inactive Member Role Status Dates Dr. Antonia Mendoza MD Primary Care Provider Active Start: June 09, 2024 End: June 09, 2024 Nadia VILLAGRAN, PA Attending Provider Active Start: June 09, 2024 End: June 09, 2024 Nadia VILLAGRAN PA Referring Provider Active Start: June 09, 2024 End: June 09, 2024 Team Status: Active Member Role Status Dates Dr. Antonia Mendoza MD Primary Care Provider Active Start: June 15, 2024 Dr. Rehan Denise MD Other Provider Active Start : June 15, 2024 Nadia Morgan PA, PA Attending Provider Active Start: June 15, 2024 Team Status: Inactive Member Role Status Dates Dr. Antonia Mendoza MD Primary Care Provider Active Start: June 15, 2024 End: June 15, 2024 Dr. Rehan Denise MD Attending Provider Active S tart: June 15, 2024 End: June 15, 2024 Dr. Rehan Denise MD Referring Provider Active S tart: June 15, 2024 End: June 15, 2024 Team Status: Active Member Role Status Dates Dr. Antonia Mendoza MD Primary Care Provider Active Start: June 15, 2024 End: June 15, 2024 Dr. Shannan Conner MD Attending Provider Activ e Start: June 15, 2024 End: June 15, 2024 Dr. Rehan Denise MD Referring Provider Active S tart: June 15, 2024 End: June 15, 2024 Team Status: Inactive Member Role Status Dates Dr. Antonia Mendoza MD Primary Care Provider Active Start: June 15, 2024 End: June 17, 2024 Patricio Kwong MD Emergency Provider Active Star t: June 15, 2024 End: June 17, 2024 Dr. Susan Rose MD Admit Provider Active Star t: June 15, 2024 End: June 17, 2024 Dr. Susan Rose MD Other Provider Active Star t: June 15, 2024 End: June 17, 2024 Dr. Jorge Luis Wyman DO Attending Provider Active Start: June 15, 2024 End: June 17, 2024 Dr. Shannan Conner MD Other Provider Active Start: June 15, 2024 End: June 17, 2024 Team Status: Active Member Role Status Dates Dr. Antonia Mendoza MD Primary Care Provider Active Start: June 16, 2024 Patricio Kwong MD Emergency Provider Active Star t: June 16, 2024 Dr. Susan Rose MD Admit Provider Active Star t: June 16, 2024 Dr. Susan Rose MD Other Provider Active Star t: June 16, 2024 Dr. Shannan Conner MD Other Provider Active Start: June 16, 2024 Dr. Jorge Luis Wyman DO Attending Provider Active Start: June 16, 2024 Dr. Jorge Luis Wyman DO Other Provider Active Star t: June 16, 2024 Team Status: Active Member Role Status Dates Dr. Antonia Mendoza MD Primary Care Provider Active Start: June 16, 2024 Patricio Kwong MD Emergency Provider Active Star t: June 16, 2024 Dr. Susan Rose MD Admit Provider Active Star t: June 16, 2024 Dr. Susan Rose MD Other Provider Active Star t: June 16, 2024 Dr. Jorge Luis Wyman DO Other Provider Active Star t: June 16, 2024 Dr. Shannan Conner MD Attending Provider Activ e Start: June 16, 2024 Dr. Shannan Conner MD Other Provider Active Start: June 16, 2024 Team Status: Active Member Role Status Dates Dr. Antonia Mendoza MD Primary Care Provider Active Start: June 17, 2024 Patricio Kwong MD Emergency Provider Active Star t: June 17, 2024 Dr. Susan Rose MD Admit Provider Active Star t: June 17, 2024 Dr. Susan Rose MD Other Provider Active Star t: June 17, 2024 Dr. Jorge Luis Wyman DO Attending Provider Active Start: June 17, 2024 Dr. Jorge Luis Wyman DO Other Provider Active Star t: June 17, 2024 Dr. Shannan Conner MD Other Provider Active Start: June 17, 2024 Team Status: Inactive Member Role Status Dates Dr. Antonia Mendoza MD Primary Care Provider Active Start: June 23, 2024 End: June 23, 2024 Dr. Antonia Mendoza MD Referring Provider Active Start: June 23, 2024 End: June 23, 2024 Nadia Morgan PA, PA Attending Provider Active Start: June 23, 2024 End: June 23, 2024 Team Status: Inactive Member Role Status Dates Dr. Antonia Mendoza MD Primary Care Provider Active Start: September 23, 2024 End: September 23, 2024 Dr. Antonia Mendoza MD Referring Provider Active Start: September 23, 2024 End: September 23, 2024 Dr. Logan Santillan MD Attending Provider Active Start: September 23, 2024 End: September 23, 2024 Team Status: Inactive Member Role Status Dates Dr. Antonia Mendoza MD Primary Care Provider Active Start: September 23, 2024 End: September 23, 2024 Dr. Logan Santillan MD Attending Provider Active Start: September 23, 2024 End: September 23, 2024 Dr. Logan Santillan MD Referring Provider Active Start: September 23, 2024 End: September 23, 2024 In Store Demonstrator Relationship Specialty Start Date End Date Antonia Mendoza MD [address] [place], [place] [id number] PCP - General Internal Medicine 05/16/22 Logan Santillan MD [address] [id number] Specialty President And Chief Commercial Officer Cardiology 06/04/24 Angel Flores, SALES PROPERTY MANAGER.INFORMATION TECHNOLOGY ADMINISTRATOR [address] [place], [place] [address] Production Recorder Internal Medicine 08/17/24 Chung Jacob, SALES PROPERTY MANAGER.BEEF BREAKER [address] [place], [place] [address] Production Recorder Internal Medicine 10/13/24 Goals (unrecognized section and content) Goals may be documented in a n alternate sectionGoals may be documented in an alternate sectionGoals may be documented in an alternate sectionGoals may be documented in an alternate section INFORMATION SOURCE (unrecogn ized section and content) DATE CREATED AUTHOR 07/06/2024 [facility] DATE CREATED AUTHOR AUTHOR'S ORGANIZ ATION 08/27/2024 [facility] DATE CREATED AUTHOR AUTHOR'S ORGANIZ ATION 10/01/2024 [facility] FOR RECORDS PERTAINING TO PATIENTS WHO ARE [...] BE BASED ON THE PRIMARY CLINICAL RECORDS. [facility] provides no warranty or guarantee of the accuracy or completeness of information in this document.
--- NOTE | 2024-11-13 10:25 | EX.ED.DYSGE1 ---
HPI History of Present Illness Chief Complaint: Syncope Detail of Chief Complaint: Syncope and collapse while sitting Informant: patient Onset/Context/Timing Onset: Today and Hours Context: Sudden Onset Timing: Intermittent Quality: Patient was sitting when she passed out and fell from stool. Location: This occurred at home. Current Severity: Mild Maximum Severity: Severe Worsened by: Shoulder pain is worse with movement also complains of headache Relieved by: Nothing for either Associated Symptoms Associated Symptoms: HPI narrative Narrative Narrative: Patient is 74-year-old woman with paroxysmal atrial fibrillation on Eliquis. She states she was sitting doing paperwork when she passed out. She did not feel warm. She was not nauseous. She denied headache. She denies chest pain, shortness of breath difficulty breathing prior to collapsing. This is never happened before. She denies black or maroon-colored stool. She denies recent illness. She denies fever or chills. She does complain of head pain and reports significant bump on her head. She denies double vision, blurred vision or loss of vision. Denies ringing or ears or decreased hearing. She denies neck pain. She denies chest discomfort. She denies shortness of breath. She denies abdominal pain. She denies nausea or vomiting. She denies paresthesia, anesthesia or motor weakness upper or lower extremities. Denies problems with coordination or balance. She is scheduled to see Dr. Pappas at [facility] for ablation. She she states she was in A-fib when she awoke. 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 Ductal carcinoma in situ (DCIS) of left breast Home Medications ?Medication ?Instructions ?Recorded ?Last Taken ?Type atorvastatin 10 mg tablet (Lipitor) 10 mg PO DAILY 08/20/18 11/13/24 History multivitamin,vl-augj-kastoazp 1 tab PO DAILY 12/10/19 11/13/24 History (Complete Multivitamin tablet) omeprazole 20 mg capsule,delayed 20 mg PO DAILY 07/15/23 11/13/24 History release nitroglycerin 0.4 mg sublingual 0.4 mg sublingual Q5-15M PRN chest 07/24/23 Unknown Rx tablet pain #25 tabs zolpidem 5 mg tablet 5 mg PO QHS PRN insomnia 07/24/23 Unknown History metoprolol tartrate 50 mg tablet 50 mg PO BID #60 tabs 06/17/24 11/13/24 Rx apixaban 5 mg tablet (Eliquis) 5 mg PO .COMPLEX #180 tabs 07/06/24 11/13/24 Rx flecainide 100 mg tablet 100 mg PO Q12H #180 tabs 11/01/24 11/13/24 Rx losartan 25 mg tablet 25 mg PO QDAY #90 tabs 11/01/24 11/13/24 Rx hydrocodone-acetaminophen 5-325mg 1 tab PO Q6H PRN PRN Pain 3 days 11/13/24 Unknown Rx 5mg-325mg #10 TABLETS Allergy/AdvReac Type Severity Reaction Status Date / Time clemastine fumarate (From Allergy Unknown Verified 11/13/24 09:41 Tavist) codeine Allergy Unknown Verified 11/13/24 09:41 pseudoephedrine HCl (From Allergy Unknown Verified 11/13/24 09:41 Tavist) naproxen AdvReac GI upset Verified 11/13/24 09:41 Family History Brother Kidney disease cancer Parkinsons Mother Paroxysmal atrial fibrillation Father CAD (coronary artery disease) CABG x 4 Surgical History Status post left breast lumpectomy Social History housing: house Smoking Status: Never smoker second hand exposure: No alcohol intake: current alcohol intake frequency: holidays/special occasions only substance use type: does not use what type of physical activity do you participate in: walking frequency: 3-4 times per week duration: 30-45 minutes/day seatbelt use: always additional social history: 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 ; Denies chest pain, orthopnea, palpitations, paroxysmal nocturnal dyspnea or racing heartbeat Respiratory/Chest Respiratory/Chest: Denies cough, dyspnea, dyspnea on exertion, orthopnea or paroxysmal nocturnal dyspnea Gastrointestinal Gastrointestinal: Denies abdominal pain, nausea or vomiting Genitourinary Genitourinary ED: Denies dysuria, hematuria or urinary frequency Musculoskeletal Musculoskeletal: Reports other Details: Right shoulder pain ; Denies arthralgias, back pain or myalgias Integumentary Reports other Details: Significant hematoma right side of her forehead. ; Denies abscess, Abrasions or rash Neurologic Neurologic: Reports headache(s); Denies paresthesias or weakness Endocrine Endocrinology: Denies cold intolerance or heat intolerance Hematologic/Lymphatic Hematologic/Lymphatic: Reports easy bruising Allergic/Immunologic Allergic/Immunologic ED: Denies mouth swelling, tongue swelling or urticaria EXAM Physical Exam Const Vital Signs: 11/13/24 09:37 11/13/24 09:41 11/13/24 09:41 Temperature 97.5 F L Temperature Source Oral Pulse Rate 58 L Respiratory Rate 12 Respiratory Effort Normal Non-Labored Normal Non-Labored Respiratory Depth Normal Respiratory Pattern Normal Normal Blood Pressure 135/61 H Blood Pressure Mean 85 Pulse Ox 100 Oxygen Delivery Method Room Air Room Air 11/13/24 10:33 11/13/24 11:00 Temperature Temperature Source Pulse Rate 54 L 55 L Respiratory Rate 18 17 Respiratory Effort Respiratory Depth Respiratory Pattern Blood Pressure 123/68 H 123/61 H Blood Pressure Mean 86 81 Pulse Ox 95 94 Oxygen Delivery Method Room Air Room Air Positive well nourished and well developed General Appearance ED: well developed and NAD; Negative for cyanotic, diaphoretic or pallor HEENT Reports TM's clear and moist mucous membranes HEENT Narrative: Large hematoma forehead on the right side. There is no palpable depression. There is no clinical signs of basilar skull fracture. Nares patent. No septal deviation hematoma. No dental trauma. trauma and tenderness Tympanic Membrane ED: Yes TM's clear Eyes PERRL and EOMs intact bilaterally Eyes Narrative: There is no subconjunctival hemorrhage. There is no nystagmus. General Eye ED: Negative for pale conjunctiva or scleral icterus Neck no lymphadenopathy, supple and no JVD Neck Narrative: Trachea is midline. There is no carotid bruits. Chest Wall inspection of chest normal and palpation of chest normal Resp normal respiratory effort and clear to auscultation bilaterally Cardio regular rate, regular rhythm, S1 normal heart sound, S2 normal heart sound and no murmurs GI normal to inspection, nondistended, normoactive bowel sounds, non-tender, non-distended and no masses; Negative for hepatosplenomegaly Back/Spine no CVA tenderness Thoracic Spine / Upper Back: Negative for thoracic spinal tenderness Lumbar Spine / Lower Back: Negative for lumbar spinal tenderness Extremity Extremity Narrative: Skin tear distal anterior right leg. Neuro oriented x3, CN's II-XII intact bilaterally and no sensory deficits noted Neuro Narrative: GCS is 15. There is no clonus or Babinski. There is no dysmetria. Sensorium / Orientation: alert Motor Exam: strength 5/5 throughout Psych mental status grossly normal Skin no rashes or lesions noted, No no wounds and skin turgor normal General Skin Exam: elasticity normal; Negative for jaundice or pallor MDM MDM MDM Narrative Medical decision making narrative: With history of head trauma on Eliquis and complaint of headache CT of the head was obtained to rule out intracranial bleed i.e. subdural hematoma, epidural hematoma, traumatic subarachnoid hemorrhage or intraparenchymal contusion. Also to evaluate for skull fracture which is unlikely. EKG was obtained to assess for dysrhythmia. Monitor reveals a sinus rhythm rate of 60. QRS complex is narrow. CBC was obtained to assess H&H. Shoulder x-ray was obtained to evaluate for contusion versus fracture. History & Record Review Additional record(s) reviewed:: Prior inpatient record (Patient admitted May of this year for symptomatic bradycardia, headache,.), Prior ED visit and Prior labs Lab Data Attestation: I reviewed the patient's lab results. Lab results narrative: CBC is unremarkable. Labs: Laboratory Results - last 24 hr 11/13/24 10:05 WBC 7.0 RBC 4.64 Hgb 14.3 Hct 42.1 MCV 90.7 MCH 30.8 MCHC 34.0 RDW Std Deviation 44.0 H RDW Coeff of [place] 13.2 Plt Count 168 MPV 8.9 Immature Gran % (Auto) 0.900 Neut % (Auto) 59.6 Lymph % (Auto) 23.4 [place] % (Auto) 13.8 H Eos % (Auto) 1.7 Baso % (Auto) 0.6 Absolute Neuts (auto) 4.2 Absolute Lymphs (auto) 1.63 Nucleated RBC % 0 Sodium 138 Potassium 4.9 Chloride 104 Carbon Dioxide 21.1 Anion Gap 12 BUN 23 H Creatinine 0.88 Est GFR (MDRD) Non-Af 68 BUN/Creatinine Ratio 26.0 H Glucose 104 H Calcium 9.7 Radiography Chest X-Ray - ED: Read by ED Physician (4 view x-ray of the right shoulder there is no abnormality of the glenohumeral joint or proximal humerus. She does have a complete fracture of the lateral third of the clavicle. There is no evidence of pneumothorax. This is entirely reviewed interpreted by me at 1038) Diagnostic Testing: Clinical Impression(s) from Imaging Studies Brain CT 11/13/24 09:50 IMPRESSION: No acute intracranial process. Reading Location: [facility] Shoulder X-Ray 11/13/24 10:28 IMPRESSION: Acute, comminuted right distal clavicular fracture with moderate displacement. No glenohumeral dislocation. Mild degenerative changes of the right shoulder. There is moderate associated soft tissue edema and joint effusion. No radiographic foreign body. Visualized portions of the right lung is clear. Reading Location: [facility] CT of the head was reviewed by me. There is no evidence of skull fracture, subdural hematoma, epidural hematoma, subarachnoid hemorrhage or intraparenchymal contusion. There is no fluid in the sinuses noted either. EKG Initial EKG: Attestation: I personally reviewed and interpreted this EKG as follows: Interpretation: Sinus Bradycardia (Rate is 58. There is evidence of first-degree AV block. ND interval is 2034 ms. There is duration 104 ms. [place] is normal. QT duration is 444 ms. There is no ischemic changes.) Prior: Changed (Prior EKG was for severe bradycardia with a rate of 30. First-degree block was noted at that time as well.) Treatment and Re-Evaluation :: Patient was informed of her laboratory results, CAT scan result and x-ray of her shoulder. Her blood pressure was noted to be low i.e. systolic 97. She was asked if she had any symptoms and she complained of being lightheaded. In light of this 1 L of normal saline was ordered. Comments:: Patient was reassessed at 1147. Blood pressure has improved. 250 of the 1 L has infused. Plan is discharge when she goes home. Discharge Plan Triage Chief Complaint: Syncope Other Complaint: Fall ED Provider: Shahab Hyman Dx/Rx/DC Orders Clinical Impression: Syncope and collapse, Dyslipidemia, Paroxysmal A-fib, Aortic valve regurgitation, Closed displaced fracture of right clavicle, CHI (closed head injury), Hypotension due to hypovolemia, Acute prerenal azotemia, Anticoagulant long-term use, Bradycardia, sinus, First degree AV block Instructions: ED Fracture, Clavicle, ED Head Injury (Adult), ED Fainting, Uncertain Cause Prescriptions: New hydrocodone-acetaminophen 5-325 mg tablet 1 tab PO Q6H PRN PRN (Reason: Pain) 3 Days Qty: 10 0RF No Action atorvastatin [Lipitor] 10 mg tablet 10 mg PO DAILY Complete Multivitamin Tablet 1 tab PO DAILY omeprazole 20 mg capsule,delayed release(DR/EC) 20 mg PO DAILY zolpidem 5 mg tablet 5 mg PO QHS PRN (Reason: insomnia) nitroglycerin 0.4 mg tablet, sublingual 0.4 mg sublingual Q5-15M PRN (Reason: chest pain) Qty: 25 3RF Rx Instructions: do not exceed 3 doses per episode metoprolol tartrate 50 mg tablet 50 mg PO BID Qty: 60 0RF Eliquis 5 mg tablet 5 mg PO .COMPLEX Qty: 180 3RF Rx Instructions: 5 mg orally twice daily. Fax to Where I've Been drugs losartan 25 mg tablet 25 mg PO QDAY Qty: 90 3RF flecainide 100 mg tablet 100 mg PO Q12H Qty: 180 3RF Primary Care Provider: Allison Joiner Referrals: Allison Joiner MD [Primary Care Provider] - As Needed Warner Christine MD [Med Staff - Active Staff] - 5-7 Days Activity Restrictions/Additional Instructions: 1. Do not take your next 4 doses of apixaban, Eliquis. 2. Apply ice to your right shoulder region 6-10 times a day 3. Wear sling for comfort. 4. Since you do not have an orthopedic surgeon referred to Dr. Warner Christine for follow-up 5. Suspect you passed out due to dehydration based on your laboratory numbers. Print Language: Citizen Of [place] Disposition Disposition: Home, Self Care
--- NOTE | 2024-11-13 10:28 | RAD_ITS ---
PROCEDURE: SHOULDER MIN 2 VIEWS 11/13/2024 REASON FOR EXAM: INJURY/PAIN TECHNIQUE: SHOULDER MIN 2 VIEWS COMPARISON: None RAD/Shoulder min 2 Views IMPRESSION: Acute, comminuted right distal clavicular fracture with moderate displacement. No glenohumeral dislocation. Mild degenerative changes of the right shoulder. There is moderate associated soft tissue edema and joint effusion. No radiographic foreign body. Visualized portions of the right lung is clear. Reading Location: [id number]
[2024-11-13 10:33] VITALS: BP 123/68; PULSE 54; RESP 18; O2SAT 95
[2024-11-13 11:00] VITALS: BP 123/61; PULSE 55; RESP 17; O2SAT 94
[2024-11-13] MEDS: 0.9% Normal Saline (1000mL) 1,000 ML 1000 ML IV (11:11)
[2024-11-13 11:12] LABS: Anion Gap 12 (5-15); BUN 23 mg/dL (4-19); Calcium,Total 9.7 mg/dL (7.6-11.0); Carbon Dioxide 21.1 mmol/L (21.0-32.0); Chloride 104 mmol/L (98-108); Creatinine, Serum 0.88 mg/dL (0.70-1.20); EST Glomerular Filtration Rate 68 (>60); Glucose 104 mg/dL (70-99); Potassium 4.9 mmol/L (3.3-5.1); Sodium Level 138 mmol/L (133-145)
[2024-11-13 12:00] VITALS: BP 118/59; PULSE 56; RESP 13; O2SAT 96
[2024-11-13 13:00] VITALS: BP 131/74; PULSE 62; RESP 18; TEMP 36.8; O2SAT 98
[2024-11-13] MEDS: Ondansetron ODT 4 MG Tablet PO (13:09)
== END 2024-11-13 13:18 | disposition home or self-care (01) ==
PROVIDERS: Emergency Provider Emergency Medicine; PCP Internal Medicine; Visit Provider Emergency Medicine
DX: R55 Syncope and collapse (principal); I48.0 Paroxysmal atrial fibrillation; S00.83XA Contusion of other part of head, initial encounter; I95.9 Hypotension, unspecified; S42.031A Displaced fracture of lateral end of right clavicle, initial encounter for closed fracture; W08.XXXA Fall from other furniture, initial encounter; I10 Essential (primary) hypertension; I44.0 Atrioventricular block, first degree; E86.1 Hypovolemia; E78.5 Hyperlipidemia, unspecified; I08.3 Combined rheumatic disorders of mitral, aortic and tricuspid valves; Z79.01 Long term (current) use of anticoagulants; Z79.899 Other long term (current) drug therapy
CPT/HCPCS: 70450; 73030; 80048; 85025; 93005; 96361; 96374; 96375; 99285; A4216; J2405

== ENCOUNTER 2024-12-28 14:30 | Outpatient (RCR) | payer MEDICARE, SELFPAY ==
--- NOTE | 2024-11-19 13:10 | HP.PTEVAL ---
Patient's Visit Information Visit Information Visit Information: GISELA FLORENTINO is a 74 year old F referred to Physical Therapy by Dr. Warner Christine MD with a diagnosis of R clavicle Fx 11/13/24. Date of Evaluation: 11/19/24 Physical Therapist: Ant Haynes, PT, ATC Visit Plan Frequency: 1-2 times per week Duration: 4-6 Weeks Plan: R shoulder AROM/PROM and mobilizations x 4 weeks. Pt was issued wand ex's for a HEP. Begin strengthening at week 6 (12/24/24) consisting of rotator cuff and scap stab ex's Subjective Subjective: Pt reports she fell of her bar stool secondary to low BP and dehydration 6 days ago. Pt reports she fell on her R side which resulted in her hitting her head and fracturing her R clavicle. Pt reports she just saw Dr. Christine on Friday and he told her to continue wearing her sling for at least 2 more weeks. Pt is R hand dominant. Pt reports she has to take pain meds at night in order to sleep. Pt denies any tingling or numbness in her R UE at this time. Pt notes she is currently retired. Pt reports she is limited with all IADL's and ADL's at this time secondary to lack of ROM and pain. Pt denies any PMHx of R shoulder complications. Pt notes her R shoulder pain is currently 4/10, but notes the pain elevates to 9/10 at worst. Pain R clavicle: Pain Intensity (Out of 10): 4 Pain Intensity Range: 9 Objective Objective: Neuro: B UE sensation is WNL to light touch. palpation: No obvious deformity noted. ROM: L shoulder flex= 150, abd= 145, IR= WNL, ER= 30 degrees; R shoulder flex= 70, abd= 60, IR= WNL, ER= 30 degrees MMT: L shoulder flex= 13, abd= 19, IR= 12, ER= 10 #F. R shoulder not tested Balance/Special Test Scores Quick DASH Score: 56.8175 Goals Goal 1:: Decrease R shoulder pain x 50% to aid with sleep Goal Time Frame: 4-6 Weeks Goal 2:: Increase L shoulder flexion and abduction ROM x 30 degrees to aid with overhead activity Goal Time Frame: 4-6 Weeks Goal 3:: Increase R shoulder strength to equal 90 % L shoulder strength to aid with IADL's Goal Time Frame: 4-6 Weeks Goal 4:: I with HEP Goal Time Frame: 4-6 Weeks Rehabilitation Potential Physical Therapy Diagnosis: Pt has R shoulder pain, weakness, and limited ROM secondary to R clavicle Fx Rehabilitation Potential: Good Anticipated Interventions Patient/Client Instruction: Educate patient on: Condition and Plan of Care For the Purpose of:: To improve self management Therapeutic Exercise to Include: Strength training, Endurance training, Postural training, Flexibilty training, Passive ROM, Active ROM and Scapular Strength/Stabilization For the Purpose of:: To decrease pain, To increase ROM and To improve muscle performance and motor function Cryotherapy (ice pack, ice massage): Yes For the Purpose of:: To decrease pain Text: Thank you for the opportunity to evaluate your patient. For Medicare and Medicare HMO plans, please review the plan of care and approve it. It will need to be FAXED BACK to us at [phone] for Medicare purposes. For Medicare only, by signing this I certify the plan of care. Please let me know if there are questions or concerns regarding this plan of care. Physician Signature: Date:
--- NOTE | 2024-12-28 15:09 | HP.PTDCSUM ---
Discharge Summary D/C summary: It has been my pleasure to treat GISELA FLORENTINO referred by Dr. Warner Christine MD, with the diagnosis of R clavicle Fx 11/13/24 for a total of 5 visit(s). Discharge Date: Please see the following information for a summary of their discharge status. Subjective Subjective: I am feeling much better overall. is pleased with progress Pain R clavicle: Pain Intensity (Out of 10): 2 Overall Improvement % Improvement: 95 Objective Objective/Function: R shoulder pain 1-07/05 R shoulder MMT: flex= 8, abd= 14, ER= 9, IR= 9 b#F R shoulder ROM: flex= 145, abd= 120, ER= 50, IR= equal compared bilaterally Pt is I with HEP Goals Goal 1:: Decrease R shoulder pain x 50% to aid with sleep Goal 2:: Increase L shoulder flexion and abduction ROM x 30 degrees to aid with overhead activity Goal 3:: Increase R shoulder strength to equal 90 % L shoulder strength to aid with IADL's Goal 4:: I with HEP Plan Plan: Discharge to HEP D/C Information d/c sentence: If there are questions or concerns regarding this patient's physical therapy, please feel free to call me at [phone]. Thank you for the referral of this patient. Sincerely, Ant Haynes, PT, ATC Balance/Gait/Functional tests Balance/Special Test Scores Quick DASH Score: 9.0900 Improvement % Improvement: 95
== END 2024-12-28 19:00 | disposition home or self-care (01) ==
LOC: PT 14:30
PROVIDERS: PCP Internal Medicine; Referring Provider Orthopaedic Surgery Sports Medicine; Visit Provider Orthopaedic Surgery Sports Medicine
DX: S42.001D Fracture of unspecified part of right clavicle, subsequent encounter for fracture with routine healing (principal)
CPT/HCPCS: 97110; 97161; 97530

== ENCOUNTER → 2025-05-11 | Outpatient (CLI) | payer MEDICARE, SELFPAY ==
--- NOTE | 2025-05-11 08:30 | BI_ITS ---
EXAM: SCRN MAMM (CAD)W/DANA BILAT DATE: 05/11/2025 CLINICAL HISTORY: F, Age 75 y/o , BREAST CANCER SCREENING Personal history of breast cancer. Mother with breast cancer. History of prior left lumpectomy. TECHNIQUE: Procedure Code: [id number] Modality: MG Procedure: SCRN MAMM (CAD)W/DANA BILAT COMPARISON: Prior exam(s) dated May 10, 2024.. FINDINGS: TISSUE DENSITY: There are scattered areas of fibroglandular density. Bilateral Breast Mammographic Findings: No significant masses, calcifications or other abnormalities are identified. Stable architectural distortion in the deep central portion of the right breast most likely secondary to prior surgical intervention. No suspicious masses, areas of developing architectural distortion, or suspicious calcifications. There has been no significant interval change. BI/SCRN MAMM (CAD)W/DANA BILAT IMPRESSION: Stable bilateral screening mammogram. OVERALL FINAL ASSESSMENT BI-RADS 2: BENIGN RECOMMENDATION: Routine annual follow-up in 1 Year Additional Recommendation none A letter with findings and recommendations will be mailed to the patient. Reading Location: [id number]
== END | disposition home or self-care (01) ==
LOC: OPBI 07:54
PROVIDERS: PCP Internal Medicine; Referring Provider Obstetrics & Gynecology; Visit Provider Obstetrics & Gynecology
DX: Z12.31 Encounter for screening mammogram for malignant neoplasm of breast (principal)
CPT/HCPCS: 77063; 77067